=== PATIENT | female | born 1940 | race Caucasian/White ===

== ENCOUNTER 2018-07-15 20:32 | Inpatient (IN) | payer MEDICARE ==
[2018-07-15] MEDS ORDERED: SODIUM CHLORIDE 0.9% 1,000 ML IV STA (21:14)
--- NOTE | 2018-07-15 21:19 | ED ---
General Adult HPI - General Chief complaint: Dizziness Stated complaint: Fall Time Seen by Provider: 07/15/18 21:19 Source: patient Mode of arrival: EMS Limitations: physical limitation - Related Data Home Medications Medication Instructions Recorded Confirmed Acetaminophen with Codeine 0.5 - 1 tab PO BID PRN 07/15/18 07/15/18 [Tylenol w/codeine #3] Allergies Allergy/AdvReac Type Severity Reaction Status Date / Time No Known Allergies Allergy Verified 07/15/18 21:46 Review of Systems ROS Statement: Those systems with pertinent positive or pertinent negative responses have been documented in the HPI. ROS Other: All systems not noted in ROS Statement are negative. Past Medical History Past Medical History: No Reported History History of Any Multi-Drug Resistant Organisms: None Reported Past Surgical History: Orthopedic Surgery Past Alcohol Use History: None Reported Past Drug Use History: None Reported General Exam Limitations: physical limitation Course Vital Signs 07/15/18 20:42 Temperature 98.9 F Pulse Rate 88 Respiratory 18 Rate Blood Pressure 154/96 O2 Sat by Pulse 97 Oximetry Medical Decision Making - Medical Decision Making Dictation was produced using [employer] dictation software. please excuse any grammatical, word or spelling errors. Chief Complaint: 78-year-old female who reports no significant past medical history presents after fall. History of Present Illness: Patient reports that she has had multiple falls over the last several weeks. She states that today she was fixing food for her dog in a standing position at the counter. She did notice that she was falling backwards. She reports that she's been having episodes of dizziness. She fell backward and struck her head. Allegedly this event happened unwitnessed. Patient denies any loss of consciousness. Patient has any blood thinners. Patient states that she's been having intermittent episodes of dizziness. She states that she has pain all over her body. Patient did suffer a laceration to her head. She is brought in by EMS. Patient feels well at this time. Denies any chest pain or shortness of breath. Patient denies any prodromal symptoms prior to the fall. The ROS documented in this emergency department record has been reviewed and confirmed by me. Those systems with pertinent positive or negative responses have been documented in the HPI. All other systems are other negative and/or noncontributory. PHYSICAL EXAM: General Impression: Alert and oriented x3, not in acute distress HEENT: 1 cm laceration to the right occiput, no active hemorrhage extra-ocular movements intact, pupils equal and reactive to light bilaterally, mucous membranes moist. Cardiovascular: Heart regular rate and rhythm, S1&S2 audible, no murmurs, rubs or gallops Chest: Lungs clear to auscultation bilaterally, no rhonchi, no wheeze, no rales Abdomen: Mild tenderness to palpation to the right upper or right lower quadrant , mild tympany to percussion Musculoskeletal: Pulses present and equal in all extremities, no peripheral edema Motor: Power 5/5 bilaterally, no focal deficits noted Neurological: CN II-XII grossly intact, no focal motor or sensory deficits noted Skin: Intact with no visualized rashes Psych: Normal affect and mood ED course: 78-year-old female presents after fall. She does have a laceration to her head. Vital signs upon arrival are within acceptable limits.Physical examination shows laceration to the head. Patient also appears dehydrated. Laboratory evaluation obtained. Leukocytosis of 15.9, coag panel unremarkable. Metabolic panel shows dehydration. Sodium 134. Glucose 119. Cardiac enzymes negative. Urinalysis shows findings to suggest urinary tract infection. Abdominal x-ray shows findings to suggest a corneal calculi in the right renal draining system. There is also findings of colitis. Computed tomography scan of the head and C-spine unremarkable. Chest x-ray is negative. Given history of fall and staghorn calculi and dehydration and have patient admitted. She'll be admitted to Dr. Stover. Patient given antibiotics, tetanus was updated. Laceration of the scalp was repaired using glenn after irrigation. Patient started on intravenous fluids. Urology CONSULTATION. EKG interpretation: Ventricular rate 98, normal sinus rhythm, DC interval 142, QRS 92, QTc 454. No DC prolongation, no QTC prolongation, no ST or T-wave changes noted. Overall, this EKG is unremarkable - Lab Data Result diagrams: 07/15/18 21:34 07/15/18 21:34 Lab Results 07/15/18 07/15/18 07/15/18 Range/Units 21:34 21:34 21:34 WBC 15.9 H (3.8-10.6) k/uL RBC 5.31 (3.80-5.40) m/uL Hgb 14.7 (11.4-16.0) gm/dL Hct 44.5 (34.0-46.0) % MCV 83.9 (80.0-100.0) fL MCH 27.7 (25.0-35.0) pg MCHC 33.0 (31.0-37.0) g/dL RDW 14.1 (11.5-15.5) % Plt Count 400 (150-450) k/uL Neutrophils % 86 % Lymphocytes % 6 % Monocytes % 6 % Eosinophils % 0 % Basophils % 0 % Neutrophils # 13.8 H (1.3-7.7) k/uL Lymphocytes # 0.9 L (1.0-4.8) k/uL Monocytes # 1.0 (0-1.0) k/uL Eosinophils # 0.0 (0-0.7) k/uL Basophils # 0.0 (0-0.2) k/uL PT (9.0-12.0) sec INR (<1.2) Sodium 134 L (137-145) mmol/L Potassium 3.7 (3.5-5.1) mmol/L Chloride 98 (98-107) mmol/L Carbon Dioxide 24 (22-30) mmol/L Anion Gap 12 mmol/L BUN 28 H (7-17) mg/dL Creatinine 0.66 (0.52-1.04) mg/dL Est GFR (CKD-EPI)AfAm >90 (>60 ml/min/1.73 sqM) Est GFR (CKD-EPI)NonAf 84 (>60 ml/min/1.73 sqM) Glucose 119 H (74-99) mg/dL Plasma Lactic Acid Evangelist 1.7 (0.7-2.0) mmol/L Calcium 8.7 (8.4-10.2) mg/dL Magnesium 2.1 (1.6-2.3) mg/dL Total Bilirubin 0.9 (0.2-1.3) mg/dL AST 21 (14-36) U/L ALT 20 (9-52) U/L Alkaline Phosphatase 74 (38-126) U/L Creatine Kinase 37 (30-135) U/L Troponin I (0.000-0.034) ng/mL Total Protein 6.0 L (6.3-8.2) g/dL Albumin 3.2 L (3.5-5.0) g/dL Lipase 15 L (23-300) U/L Urine Color Urine Appearance (Clear) Urine pH (5.0-8.0) Ur Specific Deshler (1.001-1.035) Urine Protein (Negative) Urine Glucose (UA) (Negative) Urine Ketones (Negative) Urine Blood (Negative) Urine Nitrite (Negative) Urine Bilirubin (Negative) Urine Urobilinogen (<2.0) mg/dL Ur Leukocyte Esterase (Negative) Urine RBC (0-5) /hpf Urine WBC (0-5) /hpf Ur Squamous Epith Cells (0-4) /hpf Urine Bacteria (None) /hpf Hyaline Casts (0-2) /lpf Urine Mucus (None) /hpf 07/15/18 07/15/18 07/15/18 Range/Units 21:34 21:34 22:34 WBC (3.8-10.6) k/uL RBC (3.80-5.40) m/uL Hgb (11.4-16.0) gm/dL Hct (34.0-46.0) % MCV (80.0-100.0) fL MCH (25.0-35.0) pg MCHC (31.0-37.0) g/dL RDW (11.5-15.5) % Plt Count (150-450) k/uL Neutrophils % % Lymphocytes % % Monocytes % % Eosinophils % % Basophils % % Neutrophils # (1.3-7.7) k/uL Lymphocytes # (1.0-4.8) k/uL Monocytes # (0-1.0) k/uL Eosinophils # (0-0.7) k/uL Basophils # (0-0.2) k/uL PT 14.8 H (9.0-12.0) sec INR 1.5 H (<1.2) Sodium (137-145) mmol/L Potassium (3.5-5.1) mmol/L Chloride (98-107) mmol/L Carbon Dioxide (22-30) mmol/L Anion Gap mmol/L BUN (7-17) mg/dL Creatinine (0.52-1.04) mg/dL Est GFR (CKD-EPI)AfAm (>60 ml/min/1.73 sqM) Est GFR (CKD-EPI)NonAf (>60 ml/min/1.73 sqM) Glucose (74-99) mg/dL Plasma Lactic Acid Evangelist (0.7-2.0) mmol/L Calcium (8.4-10.2) mg/dL Magnesium (1.6-2.3) mg/dL Total Bilirubin (0.2-1.3) mg/dL AST (14-36) U/L ALT (9-52) U/L Alkaline Phosphatase (38-126) U/L Creatine Kinase (30-135) U/L Troponin I <0.012 (0.000-0.034) ng/mL Total Protein (6.3-8.2) g/dL Albumin (3.5-5.0) g/dL Lipase (23-300) U/L Urine Color Light Red Urine Appearance Cloudy H (Clear) Urine pH 6.0 (5.0-8.0) Ur Specific Deshler 1.020 (1.001-1.035) Urine Protein 1+ H (Negative) Urine Glucose (UA) Negative (Negative) Urine Ketones 2+ H (Negative) Urine Blood Moderate H (Negative) Urine Nitrite Negative (Negative) Urine Bilirubin 1+ H (Negative) Urine Urobilinogen 3.0 (<2.0) mg/dL Ur Leukocyte Esterase Large H (Negative) Urine RBC >182 H (0-5) /hpf Urine WBC 48 H (0-5) /hpf Ur Squamous Epith Cells 4 (0-4) /hpf Urine Bacteria Occasional H (None) /hpf Hyaline Casts 1 (0-2) /lpf Urine Mucus Rare H (None) /hpf Disposition Clinical Impression: Sepsis secondary to UTI, Fall Disposition: ADMITTED IP TO THIS HOSP Condition: Fair Referrals: Ford Stover MD [Primary Care Provider] - 1-2 days Decision Time: 23:34
[2018-07-15 21:50] LABS: Basophils % (A) 0 %; Eosinophils % (A) 0 %; HCT 44.5 % (34.0-46.0); HGB 14.7 gm/dL (11.4-16.0); Lymphocytes # (A) 0.9 k/uL (1.0-4.8); Lymphocytes % (A) 6 %; MCH 27.7 pg (25.0-35.0); MCV 83.9 fL (80.0-100.0); Mean Platelet Volume 7.2; Monocytes % (A) 6 %; Neutrophils # (A) 13.8 k/uL (1.3-7.7); Neutrophils % (A) 86 %; Platelet Count 400 k/uL (150-450); RBC 5.31 m/uL (3.80-5.40); RDW 14.1 % (11.5-15.5); WBC 15.9 k/uL (3.8-10.6)
[2018-07-15 21:55] LABS: INR 1.5 (<1.2); Prothrombin Time 14.8 sec (9.0-12.0)
[2018-07-15 21:59] LABS: ALT 20 U/L (9-52); AST 21 U/L (14-36); Albumin 3.2 g/dL (3.5-5.0); Alkaline Phosphatase 74 U/L (38-126); Anion Gap 12 mmol/L; Blood Urea Nitrogen 28 mg/dL (7-17); Calcium 8.7 mg/dL (8.4-10.2); Carbon Dioxide 24 mmol/L (22-30); Chloride 98 mmol/L (98-107); Creatine Kinase 37 U/L (30-135); Glucose 119 mg/dL (74-99); Lipase 15 U/L (23-300); Magnesium 2.1 mg/dL (1.6-2.3); Potassium 3.7 mmol/L (3.5-5.1); Sodium 134 mmol/L (137-145); Total Bilirubin 0.9 mg/dL (0.2-1.3)
--- NOTE | 2018-07-15 22:10 | XR ---
EXAMINATION TYPE: XR chest 2V DATE OF EXAM: 07/15/2018 COMPARISON: NONE HISTORY: Dizziness TECHNIQUE: Frontal and lateral views of the chest are obtained. FINDINGS: There is slight coarsening of interstitial markings at the lung bases. There is no heart f ailure. Heart size is normal. Thoracic aorta is atheromatous. Bony thorax is intact. IMPRESSION: Mild pulmonary fibrosis. No heart failure.
--- NOTE | 2018-07-15 22:15 | XR ---
EXAMINATION TYPE: XR abdomen 1V DATE OF EXAM: 07/15/2018 COMPARISON: None HISTORY: Constipation TECHNIQUE: Single view FINDINGS: There appears to be diffuse wall thickening of the large bowel especially the descending co satya. There is gas and fecal material down to the rectum. I do not see evidence for free air. There is some calcification over the right kidney. There is probably a large staghorn calculus. IMPRESSION: Colonic wall thickening suggestive of colitis. No free air. Staghorn right renal calculus . Multiple bilateral renal calculi.
--- NOTE | 2018-07-15 22:46 | CT ---
EXAMINATION TYPE: CT brain david etienne DATE OF EXAM: 07/15/2018 COMPARISON: None HISTORY: fall headache. Neck pain CT DLP: 1281.8 mGycm Automated exposure control for dose reduction was used. TECHNIQUE: CT scan of the head and cervical spine are performed without contrast. FINDINGS: There is cerebral cortical atrophy. There is no mass effect nor midline shift. There is n o sign of intracranial hemorrhage. The calvarium is intact. There is mild white matter small areas of hypodensity consistent with chronic small vessel ischemia. There is some straightening of the cervical spine and slight kyphotic curvature. There is degenerativ e disc space narrowing at C5-6 C6-7 with spurring. There is mild hypertrophic facet arthropathy. The skull base is intact. There is no evidence of a fracture. IMPRESSION: Cerebral atrophy. Minimal chronic small vessel ischemia. No acute intracranial abnormality. Spondylotic changes in the lower cervical spine. No fracture seen.
[2018-07-15 22:51] LABS: Appearance,Urine Cloudy (Clear); Bacteria,Urine Occasional /hpf; Bilirubin,Urine 1+ (Negative); Blood,Urine Moderate (Negative); Color,Urine Light Red; Glucose,Urine (UA) Negative (Negative); Hyaline Casts,Urine 1 /lpf (0-2); Ketones,Urine 2+ (Negative); Leukocyte Esterase,Urine Large (Negative); Mucus,Urine Rare /hpf; Nitrite,Urine Negative (Negative); Protein,Urine 1+ (Negative); RBC,Urine >182 /hpf (0-5); Squamous Epithelial Cell,Urine 4 /hpf (0-4); WBC,Urine 48 /hpf (0-5)
[2018-07-15] MEDS ORDERED: DIPH,PERTUS(ACELL)TETVAC-LF 0.5 ML VIAL IM ONE (23:27)
[2018-07-15] MEDS ORDERED: NALOXONE 0.4 MG/ML 1 ML VIAL IV PRN (23:34)
[2018-07-16] MEDS: SODIUM CHLORIDE 0.9% 1,000 ML IV SCH ×2 (02:20→11:18)
--- NOTE | 2018-07-16 08:48 | P.GSCN ---
History of Present Illness Consult date: 07/16/18 History of present illness: This is a pleasant 78-year-old female who came to the hospital apparently with dizziness and a fall. She was evaluated and was felt to have urinary tract infection with sepsis as well as a possible staghorn calculus in the right kidney. She is admitted for further evaluation and consultation by us. She is interviewed at the bedside. She states for the last couple months she has had right flank pain and abdominal discomfort a lot of gas and just hasn't felt well. She has slept a lot. She denies fever or chills. She states that she's had wine colored urine for the last couple months. She denies previous stones. She is not aware previous infections. Urinalysis appears to be infected. She had a KUB showing a large, greater than 2 cm right renal pelvic stone with some small satellites in the lower pole of the right kidney. Review of Systems - Constitutional Reports chronic pain, Reports fatigue, Reports lethargy - Gastrointestinal Reports abdominal pain, Reports bloating - Genitourinary Genitourinary: Reports as per HPI - Musculoskeletal Reports frequent falls, Reports gait dysfunction Past Medical History Past Medical History: No Reported History History of Any Multi-Drug Resistant Organisms: None Reported Past Surgical History: Orthopedic Surgery Past Anesthesia/Blood Transfusion Reactions: No Reported Reaction Past Psychological History: No Psychological Hx Reported Smoking Status: Former smoker Past Alcohol Use History: None Reported Past Drug Use History: None Reported - Past Family History Father Family Medical History: Chest Pain / Angina, Myocardial Infarction ([place]) Mother Family Medical History: Chest Pain / Angina Medications and Allergies Home Medications Medication Instructions Recorded Confirmed Type Acetaminophen with Codeine 0.5 - 1 tab PO BID PRN 07/15/18 07/15/18 History [Tylenol w/codeine #3] Allergies Allergy/AdvReac Type Severity Reaction Status Date / Time No Known Allergies Allergy Verified 07/15/18 21:46 Surgical - Exam Vital Signs Temp Pulse Resp BP Pulse Ox 98.9 F 88 18 154/96 97 07/15/18 20:42 07/15/18 20:42 07/15/18 20:42 07/15/18 20:42 07/15/18 20:42 - General moderate distress - Eyes PERRL - ENT no hearing loss - Neck no masses, trachea midline - Respiratory normal expansion, normal respiratory effort - Cardiovascular Rhythm: regular - Abdomen Abdomen: soft, tender - Integumentary no rash - Neurologic normal coordination, normal sensation - Musculoskeletal normal posture - Psychiatric oriented to time, oriented to person, oriented to place, speech is normal, memory intact Results - Labs 07/15/18 21:34 07/15/18 21:34 Abnormal Lab Results - Last 24 Hours (Table) 07/15/18 07/15/18 07/15/18 Range/Units 21:34 21:34 21:34 WBC 15.9 H (3.8-10.6) k/uL Neutrophils # 13.8 H (1.3-7.7) k/uL Lymphocytes # 0.9 L (1.0-4.8) k/uL PT 14.8 H (9.0-12.0) sec INR 1.5 H (<1.2) Sodium 134 L (137-145) mmol/L BUN 28 H (7-17) mg/dL Glucose 119 H (74-99) mg/dL Total Protein 6.0 L (6.3-8.2) g/dL Albumin 3.2 L (3.5-5.0) g/dL Lipase 15 L (23-300) U/L Urine Appearance (Clear) Urine Protein (Negative) Urine Ketones (Negative) Urine Blood (Negative) Urine Bilirubin (Negative) Ur Leukocyte Esterase (Negative) Urine RBC (0-5) /hpf Urine WBC (0-5) /hpf Urine Bacteria (None) /hpf Urine Mucus (None) /hpf 07/15/18 Range/Units 22:34 WBC (3.8-10.6) k/uL Neutrophils # (1.3-7.7) k/uL Lymphocytes # (1.0-4.8) k/uL PT (9.0-12.0) sec INR (<1.2) Sodium (137-145) mmol/L BUN (7-17) mg/dL Glucose (74-99) mg/dL Total Protein (6.3-8.2) g/dL Albumin (3.5-5.0) g/dL Lipase (23-300) U/L Urine Appearance Cloudy H (Clear) Urine Protein 1+ H (Negative) Urine Ketones 2+ H (Negative) Urine Blood Moderate H (Negative) Urine Bilirubin 1+ H (Negative) Ur Leukocyte Esterase Large H (Negative) Urine RBC >182 H (0-5) /hpf Urine WBC 48 H (0-5) /hpf Urine Bacteria Occasional H (None) /hpf Urine Mucus Rare H (None) /hpf Diabetes panel 07/15/18 Range/Units 21:34 Sodium 134 L (137-145) mmol/L Potassium 3.7 (3.5-5.1) mmol/L Chloride 98 (98-107) mmol/L Carbon Dioxide 24 (22-30) mmol/L BUN 28 H (7-17) mg/dL Creatinine 0.66 (0.52-1.04) mg/dL Glucose 119 H (74-99) mg/dL Calcium 8.7 (8.4-10.2) mg/dL AST 21 (14-36) U/L ALT 20 (9-52) U/L Alkaline Phosphatase 74 (38-126) U/L Total Protein 6.0 L (6.3-8.2) g/dL Albumin 3.2 L (3.5-5.0) g/dL Calcium panel 07/15/18 Range/Units 21:34 Calcium 8.7 (8.4-10.2) mg/dL Albumin 3.2 L (3.5-5.0) g/dL Pituitary panel 07/15/18 Range/Units 21:34 Sodium 134 L (137-145) mmol/L Potassium 3.7 (3.5-5.1) mmol/L Chloride 98 (98-107) mmol/L Carbon Dioxide 24 (22-30) mmol/L BUN 28 H (7-17) mg/dL Creatinine 0.66 (0.52-1.04) mg/dL Glucose 119 H (74-99) mg/dL Calcium 8.7 (8.4-10.2) mg/dL Adrenal panel 07/15/18 Range/Units 21:34 Sodium 134 L (137-145) mmol/L Potassium 3.7 (3.5-5.1) mmol/L Chloride 98 (98-107) mmol/L Carbon Dioxide 24 (22-30) mmol/L BUN 28 H (7-17) mg/dL Creatinine 0.66 (0.52-1.04) mg/dL Glucose 119 H (74-99) mg/dL Calcium 8.7 (8.4-10.2) mg/dL Total Bilirubin 0.9 (0.2-1.3) mg/dL AST 21 (14-36) U/L ALT 20 (9-52) U/L Alkaline Phosphatase 74 (38-126) U/L Total Protein 6.0 L (6.3-8.2) g/dL Albumin 3.2 L (3.5-5.0) g/dL - Imaging Abdominal x-ray: report reviewed, image reviewed Assessment and Plan Assessment: Impression: Probable urinary tract infection with sepsis., Probable infected large renal stone right. Recommendations: I will get a computed tomography scan, kidney stone protocol to further assess the stone in appearance of the kidney. She most likely need a right percutaneous nephrostolithotomy at a later date. She'll need her infection treated before this gets done. I will follow this patient with you.
[2018-07-16] MEDS ORDERED: PANTOPRAZOLE 40 MG/10 ML VIAL IV SCH (09:00)
--- NOTE | 2018-07-16 09:38 | CT ---
EXAMINATION TYPE: CT abdomen pelvis wo con DATE OF EXAM: 07/16/2018 COMPARISON: None HISTORY: Right kidney stone, abdominal pain CT DLP: 923 mGycm Automated exposure control for dose reduction was used. TECHNIQUE: Helical acquisition of images was performed from the lung bases through the pelvis. FINDINGS: LUNG BASES: Subsegmental changes at the lung bases to scar or atelectasis. Central basilar mild bronc hiectasis noted greater on the right. LIVER/GB: The gallbladder appears to be markedly distended measuring 11 cm in greatest dimension. No definite gallstone. PANCREAS: No significant abnormality is seen. SPLEEN: No significant abnormality is seen. ADRENALS: No significant abnormality is seen. KIDNEYS: There are at least 11 calcifications noted on the left measuring 5 mm or less. Greater than 10 calcifications on the right with a large right renal pelvic calcification measuring 1 .4 cm. Mild hydronephrosis noted. URINARY BLADDER: No significant abnormality is seen. ADENOPATHY: None visualized. OSSEOUS STRUCTURES: Hypertrophic and degenerative disc disease noted. Grade 1 spondylolisthesis L4 o n L5 with multilevel facet arthropathy. Arthropathy of the hips. BOWEL: There is marked distention of the colon to the level the rectosigmoid junction. No contrast w as administered exam is limited. There is bowel wall thickening of the left colon and transverse colo n. Portions of the right colon also demonstrated mildly thickened wall. Correlate for colitis. Recomm end direct visualization to assess the rectosigmoid junction to assess for mucosal lesion. Partial ob structive pattern in the differential diagnosis. Report called to the patient's nurse. 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 Within the spinal canal paracentrally to the right IMPRESSION: 1. There is marked colonic distention to level of the sigmoid colon. Lack of contrast limits assessme nt of the bowel wall although there does appear to be diffusely mildly thickened bowel wall. Could be en the basis of a colitis. Partial obstructive pattern not excluded correlate clinically. Mucosal les ion not excluded. Report called to patient's nurse. 2. Numerous bilateral renal calculi as discussed above with mild right-sided hydronephrosis. 3. Gallbladder hydrops measuring approximately 11 cm with no definite gallstone.
[2018-07-16] MEDS ORDERED: PEG 3350-NA SULF,BICARB,CL/KCL 4,000 ML BOTTLE PO ONE (12:31)
--- NOTE | 2018-07-16 13:25 | P.GSCN ---
History of Present Illness Consult date: 07/16/18 Reason for Consult: ab CT results Requesting physician: Ford Stover History of present illness: CHIEF COMPLAINT: Abnormal CT results HISTORY OF PRESENT ILLNESS: 78-year-old female who is admitted to the hospital for dehydration, UTI, sepsis. She was found to have a large right kidney stone. General surgery was consulted due to abnormal CT. Patient examined at the bedside. She reports generalized abdominal pain, worse on the right side. Reports abdominal pain has been present for the last 4 weeks. She denies nausea or vomiting. She is tolerating PO intake. She reports that she does not think she has had a bowel movement for the entire month of June, which is doubtful based upon clinical examination. Patient reports in the past she was scheduled to undergo colonoscopy but it was canceled due to inadequate bowel prep, and has not attempted to undergo another colonoscopy since that time. Patient does not recall how long ago this was. PAST MEDICAL HISTORY: See list. PAST SURGICAL HISTORY: See list. MEDICATIONS: See list. ALLERGIES: See list. SOCIAL HISTORY: No illicit drug use. REVIEW OF SYSTEMS: CONSTITUTIONAL: Denies fever or chills. HEENT: Denies blurred vision, vision changes, or eye pain. Denies hemoptysis ENDOCRINE: Denies heat or cold intolerance. CARDIOVASCULAR: Denies chest pain or pressure. RESPIRATORY: No shortness of breath. GASTROINTESTINAL: Reports generalized abdominal pain, worse on right side. Denies nausea or vomiting. NEURO: Denies history of seizures. PSYCH: No depression or suicidal ideation HEMATOLOGIC: Denies bleeding disorders. LYMPHATIC: The patient denies any lumps and bumps around the neck. GENITOURINARY: Denies any blood in urine or increased urinary frequency. MUSCULOSKELETAL: Denies myalgias. Denies joint swelling. Denies decreased range of motion beyond patients baseline. SKIN: Denies pruitis. Denies rash. PHYSICAL EXAM: VITAL SIGNS: Currently stable. GENERAL: Well-developed in no acute distress. HEENT: No sclera icterus. Extraocular movements grossly intact. Moist buccal mucosa. Head is atraumatic, normocephalic. Hears conversational speech. No nasal drainage. NECK: Supple without lymphadenopathy. CHEST: Non-labored respirations and equal bilateral excursions. CARDIOVASCULAR: Regular rate with regular rhythm. Palpable 2+ radial pulses. ABDOMEN: Soft. Nondistended. Mild tenderness upon palpation of all 4 quadrants , most severe in right upper and lower quadrant MUSCULOSKELETAL: No clubbing, cyanosis or edema. NEUROLOGIC: No focal or lateralizing signs. Cranial nerves II through XII grossly intact. PSYCH: Alert and oriented to person, place and time. SKIN: Well perfused. Good skin turgor. IMAGING: CT abdomen and pelvis: Marked colonic distention to the level of the sigmoid colon. Echo contrast limits assessment of the bowel wall or tenderness. DP diffusely mildly thickened bowel wall. Could be in the basis of colitis. Partial obstructive pattern not excluded. Numerous bilateral renal calculi with mild right sided hydronephrosis. Gallbladder hydrops measuring measuring 11 cm with no definite gallstone. ASSESSMENT: 1. Abdominal pain 2. Colonic distention with mildly thickened bowel wall, possible colitis 3. 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 Large right renal calculi with UTI 5. Leukocytosis 6. Elevated INR, not on anticoagulation PLAN: 1. Patient may have clear liquid diet today. NPO at midnight 2. Colonoscopy tomorrow with Dr. Baker. Golytely prep today. 3. HIDA scan to evaluate gallbladder 4. Repeat INR Nurse practitioner note has been reviewed by physician. Signing provider agrees with the documented findings, assessment, and plan of care. Past Medical History Past Medical History: No Reported History History of Any Multi-Drug Resistant Organisms: None Reported Past Surgical History: Orthopedic Surgery Past Anesthesia/Blood Transfusion Reactions: No Reported Reaction Past Psychological History: No Psychological Hx Reported Smoking Status: Former smoker Past Alcohol Use History: None Reported Past Drug Use History: None Reported - Past Family History Father Family Medical History: Chest Pain / Angina, Myocardial Infarction ([place]) Mother Family Medical History: Chest Pain / Angina Medications and Allergies Home Medications Medication Instructions Recorded Confirmed Type Acetaminophen with Codeine 0.5 - 1 tab PO BID PRN 07/15/18 07/15/18 History [Tylenol w/codeine #3] Allergies Allergy/AdvReac Type Severity Reaction Status Date / Time No Known Allergies Allergy Verified 07/15/18 21:46 Surgical - Exam Vital Signs Temp Pulse Resp BP Pulse Ox 98.9 F 88 18 154/96 97 07/15/18 20:42 07/15/18 20:42 07/15/18 20:42 07/15/18 20:42 07/15/18 20:42 Results - Labs 07/15/18 21:34 07/15/18 21:34 Abnormal Lab Results - Last 24 Hours (Table) 07/15/18 07/15/18 07/15/18 Range/Units 21:34 21:34 21:34 WBC 15.9 H (3.8-10.6) k/uL Neutrophils # 13.8 H (1.3-7.7) k/uL Lymphocytes # 0.9 L (1.0-4.8) k/uL PT 14.8 H (9.0-12.0) sec INR 1.5 H (<1.2) Sodium 134 L (137-145) mmol/L BUN 28 H (7-17) mg/dL Glucose 119 H (74-99) mg/dL Total Protein 6.0 L (6.3-8.2) g/dL Albumin 3.2 L (3.5-5.0) g/dL Lipase 15 L (23-300) U/L Urine Appearance (Clear) Urine Protein (Negative) Urine Ketones (Negative) Urine Blood (Negative) Urine Bilirubin (Negative) Ur Leukocyte Esterase (Negative) Urine RBC (0-5) /hpf Urine WBC (0-5) /hpf Urine Bacteria (None) /hpf Urine Mucus (None) /hpf 07/15/18 Range/Units 22:34 WBC (3.8-10.6) k/uL Neutrophils # (1.3-7.7) k/uL Lymphocytes # (1.0-4.8) k/uL PT (9.0-12.0) sec INR (<1.2) Sodium (137-145) mmol/L BUN (7-17) mg/dL Glucose (74-99) mg/dL Total Protein (6.3-8.2) g/dL Albumin (3.5-5.0) g/dL Lipase (23-300) U/L Urine Appearance Cloudy H (Clear) Urine Protein 1+ H (Negative) Urine Ketones 2+ H (Negative) Urine Blood Moderate H (Negative) Urine Bilirubin 1+ H (Negative) Ur Leukocyte Esterase Large H (Negative) Urine RBC >182 H (0-5) /hpf Urine WBC 48 H (0-5) /hpf Urine Bacteria Occasional H (None) /hpf Urine Mucus Rare H (None) /hpf Diabetes panel 07/15/18 Range/Units 21:34 Sodium 134 L (137-145) mmol/L Potassium 3.7 (3.5-5.1) mmol/L Chloride 98 (98-107) mmol/L Carbon Dioxide 24 (22-30) mmol/L BUN 28 H (7-17) mg/dL Creatinine 0.66 (0.52-1.04) mg/dL Glucose 119 H (74-99) mg/dL Calcium 8.7 (8.4-10.2) mg/dL AST 21 (14-36) U/L ALT 20 (9-52) U/L Alkaline Phosphatase 74 (38-126) U/L Total Protein 6.0 L (6.3-8.2) g/dL Albumin 3.2 L (3.5-5.0) g/dL Calcium panel 07/15/18 Range/Units 21:34 Calcium 8.7 (8.4-10.2) mg/dL Albumin 3.2 L (3.5-5.0) g/dL Pituitary panel 07/15/18 Range/Units 21:34 Sodium 134 L (137-145) mmol/L Potassium 3.7 (3.5-5.1) mmol/L Chloride 98 (98-107) mmol/L Carbon Dioxide 24 (22-30) mmol/L BUN 28 H (7-17) mg/dL Creatinine 0.66 (0.52-1.04) mg/dL Glucose 119 H (74-99) mg/dL Calcium 8.7 (8.4-10.2) mg/dL Adrenal panel 07/15/18 Range/Units 21:34 Sodium 134 L (137-145) mmol/L Potassium 3.7 (3.5-5.1) mmol/L Chloride 98 (98-107) mmol/L Carbon Dioxide 24 (22-30) mmol/L BUN 28 H (7-17) mg/dL Creatinine 0.66 (0.52-1.04) mg/dL Glucose 119 H (74-99) mg/dL Calcium 8.7 (8.4-10.2) mg/dL Total Bilirubin 0.9 (0.2-1.3) mg/dL AST 21 (14-36) U/L ALT 20 (9-52) U/L Alkaline Phosphatase 74 (38-126) U/L Total Protein 6.0 L (6.3-8.2) g/dL Albumin 3.2 L (3.5-5.0) g/dL
--- NOTE | 2018-07-16 14:18 | NM ---
EXAMINATION TYPE: NM hepatobiliary w EF DATE OF EXAM: 07/16/2018 COMPARISON: CT abdomen and pelvis earlier today. HISTORY: Hydropic gallbladder, abnormal CT. TECHNIQUE: After the intravenous administration of 4.72 mCi Tc 99m Mebrofenin hepatobiliary scintigra phy is performed. Immediate images post injection. FINDINGS: There is satisfactory initial accumulation of tracer by the liver. The gallbladder is visualized wit hin 30 minutes. The small bowel activity is noted within 45 minutes. At one hour 8 ounces of oral e nsure plus is given to mimic CCK and gallbladder ejection fraction is calculated at 23 %, diminished from the normal range. Patient also became symptomatic with increased abdominal pain. Therefore ther e is no scintigraphic evidence of cystic or common bile duct obstruction to suggest acute cholecystit is . IMPRESSION: Ejection fraction is 23% with increased symptoms of pain, scintigraphic findings are cons istent with underlying gallbladder dyskinesia. No scintigraphic evidence for acute cholecystitis lamb kyung.
[2018-07-16 14:19] LABS: Basophils % (A) 0 %; Eosinophils % (A) 0 %; HCT 42.1 % (34.0-46.0); HGB 13.5 gm/dL (11.4-16.0); Lymphocytes # (A) 1.1 k/uL (1.0-4.8); Lymphocytes % (A) 8 %; MCH 27.1 pg (25.0-35.0); MCHC 31.9 g/dL (31.0-37.0); MCV 84.7 fL (80.0-100.0); Mean Platelet Volume 7.1; Monocytes # (A) 1.1 k/uL (0-1.0); Monocytes % (A) 8 %; Neutrophils # (A) 11.4 k/uL (1.3-7.7); Neutrophils % (A) 82 %; Platelet Count 391 k/uL (150-450); RBC 4.97 m/uL (3.80-5.40); RDW 14.4 % (11.5-15.5); WBC 13.9 k/uL (3.8-10.6)
[2018-07-16 14:26] LABS: INR 1.5 (<1.2)
[2018-07-16 14:27] LABS: Prothrombin Time 14.9 sec (9.0-12.0)
[2018-07-16 14:37] LABS: ALT 16 U/L (9-52); AST 33 U/L (14-36); Albumin 2.9 g/dL (3.5-5.0); Alkaline Phosphatase 63 U/L (38-126); Anion Gap 11 mmol/L; Blood Urea Nitrogen 23 mg/dL (7-17); Calcium 8.1 mg/dL (8.4-10.2); Carbon Dioxide 18 mmol/L (22-30); Chloride 105 mmol/L (98-107); Glucose 158 mg/dL (74-99); Sodium 134 mmol/L (137-145); Total Protein 5.7 g/dL (6.3-8.2)
[2018-07-16 14:47] LABS: Potassium 3.9 mmol/L (3.5-5.1)
[2018-07-16] MEDS: ACETAMINOPHEN TAB 325 MG TAB PO PRN (15:07)
[2018-07-17] MEDS: SODIUM CHLORIDE 0.9% 1,000 ML IV SCH ×4 (02:18→18:03)
[2018-07-17] MEDS ORDERED: PANTOPRAZOLE 40 MG TABLET PO SCH (07:30)
[2018-07-17 09:06] LABS: HCT 41.7 % (34.0-46.0); HGB 13.7 gm/dL (11.4-16.0); MCH 27.3 pg (25.0-35.0); MCHC 32.9 g/dL (31.0-37.0); MCV 82.9 fL (80.0-100.0); Mean Platelet Volume 6.4; Platelet Count 439 k/uL (150-450); RBC 5.03 m/uL (3.80-5.40)
[2018-07-17 09:08] LABS: ALT 21 U/L (9-52); AST 21 U/L (14-36); Albumin 2.8 g/dL (3.5-5.0); Alkaline Phosphatase 79 U/L (38-126); Anion Gap 8 mmol/L; Blood Urea Nitrogen 19 mg/dL (7-17); Calcium 8.3 mg/dL (8.4-10.2); Carbon Dioxide 27 mmol/L (22-30); Chloride 104 mmol/L (98-107); Glucose 145 mg/dL (74-99); Potassium 3.4 mmol/L (3.5-5.1); Sodium 139 mmol/L (137-145); Total Bilirubin 0.6 mg/dL (0.2-1.3); Total Protein 5.3 g/dL (6.3-8.2)
--- NOTE | 2018-07-17 09:58 | XR ---
EXAMINATION TYPE: XR abdomen 2V DATE OF EXAM: 07/17/2018 HISTORY: Pain. Technique: 2 views of the abdomen are submitted. Comparison: 07/15/2018 Findings: There is no convincing evidence of pneumoperitoneum. There are multiple dilated loops of small bowel are noted with air-fluid levels seen measuring up to 4.1 cm. There is distention of the right hemicolon with intraluminal debris. No mass effects are noted. Staghorn right renal calculus redemonstrated. IMPRESSION: 1. Findings suggest a distal small bowel obstruction. Persistent distention right hemicolon with intr acolonic debris.
--- NOTE | 2018-07-17 10:43 | P.PN ---
Subjective Progress Note Date: 07/17/18 Objective - Vital Signs Vital signs: Vital Signs Temp 97.8 F 07/17/18 07:00 Pulse 116 H 07/17/18 08:39 Resp 18 07/17/18 07:00 BP 163/93 07/17/18 07:00 Pulse Ox 95 07/17/18 07:00 Intake & Output 07/16/18 07/17/18 07/17/18 18:59 06:59 18:59 Intake Total 320 Balance 320 Intake: Intake, IV Titration 320 Amount Sodium Chloride 0.9% 1, 320 000 ml @ 80 mls/hr IV . [id number] [facility] Rx#:[id number] Other: Voiding Method Bedside Commode Bedside Commode # Voids 2 4 # Bowel Movements 0 # Emeses 2 - Constitutional General appearance: Present: average body habitus - EENT Eyes: Absent: abnormal pupil - Neck Neck: Absent: lymphadenopathy - Respiratory Respiratory: bilateral: CTA - Cardiovascular Rhythm: regular Abnormal Heart Sounds: Absent: S3 Gallop - Gastrointestinal General gastrointestinal: Present: tenderness - Musculoskeletal Musculoskeletal: Present: gait normal - Labs CBC & Chem 7: 07/17/18 08:22 07/17/18 08:22 Labs: Abnormal Lab Results - Last 24 Hours (Table) 07/16/18 07/16/18 07/16/18 Range/Units 13:37 13:37 13:37 WBC 13.9 H (3.8-10.6) k/uL Neutrophils # 11.4 H (1.3-7.7) k/uL Monocytes # 1.1 H (0-1.0) k/uL PT 14.9 H (9.0-12.0) sec INR 1.5 H (<1.2) Sodium 134 L (137-145) mmol/L Potassium (3.5-5.1) mmol/L Carbon Dioxide 18 L (22-30) mmol/L BUN 23 H (7-17) mg/dL Glucose 158 H (74-99) mg/dL Calcium 8.1 L (8.4-10.2) mg/dL Total Protein 5.7 L (6.3-8.2) g/dL Albumin 2.9 L (3.5-5.0) g/dL 07/17/18 07/17/18 Range/Units 08:22 08:22 WBC 12.0 H (3.8-10.6) k/uL Neutrophils # (1.3-7.7) k/uL Monocytes # (0-1.0) k/uL PT (9.0-12.0) sec INR (<1.2) Sodium (137-145) mmol/L Potassium 3.4 L (3.5-5.1) mmol/L Carbon Dioxide (22-30) mmol/L BUN 19 H (7-17) mg/dL Glucose 145 H (74-99) mg/dL Calcium 8.3 L (8.4-10.2) mg/dL Total Protein 5.3 L (6.3-8.2) g/dL Albumin 2.8 L (3.5-5.0) g/dL Assessment and Plan (1) Colonic thickening Current Visit: Yes Status: Acute Code(s): K63.9 - DISEASE OF INTESTINE, UNSPECIFIED SNOMED Code(s): 663158271 (2) Dehydration Current Visit: Yes Status: Acute Code(s): E86.0 - DEHYDRATION SNOMED Code( s): 67921770 (3) Fall Current Visit: Yes Status: Acute Code(s): W19.XXXA - UNSPECIFIED FALL, INITIAL ENCOUNTER SNOMED Code(s): 3630900 (4) Sepsis secondary to UTI Current Visit: Yes Status: Acute Code(s): A41.9 - SEPSIS, UNSPECIFIED ORGANISM; N39.0 - URINARY TRACT INFECTION, SITE NOT SPECIFIED SNOMED Code(s): 404447619 Plan: Colonic thickening with possible colitis. Kidney stones are also noted. Check CBC and CMP in a.m. Appreciate general surgical input. Unfortunately, she was unable to do complete preparation for colonoscopy. We' ll continue to follow closely.
[2018-07-17] MEDS: FAMOTIDINE 20 MG/2 ML VIAL IV SCH ×2 (10:58→19:57)
--- NOTE | 2018-07-17 11:04 | P.PN ---
Subjective Progress Note Date: 07/17/18 CHIEF COMPLAINT: Abnormal CT results HISTORY OF PRESENT ILLNESS: Patient examined at the bedside. Patient reports generalized abdominal pain. She was unable to tolerate bowel prep. Colonoscopy has been cancelled. Patient has been vomiting overnight and this morning. Abdomen is distended today. Patient is tachycardic. WBC 12.0 PHYSICAL EXAM: VITAL SIGNS: Currently stable. GENERAL: Well-developed in no acute distress. HEENT: No sclera icterus. Extraocular movements grossly intact. Moist buccal mucosa. Head is atraumatic, normocephalic. Hears conversational speech. No nasal drainage. NECK: Supple without lymphadenopathy. CHEST: Non-labored respirations and equal bilateral excursions. CARDIOVASCULAR: Tachycardic. Regular rate with regular rhythm. Palpable 2+ radial pulses. ABDOMEN: Distended. Firm. Pain and tenderness noted upon palpation. MUSCULOSKELETAL: No clubbing, cyanosis or edema. NEUROLOGIC: No focal or lateralizing signs. Cranial nerves II through XII grossly intact. PSYCH: Alert and oriented to person, place and time. SKIN: Well perfused. Good skin turgor. IMAGING: Per radiology dictation: 1. CT abdomen and pelvis: Marked colonic distention to the level of the sigmoid colon. Lack of contrast limits assessment of the bowel wall or tenderness. DP diffusely mildly thickened bowel wall. Could be in the basis of colitis. Partial obstructive pattern not excluded. Numerous bilateral renal calculi with mild right sided hydronephrosis. Gallbladder hydrops measuring measuring 11 cm with no definite gallstone. 2. HIDA scan: Ejection fraction 23% with increased symptoms of pain. Findings consistent with underlying gallbladder dyskinesia. No evidence for acute cholecystitis. 3. Abdominal x-ray: Multiple dilated small bowel are noted with air fluid level seen measuring up to 4.1 cm. Distention of the right hemicolon with intraluminal debris. Findings suggest a distal small bowel obstruction. ASSESSMENT: 1. Abdominal pain, abdominal xray reveals distal small bowel obstruction 2. Colonic distention with mildly thickened bowel wall, possible colitis 3. Hydropic gallbladder, measuring 11cm, no definite gallstones, HIDA scan reveals gallbladder dyskinesia with EF 23% 4. Large right renal calculi with UTI 5. Leukocytosis 6. Elevated INR, not on anticoagulation PLAN: 1. Patient unable to tolerate bowel prep. Colonoscopy for today cancelled 2. Insert NG to LIS 3. NPO 4. Patient may require outpatient cholecystectomy Nurse practitioner note has been reviewed by physician. Signing provider agrees with the documented findings, assessment, and plan of care. Objective - Vital Signs Vital signs: Vital Signs Temp 97.8 F 07/17/18 07:00 Pulse 116 H 07/17/18 08:39 Resp 18 07/17/18 07:00 BP 163/93 07/17/18 07:00 Pulse Ox 95 07/17/18 07:00 Intake & Output 07/16/18 07/17/18 07/17/18 18:59 06:59 18:59 Intake Total 320 Balance 320 Intake: Intake, IV Titration 320 Amount Sodium Chloride 0.9% 1, 320 000 ml @ 80 mls/hr IV . [id number] [facility] Rx#:[id number] Other: Voiding Method Bedside Commode Bedside Commode # Voids 2 4 # Bowel Movements 0 # Emeses 2 - Labs CBC & Chem 7: 07/17/18 08:22 07/17/18 08:22 Labs: Abnormal Lab Results - Last 24 Hours (Table) 07/16/18 07/16/18 07/16/18 Range/Units 13:37 13:37 13:37 WBC 13.9 H (3.8-10.6) k/uL Neutrophils # 11.4 H (1.3-7.7) k/uL Monocytes # 1.1 H (0-1.0) k/uL PT 14.9 H (9.0-12.0) sec INR 1.5 H (<1.2) Sodium 134 L (137-145) mmol/L Potassium (3.5-5.1) mmol/L Carbon Dioxide 18 L (22-30) mmol/L BUN 23 H (7-17) mg/dL Glucose 158 H (74-99) mg/dL Calcium 8.1 L (8.4-10.2) mg/dL Total Protein 5.7 L (6.3-8.2) g/dL Albumin 2.9 L (3.5-5.0) g/dL 07/17/18 07/17/18 Range/Units 08:22 08:22 WBC 12.0 H (3.8-10.6) k/uL Neutrophils # (1.3-7.7) k/uL Monocytes # (0-1.0) k/uL PT (9.0-12.0) sec INR (<1.2) Sodium (137-145) mmol/L Potassium 3.4 L (3.5-5.1) mmol/L Carbon Dioxide (22-30) mmol/L BUN 19 H (7-17) mg/dL Glucose 145 H (74-99) mg/dL Calcium 8.3 L (8.4-10.2) mg/dL Total Protein 5.3 L (6.3-8.2) g/dL Albumin 2.8 L (3.5-5.0) g/dL
--- NOTE | 2018-07-17 11:22 | XR ---
EXAMINATION TYPE: XR abdomen 1V DATE OF EXAM: 07/17/2018 CLINICAL HISTORY: NG tube placement TECHNIQUE: Single upright view of the abdomen is submitted. COMPARISON: 07/17/2018 FINDINGS: NG tube is noted to reside within the stomach. Dilated small bowel persists. IMPRESSION: NG tube is appropriately placed.
[2018-07-17] MEDS ORDERED: Potassium Replacement Protocol 1 EACH MISC MISCELLANE PRN (12:33)
[2018-07-17] MEDS: POTASSIUM CHLORIDE 10 MEQ in WATER FOR INJECTION 1 100ML.BAG IVPB SCH ×4 (13:42→18:03)
--- NOTE | 2018-07-17 14:15 | P.CRDCN ---
History of Present Illness History of present illness: This is a pleasant 78-year-old female with no significant past medical history. Per the family and the patient does not follow with any primary care physicians. She presented to the hospital with abdominal pain and has been found to have a bowel obstruction. We have been asked to see her in consultation for high blood pressure and tachycardia. She is seen and examined laying flat resting comfortably in bed in no acute distress. NG tube is in place. She appears somewhat confused at baseline. She complains of significant discomfort in the abdomen with radiation up into the anterior chest wall. At the time of her exam she denies any nausea or vomiting however per nursing staff she was vomiting all morning. She denies dizziness or palpitations. Blood pressure 163/93 heart rate 115. Laboratory data reviewed, hemoglobin 13.7, platelets 439 WBC 12.0 down from 15.9 on admission, INR 1.5, sodium 139, potassium 3.4, creatinine 0.6, magnesium 2.1, cardiac enzymes negative 1. She also has been diagnosed with a urinary tract infection. EKG on admission reveals sinus mechanism with no acute ST or T wave abnormalities noted. Chest x-ray reveals mild pulmonary fibrosis. No overt heart failure or acute cardiopulmonary process. She takes no daily medications. She is also been seen in consultation by urology and surgical services. Urology suspects a large infected right renal stone. X-ray of the abdomen obtained reveals evidence of right renal calculus as well as colonic wall thickening suggestive of colitis. CT of the abdomen and pelvis with contrast reveals markedly colonic distention to the level of the sigmoid colon, numerous bilateral renal calculi and gallbladder markedly distended. HIDA scan reveals ejection fraction of about her 23% with increased symptoms of pain suggestive of underlying gallbladder dyskinesia with no evidence of acute cholecystitis. At the time of my exam: CONSTITUTIONAL: Denies fever. Denies chills. EYES: Denies blurred vision. Denies vision changes. Denies eye pain. EARS, NOSE, MOUTH & THROAT: Denies headache. Denies sore throat. Denies ear pain. CARDIOVASCULAR: Denies chest pain. Denies shortness of breath. Denies orthopnea. Denies PND. Denies palpitations. RESPIRATORY: Denies cough. GASTROINTESTINAL: Complains of abdominal pain. Denies diarrhea. Denies constipation. Denies nausea. Denies vomiting. MUSCULOSKELETAL: Denies myalgias. INTEGUMENTARY: Denies pruitis. Denies rash. NEUROLOGIC: Denies numbness. Denies tingling. Denies weakness. PSYCHIATRIC: Denies anxiety. Denies depression. ENDOCRINE: Denies fatigue. Denies weight change. Denies polydipsia. Denies polyurina. GENITOURINARY: Denies burning, hematuria or urgency with micturation. HEMATOLOGIC: Denies history of anemia. Denies bleeding. GENERAL: This is a 78-year-old female in no apparent distress at the time of my examination. HEENT: Head is atraumatic, normocephalic. Pupils are equal, round. Sclerae anicteric. Conjunctivae are clear. Mucous membranes of the mouth are moist. Neck is supple. There is no jugular venous distention. No carotid bruit is heard. LUNGS: Clear to auscultation no wheezes, rales or rhonchi. No chest wall tenderness is noted on palpation or with deep breathing. HEART: Regular rate and rhythm without murmurs, rubs or gallops. S1 and S2 heard. ABDOMEN: Soft, nontender. Hypoactive bowel sounds. No organomegaly noted. EXTREMITIES: No evidence of peripheral edema and no calf tenderness noted. VASCULAR: Radial and dorsalis pedis pulses palpated, no evidence of clubbing. NEUROLOGIC: Patient is awake, alert and oriented to self. ASSESSMENT Acute small bowel obstruction, NG tube in place Chest pain, atypical. Most likely related to radiation from abdominal pain and bowel obstruction. Sinus tachycardia and elevated blood pressure in the presence of a bowel obstruction, abdominal pain and vomiting Leukocytosis Urinary tract infection Hypokalemia, currently being replaced Right renal calculus PLAN Obtain baseline 2-D echocardiogram and Doppler study to assess cardiac structure and function. Due to her pain, bowel obstruction and probable sepsis we will not aggressively treat her blood pressure at this time. If her symptoms improve and her blood pressure remains elevated we will make further recommendations. Ongoing medical management of acute bowel obstruction and sepsis. Thank you kindly for this consultation. Nurse Practitioner note has been reviewed, I agree with a documented findings and plan of care. Patient was seen and examined. Past Medical History Past Medical History: No Reported History History of Any Multi-Drug Resistant Organisms: None Reported Past Surgical History: Orthopedic Surgery Past Anesthesia/Blood Transfusion Reactions: No Reported Reaction Past Psychological History: No Psychological Hx Reported Smoking Status: Former smoker Past Alcohol Use History: None Reported Past Drug Use History: None Reported - Past Family History Father Family Medical History: Chest Pain / Angina, Myocardial Infarction ([place]) Mother Family Medical History: Chest Pain / Angina Medications and Allergies Home Medications Medication Instructions Recorded Confirmed Type Acetaminophen with Codeine 0.5 - 1 tab PO BID PRN 07/15/18 07/15/18 History [Tylenol w/codeine #3] Allergies Allergy/AdvReac Type Severity Reaction Status Date / Time No Known Allergies Allergy Verified 07/15/18 21:46 Physical Exam Vitals: Vital Signs Temp Pulse Pulse Resp BP Pulse Ox 07/17/18 08:39 116 H 07/17/18 07:00 97.8 F 115 H 18 163/93 95 07/16/18 23:51 20 07/16/18 23:45 98 F 114 H 20 167/82 95 07/16/18 15:00 99.1 F 111 H 20 149/74 93 L Intake and Output 07/16/18 07/17/18 07/17/18 22:59 06:59 14:59 Intake Total 320 Balance 320 Intake: Intake, IV Titration 320 Amount Sodium Chloride 0.9% 1, 320 000 ml @ 80 mls/hr IV . [id number] [facility] Rx#:[id number] Other: Voiding Method Bedside Commode Bedside Commode # Voids 4 # Bowel Movements 0 # Emeses 2 Results 07/17/18 08:22 07/17/18 08:22 Cardiac Enzymes 07/16/18 07/17/18 Range/Units 13:37 08:22 AST 33 21 (14-36) U/L Coagulation 07/16/18 Range/Units 13:37 PT 14.9 H (9.0-12.0) sec CBC 07/16/18 07/17/18 Range/Units 13:37 08:22 WBC 13.9 H 12.0 H (3.8-10.6) k/uL RBC 4.97 5.03 (3.80-5.40) m/uL Hgb 13.5 13.7 (11.4-16.0) gm/dL Hct 42.1 41.7 (34.0-46.0) % Plt Count 391 439 (150-450) k/uL Comprehensive Metabolic Panel 07/16/18 07/17/18 Range/Units 13:37 08:22 Sodium 134 L 139 (137-145) mmol/L Potassium 3.9 3.4 L (3.5-5.1) mmol/L Chloride 105 104 (98-107) mmol/L Carbon Dioxide 18 L 27 (22-30) mmol/L BUN 23 H 19 H (7-17) mg/dL Creatinine 0.52 0.60 (0.52-1.04) mg/dL Glucose 158 H 145 H (74-99) mg/dL Calcium 8.1 L 8.3 L (8.4-10.2) mg/dL AST 33 21 (14-36) U/L ALT 16 21 (9-52) U/L Alkaline Phosphatase 63 79 (38-126) U/L Total Protein 5.7 L 5.3 L (6.3-8.2) g/dL Albumin 2.9 L 2.8 L (3.5-5.0) g/dL Current Medications Generic Name Dose Route Start Last Admin Trade Name Freq PRN Reason Stop Dose Admin Acetaminophen 650 mg 07/15/18 23:34 07/16/18 15:07 Tylenol Tab PO 650 mg Q6HR PRN Administration Mild Pain or Fever > 100.5 Famotidine 20 mg 07/17/18 10:00 07/17/18 10:58 Pepcid IV 20 mg Q12HR NOE Administration Sodium Chloride 1,000 mls @ 80 mls/hr 07/15/18 23:45 07/17/18 13:42 Saline 0.9% IV Not Given .[id number] NOE Sodium Chloride 1,000 mls @ 100 mls/hr 07/17/18 09:00 07/17/18 09:45 Saline 0.9% IV 100 mls/hr .Q10H NOE Administration Potassium Chloride 10 meq/ IV 100 mls @ 100 mls/hr 07/17/18 13:00 07/17/18 13 :42 Solution IVPB 07/17/18 16:59 100 mls/hr Q1HR NOE Administration Protocol Miscellaneous Information 1 each 07/17/18 12:33 Potassium Per Protocol MISCELLANE DAILY PRN Per Protocol Protocol Naloxone HCl 0.2 mg 07/15/18 23:34 Narcan IV Q2M PRN Opioid Reversal Intake and Output 07/16/18 07/17/1807/17/19 22:59 06:59 14:59 Intake Total 320 Balance 320 Intake: Intake, IV Titration 320 Amount Sodium Chloride 0.9% 1, 320 000 ml @ 80 mls/hr IV . [id number] [facility] Rx#:[id number] Other: Voiding Method Bedside Commode Bedside Commode # Voids 4 # Bowel Movements 0 # Emeses 2 07/17/18 08:22 07/17/18 08:22
[2018-07-18] MEDS: LORazepam 2 MG/ML INJ IV PRN ×3 (00:41→20:36)
[2018-07-18] MEDS: SODIUM CHLORIDE 0.9% 1,000 ML IV SCH ×4 (05:02→23:30)
--- NOTE | 2018-07-18 08:36 | P.PN ---
Subjective Progress Note Date: 07/18/18 Principal diagnosis: Bowel obstruction Pat[place] with altered mental status and sundowing symptomatology. Patient with bowel obstruction picture and NG tube was removed due to her mental status. She is now struggling with delirum picture. I appreciate surgical input and cardiology input Objective - Vital Signs Vital signs: Vital Signs Temp 98.6 F 07/18/18 07:12 Pulse 132 H 07/18/18 07:12 Resp 18 07/18/18 07:12 BP 175/90 07/18/18 07:12 Pulse Ox 91 L 07/18/18 07:12 Intake & Output 07/17/18 07/18/18 07/18/18 18:59 06:59 18:59 Output Total 600 200 Balance -600 -200 Output: Gastric Drainage 600 200 Other: Voiding Method Bedside Commode Bedside Commode # Voids 3 3 # Bowel Movements 0 # Emeses 2 - Constitutional General appearance: Present: average body habitus - EENT Eyes: Absent: abnormal pupil - Neck Neck: Absent: lymphadenopathy - Respiratory Respiratory: bilateral: CTA - Psychiatric Psychiatric Comment(s): Delirium Psychiatric: Absent: A&O x's 3 - Labs CBC & Chem 7: 07/17/18 08:22 07/17/18 08:22 Labs: Abnormal Lab Results - Last 24 Hours (Table) 07/17/18 07/17/18 Range/Units 08:22 08:22 WBC 12.0 H (3.8-10.6) k/uL Potassium 3.4 L (3.5-5.1) mmol/L BUN 19 H (7-17) mg/dL Glucose 145 H (74-99) mg/dL Calcium 8.3 L (8.4-10.2) mg/dL Total Protein 5.3 L (6.3-8.2) g/dL Albumin 2.8 L (3.5-5.0) g/dL Assessment and Plan (1) Colonic thickening Current Visit: Yes Status: Acute Code(s): K63.9 - DISEASE OF INTESTINE, UNSPECIFIED SNOMED Code(s): 865598910 (2) Dehydration Current Visit: Yes Status: Acute Code(s): E86.0 - DEHYDRATION SNOMED Code( s): 48693449 (3) Fall Current Visit: Yes Status: Acute Code(s): W19.XXXA - UNSPECIFIED FALL, INITIAL ENCOUNTER SNOMED Code(s): 3209680 (4) Sepsis secondary to UTI Current Visit: Yes Status: Acute Code(s): A41.9 - SEPSIS, UNSPECIFIED ORGANISM; N39.0 - URINARY TRACT INFECTION, SITE NOT SPECIFIED SNOMED Code(s): 079270196
[2018-07-18] MEDS: FAMOTIDINE 20 MG/2 ML VIAL IV SCH ×2 (08:39→20:54)
[2018-07-18 09:34] LABS: HCT 43.3 % (34.0-46.0); HGB 14.6 gm/dL (11.4-16.0); Hypochromasia Slight; MCHC 33.7 g/dL (31.0-37.0); MCV 86.2 fL (80.0-100.0); Mean Platelet Volume 7.2; Platelet Count 393 k/uL (150-450); RBC 5.02 m/uL (3.80-5.40); RDW 14.6 % (11.5-15.5); WBC 4.5 k/uL (3.8-10.6)
[2018-07-18] MEDS ORDERED: ACETAMINOPHEN IV (For NPO) 1,000 MG in EMPTY BAG 1 BAG IVPB PRN (09:37)
--- NOTE | 2018-07-18 09:42 | ECHOF ---
Referral Reason:htn, tachy MEASUREMENTS -------- HEIGHT: 157.5 cm WEIGHT: 68.0 kg BP: IVSd: 1.0 cm (0.6 - 1.1) LVIDd: 3.8 cm (3.9 - 5.3) LVPWd: 1.2 cm (0.6 - 1.1) IVSs: 1.4 cm LVIDs: 2.3 cm LVPWs: 1.8 cm LA Diam: 2.4 cm (2.7 - 3.8) Ao Diam: 3.4 cm (2.0 - 3.7) AV Cusp: 0.8 cm (1.5 - 2.6) LA Diam: 3.6 cm (2.7 - 3.8) MV EXCURSION: 13.883 mm (> 18.000) MV EF SLOPE: 123 mm/s (70 - 150) EPSS: 0.1 cm MV E Tomas: 0.38 m/s MV DecT: 239 ms MV A Tomas: 0.94 m/s MV E/A Ratio: 0.41 RAP: 5.00 mmHg RVSP: 17.98 mmHg FINDINGS -------- Resting tachycardia (HR>100bpm). This was a technically adequate study. LV size, wall thickness and systolic function are normal, with an EF greater than 55%. The left jacquie tricular size is normal. The right ventricle is normal in size. The left atrial size is normal. The right atrial size is normal. The aortic valve is trileaflet, and appears structurally normal. No aortic stenosis or regurgitation. Mild mitral annular calcification present. Mild mitral regurgitation is present. Mild tricuspid regurgitation present. There is no evidence of pulmonary hypertension. The right v entricular systolic pressure, as measured by Doppler, is 17.98mmHg. There is no pulmonic regurgitation present. The aortic root size is normal. Echo free space represents a pericardial fat pad. CONCLUSIONS -------- 1. Resting tachycardia (HR>100bpm). 2. LV size, wall thickness and systolic function are normal, with an EF greater than 55%. 3. The left ventricular size is normal. 4. The right ventricle is normal in size. 5. The left atrial size is normal. 6. The right atrial size is normal. 7. The aortic valve is trileaflet, and appears structurally normal. No aortic stenosis or regurgitati on. 8. Mild mitral annular calcification present. 9. Mild mitral regurgitation is present. 10. Mild tricuspid regurgitation present. 11. There is no evidence of pulmonary hypertension. 12. The right ventricular systolic pressure, as measured by Doppler, is 17.98mmHg. 13. There is no pulmonic regurgitation present. 14. The aortic root size is normal. 15. Echo free space represents a pericardial fat pad. DIELECTRIC TESTING MACHINE OPERATOR: Marie Villalobos RDCS
[2018-07-18 10:05] LABS: ALT 22 U/L (9-52); AST 32 U/L (14-36); Albumin 2.6 g/dL (3.5-5.0); Alkaline Phosphatase 64 U/L (38-126); Anion Gap 12 mmol/L; Blood Urea Nitrogen 25 mg/dL (7-17); Calcium 8.2 mg/dL (8.4-10.2); Carbon Dioxide 14 mmol/L (22-30); Chloride 114 mmol/L (98-107); Glucose 191 mg/dL (74-99); Sodium 140 mmol/L (137-145); Total Protein 5.2 g/dL (6.3-8.2)
[2018-07-18 10:07] LABS: Potassium 4.2 mmol/L (3.5-5.1)
[2018-07-18 10:15] LABS: ABG Base Excess -5.6 mmol/L; ABG HCO3 16 mmol/L (21-25); ABG Oxygen Saturation 89.4 % (94-97); ABG PCO2 23 mmHg (35-45); ABG PH 7.46 (7.35-7.45)
[2018-07-18 10:17] LABS: ABG PO2 51 mmHg (83-108)
[2018-07-18] MEDS ORDERED: HYDROmorphone 1 MG/ML 1 ML SYRINGE IVP STA (10:30)
--- NOTE | 2018-07-18 10:34 | XR ---
EXAMINATION TYPE: XR chest 1V portable DATE OF EXAM: 07/18/2018 COMPARISON: None INDICATION: Small bowel obstruction, pain TECHNIQUE: Frontal and lateral views of the chest are obtained. FINDINGS: The heart size is normal. The pulmonary vasculature is normal. There is a cyst 1.0 cm ill-defined density in the right upper lung field. Lung khan otherwise appea r clear.. There is a large pneumoperitoneum present. Nasogastric tube is been placed with tip in the left upper quadrant of the abdomen. A few small bowel loops are present with air. Report was called to Dr. Nathan by Dr. Gonzalez by telephone 1025 hours 07/18/2018 IMPRESSION: 1. Pneumoperitoneum. A Document Only message has been documented for Ford Stover MD in the [employer] system on 07/18/2018 10:32 AM, Message ID [id number].
--- NOTE | 2018-07-18 10:36 | XR ---
EXAMINATION TYPE: XR abdomen 1V DATE OF EXAM: 07/18/2018 COMPARISON: 07/17/2018 INDICATION: Small bowel obstruction TECHNIQUE: Single view abdomen supine view FINDINGS: Small bowel gas is present throughout the abdomen. Large fecal bolus at the level of the cecum. Fecal debris is also within the descending colon. Mass effect is not identified. The patient's pneumoperit oneum from chest x-ray is not identified supine position. Psoas margins are normal. No organomegaly is present. There may be a large calcification at the right renal pelvis. IMPRESSION: 1. Patient's pneumoperitoneum from chest x-ray is not evident on the abdomen study. Surgery was notif ied of the pneumoperitoneum. 2. Nonspecific bowel gas pattern with air-filled small bowel loops as well as fecal debris throughout the colon.
[2018-07-18] MEDS ORDERED: LACTATED RINGERS 1,000 ML IV ONE ×5 (10:45→14:52)
--- NOTE | 2018-07-18 10:59 | P.PN ---
Progress Note - Text Progress Note Date: 07/18/18 The patient's condition is acutely changes morning. She was short of breath and appeared to be disorientated. She had a chest x-ray performed which showed a large amount of free air. On exam her abdomen is soft distended in tender throughout. I discussed the family that she will need emergent exploratory laparotomy for perforated viscus. I discussed possible risk of possible colostomy and bowel resection. Patient is scheduled for exploratory laparotomy this a.m.
--- NOTE | 2018-07-18 11:36 | P.PN ---
Subjective Progress Note Date: 07/18/18 CHIEF COMPLAINT: Abnormal CT results HISTORY OF PRESENT ILLNESS: Patient examined at the bedside. Patient disoriented this morning. Nursing reports she was confused overnight and pulled out her NG tube. She did receive a dose of ativan. New NG was inserted. She appears short of breath this morning. She is tachycardic and tachypneic. Clinically, patients condition appears to have deteriorated overnight. Chest xray and abdominal xray were ordered. CXR revealing large pneumoperitoneum. PHYSICAL EXAM: VITAL SIGNS: Currently stable. GENERAL: Appears short of breath and uncomfortable at time of examination. HEENT: NG tube present. No sclera icterus. Extraocular movements grossly intact. Moist buccal mucosa. Head is atraumatic, normocephalic. Hears conversational speech. No nasal drainage. NECK: Supple without lymphadenopathy. CHEST: Non-labored respirations and equal bilateral excursions. CARDIOVASCULAR: Tachycardic. Regular rate with regular rhythm. Palpable 2+ radial pulses. ABDOMEN: Distended. Pain and tenderness noted upon palpation. MUSCULOSKELETAL: No clubbing, cyanosis or edema. NEUROLOGIC: No focal or lateralizing signs. Cranial nerves II through XII grossly intact. PSYCH: Lethargic. Confused. SKIN: Well perfused. Good skin turgor. ASSESSMENT: 1. Abdominal pain, abdominal xray reveals distal small bowel obstruction 2. Colonic distention with mildly thickened bowel wall, possible colitis 3. Hydropic gallbladder, measuring 11cm, no definite gallstones, HIDA scan reveals gallbladder dyskinesia with EF 23% 4. Large right renal calculi with UTI 5. Leukocytosis 6. Elevated INR, not on anticoagulation 7. Large pneumoperitoneum secondary to perforated viscus PLAN: Dr. Baker discussed xray findings with family. Patient to undergo emergent exploratory laparotomy for perforated viscus today. Nurse practitioner note has been reviewed by physician. Signing provider agrees with the documented findings, assessment, and plan of care. Objective - Vital Signs Vital signs: Vital Signs Temp 98.6 F 07/18/18 10:51 Pulse 110 H 07/18/18 10:51 Resp 28 H 07/18/18 10:51 BP 170/90 07/18/18 10:51 Pulse Ox 91 L 07/18/18 07:12 Intake & Output 07/17/18 07/18/18 07/18/18 18:59 06:59 18:59 Output Total 600 200 Balance -600 -200 Output: Gastric Drainage 600 200 Other: Voiding Method Bedside Commode Bedside Commode Diaper # Voids 3 3 # Bowel Movements 0 # Emeses 2 - Labs CBC & Chem 7: 07/18/18 09:11 07/18/18 09:11 Labs: Abnormal Lab Results - Last 24 Hours (Table) 07/18/18 07/18/18 Range/Units 09:11 09:57 ABG pH 7.46 H (7.35-7.45) ABG pCO2 23 L (35-45) mmHg ABG pO2 51 L* (83-108) mmHg ABG HCO3 16 L (21-25) mmol/L ABG O2 Saturation 89.4 L (94-97) % Chloride 114 H (98-107) mmol/L Carbon Dioxide 14 L (22-30) mmol/L BUN 25 H (7-17) mg/dL Glucose 191 H (74-99) mg/dL Calcium 8.2 L (8.4-10.2) mg/dL Total Protein 5.2 L (6.3-8.2) g/dL Albumin 2.6 L (3.5-5.0) g/dL
[2018-07-18] MEDS ORDERED: IV FLUID CONTINUATION 200 ML IV ONE (12:59)
[2018-07-18] MEDS ORDERED: fentaNYL (PF) 50 MCG/ML 2 ML AMP ONE (13:30)
[2018-07-18] MEDS ORDERED: SUCCINYLCHOLINE CHLORIDE 100 MG/5 ML SYR IV ONE (13:30)
[2018-07-18] MEDS ORDERED: VECURONIUM 10 MG VIAL IV ONE (13:30)
[2018-07-18] MEDS ORDERED: ETOMIDATE 2 MG/ML 10 ML VIAL ONE (13:30)
[2018-07-18] MEDS ORDERED: SODIUM CHLORIDE 0.9% 50 ML with ceFAZolin 2,000 MG IV ONE ×2 (13:37)
[2018-07-18] MEDS ORDERED: ONDANSETRON 4 MG/2 ML VIAL IVP PRN (14:52)
[2018-07-18] MEDS ORDERED: NALOXONE 0.4 MG/ML 1 ML VIAL IV PRN (14:52)
[2018-07-18 15:39] LABS: Glucose,Whole Blood 109 mg/dL (75-99)
[2018-07-18] MEDS: LACTATED RINGERS 1,000 ML IV SCH ×4 (16:15→18:35)
--- NOTE | 2018-07-18 16:18 | XR ---
EXAMINATION TYPE: XR chest 1V confirm line [facility] DATE OF EXAM: 07/18/2018 COMPARISON: 07/18/2018 HISTORY: Endotracheal tube placement, nasogastric tube placement, and Central line placement TECHNIQUE: Single frontal view of the chest is obtained. FINDINGS: The previously seen 1 cm right upper lung pulmonary nodules not well visualized on today's examination. There is a new trace right pleural effusion. Cardiomediastinal silhouette appears again upper limits of normal. Pulmonary hyperinflation suggests underlying COPD. There is a newly placed endotracheal tube terminating at the aortic arch, appropriately placed. Enter ic tube courses beyond the distal [id number] with its distal tip oriented laterally within the reg ion of the gastric fundus, also appearing appropriately placed. Left-sided internal jugular central v enous catheter terminates in the distal superior vena cava. There is generalized osseous demineraliza tion. No pneumothorax is seen. IMPRESSION: Appropriately placed lines and tubes as described above. New right pleural effusion
[2018-07-18 16:38] LABS: ABG Base Excess -5.6 mmol/L; ABG HCO3 21 mmol/L (21-25); ABG PCO2 42 mmHg (35-45); ABG PO2 205 mmHg (83-108); ABG TCO2 22 mmol/L (19-24)
[2018-07-18 16:53] LABS: ALT 20 U/L (9-52); AST 32 U/L (14-36); Albumin 1.4 g/dL (3.5-5.0); Alkaline Phosphatase <20 U/L (38-126); Anion Gap 5 mmol/L; Blood Urea Nitrogen 26 mg/dL (7-17); Calcium 6.5 mg/dL (8.4-10.2); Carbon Dioxide 18 mmol/L (22-30); Chloride 116 mmol/L (98-107); Glucose 130 mg/dL (74-99); Magnesium 1.6 mg/dL (1.6-2.3); Phosphorus 2.9 mg/dL (2.5-4.5); Potassium 3.6 mmol/L (3.5-5.1); Sodium 139 mmol/L (137-145); Total Bilirubin 0.8 mg/dL (0.2-1.3); Total Protein 3.2 g/dL (6.3-8.2)
--- NOTE | 2018-07-18 17:43 | P.CNPUL ---
History of Present Illness Consult date: 07/18/18 (Critical care time spent 45 minutes) Reason for consult: dyspnea Chief complaint: Critical care consult postop for ventilator management and general ICU care History of present illness: This is a pleasant 78-year-old female with no significant past medical history. She presented to the hospital with abdominal pain and has been found to have a bowel obstruction. We have been asked to see her in consultation for shortness of breath and hypoxia related to abdominal process. She has been evaluated by surgical services and per nursing staff she was vomiting all morning. Laboratory data reviewed, hemoglobin 13.7, platelets 439 WBC 12.0 down from 15.9 on admission, INR 1.5, sodium 139, potassium 3.4, creatinine 0.6, magnesium 2.1, cardiac enzymes negative 1. She also has been diagnosed with a urinary tract infection. EKG on admission reveals sinus mechanism with no acute ST or T wave abnormalities noted. Chest x-ray reveals mild pulmonary fibrosis. No overt heart failure or acute cardiopulmonary process. She takes no daily medications. She is also been seen in consultation by urology and surgical services. Urology suspects a large infected right renal stone. X-ray of the abdomen obtained reveals evidence of right renal calculus as well as colonic wall thickening suggestive of colitis. CT of the abdomen and pelvis with contrast reveals markedly colonic distention to the level of the sigmoid colon, numerous bilateral renal calculi and gallbladder markedly distended. HIDA scan reveals ejection fraction of about her 23% with increased symptoms of pain suggestive of underlying gallbladder dyskinesia with no evidence of acute cholecystitis. Patient decompensated earlier this morning with x-ray shows free air abdomen was diffusely tender patient was eventually taken by surgical services to OR for exploratory laparotomy of perforated viscus and for detail of surgical intervention please effort to surgical notes, patient was brought back into the ICU on full ventilator support hypotensive does have a central line and A-line intubated with assist control rate of 12 patient appears to be volume depleted her liter of the LR has been given with that systolic blood pressure improved into 90s arterial blood gas drawn labs are sent ventilator adjustment has been done Review of Systems ROS unobtainable: due to endotracheal tube Past Medical History Past Medical History: No Reported History History of Any Multi-Drug Resistant Organisms: None Reported Past Surgical History: Orthopedic Surgery Past Anesthesia/Blood Transfusion Reactions: No Reported Reaction Past Psychological History: No Psychological Hx Reported Smoking Status: Former smoker Past Alcohol Use History: None Reported Past Drug Use History: None Reported - Past Family History Father Family Medical History: Chest Pain / Angina, Myocardial Infarction ([place]) Mother Family Medical History: Chest Pain / Angina Medications and Allergies Home Medications Medication Instructions Recorded Confirmed Type Acetaminophen with Codeine 0.5 - 1 tab PO BID PRN 07/15/18 07/15/18 History [Tylenol w/codeine #3] Allergies Allergy/AdvReac Type Severity Reaction Status Date / Time No Known Allergies Allergy Verified 07/15/18 21:46 Physical Exam Vitals: Vital Signs Temp Pulse Pulse Pulse Pulse Resp BP 07/18/18 17:00 105 H 14 07/18/18 16:45 105 H 12 07/18/18 16:30 109 H 17 07/18/18 16:15 109 H 13 84/70 07/18/18 16:00 112 H 12 07/18/18 15:50 107 H 20 07/18/18 15:45 106 H 20 07/18/18 15:40 97.5 F L 106 H 20 07/18/18 13:12 97.2 F L 125 H 20 07/18/18 10:51 98.6 F 110 H 28 H 07/18/18 08:00 110 H 07/18/18 07:12 98.6 F 132 H 18 07/17/18 23:36 97.9 F 117 H 20 BP BP Pulse Ox 07/18/18 17:00 100 07/18/18 16:45 99 07/18/18 16:30 99 07/18/18 16:15 98 07/18/18 16:00 97 07/18/18 15:50 98 07/18/18 15:45 98 07/18/18 15:40 98 07/18/18 13:12 105/72 91 L 07/18/18 10:51 170/90 07/18/18 08:00 07/18/18 07:12 175/90 91 L 07/17/18 23:36 157/83 95 Intake and Output 07/18/18 07/18/18 07/18/18 06:59 14:59 22:59 Intake Total 3200 1150 Output Total 200 300 40 Balance -200 2900 1110 Intake: IV 1700 1150 Lactated Ringers 1,000 ml 150 @ 150 mls/hr IV .Q6H40M ONE Rx#:[id number] Lactated Ringers 1,000 ml 1000 @ 999 mls/hr IV .Q1H1M ONE Rx#:[id number] Intake, IV Titration 1500 Amount ACETAMINOPHEN IV (For NPO 100 ) 1,000 mg In Empty Bag 1 bag @ 400 mls/hr IVPB Q6HR PRN Rx#:[id number] Lactated Ringers 1,000 ml 1000 @ 999 mls/hr IV .Q1H1M ONE Rx#:[id number] Sodium Chloride 0.9% 1, 400 000 ml @ 100 mls/hr IV . Q10H NOE Rx#:[id number] Output: Gastric Drainage 200 Urine 150 40 Estimated Blood Loss 150 Other: Voiding Method Diaper # Voids 3 ABP, PAP, CO, CI - Last 8 Hours Arterial Blood Pressure 107/70 Arterial Blood Pressure 101/73 Arterial Blood Pressure 35/30 Arterial Blood Pressure 89/56 Arterial Blood Pressure 93/55 Arterial Blood Pressure 103/60 Arterial Blood Pressure 102/58 Arterial Blood Pressure 105/60 Intubated on full ventilator support - Constitutional General appearance: average body habitus - EENT Eyes: normal appearance Ears: bilateral: normal - Neck Neck: normal ROM Carotids: bilateral: upstroke normal, bruit absent - Respiratory Respiratory: bilateral: CTA - Cardiovascular Rhythm: regular Heart sounds: normal: S1, S2 - Gastrointestinal Colostomy has a bag dry dressing has been present extensive amount of fecal material present in the bag which is being cleaned and changed General gastrointestinal: absent bowel sounds, decreased bowel sounds, distended , soft Sedated and is still under affect of anesthetic medications Results - Laboratory Findings CBC and BMP: 07/18/18 09:11 07/18/18 Unknown ABG ABG pH 7.46 (7.35-7.45) H 07/18/18 09:57 ABG pCO2 23 mmHg (35-45) L 07/18/18 09:57 ABG pO2 51 mmHg (83-108) L* 07/18/18 09:57 ABG O2 Saturation 89.4 % (94-97) L 07/18/18 09:57 PT/INR, D-dimer PT 14.9 sec (9.0-12.0) H 07/16/18 13:37 INR 1.5 (<1.2) H 07/16/18 13:37 Abnormal lab findings: Abnormal Labs 07/15/18 07/15/18 07/15/18 21:34 21:34 21:34 WBC 15.9 H Neutrophils # 13.8 H Lymphocytes # 0.9 L Monocytes # PT 14.8 H INR 1.5 H ABG pH ABG pCO2 ABG pO2 ABG HCO3 ABG O2 Saturation Sodium 134 L Potassium Chloride Carbon Dioxide BUN 28 H Glucose 119 H POC Glucose (mg/dL) Calcium Alkaline Phosphatase Total Protein 6.0 L Albumin 3.2 L Lipase 15 L Urine Appearance Urine Protein Urine Ketones Urine Blood Urine Bilirubin Ur Leukocyte Esterase Urine RBC Urine WBC Urine Bacteria Urine Mucus 07/15/18 07/16/18 07/16/18 22:34 13:37 13:37 WBC 13.9 H Neutrophils # 11.4 H Lymphocytes # Monocytes # 1.1 H PT 14.9 H INR 1.5 H ABG pH ABG pCO2 ABG pO2 ABG HCO3 ABG O2 Saturation Sodium Potassium Chloride Carbon Dioxide BUN Glucose POC Glucose (mg/dL) Calcium Alkaline Phosphatase Total Protein Albumin Lipase Urine Appearance Cloudy H Urine Protein 1+ H Urine Ketones 2+ H Urine Blood Moderate H Urine Bilirubin 1+ H Ur Leukocyte Esterase Large H Urine RBC >182 H Urine WBC 48 H Urine Bacteria Occasional H Urine Mucus Rare H 07/16/18 07/17/18 07/17/18 13:37 08:22 08:22 WBC 12.0 H Neutrophils # Lymphocytes # Monocytes # PT INR ABG pH ABG pCO2 ABG pO2 ABG HCO3 ABG O2 Saturation Sodium 134 L Potassium 3.4 L Chloride Carbon Dioxide 18 L BUN 23 H 19 H Glucose 158 H 145 H POC Glucose (mg/dL) Calcium 8.1 L 8.3 L Alkaline Phosphatase Total Protein 5.7 L 5.3 L Albumin 2.9 L 2.8 L Lipase Urine Appearance Urine Protein Urine Ketones Urine Blood Urine Bilirubin Ur Leukocyte Esterase Urine RBC Urine WBC Urine Bacteria Urine Mucus 07/18/18 07/18/18 07/18/18 09:11 09:57 15:28 WBC Neutrophils # Lymphocytes # Monocytes # PT INR ABG pH 7.46 H ABG pCO2 23 L ABG pO2 51 L* ABG HCO3 16 L ABG O2 Saturation 89.4 L Sodium Potassium Chloride 114 H Carbon Dioxide 14 L BUN 25 H Glucose 191 H POC Glucose (mg/dL) 109 H Calcium 8.2 L Alkaline Phosphatase Total Protein 5.2 L Albumin 2.6 L Lipase Urine Appearance Urine Protein Urine Ketones Urine Blood Urine Bilirubin Ur Leukocyte Esterase Urine RBC Urine WBC Urine Bacteria Urine Mucus 07/18/18 Unknown WBC Neutrophils # Lymphocytes # Monocytes # PT INR ABG pH ABG pCO2 ABG pO2 ABG HCO3 ABG O2 Saturation Sodium Potassium Chloride 116 H Carbon Dioxide 18 L BUN 26 H Glucose 130 H POC Glucose (mg/dL) Calcium 6.5 L Alkaline Phosphatase <20 L Total Protein 3.2 L Albumin 1.4 L Lipase Urine Appearance Urine Protein Urine Ketones Urine Blood Urine Bilirubin Ur Leukocyte Esterase Urine RBC Urine WBC Urine Bacteria Urine Mucus - Diagnostic Findings Chest x-ray: report reviewed, image reviewed (Postoperative chest x-ray reviewed ET tube in a stable condition small right-sided pleural effusion noted) Assessment and Plan Assessment: Severe sepsis and septic shock Postoperative respiratory failure Bowel perforation Intra-abdominal secondary peritonitis Right pleural effusion Dr. Uribe volume depletion and dehydration Plan: Vasopressors as needed keep map over 65 Aggressive fluid resuscitation will give LR Broad-spectrum antibiotics Ventilator adjustment Labs reviewed medications reviewed Critical care time spent 75 minutes Time with Patient: Greater than 30
[2018-07-18] MEDS: NOREPINEPHRINE 16 MG in SODIUM CHLORIDE 0.9% 250 ML IV SCH (17:54)
[2018-07-18] MEDS ORDERED: LACTATED RINGERS 1,000 ML IV SCH (18:00)
[2018-07-18] MEDS: PIPERACILLIN-TAZOBACTAM 3.375 GM in SODIUM CHLORIDE 0.9% 100 ML IVPB SCH (18:05)
[2018-07-18] MEDS: LACTATED RINGERS 2,000 ML IV SCH (18:07)
[2018-07-18 18:12] LABS: HCT 37.5 % (34.0-46.0); HGB 11.9 gm/dL (11.4-16.0); Hypochromasia Slight; MCHC 31.7 g/dL (31.0-37.0); MCV 85.3 fL (80.0-100.0); Mean Platelet Volume 7.5; Platelet Count 400 k/uL (150-450); RDW 14.4 % (11.5-15.5); WBC 10.4 k/uL (3.8-10.6)
[2018-07-18] MEDS ORDERED: Magnesium Replacement Protocol 1 EACH MISC MISCELLANE PRN (19:11)
[2018-07-18 19:12] LABS: Band Neutrophils % 25 %; Lymphocytes # (M) 1.35 k/uL (1.0-4.8); Metamyelocytes # (M) 1.35 k/uL (0); Metamyelocytes % 13 %; Monocytes # (M) 0.62 k/uL (0-1.0); Myelocytes # (M) 3.33 k/uL (0); Myelocytes % 32 %; Neutrophils % (M) 12 %; Nucleated Red Blood Cells 0 /100 WBC (0-0); Total Cells Counted 200
[2018-07-18 19:24] LABS: Glucose,Whole Blood 107 mg/dL (75-99)
[2018-07-18 19:31] LABS: Large Platelets Present
[2018-07-18 19:32] LABS: Polychromasia Present; Toxic Granulation Present; Toxic Vacuolation Present
[2018-07-18] MEDS: MAGNESIUM SULFATE-D5W PMX 1 GM in DEXTROSE/WATER 1 100ML.BAG IVPB SCH ×2 (19:44→20:47)
[2018-07-18] MEDS: POTASSIUM CHLORIDE 10 MEQ in WATER FOR INJECTION 1 100ML.BAG IVPB SCH ×2 (19:44→20:48)
[2018-07-18] MEDS: CHLORHEXIDINE GLUCONATE 15 ML CUP MUCOUS MEM SCH (20:54)
[2018-07-18] MEDS: PROPOFOL 1,000 MG in EMPTY BAG 1 BAG IV SCH (21:26)
[2018-07-18 21:34] LABS: Amorphous Sediment,Urine Occasional /hpf; Appearance,Urine Cloudy (Clear); Bacteria,Urine Occasional /hpf; Bilirubin,Urine 1+ (Negative); Blood,Urine Moderate (Negative); Color,Urine Dark Brown; Glucose,Urine (UA) Negative (Negative); Hyaline Casts,Urine 180 /lpf (0-2); Ketones,Urine Negative (Negative); Leukocyte Esterase,Urine Negative (Negative); Mucus,Urine Few /hpf; Nitrite,Urine Negative (Negative); Protein,Urine 1+ (Negative); RBC,Urine >182 /hpf (0-5); Specific Gravity,Urine 1.025 (1.001-1.035); Squamous Epithelial Cell,Urine <1 /hpf (0-4)
--- NOTE | 2018-07-18 23:48 | CONS ---
CONSULTATION DATE OF SERVICE: 07/18/2018 REASON FOR CONSULTATION: Sepsis, abdominal source. HISTORY OF PRESENT ILLNESS: The patient is an 78-year-old female who was brought into the ER at [facility] on 07/15/2018 for evaluation of multiple falls for the last several weeks. The patient has been feeling very weak. No energy. Has been feeling dizzy. Patient has been complaining of pain all over her body. EMS was called, who brought the patient to the ER for further evaluation of her symptoms. Patient did have a chest x- ray that showed mild pulmonary fibrosis and/or heart failure. She also had an CT of the abdomen and pelvis that shows some marked colon distention to the level of the sigmoid colon, numerous bilateral renal calculi with mild left-sided hydronephrosis and hydrops gallbladder. The patient subsequently was evaluated by the medical team in addition to Urology and General Surgery. This morning the patient did have a significant clinical condition the patient apparently has abdominal distention and more pain and tenderness. The patient did have an abdominal x-ray that was suggestive of free air under the diaphragm. The patient was taken to the OR for emergent surgery. 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 Subsequently the patient was admitted to the ICU. She was started on Zosyn. Infectious Disease was consulted for further recommendations regarding antibiotic therapy. Most of the information has been obtained from review of the chart and talking to the nursing staff. The patient is currently intubated on the vent and is unable to provide any history. Patient during this hospital stay did not have any high-grade fever, though her white count was elevated to 15,000 on admission and UA has been positive. Unfortunately no urine cultures were done. REVIEW OF SYSTEMS: Review of systems could not be reliably obtained, though the positive points have been mentioned in the HPI. PAST MEDICAL HISTORY: No major illnesses. PAST SURGICAL HISTORY: Patient did have orthopedic surgery. Further information on same surgery currently unavailable. SOCIAL HISTORY: Remote history of smoking. She is , living with her . There is no drinking or drug use. FAMILY HISTORY: Father with history of [place]. Mother with history of angina. ALLERGIES: NO KNOWN DRUG ALLERGIES. MEDICATIONS: Current medications include: 1. Tylenol. 2. Lovenox. 3. Pepcid. 4. Dilaudid. 5. Lactated Ringer. 6. Ativan. 7. Narcan. 8. Norepinephrine. 9. Zofran. 10.Zosyn. 11.Propofol. PHYSICAL EXAMINATION: Blood pressure is 102/65 with a pulse of 102, temperature 96.9. She is 100% on 60% FiO2. General description is an elderly female lying in bed in no distress. No tachypnea or accessory muscle of respiration use. HEENT examination shows slight pallor. No scleral icterus. Patient is orally intubated, limiting examination of the oral cavity. NECK: Trachea is central. No thyromegaly. LUNGS: Unlabored breathing with decreased breath sounds at the bases. No wheeze. HEART: S1, S2. Regular rate and rhythm. ABDOMEN: Soft, mildly distended. No abdominal tenderness. EXTREMITIES: No edema of the feet. SKIN EXAMINATION: No rash or mass palpable. Neurologically the patient is currently sedated on the vent. LABS: Hemoglobin is 11.9. White count on admission was 15.9, down to 10.4 with a BUN of 26, creatinine 0.69. Electrolyte have been normal. Liver enzymes are normal. Urine has been positive. Unfortunately no blood or urine culture has been done. DIAGNOSTIC IMPRESSION AND PLAN: Patient with sepsis. Source is abdominal in this patient who was noted to have obstruction in left-sided colon, tumor with perforation, status post sigmoid colectomy and diverting colostomy. Will need to cover for the enteric gram-negative, both aerobes and anaerobes to be the likely pathogens responsible for this sepsis. PLAN: 1. Blood cultures x2 STAT before the first dose of antibiotic. 2. Zosyn 3.375 grams q.8 to provide coverage for enteric gram-negative, both aerobes and anaerobes. 3. IV fluid. 4. We will follow up on her clinical condition and cultures to further adjust medication if needed. Thank you for this consultation. Will follow this patient along with you. MMODL / IJN: [id number] /
[2018-07-19 00:34] LABS: Glucose,Whole Blood 84 mg/dL (75-99)
[2018-07-19] MEDS: SODIUM CHLORIDE 0.9% 1,000 ML IV SCH ×3 (01:00→23:15)
[2018-07-19] MEDS: LACTATED RINGERS 2,000 ML IV SCH ×2 (01:30→03:15)
[2018-07-19] MEDS: PIPERACILLIN-TAZOBACTAM 3.375 GM in SODIUM CHLORIDE 0.9% 100 ML IVPB SCH ×3 (03:11→17:32)
[2018-07-19] MEDS: HYDROmorphone 0.5 MG/0.5 ML SYRINGE IVP PRN ×2 (04:09→23:11)
[2018-07-19] MEDS: NOREPINEPHRINE 16 MG in SODIUM CHLORIDE 0.9% 250 ML IV SCH ×2 (04:10→10:36)
[2018-07-19] MEDS: LACTATED RINGERS 1,000 ML IV SCH ×4 (04:26→23:18)
[2018-07-19 05:05] LABS: ABG Base Excess -12.1 mmol/L; ABG HCO3 15 mmol/L (21-25); ABG Oxygen Saturation 98.6 % (94-97); ABG PCO2 33 mmHg (35-45); ABG PH 7.26 (7.35-7.45); ABG PO2 130 mmHg (83-108); ABG TCO2 16 mmol/L (19-24)
[2018-07-19] MEDS ORDERED: SODIUM BICARB 8.4% 50 ML VIAL (1 MEQ/ML) IV ONE (05:27)
[2018-07-19] MEDS: SODIUM CHLORIDE 0.9% 99 ML with VASOPRESSIN 20 UNIT IV SCH ×4 (05:45→12:53)
[2018-07-19] MEDS: DEXTROSE 5% IN WATER 1,000 ML with SODIUM BICARB (1 MEQ/ML) 150 ML IV SCH (05:56)
[2018-07-19 06:28] LABS: HCT 41.5 % (34.0-46.0); Hypochromasia Slight; MCH 26.8 pg (25.0-35.0); MCHC 31.3 g/dL (31.0-37.0); MCV 85.4 fL (80.0-100.0); Mean Platelet Volume 7.4; Platelet Count 281 k/uL (150-450); RBC 4.86 m/uL (3.80-5.40); RDW 14.8 % (11.5-15.5); WBC 25.1 k/uL (3.8-10.6)
--- NOTE | 2018-07-19 07:54 | P.PN ---
Subjective Progress Note Date: 07/19/18 Principal diagnosis: Hypotension This is an 78-year-old female patient with no significant past medical history who presented to the hospital with abdominal discomfort and was found to have small bowel obstruction where the patient underwent abdominal surgery after she was found to have free air in the abdomen. The patient underwent exploratory laparotomy and was found to have perforated viscus. Please refer to the OR notes. We did see the patient as a consultation for preop cardiac assessment and she was asymptomatic from the cardiac standpoint and she underwent an echocardiogram which revealed normal LV function without significant valvular abnormalities. On follow-up with the patient today, July 192018, the patient surgery was complicated by acute respiratory failure as well as sepsis. Currently she is on antibiotic. Beside that she is on 2 vasopressors with norepinephrine as well as vasopressors. She is slightly tachycardic with a resting heart rate around 120. Objective - Vital Signs Vital signs: Vital Signs Temp 97.6 F 07/19/18 03:15 Pulse 112 H 07/19/18 07:00 Resp 14 07/19/18 07:00 BP 112/78 07/19/18 07:00 Pulse Ox 97 07/19/18 07:00 Intake & Output 07/18/18 07/19/18 07/19/18 18:59 06:59 18:59 Intake Total 5109 5233.205 613 Output Total 950 297 5 Balance 4159 4936.205 608 Weight 77.6 kg Intake: IV 3609 3496 113 .9 carriers 110 10 Dextrose 5% in Water 1, 100 50 000 ml @ 50 mls/hr IV . Q23H NOE with Sodium Bicarb (1 Meq/ml) 150 ml Rx#:[id number] Lactated Ringers 1,000 ml 300 @ 150 mls/hr IV .Q6H40M ONE Rx#:[id number] Lactated Ringers 1,000 ml 1000 @ 999 mls/hr IV .Q1H1M ONE Rx#:[id number] Lactated Ringers 2,000 ml 500 2000 @ 500 mls/hr IV .Q4H NOE Rx#:[id number] Magnesium Sulfate-D5w Pmx 200 1 gm In Dextrose/Water 1 100ml.bag @ 100 mls/hr IVPB Q1H NOE Rx#: [id number] Piperacillin-Tazobactam 3 100 100 .375 gm In Sodium Chloride 0.9% 100 ml @ 25 mls/hr IVPB Q8HR NOE Rx# :[id number] Potassium Chloride 10 meq 200 In Water For Injection 1 100ml.bag @ 100 mls/hr IVPB Q1H NOE Rx#: [id number] Sodium Chloride 0.9% 1, 750 50 000 ml @ 100 mls/hr IV . Q10H NOE Rx#:[id number] pressure bag 9 36 3 Intake, IV Titration 1500 1737.205 500 Amount ACETAMINOPHEN IV (For NPO 100 ) 1,000 mg In Empty Bag 1 bag @ 400 mls/hr IVPB Q6HR PRN Rx#:[id number] Lactated Ringers 1,000 ml 1500 500 @ 500 mls/hr IV .Q2H NOE Rx#:[id number] Lactated Ringers 1,000 ml 1000 @ 999 mls/hr IV .Q1H1M ONE Rx#:[id number] Norepinephrine 16 mg In 235.607 Sodium Chloride 0.9% 250 ml @ Titrate IV .Q0M NOE Rx#:[id number] Propofol 1,000 mg In 1.598 Empty Bag 1 bag @ Titrate IV .Q0M NOE Rx#: [id number] Sodium Chloride 0.9% 1, 400 000 ml @ 100 mls/hr IV . Q10H NOE Rx#:[id number] Output: Drainage 600 200 Left Lower Abdomen 600 200 Urine 200 97 5 Estimated Blood Loss 150 Other: Voiding Method Indwelling Catheter Indwelling Catheter ABP, PAP, CO, CI - Last Documented Arterial Blood Pressure 59/55 - Constitutional General appearance: Present: no acute distress - Respiratory Respiratory: bilateral: CTA - Cardiovascular Rhythm: regular Heart sounds: normal: S1, S2 - Labs CBC & Chem 7: 07/19/18 06:10 07/18/18 Unknown Labs: Abnormal Lab Results - Last 24 Hours (Table) 07/18/18 07/18/18 07/18/18 Range/Units 09:11 09:57 15:28 WBC (3.8-10.6) k/uL Metamyelocytes # (Man) (0) k/uL Myelocytes # (Manual) (0) k/uL ABG pH 7.46 H (7.35-7.45) ABG pCO2 23 L (35-45) mmHg ABG pO2 51 L* (83-108) mmHg ABG HCO3 16 L (21-25) mmol/L ABG Total CO2 (19-24) mmol/L ABG O2 Saturation 89.4 L (94-97) % Chloride 114 H (98-107) mmol/L Carbon Dioxide 14 L (22-30) mmol/L BUN 25 H (7-17) mg/dL Glucose 191 H (74-99) mg/dL POC Glucose (mg/dL) 109 H (75-99) mg/dL Calcium 8.2 L (8.4-10.2) mg/dL Alkaline Phosphatase (38-126) U/L Total Protein 5.2 L (6.3-8.2) g/dL Albumin 2.6 L (3.5-5.0) g/dL Urine Appearance (Clear) Urine Protein (Negative) Urine Blood (Negative) Urine Bilirubin (Negative) Urine RBC (0-5) /hpf Urine WBC (0-5) /hpf Amorphous Sediment (None) /hpf Urine Bacteria (None) /hpf Hyaline Casts (0-2) /lpf Urine Mucus (None) /hpf 07/18/18 07/18/18 07/18/18 Range/Units 16:24 16:40 19:13 WBC (3.8-10.6) k/uL Metamyelocytes # (Man) 1.35 H (0) k/uL Myelocytes # (Manual) 3.33 H (0) k/uL ABG pH 7.30 L (7.35-7.45) ABG pCO2 (35-45) mmHg ABG pO2 205 H (83-108) mmHg ABG HCO3 (21-25) mmol/L ABG Total CO2 (19-24) mmol/L ABG O2 Saturation 100.0 H (94-97) % Chloride (98-107) mmol/L Carbon Dioxide (22-30) mmol/L BUN (7-17) mg/dL Glucose (74-99) mg/dL POC Glucose (mg/dL) 107 H (75-99) mg/dL Calcium (8.4-10.2) mg/dL Alkaline Phosphatase (38-126) U/L Total Protein (6.3-8.2) g/dL Albumin (3.5-5.0) g/dL Urine Appearance (Clear) Urine Protein (Negative) Urine Blood (Negative) Urine Bilirubin (Negative) Urine RBC (0-5) /hpf Urine WBC (0-5) /hpf Amorphous Sediment (None) /hpf Urine Bacteria (None) /hpf Hyaline Casts (0-2) /lpf Urine Mucus (None) /hpf 07/18/18 07/18/18 07/19/18 Range/Units 21:15 Unknown 04:54 WBC (3.8-10.6) k/uL Metamyelocytes # (Man) (0) k/uL Myelocytes # (Manual) (0) k/uL ABG pH 7.26 L (7.35-7.45) ABG pCO2 33 L (35-45) mmHg ABG pO2 130 H (83-108) mmHg ABG HCO3 15 L (21-25) mmol/L ABG Total CO2 16 L (19-24) mmol/L ABG O2 Saturation 98.6 H (94-97) % Chloride 116 H (98-107) mmol/L Carbon Dioxide 18 L (22-30) mmol/L BUN 26 H (7-17) mg/dL Glucose 130 H (74-99) mg/dL POC Glucose (mg/dL) (75-99) mg/dL Calcium 6.5 L (8.4-10.2) mg/dL Alkaline Phosphatase <20 L (38-126) U/L Total Protein 3.2 L (6.3-8.2) g/dL Albumin 1.4 L (3.5-5.0) g/dL Urine Appearance Cloudy H (Clear) Urine Protein 1+ H (Negative) Urine Blood Moderate H (Negative) Urine Bilirubin 1+ H (Negative) Urine RBC >182 H (0-5) /hpf Urine WBC 10 H (0-5) /hpf Amorphous Sediment Occasional H (None) /hpf Urine Bacteria Occasional H (None) /hpf Hyaline Casts 180 H (0-2) /lpf Urine Mucus Few H (None) /hpf 07/19/18 Range/Units 06:10 WBC 25.1 H (3.8-10.6) k/uL Metamyelocytes # (Man) (0) k/uL Myelocytes # (Manual) (0) k/uL ABG pH (7.35-7.45) ABG pCO2 (35-45) mmHg ABG pO2 (83-108) mmHg ABG HCO3 (21-25) mmol/L ABG Total CO2 (19-24) mmol/L ABG O2 Saturation (94-97) % Chloride (98-107) mmol/L Carbon Dioxide (22-30) mmol/L BUN (7-17) mg/dL Glucose (74-99) mg/dL POC Glucose (mg/dL) (75-99) mg/dL Calcium (8.4-10.2) mg/dL Alkaline Phosphatase (38-126) U/L Total Protein (6.3-8.2) g/dL Albumin (3.5-5.0) g/dL Urine Appearance (Clear) Urine Protein (Negative) Urine Blood (Negative) Urine Bilirubin (Negative) Urine RBC (0-5) /hpf Urine WBC (0-5) /hpf Amorphous Sediment (None) /hpf Urine Bacteria (None) /hpf Hyaline Casts (0-2) /lpf Urine Mucus (None) /hpf Assessment and Plan Assessment: Assessment #1 status post emergency surgery for perforated viscus #2 septic shock #3 sinus tachycardia #4 multiple comorbid conditions Plan #1 right wean the patient from the vasopressors #2 the echo before the surgery revealed normal LV function #3 follow-up with the patient
--- NOTE | 2018-07-19 08:00 | P.PN ---
Subjective Principal diagnosis: Postop day #1 colectomy This is an 78-year-old white female essentially admitted for nephrolithiasis but found have significant colonic thickening. She was able unable to tolerate colonoscopy prep and declined yesterday. The patient underwent expiratory laparotomy which then revealed significant cecal perforation and ischemic bowel. The patient is now in critical condition seen in ICU. Continue supportive measures including pressors and ventilatory support are undergoing. Objective - Vital Signs Vital signs: Vital Signs Temp 97.6 F 07/19/18 03:15 Pulse 112 H 07/19/18 07:00 Resp 14 07/19/18 07:00 BP 112/78 07/19/18 07:00 Pulse Ox 97 07/19/18 07:00 Intake & Output 07/18/18 07/19/18 07/19/18 18:59 06:59 18:59 Intake Total 5109 5233.205 613 Output Total 950 297 5 Balance 4159 4936.205 608 Weight 77.6 kg Intake: IV 3609 3496 113 .9 carriers 110 10 Dextrose 5% in Water 1, 100 50 000 ml @ 50 mls/hr IV . Q23H [facility] with Sodium Bicarb (1 Meq/ml) 150 ml Rx#:[id number] Lactated Ringers 1,000 ml 300 @ 150 mls/hr IV .Q6H40M ONE Rx#:[id number] Lactated Ringers 1,000 ml 1000 @ 999 mls/hr IV .Q1H1M ONE Rx#:[id number] Lactated Ringers 2,000 ml 500 2000 @ 500 mls/hr IV .Q4H NOE Rx#:[id number] Magnesium Sulfate-D5w Pmx 200 1 gm In Dextrose/Water 1 100ml.bag @ 100 mls/hr IVPB Q1H [facility] Rx#: [id number] Piperacillin-Tazobactam 3 100 100 .375 gm In Sodium Chloride 0.9% 100 ml @ 25 mls/hr IVPB Q8HR NOE Rx# :[id number] Potassium Chloride 10 meq 200 In Water For Injection 1 100ml.bag @ 100 mls/hr IVPB Q1H [facility] Rx#: [id number] Sodium Chloride 0.9% 1, 750 50 000 ml @ 100 mls/hr IV . Q10H [facility] Rx#:[id number] pressure bag 9 36 3 Intake, IV Titration 1500 1737.205 500 Amount ACETAMINOPHEN IV (For NPO 100 ) 1,000 mg In Empty Bag 1 bag @ 400 mls/hr IVPB Q6HR PRN Rx#:[id number] Lactated Ringers 1,000 ml 1500 500 @ 500 mls/hr IV .Q2H [facility] Rx#:[id number] Lactated Ringers 1,000 ml 1000 @ 999 mls/hr IV .Q1H1M ONE Rx#:[id number] Norepinephrine 16 mg In 235.607 Sodium Chloride 0.9% 250 ml @ Titrate IV .Q0M NO[facility] Rx#:[id number] Propofol 1,000 mg In 1.598 Empty Bag 1 bag @ Titrate IV .Q0M NOE Rx#: [id number] Sodium Chloride 0.9% 1, 400 000 ml @ 100 mls/hr IV . Q10H [facility] Rx#:[id number] Output: Drainage 600 200 Left Lower Abdomen 600 200 Urine 200 97 5 Estimated Blood Loss 150 Other: Voiding Method Indwelling Catheter Indwelling Catheter ABP, PAP, CO, CI - Last Documented Arterial Blood Pressure 59/55 - Constitutional General appearance: Present: average body habitus - EENT Eyes: Absent: abnormal pupil - Neck Neck: Absent: lymphadenopathy - Respiratory Respiratory: bilateral: diminished - Cardiovascular Rhythm: regular Heart sounds: normal: S1, S2 Abnormal Heart Sounds: Absent: S3 Gallop - Gastrointestinal General gastrointestinal: Present: absent bowel sounds - Psychiatric Psychiatric: Absent: A&O x's 3 - Labs CBC & Chem 7: 07/19/18 06:10 07/18/18 Unknown Labs: Abnormal Lab Results - Last 24 Hours (Table) 07/18/18 07/18/18 07/18/18 Range/Units 09:11 09:57 15:28 WBC (3.8-10.6) k/uL Metamyelocytes # (Man) (0) k/uL Myelocytes # (Manual) (0) k/uL ABG pH 7.46 H (7.35-7.45) ABG pCO2 23 L (35-45) mmHg ABG pO2 51 L* (83-108) mmHg ABG HCO3 16 L (21-25) mmol/L ABG Total CO2 (19-24) mmol/L ABG O2 Saturation 89.4 L (94-97) % Chloride 114 H (98-107) mmol/L Carbon Dioxide 14 L (22-30) mmol/L BUN 25 H (7-17) mg/dL Glucose 191 H (74-99) mg/dL POC Glucose (mg/dL) 109 H (75-99) mg/dL Calcium 8.2 L (8.4-10.2) mg/dL Alkaline Phosphatase (38-126) U/L Total Protein 5.2 L (6.3-8.2) g/dL Albumin 2.6 L (3.5-5.0) g/dL Urine Appearance (Clear) Urine Protein (Negative) Urine Blood (Negative) Urine Bilirubin (Negative) Urine RBC (0-5) /hpf Urine WBC (0-5) /hpf Amorphous Sediment (None) /hpf Urine Bacteria (None) /hpf Hyaline Casts (0-2) /lpf Urine Mucus (None) /hpf 07/18/18 07/18/18 07/18/18 Range/Units 16:24 16:40 19:13 WBC (3.8-10.6) k/uL Metamyelocytes # (Man) 1.35 H (0) k/uL Myelocytes # (Manual) 3.33 H (0) k/uL ABG pH 7.30 L (7.35-7.45) ABG pCO2 (35-45) mmHg ABG pO2 205 H (83-108) mmHg ABG HCO3 (21-25) mmol/L ABG Total CO2 (19-24) mmol/L ABG O2 Saturation 100.0 H (94-97) % Chloride (98-107) mmol/L Carbon Dioxide (22-30) mmol/L BUN (7-17) mg/dL Glucose (74-99) mg/dL POC Glucose (mg/dL) 107 H (75-99) mg/dL Calcium (8.4-10.2) mg/dL Alkaline Phosphatase (38-126) U/L Total Protein (6.3-8.2) g/dL Albumin (3.5-5.0) g/dL Urine Appearance (Clear) Urine Protein (Negative) Urine Blood (Negative) Urine Bilirubin (Negative) Urine RBC (0-5) /hpf Urine WBC (0-5) /hpf Amorphous Sediment (None) /hpf Urine Bacteria (None) /hpf Hyaline Casts (0-2) /lpf Urine Mucus (None) /hpf 07/18/18 07/18/18 07/19/18 Range/Units 21:15 Unknown 04:54 WBC (3.8-10.6) k/uL Metamyelocytes # (Man) (0) k/uL Myelocytes # (Manual) (0) k/uL ABG pH 7.26 L (7.35-7.45) ABG pCO2 33 L (35-45) mmHg ABG pO2 130 H (83-108) mmHg ABG HCO3 15 L (21-25) mmol/L ABG Total CO2 16 L (19-24) mmol/L ABG O2 Saturation 98.6 H (94-97) % Chloride 116 H (98-107) mmol/L Carbon Dioxide 18 L (22-30) mmol/L BUN 26 H (7-17) mg/dL Glucose 130 H (74-99) mg/dL POC Glucose (mg/dL) (75-99) mg/dL Calcium 6.5 L (8.4-10.2) mg/dL Alkaline Phosphatase <20 L (38-126) U/L Total Protein 3.2 L (6.3-8.2) g/dL Albumin 1.4 L (3.5-5.0) g/dL Urine Appearance Cloudy H (Clear) Urine Protein 1+ H (Negative) Urine Blood Moderate H (Negative) Urine Bilirubin 1+ H (Negative) Urine RBC >182 H (0-5) /hpf Urine WBC 10 H (0-5) /hpf Amorphous Sediment Occasional H (None) /hpf Urine Bacteria Occasional H (None) /hpf Hyaline Casts 180 H (0-2) /lpf Urine Mucus Few H (None) /hpf 07/19/18 Range/Units 06:10 WBC 25.1 H (3.8-10.6) k/uL Metamyelocytes # (Man) (0) k/uL Myelocytes # (Manual) (0) k/uL ABG pH (7.35-7.45) ABG pCO2 (35-45) mmHg ABG pO2 (83-108) mmHg ABG HCO3 (21-25) mmol/L ABG Total CO2 (19-24) mmol/L ABG O2 Saturation (94-97) % Chloride (98-107) mmol/L Carbon Dioxide (22-30) mmol/L BUN (7-17) mg/dL Glucose (74-99) mg/dL POC Glucose (mg/dL) (75-99) mg/dL Calcium (8.4-10.2) mg/dL Alkaline Phosphatase (38-126) U/L Total Protein (6.3-8.2) g/dL Albumin (3.5-5.0) g/dL Urine Appearance (Clear) Urine Protein (Negative) Urine Blood (Negative) Urine Bilirubin (Negative) Urine RBC (0-5) /hpf Urine WBC (0-5) /hpf Amorphous Sediment (None) /hpf Urine Bacteria (None) /hpf Hyaline Casts (0-2) /lpf Urine Mucus (None) /hpf Assessment and Plan (1) Colonic thickening Current Visit: Yes Status: Acute Code(s): K63.9 - DISEASE OF INTESTINE, UNSPECIFIED SNOMED Code(s): 496344285 (2) Dehydration Current Visit: Yes Status: Acute Code(s): E86.0 - DEHYDRATION SNOMED Code( s): 72066427 (3) Fall Current Visit: Yes Status: Acute Code(s): W19.XXXA - UNSPECIFIED FALL, INITIAL ENCOUNTER SNOMED Code(s): 7517745 (4) Sepsis secondary to UTI Current Visit: Yes Status: Acute Code(s): A41.9 - SEPSIS, UNSPECIFIED ORGANISM; N39.0 - URINARY TRACT INFECTION, SITE NOT SPECIFIED SNOMED Code(s): 983982564 Plan: Continue current supportive treatment. Check appropriate CBC CMP with chest x-ray. Appreciate multiple consultants input. Prognosis is guarded secondary to her multiple comorbidities and overriding age and underlying disease state. Dr. Vieyra's group become for the weekend. Time with Patient: Greater than 30
[2018-07-19 08:06] LABS: Albumin 1.6 g/dL (3.5-5.0); Calcium 7.6 mg/dL (8.4-10.2); Magnesium 2.1 mg/dL (1.6-2.3); Phosphorus 3.8 mg/dL (2.5-4.5); Potassium 4.5 mmol/L (3.5-5.1); Total Bilirubin 0.7 mg/dL (0.2-1.3); Total Protein 3.3 g/dL (6.3-8.2)
[2018-07-19 08:11] LABS: Glucose,Whole Blood 88 mg/dL (75-99)
--- NOTE | 2018-07-19 08:11 | XR ---
EXAMINATION TYPE: XR chest 1V portable DATE OF EXAM: 07/19/2018 COMPARISON: 07/18/2018 HISTORY: SOB, Follow Up FINDINGS: Indwelling tubes and catheters are unchanged. No change in bibasilar opacities. Stable appearance of the cardio-mediastinal structures at this time. Pleural effusion unchanged. IMPRESSION: 1. Stable portable chest. Clinical correlation and follow up until resolution is recommended.
--- NOTE | 2018-07-19 08:19 | P.OP ---
Date of Procedure: 07/18/18 Preoperative Diagnosis: Perforated viscus Postoperative Diagnosis: Cecal perforation Sigmoid colon obstruction Procedure(s) Performed: Exploratory laparotomy right colectomy with ileostomy Sigmoid colectomy Left salpingo-oophorectomy Anesthesia: TONI Surgeon: Ton Baker Estimated Blood Loss (ml): 200 Pathology: other (Right colon, sigmoid colon) Condition: stable Disposition: PACU Description of Procedure: The patient's placed on the operative table in supine position. She received general anesthesia. Her abdomen was prepped and draped using sterile fashion. The abdomen was entered through midline. There was free air in the abdomen. The Bookwalter retractors placed a wound. He has explore. The cecum was very dilated. There appeared to be a evidence of a small cecal perforation there was some feculent peritonitis. The small bowel and colon was dilated there appeared to be an obstructing lesion near the rectosigmoid was unclear if this was due to diverticulitis or rectal tumor. The bowel was very dilated. At this point the small bowel was run. There appeared to be evidence of the terminal ileum adherent to the rectosigmoid. The terminal ileum was transected. The right colon was mobilized. The proximal transverse colon was transected with a GI stapler. And then using the Enseal device the mesentery of the right colon was divided. The specimens of pathology. Another portion of the small bowel was then transected this appeared to be nonviable. Bowel was transected with a GI stapler and then using the Enseal device the mesentery was divided the specimens of pathology. Following this the sigmoid colon was mobilized. The colon was very dilated. There was a lesion at the rectosigmoid. The peritoneal reflection was divided and then the rectum was mobilized. Care was taken to identify and preserve the ureter. The left tube and ovary was adherent to the sigmoid colon. The left lower transected with the Enseal device. It was then ligated with 0 silk tie. The sigmoid colon was then transected with a GI stapler and and then using the insulin device the mesentery the bowel was divided. Using the contour stapler the rectum was transected. The specimens was sent to pathology. The abdomen was irrigated with 8 L of normal saline. An ileostomy was brought out through the right lower quadrant and then the mucous fistula to decompress the colon was brought out in the left upper quadrant. The fascia was closed with looped PDS suture. The skin of fat was left open and packed with Kerlix. Patient is remain on the ventilator she was sent to the ICU in critical condition on the ventilator.
[2018-07-19] MEDS ORDERED: LACTATED RINGERS 2,000 ML IV SCH (09:30)
[2018-07-19] MEDS: FAMOTIDINE 20 MG/2 ML VIAL IV SCH (10:16)
[2018-07-19] MEDS: CHLORHEXIDINE GLUCONATE 15 ML CUP MUCOUS MEM SCH ×2 (10:16→23:20)
[2018-07-19] MEDS: ENOXAPARIN 40 MG/0.4 ML SYRINGE SQ SCH (10:24)
[2018-07-19] MEDS ORDERED: LACTATED RINGERS 2,000 ML IV ONE ×2 (10:50→13:17)
[2018-07-19] MEDS ORDERED: LACTATED RINGERS 1,000 ML IV ONE ×2 (11:08→16:01)
[2018-07-19 12:21] LABS: Glucose,Whole Blood 109 mg/dL (75-99)
[2018-07-19 12:28] LABS: Band Neutrophils % 43 %; Lymphocytes # (M) 2.76 k/uL (1.0-4.8); Metamyelocytes # (M) 3.26 k/uL (0); Metamyelocytes % 13 %; Myelocytes # (M) 1.26 k/uL (0); Myelocytes % 5 %; Neutrophils % (M) 25 %; Nucleated Red Blood Cells 0 /100 WBC (0-0); Total Cells Counted 200
[2018-07-19 12:31] LABS: Toxic Granulation Present
[2018-07-19 12:33] LABS: Poikilocytosis (M) Present
--- NOTE | 2018-07-19 14:16 | P.PN ---
Subjective Progress Note Date: 07/19/18 CHIEF COMPLAINT: Abnormal CT results/abdominal pain HISTORY OF PRESENT ILLNESS: Patient s/p exploratory laparotomy, right colectomy with ileostomy, sigmoid colectomy, and left salpingo-oophorectomy. POD #1. Patient remains intubated postoperatively in the intensive care unit. Patient is requiring vasopressor support with Levophed and Vasopressin. Systolic blood pressure running 90-110s. Tachycardic in the 100-110s. Decreased urine output. Patient received multiple fluid boluses overnight. Lactic acid 5.7. Patient received an additional 3L in boluses this morning. Repeat lactic acid 4.9. 2L in additional boluses have been ordered. PHYSICAL EXAM: VITAL SIGNS: Currently stable. GENERAL: Patient sedated on mechanical ventilation in the ICU HEENT: NG tube present. ET tube intact. No sclera icterus. Pupils are equal, round, and reactive to light. Moist buccal mucosa. Head is atraumatic, normocephalic. NECK: Supple without lymphadenopathy. CHEST: Remains on mechanical ventilation. Equal bilateral excursions. Ventilator settings AC 14/ TV 500/ 50% Fio2/ 5 PEEP. Saturations greater than 92 %. CARDIOVASCULAR: Tachycardic. Regular rate with regular rhythm. Palpable 2+ radial pulses. ABDOMEN: Midline dressing clean dry intact. Ileostomy and mucus fistula with stool noted in both. : Pablo catheter intact with marginal gerald urine MUSCULOSKELETAL: No clubbing, cyanosis or edema. NEUROLOGIC: Unable to thoroughly assess secondary to mechanical ventilation PSYCH: Unable to thoroughly assess secondary to mechanical ventilation SKIN: No cyanosis. No Jaundice. Dressing clean dry and intact. ASSESSMENT: 1. Abdominal pain, abdominal xray reveals distal small bowel obstruction 2. Large pneumoperitoneum, s/p exploratory laparotomy, right colectomy with ileostomy, sigmoid colectomy, and left salpingo-oophorectomy 3. Acute hypoxic respiratory failure requiring mechanical ventilation 4. Septic shock requiring vasopressor support secondary to peritonitis 5. Lactic acidosis 6. Transaminitis, secondary to septic shock 7. 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 Large right renal calculi with UTI PLAN: Multiple family members at the bedside. Updated on patient condition by Dr. Baker and all questions answered. Patient currently receiving additional 2L in boluses. Wean vasopressors as tolerated. NPO. Ventilator management per Dr. Cortez. Dr. Swan consulted for sepsis and antibiotic management. Nurse practitioner note has been reviewed by physician. Signing provider agrees with the documented findings, assessment, and plan of care. Objective - Vital Signs Vital signs: Vital Signs Temp 97.6 F 07/19/18 03:15 Pulse 112 H 07/19/18 07:00 Resp 14 07/19/18 07:00 BP 112/78 07/19/18 07:00 Pulse Ox 97 07/19/18 07:00 Intake & Output 07/18/18 07/19/18 07/19/18 18:59 06:59 18:59 Intake Total 5109 5330.851 787.354 Output Total 950 297 5 Balance 4159 5033.851 782.354 Weight 77.6 kg Intake: IV 3609 3496 113 .9 carriers 110 10 Dextrose 5% in Water 1, 100 50 000 ml @ 50 mls/hr IV . Q23H NOE with Sodium Bicarb (1 Meq/ml) 150 ml Rx#:[id number] Lactated Ringers 1,000 ml 300 @ 150 mls/hr IV .Q6H40M ONE Rx#:[id number] Lactated Ringers 1,000 ml 1000 @ 999 mls/hr IV .Q1H1M ONE Rx#:[id number] Lactated Ringers 2,000 ml 500 2000 @ 500 mls/hr IV .Q4H [facility] Rx#:[id number] Magnesium Sulfate-D5w Pmx 200 1 gm In Dextrose/Water 1 100ml.bag @ 100 mls/hr IVPB Q1H [facility] Rx#: [id number] Piperacillin-Tazobactam 3 100 100 .375 gm In Sodium Chloride 0.9% 100 ml @ 25 mls/hr IVPB Q8HR [facility] Rx# :[id number] Potassium Chloride 10 meq 200 In Water For Injection 1 100ml.bag @ 100 mls/hr IVPB Q1H [facility] Rx#: [id number] Sodium Chloride 0.9% 1, 750 50 000 ml @ 100 mls/hr IV . Q10H [facility] Rx#:[id number] pressure bag 9 36 3 Intake, IV Titration 1500 1834.851 674.354 Amount ACETAMINOPHEN IV (For NPO 100 ) 1,000 mg In Empty Bag 1 bag @ 400 mls/hr IVPB Q6HR PRN Rx#:[id number] Lactated Ringers 1,000 ml 1500 500 @ 500 mls/hr IV .Q2H [facility] Rx#:[id number] Lactated Ringers 1,000 ml 1000 @ 999 mls/hr IV .Q1H1M ONE Rx#:[id number] Norepinephrine 16 mg In 333.253 174.354 Sodium Chloride 0.9% 250 ml @ Titrate IV .Q0M [facility] Rx#:[id number] Propofol 1,000 mg In 1.598 Empty Bag 1 bag @ Titrate IV .Q0M [facility] Rx#: [id number] Sodium Chloride 0.9% 1, 400 000 ml @ 100 mls/hr IV . Q10H [facility] Rx#:[id number] Output: Drainage 600 200 Left Lower Abdomen 600 200 Urine 200 97 5 Estimated Blood Loss 150 Other: Voiding Method Indwelling Catheter Indwelling Catheter Indwelling Catheter ABP, PAP, CO, CI - Last Documented Arterial Blood Pressure 59/55 - Labs CBC & Chem 7: 07/19/18 06:10 07/19/18 06:10 Labs: Abnormal Lab Results - Last 24 Hours (Table) 07/18/18 07/18/18 07/18/18 Range/Units 15:28 16:24 16:40 WBC (3.8-10.6) k/uL Neutrophils # (Manual) (1.3-7.7) k/uL Metamyelocytes # (Man) 1.35 H (0) k/uL Myelocytes # (Manual) 3.33 H (0) k/uL ABG pH 7.30 L (7.35-7.45) ABG pCO2 (35-45) mmHg ABG pO2 205 H (83-108) mmHg ABG HCO3 (21-25) mmol/L ABG Total CO2 (19-24) mmol/L ABG O2 Saturation 100.0 H (94-97) % Chloride (98-107) mmol/L Carbon Dioxide (22-30) mmol/L BUN (7-17) mg/dL Creatinine (0.52-1.04) mg/dL Glucose (74-99) mg/dL POC Glucose (mg/dL) 109 H (75-99) mg/dL Plasma Lactic Acid Evangelist (0.7-2.0) mmol/L Calcium (8.4-10.2) mg/dL Ionized Calcium John (4.5-5.3) mg/dL AST (14-36) U/L ALT (9-52) U/L Alkaline Phosphatase (38-126) U/L Total Protein (6.3-8.2) g/dL Albumin (3.5-5.0) g/dL Urine Appearance (Clear) Urine Protein (Negative) Urine Blood (Negative) Urine Bilirubin (Negative) Urine RBC (0-5) /hpf Urine WBC (0-5) /hpf Amorphous Sediment (None) /hpf Urine Bacteria (None) /hpf Hyaline Casts (0-2) /lpf Urine Mucus (None) /hpf 07/18/18 07/18/18 07/18/18 Range/Units 19:13 21:15 Unknown WBC (3.8-10.6) k/uL Neutrophils # (Manual) (1.3-7.7) k/uL Metamyelocytes # (Man) (0) k/uL Myelocytes # (Manual) (0) k/uL ABG pH (7.35-7.45) ABG pCO2 (35-45) mmHg ABG pO2 (83-108) mmHg ABG HCO3 (21-25) mmol/L ABG Total CO2 (19-24) mmol/L ABG O2 Saturation (94-97) % Chloride 116 H (98-107) mmol/L Carbon Dioxide 18 L (22-30) mmol/L BUN 26 H (7-17) mg/dL Creatinine (0.52-1.04) mg/dL Glucose 130 H (74-99) mg/dL POC Glucose (mg/dL) 107 H (75-99) mg/dL Plasma Lactic Acid Evangelist (0.7-2.0) mmol/L Calcium 6.5 L (8.4-10.2) mg/dL Ionized Calcium John (4.5-5.3) mg/dL AST (14-36) U/L ALT (9-52) U/L Alkaline Phosphatase <20 L (38-126) U/L Total Protein 3.2 L (6.3-8.2) g/dL Albumin 1.4 L (3.5-5.0) g/dL Urine Appearance Cloudy H (Clear) Urine Protein 1+ H (Negative) Urine Blood Moderate H (Negative) Urine Bilirubin 1+ H (Negative) Urine RBC >182 H (0-5) /hpf Urine WBC 10 H (0-5) /hpf Amorphous Sediment Occasional H (None) /hpf Urine Bacteria Occasional H (None) /hpf Hyaline Casts 180 H (0-2) /lpf Urine Mucus Few H (None) /hpf 07/19/18 07/19/18 07/19/18 Range/Units 04:54 06:10 06:10 WBC 25.1 H (3.8-10.6) k/uL Neutrophils # (Manual) 17.00 H (1.3-7.7) k/uL Metamyelocytes # (Man) 3.26 H (0) k/uL Myelocytes # (Manual) 1.26 H (0) k/uL ABG pH 7.26 L (7.35-7.45) ABG pCO2 33 L (35-45) mmHg ABG pO2 130 H (83-108) mmHg ABG HCO3 15 L (21-25) mmol/L ABG Total CO2 16 L (19-24) mmol/L ABG O2 Saturation 98.6 H (94-97) % Chloride 113 H (98-107) mmol/L Carbon Dioxide 18 L (22-30) mmol/L BUN 30 H (7-17) mg/dL Creatinine 1.21 H (0.52-1.04) mg/dL Glucose 60 L (74-99) mg/dL POC Glucose (mg/dL) (75-99) mg/dL Plasma Lactic Acid Evangelist (0.7-2.0) mmol/L Calcium 7.6 L (8.4-10.2) mg/dL Ionized Calcium John (4.5-5.3) mg/dL AST 478 H (14-36) U/L ALT 242 H (9-52) U/L Alkaline Phosphatase (38-126) U/L Total Protein 3.3 L (6.3-8.2) g/dL Albumin 1.6 L (3.5-5.0) g/dL Urine Appearance (Clear) Urine Protein (Negative) Urine Blood (Negative) Urine Bilirubin (Negative) Urine RBC (0-5) /hpf Urine WBC (0-5) /hpf Amorphous Sediment (None) /hpf Urine Bacteria (None) /hpf Hyaline Casts (0-2) /lpf Urine Mucus (None) /hpf 07/19/18 07/19/18 07/19/18 Range/Units 08:33 08:33 12:09 WBC (3.8-10.6) k/uL Neutrophils # (Manual) (1.3-7.7) k/uL Metamyelocytes # (Man) (0) k/uL Myelocytes # (Manual) (0) k/uL ABG pH (7.35-7.45) ABG pCO2 (35-45) mmHg ABG pO2 (83-108) mmHg ABG HCO3 (21-25) mmol/L ABG Total CO2 (19-24) mmol/L ABG O2 Saturation (94-97) % Chloride (98-107) mmol/L Carbon Dioxide (22-30) mmol/L BUN (7-17) mg/dL Creatinine (0.52-1.04) mg/dL Glucose (74-99) mg/dL POC Glucose (mg/dL) 109 H (75-99) mg/dL Plasma Lactic Acid Evangelist 5.7 H* (0.7-2.0) mmol/L Calcium (8.4-10.2) mg/dL Ionized Calcium John 4.2 L (4.5-5.3) mg/dL AST (14-36) U/L ALT (9-52) U/L Alkaline Phosphatase (38-126) U/L Total Protein (6.3-8.2) g/dL Albumin (3.5-5.0) g/dL Urine Appearance (Clear) Urine Protein (Negative) Urine Blood (Negative) Urine Bilirubin (Negative) Urine RBC (0-5) /hpf Urine WBC (0-5) /hpf Amorphous Sediment (None) /hpf Urine Bacteria (None) /hpf Hyaline Casts (0-2) /lpf Urine Mucus (None) /hpf 07/19/18 Range/Units 12:32 WBC (3.8-10.6) k/uL Neutrophils # (Manual) (1.3-7.7) k/uL Metamyelocytes # (Man) (0) k/uL Myelocytes # (Manual) (0) k/uL ABG pH (7.35-7.45) ABG pCO2 (35-45) mmHg ABG pO2 (83-108) mmHg ABG HCO3 (21-25) mmol/L ABG Total CO2 (19-24) mmol/L ABG O2 Saturation (94-97) % Chloride (98-107) mmol/L Carbon Dioxide (22-30) mmol/L BUN (7-17) mg/dL Creatinine (0.52-1.04) mg/dL Glucose (74-99) mg/dL POC Glucose (mg/dL) (75-99) mg/dL Plasma Lactic Acid Evangelist 4.9 H* (0.7-2.0) mmol/L Calcium (8.4-10.2) mg/dL Ionized Calcium John (4.5-5.3) mg/dL AST (14-36) U/L ALT (9-52) U/L Alkaline Phosphatase (38-126) U/L Total Protein (6.3-8.2) g/dL Albumin (3.5-5.0) g/dL Urine Appearance (Clear) Urine Protein (Negative) Urine Blood (Negative) Urine Bilirubin (Negative) Urine RBC (0-5) /hpf Urine WBC (0-5) /hpf Amorphous Sediment (None) /hpf Urine Bacteria (None) /hpf Hyaline Casts (0-2) /lpf Urine Mucus (None) /hpf Microbiology - Last 24 Hours (Table) 07/18/18 21:15 Urine Culture - Preliminary Urine,Clean Catch
--- NOTE | 2018-07-19 15:31 | PN ---
PROGRESS NOTE DATE OF SERVICE: 07/19/2018. REASON FOR FOLLOWUP: Abdominal sepsis. INTERVAL HISTORY: The patient is afebrile this morning, hemodynamically stable, not on any pressor support. FiO2 remains to be stable at 50%. NG to suction. She was noted to have elevated lactic acid this morning. Patient is still unable to provide any history. White count has jumped to 25,000. PHYSICAL EXAMINATION: Her blood pressure is 105/60 with a pulse of 100, temperature of 98.6. She is 97% on 50% FiO2. General description is an elderly female lying in bed in no distress. HEENT EXAMINATION: Slight pallor. No scleral icterus. The patient is intubated. LUNGS: Unlabored breathing. Clear to auscultation anteriorly. HEART: S1, S2. Regular rate and rhythm. ABDOMEN: Soft. Mildly distended. No rebound or rigidity. EXTREMITIES: No edema of the feet. LABS: Hemoglobin is 13, white count 25.1. BUN of 30, creatinine 1.21. DIAGNOSTIC IMPRESSION AND PLAN: Patient with abdominal sepsis in this patient who did have perforated viscus, cecal perforation, status post exploratory laparotomy with right colectomy, ileostomy and sigmoid colectomy. The patient at this time is covered with Zosyn. That will be continued for now while waiting for the condition to stabilize. Continue with aggressive IV fluid replacement. Family present at bedside. Questions were answered. BRADLEY / URVASHI: [id number] /
--- NOTE | 2018-07-19 17:13 | P.PN ---
Subjective Progress Note Date: 07/19/18 (Critical care time spent 45 minutes) Principal diagnosis: Severe sepsis and septic shock, acute hypoxic respiratory failure, bowel perforation, secondary abdominal peritonitis, right small pleural effusion, volume depletion and dehydration 07/19/2018, patient seen eval examined during the rounds she remains sedated with propofol currently she is on 20 mics of propofol she is hemodynamically remains on stable, patient has the severe hypotension requiring vasopressin as well as levo fed which was up to 30 mics however able to taper it down to 10 mics now vasopressin is 0.03 unit, she is also on bicarb drip for severe metabolic acidosis currently running 50 mL an hour she has received so far postoperatively 9 L of LR and 2 L of normal saline she does make some urine about 10-20 mL with fluid boluses otherwise she becomes and uric plan is to give another liter of LR 2 50 mL an hour for 4 hours then to resume 100 mL an hour and lower she is sedated with propofol drip, family is present at bedside care plan discussed with them at length, currently patient is a full assist control mode with a rate of 14 breathing about 17, tidal volume is 500, 5 of PEEP, 50% oxygen, labs and medications reviewed, culture results and reports are pending, , chest x-ray revealed stable endotracheal tube stable central line and some subsegmental atelectasis at the bases are seen, patient remains on broad-spectrum antibiotics This is a pleasant 78-year-old female with no significant past medical history. She presented to the hospital with abdominal pain and has been found to have a bowel obstruction. We have been asked to see her in consultation for shortness of breath and hypoxia related to abdominal process. She has been evaluated by surgical services and per nursing staff she was vomiting all morning. Laboratory data reviewed, hemoglobin 13.7, platelets 439 WBC 12.0 down from 15.9 on admission, INR 1.5, sodium 139, potassium 3.4, creatinine 0.6, magnesium 2.1, cardiac enzymes negative 1. She also has been diagnosed with a urinary tract infection. EKG on admission reveals sinus mechanism with no acute ST or T wave abnormalities noted. Chest x-ray reveals mild pulmonary fibrosis. No overt heart failure or acute cardiopulmonary process. She takes no daily medications. She is also been seen in consultation by urology and surgical services. Urology suspects a large infected right renal stone. X-ray of the abdomen obtained reveals evidence of right renal calculus as well as colonic wall thickening suggestive of colitis. CT of the abdomen and pelvis with contrast reveals markedly colonic distention to the level of the sigmoid colon, numerous bilateral renal calculi and gallbladder markedly distended. HIDA scan reveals ejection fraction of about her 23% with increased symptoms of pain suggestive of underlying gallbladder dyskinesia with no evidence of acute cholecystitis. Patient decompensated earlier this morning with x-ray shows free air abdomen was diffusely tender patient was eventually taken by surgical services to OR for exploratory laparotomy of perforated viscus and for detail of surgical intervention please effort to surgical notes, patient was brought back into the ICU on full ventilator support hypotensive does have a central line and A-line intubated with assist control rate of 12 patient appears to be volume depleted her liter of the LR has been given with that systolic blood pressure improved into 90s arterial blood gas drawn labs are sent ventilator adjustment has been done Objective - Vital Signs Vital signs: Vital Signs Temp 97.9 F 07/19/18 12:00 Pulse 98 07/19/18 14:00 Resp 16 07/19/18 14:00 BP 118/76 07/19/18 14:00 Pulse Ox 99 07/19/18 12:30 Intake & Output 07/18/18 07/19/18 07/19/18 18:59 06:59 18:59 Intake Total 5109 5330.851 6406.354 Output Total 950 297 120 Balance 4159 5033.851 6286.354 Weight 77.6 kg Intake: IV 3609 3496 669 .9 carriers 110 80 Dextrose 5% in Water 1, 100 400 000 ml @ 50 mls/hr IV . Q23H [facility] with Sodium Bicarb (1 Meq/ml) 150 ml Rx#:[id number] Lactated Ringers 1,000 ml 300 @ 150 mls/hr IV .Q6H40M ONE Rx#:[id number] Lactated Ringers 1,000 ml 1000 @ 999 mls/hr IV .Q1H1M ONE Rx#:[id number] Lactated Ringers 2,000 ml 500 2000 @ 500 mls/hr IV .Q4H [facility] Rx#:[id number] Magnesium Sulfate-D5w Pmx 200 1 gm In Dextrose/Water 1 100ml.bag @ 100 mls/hr IVPB Q1H [facility] Rx#: [id number] Piperacillin-Tazobactam 3 100 100 100 .375 gm In Sodium Chloride 0.9% 100 ml @ 25 mls/hr IVPB Q8HR [facility] Rx# :[id number] Potassium Chloride 10 meq 200 In Water For Injection 1 100ml.bag @ 100 mls/hr IVPB Q1H [facility] Rx#: [id number] Sodium Chloride 0.9% 1, 750 50 000 ml @ 100 mls/hr IV . Q10H [facility] Rx#:[id number] pressure bag 9 36 39 Intake, IV Titration 1500 3971.563 3002.354 Amount ACETAMINOPHEN IV (For NPO 100 ) 1,000 mg In Empty Bag 1 bag @ 400 mls/hr IVPB Q6HR PRN Rx#:[id number] Lactated Ringers 1,000 ml 1500 500 @ 500 mls/hr IV .Q2H [facility] Rx#:[id number] Lactated Ringers 1,000 ml 1000 @ 999 mls/hr IV .Q1H1M ONE Rx#:[id number] Lactated Ringers 2,000 ml 5000 @ 999 mls/hr IV .Q2H1M ONE Rx#:[id number] Norepinephrine 16 mg In 333.253 174.354 Sodium Chloride 0.9% 250 ml @ Titrate IV .Q0M [facility] Rx#:[id number] Propofol 1,000 mg In 1.598 Empty Bag 1 bag @ Titrate IV .Q0M [facility] Rx#: [id number] Sodium Chloride 0.9% 1, 400 000 ml @ 100 mls/hr IV . Q10H [facility] Rx#:[id number] Sodium Chloride 0.9% 99 63 ml @ 0.03 UNITS/MIN 9 mls /hr IV .Q11H7M [facility] with Vasopressin 20 unit Rx#: [id number] Output: Drainage 600 200 Left Lower Abdomen 600 200 Urine 200 97 120 Estimated Blood Loss 150 Other: Voiding Method Indwelling Catheter Indwelling Catheter Indwelling Catheter ABP, PAP, CO, CI - Last Documented Arterial Blood Pressure 59/55 - Exam Intubated on full ventilator support - Constitutional General appearance: average body habitus - EENT Eyes: normal appearance Ears: bilateral: normal - Neck Neck: normal ROM Carotids: bilateral: upstroke normal, bruit absent - Respiratory Respiratory: bilateral: CTA - Cardiovascular Rhythm: regular Heart sounds: normal: S1, S2 - Gastrointestinal Patient has a ileostomy as well as colostomy, anterior abdominal wall wound is open at the skin level fascia has been repaired Sedated - Labs CBC & Chem 7: 07/19/18 06:10 07/19/18 06:10 Labs: Abnormal Lab Results - Last 24 Hours (Table) 07/18/18 07/18/18 07/18/18 Range/Units 16:24 16:40 19:13 WBC (3.8-10.6) k/uL Neutrophils # (Manual) (1.3-7.7) k/uL Metamyelocytes # (Man) 1.35 H (0) k/uL Myelocytes # (Manual) 3.33 H (0) k/uL ABG pH 7.30 L (7.35-7.45) ABG pCO2 (35-45) mmHg ABG pO2 205 H (83-108) mmHg ABG HCO3 (21-25) mmol/L ABG Total CO2 (19-24) mmol/L ABG O2 Saturation 100.0 H (94-97) % Chloride (98-107) mmol/L Carbon Dioxide (22-30) mmol/L BUN (7-17) mg/dL Creatinine (0.52-1.04) mg/dL Glucose (74-99) mg/dL POC Glucose (mg/dL) 107 H (75-99) mg/dL Plasma Lactic Acid Evangelist (0.7-2.0) mmol/L Calcium (8.4-10.2) mg/dL Ionized Calcium John (4.5-5.3) mg/dL AST (14-36) U/L ALT (9-52) U/L Total Protein (6.3-8.2) g/dL Albumin (3.5-5.0) g/dL Urine Appearance (Clear) Urine Protein (Negative) Urine Blood (Negative) Urine Bilirubin (Negative) Urine RBC (0-5) /hpf Urine WBC (0-5) /hpf Amorphous Sediment (None) /hpf Urine Bacteria (None) /hpf Hyaline Casts (0-2) /lpf Urine Mucus (None) /hpf 07/18/18 07/19/18 07/19/18 Range/Units 21:15 04:54 06:10 WBC 25.1 H (3.8-10.6) k/uL Neutrophils # (Manual) 17.00 H (1.3-7.7) k/uL Metamyelocytes # (Man) 3.26 H (0) k/uL Myelocytes # (Manual) 1.26 H (0) k/uL ABG pH 7.26 L (7.35-7.45) ABG pCO2 33 L (35-45) mmHg ABG pO2 130 H (83-108) mmHg ABG HCO3 15 L (21-25) mmol/L ABG Total CO2 16 L (19-24) mmol/L ABG O2 Saturation 98.6 H (94-97) % Chloride (98-107) mmol/L Carbon Dioxide (22-30) mmol/L BUN (7-17) mg/dL Creatinine (0.52-1.04) mg/dL Glucose (74-99) mg/dL POC Glucose (mg/dL) (75-99) mg/dL Plasma Lactic Acid Evangelist (0.7-2.0) mmol/L Calcium (8.4-10.2) mg/dL Ionized Calcium John (4.5-5.3) mg/dL AST (14-36) U/L ALT (9-52) U/L Total Protein (6.3-8.2) g/dL Albumin (3.5-5.0) g/dL Urine Appearance Cloudy H (Clear) Urine Protein 1+ H (Negative) Urine Blood Moderate H (Negative) Urine Bilirubin 1+ H (Negative) Urine RBC >182 H (0-5) /hpf Urine WBC 10 H (0-5) /hpf Amorphous Sediment Occasional H (None) /hpf Urine Bacteria Occasional H (None) /hpf Hyaline Casts 180 H (0-2) /lpf Urine Mucus Few H (None) /hpf 07/19/18 07/19/18 07/19/18 Range/Units 06:10 08:33 08:33 WBC (3.8-10.6) k/uL Neutrophils # (Manual) (1.3-7.7) k/uL Metamyelocytes # (Man) (0) k/uL Myelocytes # (Manual) (0) k/uL ABG pH (7.35-7.45) ABG pCO2 (35-45) mmHg ABG pO2 (83-108) mmHg ABG HCO3 (21-25) mmol/L ABG Total CO2 (19-24) mmol/L ABG O2 Saturation (94-97) % Chloride 113 H (98-107) mmol/L Carbon Dioxide 18 L (22-30) mmol/L BUN 30 H (7-17) mg/dL Creatinine 1.21 H (0.52-1.04) mg/dL Glucose 60 L (74-99) mg/dL POC Glucose (mg/dL) (75-99) mg/dL Plasma Lactic Acid Evangelist 5.7 H* (0.7-2.0) mmol/L Calcium 7.6 L (8.4-10.2) mg/dL Ionized Calcium John 4.2 L (4.5-5.3) mg/dL AST 478 H (14-36) U/L ALT 242 H (9-52) U/L Total Protein 3.3 L (6.3-8.2) g/dL Albumin 1.6 L (3.5-5.0) g/dL Urine Appearance (Clear) Urine Protein (Negative) Urine Blood (Negative) Urine Bilirubin (Negative) Urine RBC (0-5) /hpf Urine WBC (0-5) /hpf Amorphous Sediment (None) /hpf Urine Bacteria (None) /hpf Hyaline Casts (0-2) /lpf Urine Mucus (None) /hpf 07/19/18 07/19/18 Range/Units 12:09 12:32 WBC (3.8-10.6) k/uL Neutrophils # (Manual) (1.3-7.7) k/uL Metamyelocytes # (Man) (0) k/uL Myelocytes # (Manual) (0) k/uL ABG pH (7.35-7.45) ABG pCO2 (35-45) mmHg ABG pO2 (83-108) mmHg ABG HCO3 (21-25) mmol/L ABG Total CO2 (19-24) mmol/L ABG O2 Saturation (94-97) % Chloride (98-107) mmol/L Carbon Dioxide (22-30) mmol/L BUN (7-17) mg/dL Creatinine (0.52-1.04) mg/dL Glucose (74-99) mg/dL POC Glucose (mg/dL) 109 H (75-99) mg/dL Plasma Lactic Acid Evangelist 4.9 H* (0.7-2.0) mmol/L Calcium (8.4-10.2) mg/dL Ionized Calcium John (4.5-5.3) mg/dL AST (14-36) U/L ALT (9-52) U/L Total Protein (6.3-8.2) g/dL Albumin (3.5-5.0) g/dL Urine Appearance (Clear) Urine Protein (Negative) Urine Blood (Negative) Urine Bilirubin (Negative) Urine RBC (0-5) /hpf Urine WBC (0-5) /hpf Amorphous Sediment (None) /hpf Urine Bacteria (None) /hpf Hyaline Casts (0-2) /lpf Urine Mucus (None) /hpf Microbiology - Last 24 Hours (Table) 07/18/18 21:15 Urine Culture - Preliminary Urine,Clean Catch Assessment and Plan Assessment: Severe sepsis and septic shock Acute respiratory failure, anticipated complication of this extensive surgery Bowel perforation, status post ileostomy and colostomy postop day #2 Intra-abdominal secondary peritonitis Right pleural effusion Volume depletion and dehydration Leukocytosis and lactic acidosis Severe profound metabolic acidosis Plan: Vasopressors as needed keep map over 65 Aggressive fluid resuscitation will give LR to ensure adequate hemodynamics and urine output intermittently Broad-spectrum antibiotics Ventilator adjustment Labs reviewed medications reviewed Critical care time spent 45 minutes Time with Patient: Greater than 30
[2018-07-19 18:04] LABS: Glucose,Whole Blood 115 mg/dL (75-99)
[2018-07-19 18:29] LABS: Hemoglobin A1C 6.3 % (4.0-6.0)
[2018-07-19] MEDS: PROPOFOL 1,000 MG in EMPTY BAG 1 BAG IV SCH (21:14)
[2018-07-20] MEDS: PIPERACILLIN-TAZOBACTAM 3.375 GM in SODIUM CHLORIDE 0.9% 100 ML IVPB SCH ×3 (00:01→22:40)
[2018-07-20 00:50] LABS: Glucose,Whole Blood 67 mg/dL (75-99)
[2018-07-20] MEDS: LACTATED RINGERS 1,000 ML IV SCH ×4 (00:59→09:16)
[2018-07-20] MEDS ORDERED: DEXTROSE 50%-WATER 50 ML SYRINGE IVP STA ×2 (01:02→01:08)
[2018-07-20 01:37] LABS: Glucose,Whole Blood 196 mg/dL (75-99)
[2018-07-20 02:14] LABS: Glucose,Whole Blood 158 mg/dL (75-99)
[2018-07-20 04:41] LABS: HCT 29.1 % (34.0-46.0); MCH 27.2 pg (25.0-35.0); Mean Platelet Volume 7.6; Platelet Count 195 k/uL (150-450); RBC 3.42 m/uL (3.80-5.40); RDW 14.9 % (11.5-15.5)
[2018-07-20 04:49] LABS: HGB 9.3 gm/dL (11.4-16.0)
[2018-07-20 04:56] LABS: Calcium 6.7 mg/dL (8.4-10.2); Magnesium 1.6 mg/dL (1.6-2.3); Phosphorus 2.6 mg/dL (2.5-4.5); Potassium 3.7 mmol/L (3.5-5.1)
[2018-07-20] MEDS ORDERED: Magnesium Replacement Protocol 1 EACH MISC MISCELLANE PRN (04:58)
[2018-07-20] MEDS ORDERED: Potassium Replacement Protocol 1 EACH MISC MISCELLANE PRN (05:00)
[2018-07-20] MEDS: SODIUM CHLORIDE 0.9% 99 ML with VASOPRESSIN 20 UNIT IV SCH ×4 (05:09→22:36)
[2018-07-20] MEDS: DEXTROSE 5% IN WATER 1,000 ML with SODIUM BICARB (1 MEQ/ML) 150 ML IV SCH (05:52)
[2018-07-20] MEDS: NOREPINEPHRINE 16 MG in SODIUM CHLORIDE 0.9% 250 ML IV SCH (05:53)
[2018-07-20] MEDS: POTASSIUM CHLORIDE 10 MEQ in WATER FOR INJECTION 1 100ML.BAG IVPB SCH (05:56)
[2018-07-20] MEDS: MAGNESIUM SULFATE-D5W PMX 1 GM in DEXTROSE/WATER 1 100ML.BAG IVPB SCH ×2 (06:04→06:39)
[2018-07-20 06:14] LABS: Glucose,Whole Blood 73 mg/dL (75-99)
[2018-07-20] MEDS: PROPOFOL 1,000 MG in EMPTY BAG 1 BAG IV SCH (06:14)
--- NOTE | 2018-07-20 06:20 | XR ---
EXAMINATION TYPE: XR chest 1V portable DATE OF EXAM: 07/20/2018 HISTORY: Tube placement. REFERENCE: Previous study dated 07/19/2018. FINDINGS: The patient is ET tube and NG tube remain in place, unchanged in appearance. There is bibasilar airspace disease. This may have worsened slightly. There are small, bilateral effu sions. The heart is mildly enlarged. IMPRESSION: 1. MILD CARDIOMEGALY. 2. BIBASILAR AIRSPACE DISEASE. 3. SMALL, BILATERAL EFFUSIONS.
[2018-07-20] MEDS: SODIUM CHLORIDE 0.9% 1,000 ML IV SCH ×2 (06:40→22:38)
--- NOTE | 2018-07-20 07:32 | P.PN ---
Subjective Progress Note Date: 07/20/18 Principal diagnosis: Hypotension This is an 78-year-old female patient with no significant past medical history who presented to the hospital with abdominal discomfort and was found to have small bowel obstruction where the patient underwent abdominal surgery after she was found to have free air in the abdomen. The patient underwent exploratory laparotomy and was found to have perforated viscus. Please refer to the OR notes. We did see the patient as a consultation for preop cardiac assessment and she was asymptomatic from the cardiac standpoint and she underwent an echocardiogram which revealed normal LV function without significant valvular abnormalities. On follow-up with the patient today, 07/20/2018, she seems to be slightly better hemodynamically. She is off vasopressors and she is down in the dose of norepinephrine. She continues to be intubated on ventilator. She is also on antibiotic. She has been maintaining normal sinus mechanism. The chest x-ray continues to show finding of small bilateral pleural effusion Objective - Vital Signs Vital signs: Vital Signs Temp 97.6 F 07/20/18 04:00 Pulse 92 07/20/18 07:00 Resp 16 07/20/18 07:00 BP 125/61 07/19/18 14:30 Pulse Ox 98 07/20/18 07:00 Intake & Output 07/19/18 07/20/18 07/20/18 18:59 06:59 18:59 Intake Total 7658.756 6891.318 256 Output Total 400 641 50 Balance 7258.756 6250.318 206 Weight 77.6 kg 72.9 kg Intake: IV 1073 1492 56 .9 carriers 160 20 Dextrose 5% in Water 1, 600 600 50 000 ml @ 50 mls/hr IV . Q23H [facility] with Sodium Bicarb (1 Meq/ml) 150 ml Rx#:[id number] Piperacillin-Tazobactam 3 200 200 .375 gm In Sodium Chloride 0.9% 100 ml @ 25 mls/hr IVPB Q8HR [facility] Rx# :[id number] Sodium Chloride 0.9% 1, 50 600 000 ml @ 100 mls/hr IV . Q10H [facility] Rx#:[id number] pressure bag 63 72 6 Intake, IV Titration 6585.756 5399.318 200 Amount Lactated Ringers 1,000 ml 500 @ 500 mls/hr IV .Q2H [facility] Rx#:[id number] Lactated Ringers 2,000 ml 4000 @ 999 mls/hr IV .Q2H1M ONE Rx#:[id number] Lactated Ringers 2,000 ml 5750 1000 @ 999 mls/hr IV .Q2H1M ONE Rx#:[id number] Magnesium Sulfate-D5w Pmx 100 100 1 gm In Dextrose/Water 1 100ml.bag @ 100 mls/hr IVPB Q1H [facility] Rx#: [id number] Norepinephrine 16 mg In 174.354 125.878 Sodium Chloride 0.9% 250 ml @ Titrate IV .Q0M [facility] Rx#:[id number] Potassium Chloride 10 meq 100 100 In Water For Injection 1 100ml.bag @ 100 mls/hr IVPB Q1H [facility] Rx#: [id number] Propofol 1,000 mg In 98.402 73.44 Empty Bag 1 bag @ Titrate IV .Q0M [facility] Rx#: [id number] Sodium Chloride 0.9% 99 63 ml @ 0.03 UNITS/MIN 9 mls /hr IV .Q11H7M NOE with Vasopressin 20 unit Rx#: [id number] Output: Drainage 200 Left Lower Abdomen 200 Urine 200 641 50 Other: Voiding Method Indwelling Catheter Indwelling Catheter # Voids 3 # Bowel Movements 1 ABP, PAP, CO, CI - Last Documented Arterial Blood Pressure 107/58 - Constitutional General appearance: Present: no acute distress - Respiratory Respiratory: bilateral: diminished - Cardiovascular Rhythm: regular - Labs CBC & Chem 7: 07/20/18 04:10 07/20/18 04:10 Labs: Abnormal Lab Results - Last 24 Hours (Table) 07/19/18 07/19/18 07/19/18 Range/Units 06:10 06:10 06:10 WBC (3.8-10.6) k/uL RBC (3.80-5.40) m/uL Hgb (11.4-16.0) gm/dL Hct (34.0-46.0) % Neutrophils # (Manual) 17.00 H (1.3-7.7) k/uL Metamyelocytes # (Man) 3.26 H (0) k/uL Myelocytes # (Manual) 1.26 H (0) k/uL ABG Lactic Acid (0.5-1.6) mmol/L Sodium (137-145) mmol/L Chloride 113 H (98-107) mmol/L Carbon Dioxide 18 L (22-30) mmol/L BUN 30 H (7-17) mg/dL Creatinine 1.21 H (0.52-1.04) mg/dL Glucose 60 L (74-99) mg/dL POC Glucose (mg/dL) (75-99) mg/dL Hemoglobin A1c 6.3 H (4.0-6.0) % Plasma Lactic Acid Evangelist (0.7-2.0) mmol/L Calcium 7.6 L (8.4-10.2) mg/dL Ionized Calcium John (4.5-5.3) mg/dL AST 478 H (14-36) U/L ALT 242 H (9-52) U/L Total Protein 3.3 L (6.3-8.2) g/dL Albumin 1.6 L (3.5-5.0) g/dL 07/19/18 07/19/18 07/19/18 Range/Units 08:33 08:33 12:09 WBC (3.8-10.6) k/uL RBC (3.80-5.40) m/uL Hgb (11.4-16.0) gm/dL Hct (34.0-46.0) % Neutrophils # (Manual) (1.3-7.7) k/uL Metamyelocytes # (Man) (0) k/uL Myelocytes # (Manual) (0) k/uL ABG Lactic Acid (0.5-1.6) mmol/L Sodium (137-145) mmol/L Chloride (98-107) mmol/L Carbon Dioxide (22-30) mmol/L BUN (7-17) mg/dL Creatinine (0.52-1.04) mg/dL Glucose (74-99) mg/dL POC Glucose (mg/dL) 109 H (75-99) mg/dL Hemoglobin A1c (4.0-6.0) % Plasma Lactic Acid Evangelist 5.7 H* (0.7-2.0) mmol/L Calcium (8.4-10.2) mg/dL Ionized Calcium John 4.2 L (4.5-5.3) mg/dL AST (14-36) U/L ALT (9-52) U/L Total Protein (6.3-8.2) g/dL Albumin (3.5-5.0) g/dL 07/19/18 07/19/18 07/19/18 Range/Units 12:32 17:50 17:50 WBC (3.8-10.6) k/uL RBC (3.80-5.40) m/uL Hgb (11.4-16.0) gm/dL Hct (34.0-46.0) % Neutrophils # (Manual) (1.3-7.7) k/uL Metamyelocytes # (Man) (0) k/uL Myelocytes # (Manual) (0) k/uL ABG Lactic Acid 4.6 H* (0.5-1.6) mmol/L Sodium (137-145) mmol/L Chloride (98-107) mmol/L Carbon Dioxide (22-30) mmol/L BUN (7-17) mg/dL Creatinine (0.52-1.04) mg/dL Glucose (74-99) mg/dL POC Glucose (mg/dL) 115 H (75-99) mg/dL Hemoglobin A1c (4.0-6.0) % Plasma Lactic Acid Evangelist 4.9 H* (0.7-2.0) mmol/L Calcium (8.4-10.2) mg/dL Ionized Calcium John (4.5-5.3) mg/dL AST (14-36) U/L ALT (9-52) U/L Total Protein (6.3-8.2) g/dL Albumin (3.5-5.0) g/dL 07/19/18 07/20/18 07/20/18 Range/Units 23:30 00:38 01:24 WBC (3.8-10.6) k/uL RBC (3.80-5.40) m/uL Hgb (11.4-16.0) gm/dL Hct (34.0-46.0) % Neutrophils # (Manual) (1.3-7.7) k/uL Metamyelocytes # (Man) (0) k/uL Myelocytes # (Manual) (0) k/uL ABG Lactic Acid (0.5-1.6) mmol/L Sodium (137-145) mmol/L Chloride (98-107) mmol/L Carbon Dioxide (22-30) mmol/L BUN (7-17) mg/dL Creatinine (0.52-1.04) mg/dL Glucose (74-99) mg/dL POC Glucose (mg/dL) 67 L 196 H (75-99) mg/dL Hemoglobin A1c (4.0-6.0) % Plasma Lactic Acid Evangelist 5.0 H* (0.7-2.0) mmol/L Calcium (8.4-10.2) mg/dL Ionized Calcium John (4.5-5.3) mg/dL AST (14-36) U/L ALT (9-52) U/L Total Protein (6.3-8.2) g/dL Albumin (3.5-5.0) g/dL 07/20/18 07/20/18 07/20/18 Range/Units 02:02 04:10 04:10 WBC 21.0 H (3.8-10.6) k/uL RBC 3.42 L (3.80-5.40) m/uL Hgb 9.3 L D (11.4-16.0) gm/dL Hct 29.1 L (34.0-46.0) % Neutrophils # (Manual) (1.3-7.7) k/uL Metamyelocytes # (Man) (0) k/uL Myelocytes # (Manual) (0) k/uL ABG Lactic Acid (0.5-1.6) mmol/L Sodium 135 L (137-145) mmol/L Chloride 109 H (98-107) mmol/L Carbon Dioxide (22-30) mmol/L BUN 30 H (7-17) mg/dL Creatinine (0.52-1.04) mg/dL Glucose 106 H (74-99) mg/dL POC Glucose (mg/dL) 158 H (75-99) mg/dL Hemoglobin A1c (4.0-6.0) % Plasma Lactic Acid Evagnelist (0.7-2.0) mmol/L Calcium 6.7 L (8.4-10.2) mg/dL Ionized Calcium John (4.5-5.3) mg/dL AST (14-36) U/L ALT (9-52) U/L Total Protein (6.3-8.2) g/dL Albumin (3.5-5.0) g/dL 07/20/18 07/20/18 Range/Units 04:10 06:02 WBC (3.8-10.6) k/uL RBC (3.80-5.40) m/uL Hgb (11.4-16.0) gm/dL Hct (34.0-46.0) % Neutrophils # (Manual) (1.3-7.7) k/uL Metamyelocytes # (Man) (0) k/uL Myelocytes # (Manual) (0) k/uL ABG Lactic Acid (0.5-1.6) mmol/L Sodium (137-145) mmol/L Chloride (98-107) mmol/L Carbon Dioxide (22-30) mmol/L BUN (7-17) mg/dL Creatinine (0.52-1.04) mg/dL Glucose (74-99) mg/dL POC Glucose (mg/dL) 73 L (75-99) mg/dL Hemoglobin A1c (4.0-6.0) % Plasma Lactic Acid Evangelist 4.5 H* (0.7-2.0) mmol/L Calcium (8.4-10.2) mg/dL Ionized Calcium John (4.5-5.3) mg/dL AST (14-36) U/L ALT (9-52) U/L Total Protein (6.3-8.2) g/dL Albumin (3.5-5.0) g/dL Microbiology - Last 24 Hours (Table) 07/18/18 17:48 Blood Culture - Preliminary Blood No Growth after 24 hours 07/18/18 17:46 Blood Culture - Preliminary Blood No Growth after 24 hours 07/18/18 21:15 Urine Culture - Preliminary Urine,Clean Catch Assessment and Plan Assessment: Assessment #1 status post emergency surgery for perforated viscus #2 septic shock #3 sinus tachycardia #4 multiple comorbid conditions Plan #1 try to wean the patient from the vasopressors #2 the patient also has been followed by the intensive care team
[2018-07-20 08:59] LABS: ABG Base Excess 0.2 mmol/L; ABG HCO3 24 mmol/L (21-25); ABG Oxygen Saturation 98.4 % (94-97); ABG PCO2 33 mmHg (35-45); ABG PH 7.47 (7.35-7.45); ABG PO2 104 mmHg (83-108); ABG TCO2 25 mmol/L (19-24)
--- NOTE | 2018-07-20 09:05 | P.PN ---
Subjective Progress Note Date: 07/20/18 Principal diagnosis: Severe sepsis and septic shock, acute hypoxic respiratory failure, bowel perforation, secondary abdominal peritonitis, right small pleural effusion, volume depletion and dehydration 07/20/2018, patient seen eval examined during the rounds clinically patient has been doing well in terms of hemodynamics able to come off of vasopressin, patient is still on levo fed drip though which is down to 8 mics, patient remains on 50 cc per hour of bicarb drip, propofol drip is 20 mics, patient is being planned to start on TPN, remains on full ventilator support, currently FiO2 is 40%, with tidal volume of 500, respiratory rate set at 14, she is breathing 16, PEEP is 5, arterial blood gas is pending today, chest x-ray finding as well as laboratory data reviewed, chest x-ray reviewed by shilo subsegmental atelectasis small effusion possible pneumonia cannot be excluded, patient is on IV Zosyn we'll add Flagyl as well, respiratory secretions are stable, white cell count is trending down to 21,000, hemoglobin and hematocrit did drop down to 9.3 and 29 likely dilutional as patient has been and is still being resuscitated with steroids, continue peptic ulcer disease prophylaxis continue DVT prophylaxis, critical care time spent 35 minutes 07/19/2018, patient seen eval examined during the rounds she remains sedated with propofol currently she is on 20 mics of propofol she is hemodynamically remains on stable, patient has the severe hypotension requiring vasopressin as well as levo fed which was up to 30 mics however able to taper it down to 10 mics now vasopressin is 0.03 unit, she is also on bicarb drip for severe metabolic acidosis currently running 50 mL an hour she has received so far postoperatively 9 L of LR and 2 L of normal saline she does make some urine about 10-20 mL with fluid boluses otherwise she becomes and uric plan is to give another liter of LR 2 50 mL an hour for 4 hours then to resume 100 mL an hour and lower she is sedated with propofol drip, family is present at bedside care plan discussed with them at length, currently patient is a full assist control mode with a rate of 14 breathing about 17, tidal volume is 500, 5 of PEEP, 50% oxygen, labs and medications reviewed, culture results and reports are pending, , chest x-ray revealed stable endotracheal tube stable central line and some subsegmental atelectasis at the bases are seen, patient remains on broad-spectrum antibiotics This is a pleasant 78-year-old female with no significant past medical history. She presented to the hospital with abdominal pain and has been found to have a bowel obstruction. We have been asked to see her in consultation for shortness of breath and hypoxia related to abdominal process. She has been evaluated by surgical services and per nursing staff she was vomiting all morning. Laboratory data reviewed, hemoglobin 13.7, platelets 439 WBC 12.0 down from 15.9 on admission, INR 1.5, sodium 139, potassium 3.4, creatinine 0.6, magnesium 2.1, cardiac enzymes negative 1. She also has been diagnosed with a urinary tract infection. EKG on admission reveals sinus mechanism with no acute ST or T wave abnormalities noted. Chest x-ray reveals mild pulmonary fibrosis. No overt heart failure or acute cardiopulmonary process. She takes no daily medications. She is also been seen in consultation by urology and surgical services. Urology suspects a large infected right renal stone. X-ray of the abdomen obtained reveals evidence of right renal calculus as well as colonic wall thickening suggestive of colitis. CT of the abdomen and pelvis with contrast reveals markedly colonic distention to the level of the sigmoid colon, numerous bilateral renal calculi and gallbladder markedly distended. HIDA scan reveals ejection fraction of about her 23% with increased symptoms of pain suggestive of underlying gallbladder dyskinesia with no evidence of acute cholecystitis. Patient decompensated earlier this morning with x-ray shows free air abdomen was diffusely tender patient was eventually taken by surgical services to OR for exploratory laparotomy of perforated viscus and for detail of surgical intervention please effort to surgical notes, patient was brought back into the ICU on full ventilator support hypotensive does have a central line and A-line intubated with assist control rate of 12 patient appears to be volume depleted her liter of the LR has been given with that systolic blood pressure improved into 90s arterial blood gas drawn labs are sent ventilator adjustment has been done Objective - Vital Signs Vital signs: Vital Signs Temp 97.6 F 07/20/18 08:00 Pulse 98 07/20/18 08:00 Resp 16 07/20/18 08:00 BP 125/61 07/19/18 14:30 Pulse Ox 98 07/20/18 08:00 Intake & Output 01/25/19 01/26/19 01/26/19 18:59 06:59 18:59 Intake Total 7658.756 6891.318 312 Output Total 400 641 100 Balance 7258.756 6250.318 212 Weight 77.6 kg 72.9 kg Intake: IV 1073 1492 112 .9 carriers 160 20 Dextrose 5% in Water 1, 600 600 100 000 ml @ 50 mls/hr IV . Q23H [facility] with Sodium Bicarb (1 Meq/ml) 150 ml Rx#:[id number] Piperacillin-Tazobactam 3 200 200 .375 gm In Sodium Chloride 0.9% 100 ml @ 25 mls/hr IVPB Q8HR [facility] Rx# :[id number] Sodium Chloride 0.9% 1, 50 600 000 ml @ 100 mls/hr IV . Q10H [facility] Rx#:[id number] pressure bag 63 72 12 Intake, IV Titration 6585.756 5399.318 200 Amount Lactated Ringers 1,000 ml 500 @ 500 mls/hr IV .Q2H [facility] Rx#:[id number] Lactated Ringers 2,000 ml 4000 @ 999 mls/hr IV .Q2H1M [facility] Rx#:[id number] Lactated Ringers 2,000 ml 5750 1000 @ 999 mls/hr IV .Q2H1M [facility] Rx#:[id number] Magnesium Sulfate-D5w Pmx 100 100 1 gm In Dextrose/Water 1 100ml.bag @ 100 mls/hr IVPB Q1H [facility] Rx#: [id number] Norepinephrine 16 mg In 174.354 125.878 Sodium Chloride 0.9% 250 ml @ Titrate IV .Q0M [facility] Rx#:[id number] Potassium Chloride 10 meq 100 100 In Water For Injection 1 100ml.bag @ 100 mls/hr IVPB Q1H [facility] Rx#: [id number] Propofol 1,000 mg In 98.402 73.44 Empty Bag 1 bag @ Titrate IV .Q0M [facility] Rx#: [id number] Sodium Chloride 0.9% 99 63 ml @ 0.03 UNITS/MIN 9 mls /hr IV .Q11H7M [facility] with Vasopressin 20 unit Rx#: [id number] Output: Drainage 200 Left Lower Abdomen 200 Urine 200 641 100 Other: Voiding Method Indwelling Catheter Indwelling Catheter # Voids 3 # Bowel Movements 1 ABP, PAP, CO, CI - Last Documented Arterial Blood Pressure 115/70 - Exam Intubated on full ventilator support - Constitutional General appearance: average body habitus - EENT Eyes: normal appearance Ears: bilateral: normal - Neck Neck: normal ROM Carotids: bilateral: upstroke normal, bruit absent - Respiratory Respiratory: bilateral: CTA - Cardiovascular Rhythm: regular Heart sounds: normal: S1, S2 - Gastrointestinal Patient has a ileostomy as well as colostomy, anterior abdominal wall wound is open at the skin level fascia has been repaired Sedated - Labs CBC & Chem 7: 07/20/18 04:10 07/20/18 04:10 Labs: Abnormal Lab Results - Last 24 Hours (Table) 07/19/18 07/19/18 07/19/18 Range/Units 06:10 06:10 08:33 WBC (3.8-10.6) k/uL RBC (3.80-5.40) m/uL Hgb (11.4-16.0) gm/dL Hct (34.0-46.0) % Neutrophils # (Manual) 17.00 H (1.3-7.7) k/uL Metamyelocytes # (Man) 3.26 H (0) k/uL Myelocytes # (Manual) 1.26 H (0) k/uL ABG Lactic Acid (0.5-1.6) mmol/L Sodium (137-145) mmol/L Chloride (98-107) mmol/L BUN (7-17) mg/dL Glucose (74-99) mg/dL POC Glucose (mg/dL) (75-99) mg/dL Hemoglobin A1c 6.3 H (4.0-6.0) % Plasma Lactic Acid Evangelist 5.7 H* (0.7-2.0) mmol/L Calcium (8.4-10.2) mg/dL Ionized Calcium John (4.5-5.3) mg/dL 07/19/18 07/19/18 07/19/18 Range/Units 08:33 12:09 12:32 WBC (3.8-10.6) k/uL RBC (3.80-5.40) m/uL Hgb (11.4-16.0) gm/dL Hct (34.0-46.0) % Neutrophils # (Manual) (1.3-7.7) k/uL Metamyelocytes # (Man) (0) k/uL Myelocytes # (Manual) (0) k/uL ABG Lactic Acid (0.5-1.6) mmol/L Sodium (137-145) mmol/L Chloride (98-107) mmol/L BUN (7-17) mg/dL Glucose (74-99) mg/dL POC Glucose (mg/dL) 109 H (75-99) mg/dL Hemoglobin A1c (4.0-6.0) % Plasma Lactic Acid Evangelist 4.9 H* (0.7-2.0) mmol/L Calcium (8.4-10.2) mg/dL Ionized Calcium John 4.2 L (4.5-5.3) mg/dL 07/19/18 07/19/18 07/19/18 Range/Units 17:50 17:50 23:30 WBC (3.8-10.6) k/uL RBC (3.80-5.40) m/uL Hgb (11.4-16.0) gm/dL Hct (34.0-46.0) % Neutrophils # (Manual) (1.3-7.7) k/uL Metamyelocytes # (Man) (0) k/uL Myelocytes # (Manual) (0) k/uL ABG Lactic Acid 4.6 H* (0.5-1.6) mmol/L Sodium (137-145) mmol/L Chloride (98-107) mmol/L BUN (7-17) mg/dL Glucose (74-99) mg/dL POC Glucose (mg/dL) 115 H (75-99) mg/dL Hemoglobin A1c (4.0-6.0) % Plasma Lactic Acid Evangelist 5.0 H* (0.7-2.0) mmol/L Calcium (8.4-10.2) mg/dL Ionized Calcium John (4.5-5.3) mg/dL 07/20/18 07/20/18 07/20/18 Range/Units 00:38 01:24 02:02 WBC (3.8-10.6) k/uL RBC (3.80-5.40) m/uL Hgb (11.4-16.0) gm/dL Hct (34.0-46.0) % Neutrophils # (Manual) (1.3-7.7) k/uL Metamyelocytes # (Man) (0) k/uL Myelocytes # (Manual) (0) k/uL ABG Lactic Acid (0.5-1.6) mmol/L Sodium (137-145) mmol/L Chloride (98-107) mmol/L BUN (7-17) mg/dL Glucose (74-99) mg/dL POC Glucose (mg/dL) 67 L 196 H 158 H (75-99) mg/dL Hemoglobin A1c (4.0-6.0) % Plasma Lactic Acid Evangelist (0.7-2.0) mmol/L Calcium (8.4-10.2) mg/dL Ionized Calcium John (4.5-5.3) mg/dL 07/20/18 07/20/18 07/20/18 Range/Units 04:10 04:10 04:10 WBC 21.0 H (3.8-10.6) k/uL RBC 3.42 L (3.80-5.40) m/uL Hgb 9.3 L D (11.4-16.0) gm/dL Hct 29.1 L (34.0-46.0) % Neutrophils # (Manual) (1.3-7.7) k/uL Metamyelocytes # (Man) (0) k/uL Myelocytes # (Manual) (0) k/uL ABG Lactic Acid (0.5-1.6) mmol/L Sodium 135 L (137-145) mmol/L Chloride 109 H (98-107) mmol/L BUN 30 H (7-17) mg/dL Glucose 106 H (74-99) mg/dL POC Glucose (mg/dL) (75-99) mg/dL Hemoglobin A1c (4.0-6.0) % Plasma Lactic Acid Evangelist 4.5 H* (0.7-2.0) mmol/L Calcium 6.7 L (8.4-10.2) mg/dL Ionized Calcium John (4.5-5.3) mg/dL 07/20/18 Range/Units 06:02 WBC (3.8-10.6) k/uL RBC (3.80-5.40) m/uL Hgb (11.4-16.0) gm/dL Hct (34.0-46.0) % Neutrophils # (Manual) (1.3-7.7) k/uL Metamyelocytes # (Man) (0) k/uL Myelocytes # (Manual) (0) k/uL ABG Lactic Acid (0.5-1.6) mmol/L Sodium (137-145) mmol/L Chloride (98-107) mmol/L BUN (7-17) mg/dL Glucose (74-99) mg/dL POC Glucose (mg/dL) 73 L (75-99) mg/dL Hemoglobin A1c (4.0-6.0) % Plasma Lactic Acid Evangelist (0.7-2.0) mmol/L Calcium (8.4-10.2) mg/dL Ionized Calcium John (4.5-5.3) mg/dL Microbiology - Last 24 Hours (Table) 07/18/18 17:48 Blood Culture - Preliminary Blood No Growth after 24 hours 07/18/18 17:46 Blood Culture - Preliminary Blood No Growth after 24 hours 07/18/18 21:15 Urine Culture - Preliminary Urine,Clean Catch Assessment and Plan Assessment: Severe sepsis and septic shock Acute respiratory failure, anticipated complication of this extensive surgery By basilar pneumonia may be aspiration related Bowel perforation, status post ileostomy and colostomy postop day #3 Intra-abdominal secondary peritonitis Right pleural effusion Volume depletion and dehydration Leukocytosis and lactic acidosis Severe profound metabolic acidosis Acute renal failure stage III however renal function in GFR slowly improving with fluid resuscitation Plan: Vasopressors as needed keep map over 65 Aggressive fluid resuscitation will give LR to ensure adequate hemodynamics and urine output intermittently Broad-spectrum antibiotics, Flagyl is being admitted Ventilator adjustment, will continue current ventilator support for another 24- 48 hours Labs reviewed medications reviewed Taper the bicarb drip Repeat labs and chest x-ray tomorrow Start TPN as planned Critical care time spent 35 minutes Time with Patient: Greater than 30
[2018-07-20] MEDS: ENOXAPARIN 40 MG/0.4 ML SYRINGE SQ SCH (09:15)
[2018-07-20] MEDS: CHLORHEXIDINE GLUCONATE 15 ML CUP MUCOUS MEM SCH ×2 (09:15→22:40)
[2018-07-20] MEDS: FAMOTIDINE 20 MG/2 ML VIAL IV SCH (09:15)
--- NOTE | 2018-07-20 09:36 | P.PN ---
Subjective Progress Note Date: 07/20/18 Principal diagnosis: Perforated colon, sigmoid colon obstruction The patient received fluid boluses overnight. Her urinary output has improved. Hemogram she is stable. She is required less vasopressor support. Objective - Vital Signs Vital signs: Vital Signs Temp 97.6 F 07/20/18 08:00 Pulse 98 07/20/18 08:00 Resp 16 07/20/18 08:00 BP 125/61 07/19/18 14:30 Pulse Ox 98 07/20/18 08:00 Intake & Output 07/19/18 07/20/18 07/20/18 18:59 06:59 18:59 Intake Total 7658.756 6891.318 342.609 Output Total 400 641 100 Balance 7258.756 6250.318 242.609 Weight 77.6 kg 72.9 kg Intake: IV 1073 1492 112 .9 carriers 160 20 Dextrose 5% in Water 1, 600 600 100 000 ml @ 50 mls/hr IV . Q23H [facility] with Sodium Bicarb (1 Meq/ml) 150 ml Rx#:[id number] Piperacillin-Tazobactam 3 200 200 .375 gm In Sodium Chloride 0.9% 100 ml @ 25 mls/hr IVPB Q8HR [facility] Rx# :[id number] Sodium Chloride 0.9% 1, 50 600 000 ml @ 100 mls/hr IV . Q10H [facility] Rx#:[id number] pressure bag 63 72 12 Intake, IV Titration 6585.756 5399.318 230.609 Amount Lactated Ringers 1,000 ml 500 @ 500 mls/hr IV .Q2H [facility] Rx#:[id number] Lactated Ringers 2,000 ml 4000 @ 999 mls/hr IV .Q2H1M [facility] Rx#:[id number] Lactated Ringers 2,000 ml 5750 1000 @ 999 mls/hr IV .Q2H1M [facility] Rx#:[id number] Magnesium Sulfate-D5w Pmx 100 100 1 gm In Dextrose/Water 1 100ml.bag @ 100 mls/hr IVPB Q1H [facility] Rx#: [id number] Norepinephrine 16 mg In 174.354 125.878 30.609 Sodium Chloride 0.9% 250 ml @ Titrate IV .Q0M [facility] Rx#:[id number] Potassium Chloride 10 meq 100 100 In Water For Injection 1 100ml.bag @ 100 mls/hr IVPB Q1H [facility] Rx#: [id number] Propofol 1,000 mg In 98.402 73.44 Empty Bag 1 bag @ Titrate IV .Q0M [facility] Rx#: [id number] Sodium Chloride 0.9% 99 63 ml @ 0.03 UNITS/MIN 9 mls /hr IV .Q11H7M [facility] with Vasopressin 20 unit Rx#: [id number] Output: Drainage 200 Left Lower Abdomen 200 Urine 200 641 100 Other: Voiding Method Indwelling Catheter Indwelling Catheter # Voids 3 # Bowel Movements 1 ABP, PAP, CO, CI - Last Documented Arterial Blood Pressure 115/70 - Gastrointestinal Gastrointestinal Comment(s): Abdomen soft. Incision site is clean dry intact. Ileostomy appears to have some function. 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 - Labs CBC & Chem 7: 07/20/18 04:10 07/20/18 04:10 Labs: Abnormal Lab Results - Last 24 Hours (Table) 07/19/18 07/19/18 07/19/18 Range/Units 06:10 06:10 12:09 WBC (3.8-10.6) k/uL RBC (3.80-5.40) m/uL Hgb (11.4-16.0) gm/dL Hct (34.0-46.0) % Neutrophils # (Manual) 17.00 H (1.3-7.7) k/uL Metamyelocytes # (Man) 3.26 H (0) k/uL Myelocytes # (Manual) 1.26 H (0) k/uL ABG pH (7.35-7.45) ABG pCO2 (35-45) mmHg ABG Total CO2 (19-24) mmol/L ABG O2 Saturation (94-97) % ABG Lactic Acid (0.5-1.6) mmol/L Sodium (137-145) mmol/L Chloride (98-107) mmol/L BUN (7-17) mg/dL Glucose (74-99) mg/dL POC Glucose (mg/dL) 109 H (75-99) mg/dL Hemoglobin A1c 6.3 H (4.0-6.0) % Plasma Lactic Acid Evangelist (0.7-2.0) mmol/L Calcium (8.4-10.2) mg/dL 07/19/18 07/19/18 07/19/18 Range/Units 12:32 17:50 17:50 WBC (3.8-10.6) k/uL RBC (3.80-5.40) m/uL Hgb (11.4-16.0) gm/dL Hct (34.0-46.0) % Neutrophils # (Manual) (1.3-7.7) k/uL Metamyelocytes # (Man) (0) k/uL Myelocytes # (Manual) (0) k/uL ABG pH (7.35-7.45) ABG pCO2 (35-45) mmHg ABG Total CO2 (19-24) mmol/L ABG O2 Saturation (94-97) % ABG Lactic Acid 4.6 H* (0.5-1.6) mmol/L Sodium (137-145) mmol/L Chloride (98-107) mmol/L BUN (7-17) mg/dL Glucose (74-99) mg/dL POC Glucose (mg/dL) 115 H (75-99) mg/dL Hemoglobin A1c (4.0-6.0) % Plasma Lactic Acid Evangelist 4.9 H* (0.7-2.0) mmol/L Calcium (8.4-10.2) mg/dL 07/19/18 07/20/18 07/20/18 Range/Units 23:30 00:38 01:24 WBC (3.8-10.6) k/uL RBC (3.80-5.40) m/uL Hgb (11.4-16.0) gm/dL Hct (34.0-46.0) % Neutrophils # (Manual) (1.3-7.7) k/uL Metamyelocytes # (Man) (0) k/uL Myelocytes # (Manual) (0) k/uL ABG pH (7.35-7.45) ABG pCO2 (35-45) mmHg ABG Total CO2 (19-24) mmol/L ABG O2 Saturation (94-97) % ABG Lactic Acid (0.5-1.6) mmol/L Sodium (137-145) mmol/L Chloride (98-107) mmol/L BUN (7-17) mg/dL Glucose (74-99) mg/dL POC Glucose (mg/dL) 67 L 196 H (75-99) mg/dL Hemoglobin A1c (4.0-6.0) % Plasma Lactic Acid Evangelist 5.0 H* (0.7-2.0) mmol/L Calcium (8.4-10.2) mg/dL 07/20/18 07/20/18 07/20/18 Range/Units 02:02 04:10 04:10 WBC 21.0 H (3.8-10.6) k/uL RBC 3.42 L (3.80-5.40) m/uL Hgb 9.3 L D (11.4-16.0) gm/dL Hct 29.1 L (34.0-46.0) % Neutrophils # (Manual) (1.3-7.7) k/uL Metamyelocytes # (Man) (0) k/uL Myelocytes # (Manual) (0) k/uL ABG pH (7.35-7.45) ABG pCO2 (35-45) mmHg ABG Total CO2 (19-24) mmol/L ABG O2 Saturation (94-97) % ABG Lactic Acid (0.5-1.6) mmol/L Sodium 135 L (137-145) mmol/L Chloride 109 H (98-107) mmol/L BUN 30 H (7-17) mg/dL Glucose 106 H (74-99) mg/dL POC Glucose (mg/dL) 158 H (75-99) mg/dL Hemoglobin A1c (4.0-6.0) % Plasma Lactic Acid Evangelist (0.7-2.0) mmol/L Calcium 6.7 L (8.4-10.2) mg/dL 07/20/18 07/20/18 07/20/18 Range/Units 04:10 06:02 08:50 WBC (3.8-10.6) k/uL RBC (3.80-5.40) m/uL Hgb (11.4-16.0) gm/dL Hct (34.0-46.0) % Neutrophils # (Manual) (1.3-7.7) k/uL Metamyelocytes # (Man) (0) k/uL Myelocytes # (Manual) (0) k/uL ABG pH 7.47 H (7.35-7.45) ABG pCO2 33 L (35-45) mmHg ABG Total CO2 25 H (19-24) mmol/L ABG O2 Saturation 98.4 H (94-97) % ABG Lactic Acid (0.5-1.6) mmol/L Sodium (137-145) mmol/L Chloride (98-107) mmol/L BUN (7-17) mg/dL Glucose (74-99) mg/dL POC Glucose (mg/dL) 73 L (75-99) mg/dL Hemoglobin A1c (4.0-6.0) % Plasma Lactic Acid Evangelist 4.5 H* (0.7-2.0) mmol/L Calcium (8.4-10.2) mg/dL Microbiology - Last 24 Hours (Table) 07/18/18 17:48 Blood Culture - Preliminary Blood No Growth after 24 hours 07/18/18 17:46 Blood Culture - Preliminary Blood No Growth after 24 hours 07/18/18 21:15 Urine Culture - Preliminary Urine,Clean Catch Assessment and Plan Assessment: Status post exploratory laparotomy with right colectomy and sigmoid colectomy for cecal perforation due to sigmoid colon obstruction. Patient has improved slightly. Her white count is trending down. She still remains on the ventilator. She will continue to receive supportive care.
[2018-07-20 09:41] LABS: Glucose,Whole Blood 111 mg/dL (75-99)
[2018-07-20 09:45] LABS: Band Neutrophils % 23 %; Lymphocytes # (M) 1.26 k/uL (1.0-4.8); Metamyelocytes # (M) 1.47 k/uL (0); Metamyelocytes % 7 %; Monocytes # (M) 0.42 k/uL (0-1.0); Myelocytes # (M) 0.21 k/uL (0); Myelocytes % 1 %; Neutrophils % (M) 63 %; Nucleated Red Blood Cells 0 /100 WBC (0-0); Total Cells Counted 200
[2018-07-20 09:46] LABS: Toxic Granulation Present
[2018-07-20 11:55] LABS: Glucose,Whole Blood 77 mg/dL (75-99)
[2018-07-20] MEDS ORDERED: DEXTROSE 50%-WATER 50 ML SYRINGE IVP ONE ×3 (18:00→18:49)
[2018-07-20 18:47] LABS: Glucose,Whole Blood 51 mg/dL (75-99)
[2018-07-20 18:58] LABS: Glucose,Whole Blood 40 mg/dL (75-99)
[2018-07-20] MEDS ORDERED: MVI, ADULT NO.4 WITH VIT K 10 ML, TRACE (CONC-1ML/DOSE) 1 ML, CALCIUM GLUCONATE 1,000 M... IV ONE ×4 (22:00)
[2018-07-20 23:32] LABS: Glucose,Whole Blood 87 mg/dL (75-99)
[2018-07-21] MEDS: PIPERACILLIN-TAZOBACTAM 3.375 GM in SODIUM CHLORIDE 0.9% 100 ML IVPB SCH ×3 (00:43→17:02)
[2018-07-21] MEDS: metroNIDAZOLE-NS PMX 500 MG in SALINE 1 100ML.BAG IVPB SCH ×4 (00:44→23:31)
[2018-07-21] MEDS: DEXTROSE 5% IN WATER 1,000 ML with SODIUM BICARB (1 MEQ/ML) 150 ML IV SCH (00:47)
--- NOTE | 2018-07-21 02:48 | PN ---
PROGRESS NOTE DATE OF SERVICE: 07/20/2018 REASON FOR FOLLOWUP: Abdominal sepsis. INTERVAL HISTORY: The patient is currently afebrile. She is still hypertensive requiring pressor support. FiO2 is stable though. No ( ) or changes reported by the nursing staff. PHYSICAL EXAMINATION: Blood pressure is 86/56 with a pulse of 89, temperature 98 she is 99% on 50% FiO2. GENERAL DESCRIPTION: An elderly female intubated on the vent. HEENT: Pallor. The patient is orally intubated. LUNGS: Unlabored breathing. Decreased breath sounds at the bases. HEART: S1, S2. Regular rate and rhythm. ABDOMEN: Soft. Mildly distended. No guarding or rigidity. EXTREMITIES: No edema of the feet. LABS: Hemoglobin is 9.2, white count 21,000, BUN of 30, creatinine 1.04. DIAGNOSTIC IMPRESSION AND PLAN: Patient with abdominal sepsis in this patient who did have a perforated cecum, ( ) colon obstruction, status post exploratory laparotomy, right colectomy with ileostomy, sigmoid colectomy. The patient at this time to continue with Zosyn. This will continue for now while waiting for condition to stabilize. Overall prognosis remains to be guarded. Continue supportive care. MMODL / IJN: [id number] /
[2018-07-21 02:59] LABS: Glucose,Whole Blood 82 mg/dL (75-99)
[2018-07-21] MEDS: SODIUM CHLORIDE 0.9% 1,000 ML IV SCH ×3 (03:00→22:51)
[2018-07-21] MEDS: NOREPINEPHRINE 16 MG in SODIUM CHLORIDE 0.9% 250 ML IV SCH (04:48)
[2018-07-21 04:50] LABS: ABG Base Excess 2.1 mmol/L; ABG HCO3 25 mmol/L (21-25); ABG Oxygen Saturation 97.6 % (94-97); ABG PCO2 33 mmHg (35-45); ABG PH 7.49 (7.35-7.45); ABG PO2 82 mmHg (83-108); ABG TCO2 26 mmol/L (19-24)
[2018-07-21 05:12] LABS: Ionized Calcium 4.1 mg/dL (4.5-5.3)
[2018-07-21 06:00] LABS: Basophils # (A) 0.1 k/uL (0-0.2); Basophils % (A) 0 %; Eosinophils % (A) 0 %; HCT 27.2 % (34.0-46.0); HGB 8.8 gm/dL (11.4-16.0); Hypochromasia Slight; Lymphocytes # (A) 0.7 k/uL (1.0-4.8); Lymphocytes % (A) 4 %; MCH 27.5 pg (25.0-35.0); MCHC 32.3 g/dL (31.0-37.0); MCV 85.2 fL (80.0-100.0); Mean Platelet Volume 7.5; Monocytes # (A) 0.5 k/uL (0-1.0); Monocytes % (A) 3 %; Neutrophils % (A) 92 %; Platelet Count 151 k/uL (150-450); Poikilocytosis Slight; RDW 14.9 % (11.5-15.5); WBC 19.5 k/uL (3.8-10.6)
[2018-07-21 06:13] LABS: Magnesium 1.9 mg/dL (1.6-2.3); Phosphorus 2.1 mg/dL (2.5-4.5); Potassium 3.1 mmol/L (3.5-5.1)
[2018-07-21 06:19] LABS: Calcium 6.4 mg/dL (8.4-10.2)
--- NOTE | 2018-07-21 06:57 | XR ---
EXAMINATION TYPE: XR chest 1V portable DATE OF EXAM: 07/21/2018 HISTORY: Tube placement. REFERENCE: Previous study dated 07/20/2018. FINDINGS: The patient's ET tube and NG tube as well as a left internal jugular catheter remain in kevin ce. There is bibasilar airspace disease. There are small, bilateral effusions. Heart size is obscured. IMPRESSION: WORSENING BIBASILAR AIRSPACE DISEASE WITH CONCOMITANT EFFUSIONS.
--- NOTE | 2018-07-21 07:43 | P.PN ---
Subjective Progress Note Date: 07/21/18 Principal diagnosis: Hypotension This is an 78-year-old female patient with no significant past medical history who presented to the hospital with abdominal discomfort and was found to have small bowel obstruction where the patient underwent abdominal surgery after she was found to have free air in the abdomen. The patient underwent exploratory laparotomy and was found to have perforated viscus. Please refer to the OR notes. We did see the patient as a consultation for preop cardiac assessment and she was asymptomatic from the cardiac standpoint and she underwent an echocardiogram which revealed normal LV function without significant valvular abnormalities. On follow-up with the patient today, 07/21/2018, she continues to be intubated on ventilator requiring FiO2 of 40%. Continues to be hemodynamically unstable on norepinephrine. She looks very edematous and she is retaining fluid and third spacing. She remains in normal sinus mechanism. Objective - Vital Signs Vital signs: Vital Signs Temp 97.4 F L 07/21/18 04:00 Pulse 82 07/21/18 06:00 Resp 14 07/21/18 06:00 BP 111/73 07/21/18 06:00 Pulse Ox 98 07/21/18 06:00 Intake & Output 07/20/18 07/21/18 07/21/18 18:59 06:59 18:59 Intake Total 2762.757 4453.477 Output Total 200 1380 Balance 2562.757 3073.477 Weight 97.1 kg Intake: IV 2517 1524 Amino Acid 5%-D15w+Lytes* 240 E* 1,000 ml @ 75 mls/hr IV .BY DURATION NOE Rx#: [id number] Dextrose 5% in Water 1, 190 360 000 ml @ 30 mls/hr IV . Q24H NOE with Sodium Bicarb (1 Meq/ml) 150 ml Rx#:[id number] Lactated Ringers 1,000 ml 2000 @ 999 mls/hr IV .Q1H1M ONE Rx#:[id number] Piperacillin-Tazobactam 3 100 .375 gm In Sodium Chloride 0.9% 100 ml @ 25 mls/hr IVPB Q8HR NOE Rx# :[id number] Sodium Chloride 0.9% 1, 300 800 000 ml @ 100 mls/hr IV . Q10H NOE Rx#:[id number] pressure bag 27 24 Intake, IV Titration 547.211 5364.477 Amount Lactated Ringers 1,000 ml 1125 @ 999 mls/hr IV .Q1H1M NOE Rx#:[id number] Magnesium Sulfate-D5w Pmx 100 1 gm In Dextrose/Water 1 100ml.bag @ 100 mls/hr IVPB Q1H NOE Rx#: [id number] Norepinephrine 16 mg In 45.757 204.477 Sodium Chloride 0.9% 250 ml @ Titrate IV .Q0M NOE Rx#:[id number] Potassium Chloride 10 meq 100 In Water For Injection 1 100ml.bag @ 100 mls/hr IVPB Q1H NOE Rx#: [id number] Propofol 1,000 mg In 100 Empty Bag 1 bag @ Titrate IV .Q0M NEO Rx#: [id number] Sodium Chloride 0.9% 1, 1400 000 ml @ 100 mls/hr IV . Q10H NOE Rx#:[id number] metroNIDAZOLE-NS PMX 500 100 mg In Saline 1 100ml.bag @ 100 mls/hr IVPB Q8HR NOE Rx#:[id number] Output: Gastric Drainage 300 Urine 190 1050 Stool 10 30 Other: Voiding Method Indwelling Catheter Indwelling Catheter ABP, PAP, CO, CI - Last Documented Arterial Blood Pressure 100/93 - Constitutional General appearance: Present: no acute distress - Respiratory Respiratory: bilateral: diminished - Cardiovascular Rhythm: regular - Labs CBC & Chem 7: 07/21/18 05:17 07/21/18 05:17 Labs: Abnormal Lab Results - Last 24 Hours (Table) 07/20/18 07/20/18 07/20/18 Range/Units 04:10 08:50 08:56 WBC (3.8-10.6) k/uL RBC (3.80-5.40) m/uL Hgb (11.4-16.0) gm/dL Hct (34.0-46.0) % Neutrophils # (1.3-7.7) k/uL Neutrophils # (Manual) 18.00 H (1.3-7.7) k/uL Lymphocytes # (1.0-4.8) k/uL Metamyelocytes # (Man) 1.47 H (0) k/uL Myelocytes # (Manual) 0.21 H (0) k/uL ABG pH 7.47 H (7.35-7.45) ABG pCO2 33 L (35-45) mmHg ABG pO2 (83-108) mmHg ABG Total CO2 25 H (19-24) mmol/L ABG O2 Saturation 98.4 H (94-97) % Potassium (3.5-5.1) mmol/L Chloride (98-107) mmol/L BUN (7-17) mg/dL POC Glucose (mg/dL) 111 H (75-99) mg/dL Plasma Lactic Acid Evangelist (0.7-2.0) mmol/L Calcium (8.4-10.2) mg/dL Ionized Calcium John (4.5-5.3) mg/dL Phosphorus (2.5-4.5) mg/dL Triglycerides (<150) mg/dL 07/20/18 07/20/18 07/20/18 Range/Units 11:20 18:24 18:47 WBC (3.8-10.6) k/uL RBC (3.80-5.40) m/uL Hgb (11.4-16.0) gm/dL Hct (34.0-46.0) % Neutrophils # (1.3-7.7) k/uL Neutrophils # (Manual) (1.3-7.7) k/uL Lymphocytes # (1.0-4.8) k/uL Metamyelocytes # (Man) (0) k/uL Myelocytes # (Manual) (0) k/uL ABG pH (7.35-7.45) ABG pCO2 (35-45) mmHg ABG pO2 (83-108) mmHg ABG Total CO2 (19-24) mmol/L ABG O2 Saturation (94-97) % Potassium (3.5-5.1) mmol/L Chloride (98-107) mmol/L BUN (7-17) mg/dL POC Glucose (mg/dL) 51 L 40 L (75-99) mg/dL Plasma Lactic Acid Eavngelist (0.7-2.0) mmol/L Calcium (8.4-10.2) mg/dL Ionized Calcium John 4.1 L (4.5-5.3) mg/dL Phosphorus (2.5-4.5) mg/dL Triglycerides (<150) mg/dL 07/21/18 07/21/18 07/21/18 Range/Units 04:47 05:17 05:17 WBC 19.5 H (3.8-10.6) k/uL RBC 3.20 L (3.80-5.40) m/uL Hgb 8.8 L (11.4-16.0) gm/dL Hct 27.2 L (34.0-46.0) % Neutrophils # 18.0 H (1.3-7.7) k/uL Neutrophils # (Manual) (1.3-7.7) k/uL Lymphocytes # 0.7 L (1.0-4.8) k/uL Metamyelocytes # (Man) (0) k/uL Myelocytes # (Manual) (0) k/uL ABG pH 7.49 H (7.35-7.45) ABG pCO2 33 L (35-45) mmHg ABG pO2 82 L (83-108) mmHg ABG Total CO2 26 H (19-24) mmol/L ABG O2 Saturation 97.6 H (94-97) % Potassium 3.1 L (3.5-5.1) mmol/L Chloride 110 H (98-107) mmol/L BUN 24 H (7-17) mg/dL POC Glucose (mg/dL) (75-99) mg/dL Plasma Lactic Acid Evangelist (0.7-2.0) mmol/L Calcium 6.4 L* (8.4-10.2) mg/dL Ionized Calcium John (4.5-5.3) mg/dL Phosphorus 2.1 L (2.5-4.5) mg/dL Triglycerides 164 H (<150) mg/dL 07/21/18 Range/Units 05:17 WBC (3.8-10.6) k/uL RBC (3.80-5.40) m/uL Hgb (11.4-16.0) gm/dL Hct (34.0-46.0) % Neutrophils # (1.3-7.7) k/uL Neutrophils # (Manual) (1.3-7.7) k/uL Lymphocytes # (1.0-4.8) k/uL Metamyelocytes # (Man) (0) k/uL Myelocytes # (Manual) (0) k/uL ABG pH (7.35-7.45) ABG pCO2 (35-45) mmHg ABG pO2 (83-108) mmHg ABG Total CO2 (19-24) mmol/L ABG O2 Saturation (94-97) % Potassium (3.5-5.1) mmol/L Chloride (98-107) mmol/L BUN (7-17) mg/dL POC Glucose (mg/dL) (75-99) mg/dL Plasma Lactic Acid Evangelist 2.9 H* (0.7-2.0) mmol/L Calcium (8.4-10.2) mg/dL Ionized Calcium John (4.5-5.3) mg/dL Phosphorus (2.5-4.5) mg/dL Triglycerides (<150) mg/dL Microbiology - Last 24 Hours (Table) 07/18/18 17:48 Blood Culture - Preliminary Blood No Growth after 48 hours 07/18/18 17:46 Blood Culture - Preliminary Blood No Growth after 48 hours 07/18/18 21:15 Urine Culture - Final Urine,Clean Catch Assessment and Plan Assessment: Assessment #1 status post emergency surgery for perforated viscus #2 septic shock #3 sinus tachycardia #4 multiple comorbid conditions Plan #1 try to wean the patient from the vasopressors #2 the patient also has been followed by the intensive care team
[2018-07-21 08:31] LABS: ABG HCO3 26 mmol/L (21-25); ABG Oxygen Saturation 97.6 % (94-97); ABG PCO2 33 mmHg (35-45); ABG PH 7.51 (7.35-7.45); ABG PO2 89 mmHg (83-108); ABG TCO2 27 mmol/L (19-24)
[2018-07-21] MEDS: SODIUM CHLORIDE 0.9% 99 ML with VASOPRESSIN 20 UNIT IV SCH ×2 (09:22)
[2018-07-21] MEDS: ENOXAPARIN 40 MG/0.4 ML SYRINGE SQ SCH (09:27)
[2018-07-21] MEDS: FAMOTIDINE 20 MG/2 ML VIAL IV SCH (09:27)
[2018-07-21] MEDS: CHLORHEXIDINE GLUCONATE 15 ML CUP MUCOUS MEM SCH ×2 (09:27→22:50)
[2018-07-21 10:08] LABS: Ionized Calcium 4.1 mg/dL (4.5-5.3)
[2018-07-21] MEDS ORDERED: Phosphorus Replacement Protoco 1 EACH MISC MISCELLANE PRN (10:14)
[2018-07-21] MEDS ORDERED: Magnesium Replacement Protocol 1 EACH MISC MISCELLANE PRN (10:15)
[2018-07-21] MEDS ORDERED: VANCOMYCIN 1,000 MG in SODIUM CHLORIDE 0.9% 250 ML IVPB STA (10:16)
[2018-07-21] MEDS ORDERED: VANCOMYCIN IV PER PHARMACY 1 EACH MISC MISCELLANE PRN (10:16)
[2018-07-21] MEDS ORDERED: CALCIUM CHLORIDE 1,000 MG in SODIUM CHLORIDE 0.9% 100 ML IVPB STA (10:17)
--- NOTE | 2018-07-21 10:42 | P.PN ---
Subjective Progress Note Date: 07/21/18 (Critical care time spent 35 minutes) Principal diagnosis: Severe sepsis and septic shock, acute hypoxic respiratory failure, bowel perforation, secondary abdominal peritonitis, right small pleural effusion, volume depletion and dehydration 07/21/2018, patient seen eval examined during the rounds she is sedated with propofol drip, currently she is on assist control rate of 14 breathing 16 tidal volume is 505 OPV and 40% oxygen, patient is on TPN tolerating very well patient also on Zosyn and Flagyl, levo fed drip is down to 5 mics, propofol is 15 mics, lactic acid the removal improved to 2.9, patient's blood gas and laboratory data reviewed as well care plan discussed with the family at length as well as surgical services, there is some changes in the ileostomy area skin is seen likely some necrosis and necrotic his skin as per discussion we'll monitor OBSERVE patient is being started on vancomycin IV, chest x-ray performed today revealed bibasilar atelectasis effusion and infiltrate possible pneumonia cannot be excluded patient is a however adequately covered with vancomycin and Zosyn oxygenation remains stable some of the effusion is likely secondary due to aggressive crystalloid resuscitation, white cell count continue to be elevated, arterial blood gases reviewed some alkalosis, bicarb is being discontinued, calcium level is on the low side, 07/20/2018, patient seen eval examined during the rounds clinically patient has been doing well in terms of hemodynamics able to come off of vasopressin, patient is still on levo fed drip though which is down to 8 mics, patient remains on 50 cc per hour of bicarb drip, propofol drip is 20 mics, patient is being planned to start on TPN, remains on full ventilator support, currently FiO2 is 40%, with tidal volume of 500, respiratory rate set at 14, she is breathing 16, PEEP is 5, arterial blood gas is pending today, chest x-ray finding as well as laboratory data reviewed, chest x-ray reviewed by shilo subsegmental atelectasis small effusion possible pneumonia cannot be excluded, patient is on IV Zosyn we'll add Flagyl as well, respiratory secretions are stable, white cell count is trending down to 21,000, hemoglobin and hematocrit did drop down to 9.3 and 29 likely dilutional as patient has been and is still being resuscitated with steroids, continue peptic ulcer disease prophylaxis continue DVT prophylaxis, critical care time spent 35 minutes 07/19/2018, patient seen eval examined during the rounds she remains sedated with propofol currently she is on 20 mics of propofol she is hemodynamically remains on stable, patient has the severe hypotension requiring vasopressin as well as levo fed which was up to 30 mics however able to taper it down to 10 mics now vasopressin is 0.03 unit, she is also on bicarb drip for severe metabolic acidosis currently running 50 mL an hour she has received so far postoperatively 9 L of LR and 2 L of normal saline she does make some urine about 10-20 mL with fluid boluses otherwise she becomes and uric plan is to give another liter of LR 2 50 mL an hour for 4 hours then to resume 100 mL an hour and lower she is sedated with propofol drip, family is present at bedside care plan discussed with them at length, currently patient is a full assist control mode with a rate of 14 breathing about 17, tidal volume is 500, 5 of PEEP, 50% oxygen, labs and medications reviewed, culture results and reports are pending, , chest x-ray revealed stable endotracheal tube stable central line and some subsegmental atelectasis at the bases are seen, patient remains on broad-spectrum antibiotics This is a pleasant 78-year-old female with no significant past medical history. She presented to the hospital with abdominal pain and has been found to have a bowel obstruction. We have been asked to see her in consultation for shortness of breath and hypoxia related to abdominal process. She has been evaluated by surgical services and per nursing staff she was vomiting all morning. Laboratory data reviewed, hemoglobin 13.7, platelets 439 WBC 12.0 down from 15.9 on admission, INR 1.5, sodium 139, potassium 3.4, creatinine 0.6, magnesium 2.1, cardiac enzymes negative 1. She also has been diagnosed with a urinary tract infection. EKG on admission reveals sinus mechanism with no acute ST or T wave abnormalities noted. Chest x-ray reveals mild pulmonary fibrosis. No overt heart failure or acute cardiopulmonary process. She takes no daily medications. She is also been seen in consultation by urology and surgical services. Urology suspects a large infected right renal stone. X-ray of the abdomen obtained reveals evidence of right renal calculus as well as colonic wall thickening suggestive of colitis. CT of the abdomen and pelvis with contrast reveals markedly colonic distention to the level of the sigmoid colon, numerous bilateral renal calculi and gallbladder markedly distended. HIDA scan reveals ejection fraction of about her 23% with increased symptoms of pain suggestive of underlying gallbladder dyskinesia with no evidence of acute cholecystitis. Patient decompensated earlier this morning with x-ray shows free air abdomen was diffusely tender patient was eventually taken by surgical services to OR for exploratory laparotomy of perforated viscus and for detail of surgical intervention please effort to surgical notes, patient was brought back into the ICU on full ventilator support hypotensive does have a central line and A-line intubated with assist control rate of 12 patient appears to be volume depleted her liter of the LR has been given with that systolic blood pressure improved into 90s arterial blood gas drawn labs are sent ventilator adjustment has been done Objective - Vital Signs Vital signs: Vital Signs Temp 98.2 F 07/21/18 08:00 Pulse 89 07/21/18 10:00 Resp 21 07/21/18 10:00 BP 122/60 07/21/18 10:00 Pulse Ox 98 07/21/18 10:00 Intake & Output 07/20/18 07/21/18 07/21/18 18:59 06:59 18:59 Intake Total 2762.757 4453.477 885 Output Total 200 1380 200 Balance 2562.757 3073.477 685 Weight 97.1 kg 97.1 kg Intake: IV 7877 1524 885 Amino Acid 5%-D15w+Lytes* 240 165 E* 1,000 ml @ 75 mls/hr IV .BY DURATION NOE Rx#: [id number] Dextrose 5% in Water 1, 190 360 120 000 ml @ 30 mls/hr IV . Q24H NOE with Sodium Bicarb (1 Meq/ml) 150 ml Rx#:[id number] Lactated Ringers 1,000 ml 2000 @ 999 mls/hr IV .Q1H1M ONE Rx#:[id number] Piperacillin-Tazobactam 3 100 100 .375 gm In Sodium Chloride 0.9% 100 ml @ 25 mls/hr IVPB Q8HR NOE Rx# :[id number] Sodium Chloride 0.9% 1, 300 800 400 000 ml @ 100 mls/hr IV . Q10H NOE Rx#:[id number] metroNIDAZOLE-NS PMX 500 100 mg In Saline 1 100ml.bag @ 100 mls/hr IVPB Q8HR NOE Rx#:[id number] pressure bag 27 24 Intake, IV Titration 923.112 1435.477 Amount Lactated Ringers 1,000 ml 1125 @ 999 mls/hr IV .Q1H1M NOE Rx#:[id number] Magnesium Sulfate-D5w Pmx 100 1 gm In Dextrose/Water 1 100ml.bag @ 100 mls/hr IVPB Q1H NOE Rx#: [id number] Norepinephrine 16 mg In 45.757 204.477 Sodium Chloride 0.9% 250 ml @ Titrate IV .Q0M NOE Rx#:[id number] Potassium Chloride 10 meq 100 In Water For Injection 1 100ml.bag @ 100 mls/hr IVPB Q1H NOE Rx#: [id number] Propofol 1,000 mg In 100 Empty Bag 1 bag @ Titrate IV .Q0M NOE Rx#: [id number] Sodium Chloride 0.9% 1, 1400 000 ml @ 100 mls/hr IV . Q10H NOE Rx#:[id number] metroNIDAZOLE-NS PMX 500 100 mg In Saline 1 100ml.bag @ 100 mls/hr IVPB Q8HR NOE Rx#:[id number] Output: Gastric Drainage 300 Urine 190 1050 200 Stool 10 30 Other: Voiding Method Indwelling Catheter Indwelling Catheter ABP, PAP, CO, CI - Last Documented Arterial Blood Pressure 100/93 - Exam Intubated on full ventilator support - Constitutional General appearance: average body habitus - EENT Eyes: normal appearance Ears: bilateral: normal - Neck Neck: normal ROM Carotids: bilateral: upstroke normal, bruit absent - Respiratory Respiratory: bilateral: CTA - Cardiovascular Rhythm: regular Heart sounds: normal: S1, S2 - Gastrointestinal Patient has a ileostomy as well as colostomy, anterior abdominal wall wound is open at the skin level fascia has been repaired, some ischemic changes along and around his ileostomy has been noted infectious being monitored and observed Sedated with propofol - Labs CBC & Chem 7: 07/21/18 05:17 07/21/18 05:17 Labs: Abnormal Lab Results - Last 24 Hours (Table) 07/20/18 07/20/18 07/20/18 Range/Units 04:10 08:56 11:20 WBC (3.8-10.6) k/uL RBC (3.80-5.40) m/uL Hgb (11.4-16.0) gm/dL Hct (34.0-46.0) % Neutrophils # (1.3-7.7) k/uL Neutrophils # (Manual) 18.00 H (1.3-7.7) k/uL Lymphocytes # (1.0-4.8) k/uL Metamyelocytes # (Man) 1.47 H (0) k/uL Myelocytes # (Manual) 0.21 H (0) k/uL ABG pH (7.35-7.45) ABG pCO2 (35-45) mmHg ABG pO2 (83-108) mmHg ABG HCO3 (21-25) mmol/L ABG Total CO2 (19-24) mmol/L ABG O2 Saturation (94-97) % Potassium (3.5-5.1) mmol/L Chloride (98-107) mmol/L BUN (7-17) mg/dL POC Glucose (mg/dL) 111 H (75-99) mg/dL Plasma Lactic Acid Evangelist (0.7-2.0) mmol/L Calcium (8.4-10.2) mg/dL Ionized Calcium John 4.1 L (4.5-5.3) mg/dL Phosphorus (2.5-4.5) mg/dL Triglycerides (<150) mg/dL 07/20/18 07/20/18 07/21/18 Range/Units 18:24 18:47 04:47 WBC (3.8-10.6) k/uL RBC (3.80-5.40) m/uL Hgb (11.4-16.0) gm/dL Hct (34.0-46.0) % Neutrophils # (1.3-7.7) k/uL Neutrophils # (Manual) (1.3-7.7) k/uL Lymphocytes # (1.0-4.8) k/uL Metamyelocytes # (Man) (0) k/uL Myelocytes # (Manual) (0) k/uL ABG pH 7.49 H (7.35-7.45) ABG pCO2 33 L (35-45) mmHg ABG pO2 82 L (83-108) mmHg ABG HCO3 (21-25) mmol/L ABG Total CO2 26 H (19-24) mmol/L ABG O2 Saturation 97.6 H (94-97) % Potassium (3.5-5.1) mmol/L Chloride (98-107) mmol/L BUN (7-17) mg/dL POC Glucose (mg/dL) 51 L 40 L (75-99) mg/dL Plasma Lactic Acid Evangelist (0.7-2.0) mmol/L Calcium (8.4-10.2) mg/dL Ionized Calcium John (4.5-5.3) mg/dL Phosphorus (2.5-4.5) mg/dL Triglycerides (<150) mg/dL 07/21/18 07/21/18 07/21/18 Range/Units 05:17 05:17 05:17 WBC 19.5 H (3.8-10.6) k/uL RBC 3.20 L (3.80-5.40) m/uL Hgb 8.8 L (11.4-16.0) gm/dL Hct 27.2 L (34.0-46.0) % Neutrophils # 18.0 H (1.3-7.7) k/uL Neutrophils # (Manual) (1.3-7.7) k/uL Lymphocytes # 0.7 L (1.0-4.8) k/uL Metamyelocytes # (Man) (0) k/uL Myelocytes # (Manual) (0) k/uL ABG pH (7.35-7.45) ABG pCO2 (35-45) mmHg ABG pO2 (83-108) mmHg ABG HCO3 (21-25) mmol/L ABG Total CO2 (19-24) mmol/L ABG O2 Saturation (94-97) % Potassium 3.1 L (3.5-5.1) mmol/L Chloride 110 H (98-107) mmol/L BUN 24 H (7-17) mg/dL POC Glucose (mg/dL) (75-99) mg/dL Plasma Lactic Acid Evangelist 2.9 H* (0.7-2.0) mmol/L Calcium 6.4 L* (8.4-10.2) mg/dL Ionized Calcium John 4.1 L (4.5-5.3) mg/dL Phosphorus 2.1 L (2.5-4.5) mg/dL Triglycerides 164 H (<150) mg/dL 07/21/18 Range/Units 08:29 WBC (3.8-10.6) k/uL RBC (3.80-5.40) m/uL Hgb (11.4-16.0) gm/dL Hct (34.0-46.0) % Neutrophils # (1.3-7.7) k/uL Neutrophils # (Manual) (1.3-7.7) k/uL Lymphocytes # (1.0-4.8) k/uL Metamyelocytes # (Man) (0) k/uL Myelocytes # (Manual) (0) k/uL ABG pH 7.51 H (7.35-7.45) ABG pCO2 33 L (35-45) mmHg ABG pO2 (83-108) mmHg ABG HCO3 26 H (21-25) mmol/L ABG Total CO2 27 H (19-24) mmol/L ABG O2 Saturation 97.6 H (94-97) % Potassium (3.5-5.1) mmol/L Chloride (98-107) mmol/L BUN (7-17) mg/dL POC Glucose (mg/dL) (75-99) mg/dL Plasma Lactic Acid Evangelist (0.7-2.0) mmol/L Calcium (8.4-10.2) mg/dL Ionized Calcium John (4.5-5.3) mg/dL Phosphorus (2.5-4.5) mg/dL Triglycerides (<150) mg/dL Microbiology - Last 24 Hours (Table) 07/18/18 17:48 Blood Culture - Preliminary Blood No Growth after 48 hours 07/18/18 17:46 Blood Culture - Preliminary Blood No Growth after 48 hours 07/18/18 21:15 Urine Culture - Final Urine,Clean Catch Assessment and Plan Assessment: Skin necrosis of anterior abdominal wall around ileostomy Severe sepsis and septic shock Acute respiratory failure, anticipated complication of this extensive surgery Bi basilar pneumonia may be aspiration related Bowel perforation, status post ileostomy and colostomy Intra-abdominal secondary peritonitis Bilateral small pleural effusion Volume depletion and dehydration Leukocytosis and lactic acidosis Severe profound metabolic acidosis Acute renal failure stage III however renal function in GFR slowly improving with fluid resuscitation Plan: Vasopressors as needed keep map over 65 Aggressive fluid resuscitation maintain on IV fluids normal saline 100 mL an hour Broad-spectrum antibiotics, Zosyn with Flagyl and vancomycin is being administered Ventilator adjustment, will continue current ventilator support for another 24- 48 hours Labs reviewed medications reviewed Taper and DC the bicarb drip Repeat labs and chest x-ray tomorrow Continue TPN as planned Add IV vancomycin Monitor observe anterior abdominal wall skin and wounds Critical care time spent 45 minutes Time with Patient: Greater than 30
[2018-07-21] MEDS ORDERED: POTASSIUM PHOSPHATE 10 MMOL in SODIUM CHLORIDE 0.9% 100 ML IV ONE (11:00)
[2018-07-21] MEDS ORDERED: VANCOMYCIN 2,000 MG in SODIUM CHLORIDE 0.9% 500 ML 500 ML IVPB ONE (11:30)
[2018-07-21] MEDS: PROPOFOL 1,000 MG in EMPTY BAG 1 BAG IV SCH ×3 (11:38→23:32)
[2018-07-21] MEDS: MAGNESIUM SULFATE-D5W PMX 1 GM in DEXTROSE/WATER 1 100ML.BAG IVPB SCH ×2 (11:40→17:01)
[2018-07-21 12:14] LABS: Albumin 1.2 g/dL (3.5-5.0); Potassium 3.6 mmol/L (3.5-5.1); Total Bilirubin 0.6 mg/dL (0.2-1.3); Total Protein 2.5 g/dL (6.3-8.2)
[2018-07-21 12:17] LABS: Glucose,Whole Blood 115 mg/dL (75-99)
[2018-07-21 12:20] LABS: Calcium 6.2 mg/dL (8.4-10.2)
[2018-07-21] MEDS ORDERED: CALCIUM GLUCONATE 1,000 MG in SODIUM CHLORIDE 0.9% 100 ML IVPB ONE (12:30)
--- NOTE | 2018-07-21 13:38 | P.PN ---
Progress Note - Text Progress Note Date: 07/21/18 The patient appears to be improving. Her labs morning is slightly improved. She is off pain well. She's had good urinary output. She is currently off pressors. On exam her vital signs are stable. Wound was unpacked. There is known to any infection of the wound. However the left lower quadrant skin appears to be ecchymotic with some evidence of ischemia. Ileostomy is functioning in the lysis pain. 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 Patient has improving sepsis profile. She will be attempted at weaning tomorrow. We'll continue supportive care.
[2018-07-21 17:37] LABS: Glucose,Whole Blood 122 mg/dL (75-99)
[2018-07-21] MEDS: 1: AMINO ACID 5%-D15W+LYTES*E* 1,000 ML 2: MVI, ADULT NO.4 WITH VIT K 10 ML, TRACE (CON IV SCH ×3 (22:50)
--- NOTE | 2018-07-21 23:37 | PN ---
PROGRESS NOTE DATE OF SERVICE: 07/21/2018. REASON FOR FOLLOWUP: 1. Abdominal sepsis. 2. Lower abdominal wall wound. INTERVAL HISTORY: The patient is currently afebrile. The patient is hemodynamically stable. Not on any pressor support. FiO2 remains to be stable at 40%. She was noted to have significant discoloration of the skin and below the mucosal fistula of lower abdominal area, from black discoloration per the RN. Vancomycin was added by the child daycare worker. PHYSICAL EXAMINATION: Blood pressure 129/62 with a pulse of 96, temperature 98, she is 97% on 40% FiO2. GENERAL DESCRIPTION: An elderly female, lying in bed in no distress. HEENT: Shows pallor. No scleral icterus. The patient is orally intubated. LUNGS: Unlabored breathing. Clear to auscultation anteriorly. HEART: S1, S2. Regular rate and rhythm. ABDOMEN: Soft. The incision is currently packed with significant discoloration of skin with . LABS: Hemoglobin 8.8, white count 19.5 with a BUN of 24, creatinine 0.80. DIAGNOSTIC IMPRESSION AND PLAN: Patient with abdominal sepsis in this patient who did have a perforated cecum status post right hemicolectomy and ileostomy along with . Did have significant drainage with significant discoloration of the skin area. We will apply Aquacel Silver dressing to the area to keep it dry. The patient is current covered with Zosyn, to continue for now while watching the clinical course closely. Continue supportive care. MMODL / IJN: [id number] /
--- NOTE | 2018-07-21 23:45 | P.PN ---
Subjective Progress Note Date: 07/20/18 Principal diagnosis: Status post exploratory laparotomy with right colectomy and sigmoid colectomy for cecal perforation due to sigmoid colon obstruction. VDRF This is a pleasant 78-year-old female with without significant past medical history presented to the hospital with abdominal pain and has been found to have a bowel obstruction. X-ray of the abdomen obtained reveals evidence of right renal calculus as well as colonic wall thickening suggestive of colitis. CT of the abdomen and pelvis with contrast reveals markedly colonic distention to the level of the sigmoid colon, numerous bilateral renal calculi and gallbladder markedly distended. HIDA scan reveals ejection fraction of about her 23% with increased symptoms of pain suggestive of underlying gallbladder dyskinesia with no evidence of acute cholecystitis. Patient decompensated. x-ray shows free air abdomen was diffusely tender patient was eventually taken by surgical services to OR for exploratory laparotomy of perforated viscus. Currently patient is transferred to MICU. 07/20/2018 Patient is currently intubated and is on pressors support with Levophed. Vasopressin has been tapered off. Patient also been started on TPN. Currently on assist control. Chest x-ray showed bibasilar subsegmental atelectasis. Small effusion and possible pneumonia cannot be excluded. Patient remained on antibiotics in the form of Zosyn. Leukocytosis is trending down with WBC 21 today. Hemoglobin 9.3. No fever. Pulmonary and general surgery is following. Current medications reviewed. Objective - Vital Signs Vital signs: Vital Signs Temp 98.2 F 07/21/18 08:00 Pulse 89 07/21/18 11:30 Resp 14 07/21/18 11:30 BP 134/71 07/21/18 11:30 Pulse Ox 98 07/21/18 11:30 Intake & Output 07/20/18 07/21/18 07/21/18 18:59 06:59 18:59 Intake Total 2762.757 4453.477 1207.50 Output Total 200 1380 300 Balance 2562.757 3073.477 907.50 Weight 97.1 kg 97.1 kg Intake: IV 7470 1524 1060 Amino Acid 5%-D15w+Lytes* 240 240 E* 1,000 ml @ 75 mls/hr IV .BY DURATION [facility] Rx#: [id number] Dextrose 5% in Water 1, 190 360 120 000 ml @ 30 mls/hr IV . Q24H [facility] with Sodium Bicarb (1 Meq/ml) 150 ml Rx#:[id number] Lactated Ringers 1,000 ml 2000 @ 999 mls/hr IV .Q1H1M [facility] Rx#:[id number] Piperacillin-Tazobactam 3 100 100 .375 gm In Sodium Chloride 0.9% 100 ml @ 25 mls/hr IVPB Q8HR [facility] Rx# :[id number] Sodium Chloride 0.9% 1, 300 800 500 000 ml @ 100 mls/hr IV . Q10H [facility] Rx#:[id number] metroNIDAZOLE-NS PMX 500 100 mg In Saline 1 100ml.bag @ 100 mls/hr IVPB Q8HR [facility] Rx#:[id number] pressure bag 27 24 Intake, IV Titration 590.115 4834.477 147.50 Amount Lactated Ringers 1,000 ml 1125 @ 999 mls/hr IV .Q1H1M [facility] Rx#:[id number] Magnesium Sulfate-D5w Pmx 100 1 gm In Dextrose/Water 1 100ml.bag @ 100 mls/hr IVPB Q1H [facility] Rx#: [id number] Norepinephrine 16 mg In 45.757 204.477 47.50 Sodium Chloride 0.9% 250 ml @ Titrate IV .Q0M [facility] Rx#:[id number] Potassium Chloride 10 meq 100 In Water For Injection 1 100ml.bag @ 100 mls/hr IVPB Q1H [facility] Rx#: [id number] Propofol 1,000 mg In 100 100.00 Empty Bag 1 bag @ Titrate IV .Q0M [facility] Rx#: [id number] Sodium Chloride 0.9% 1, 1400 000 ml @ 100 mls/hr IV . Q10H [facility] Rx#:[id number] metroNIDAZOLE-NS PMX 500 100 mg In Saline 1 100ml.bag @ 100 mls/hr IVPB Q8HR [facility] Rx#:[id number] Output: Gastric Drainage 300 Urine 190 1050 300 Stool 10 30 Other: Voiding Method Indwelling Catheter Indwelling Catheter Indwelling Catheter ABP, PAP, CO, CI - Last Documented Arterial Blood Pressure 100/93 - Exam PHYSICAL EXAMINATION: Patient is currently sedated and intubated... HEENT: Normocephalic. Neck is supple. Pupils reactive. Neck reveals no JVD, carotid bruits, or thyromegaly. CHEST EXAMINATION: Trachea is central. Symmetrical expansion. Lung khan clear to auscultation and percussion. CARDIAC: Normal S1, S2 with no gallops. No murmurs ABDOMEN: Soft. Bowel sounds normal. No organomegaly. No abdominal bruits. Extremities: Trace edema. No clubbing or cyanosis Neurologically sedated and intubated. Skin: No rash or skin lesions. Psychiatric: Could not be assessed Musculoskeletal: No joint swelling or deformity. - Labs CBC & Chem 7: 07/21/18 05:17 07/21/18 05:17 Labs: Abnormal Lab Results - Last 24 Hours (Table) 07/20/18 07/20/18 07/20/18 Range/Units 11:20 11:20 18:24 WBC (3.8-10.6) k/uL RBC (3.80-5.40) m/uL Hgb (11.4-16.0) gm/dL Hct (34.0-46.0) % Neutrophils # (1.3-7.7) k/uL Lymphocytes # (1.0-4.8) k/uL ABG pH (7.35-7.45) ABG pCO2 (35-45) mmHg ABG pO2 (83-108) mmHg ABG HCO3 (21-25) mmol/L ABG Total CO2 (19-24) mmol/L ABG O2 Saturation (94-97) % Potassium (3.5-5.1) mmol/L Chloride 112 H (98-107) mmol/L BUN 27 H (7-17) mg/dL POC Glucose (mg/dL) 51 L (75-99) mg/dL Plasma Lactic Acid Evangelist (0.7-2.0) mmol/L Calcium 6.2 L* (8.4-10.2) mg/dL Ionized Calcium John 4.1 L (4.5-5.3) mg/dL Phosphorus (2.5-4.5) mg/dL AST 671 H (14-36) U/L ALT 331 H (9-52) U/L Total Protein 2.5 L (6.3-8.2) g/dL Albumin 1.2 L (3.5-5.0) g/dL Triglycerides 165 H (<150) mg/dL 07/20/18 07/21/18 07/21/18 Range/Units 18:47 04:47 05:17 WBC 19.5 H (3.8-10.6) k/uL RBC 3.20 L (3.80-5.40) m/uL Hgb 8.8 L (11.4-16.0) gm/dL Hct 27.2 L (34.0-46.0) % Neutrophils # 18.0 H (1.3-7.7) k/uL Lymphocytes # 0.7 L (1.0-4.8) k/uL ABG pH 7.49 H (7.35-7.45) ABG pCO2 33 L (35-45) mmHg ABG pO2 82 L (83-108) mmHg ABG HCO3 (21-25) mmol/L ABG Total CO2 26 H (19-24) mmol/L ABG O2 Saturation 97.6 H (94-97) % Potassium (3.5-5.1) mmol/L Chloride (98-107) mmol/L BUN (7-17) mg/dL POC Glucose (mg/dL) 40 L (75-99) mg/dL Plasma Lactic Acid Evangelist (0.7-2.0) mmol/L Calcium (8.4-10.2) mg/dL Ionized Calcium John (4.5-5.3) mg/dL Phosphorus (2.5-4.5) mg/dL AST (14-36) U/L ALT (9-52) U/L Total Protein (6.3-8.2) g/dL Albumin (3.5-5.0) g/dL Triglycerides (<150) mg/dL 07/21/18 07/21/18 07/21/18 Range/Units 05:17 05:17 08:29 WBC (3.8-10.6) k/uL RBC (3.80-5.40) m/uL Hgb (11.4-16.0) gm/dL Hct (34.0-46.0) % Neutrophils # (1.3-7.7) k/uL Lymphocytes # (1.0-4.8) k/uL ABG pH 7.51 H (7.35-7.45) ABG pCO2 33 L (35-45) mmHg ABG pO2 (83-108) mmHg ABG HCO3 26 H (21-25) mmol/L ABG Total CO2 27 H (19-24) mmol/L ABG O2 Saturation 97.6 H (94-97) % Potassium 3.1 L (3.5-5.1) mmol/L Chloride 110 H (98-107) mmol/L BUN 24 H (7-17) mg/dL POC Glucose (mg/dL) (75-99) mg/dL Plasma Lactic Acid Evangelist 2.9 H* (0.7-2.0) mmol/L Calcium 6.4 L* (8.4-10.2) mg/dL Ionized Calcium John 4.1 L (4.5-5.3) mg/dL Phosphorus 2.1 L (2.5-4.5) mg/dL AST (14-36) U/L ALT (9-52) U/L Total Protein (6.3-8.2) g/dL Albumin (3.5-5.0) g/dL Triglycerides 164 H (<150) mg/dL 07/21/18 Range/Units 12:05 WBC (3.8-10.6) k/uL RBC (3.80-5.40) m/uL Hgb (11.4-16.0) gm/dL Hct (34.0-46.0) % Neutrophils # (1.3-7.7) k/uL Lymphocytes # (1.0-4.8) k/uL ABG pH (7.35-7.45) ABG pCO2 (35-45) mmHg ABG pO2 (83-108) mmHg ABG HCO3 (21-25) mmol/L ABG Total CO2 (19-24) mmol/L ABG O2 Saturation (94-97) % Potassium (3.5-5.1) mmol/L Chloride (98-107) mmol/L BUN (7-17) mg/dL POC Glucose (mg/dL) 115 H (75-99) mg/dL Plasma Lactic Acid Evangelist (0.7-2.0) mmol/L Calcium (8.4-10.2) mg/dL Ionized Calcium John (4.5-5.3) mg/dL Phosphorus (2.5-4.5) mg/dL AST (14-36) U/L ALT (9-52) U/L Total Protein (6.3-8.2) g/dL Albumin (3.5-5.0) g/dL Triglycerides (<150) mg/dL Microbiology - Last 24 Hours (Table) 07/18/18 17:48 Blood Culture - Preliminary Blood No Growth after 48 hours 07/18/18 17:46 Blood Culture - Preliminary Blood No Growth after 48 hours 07/18/18 21:15 Urine Culture - Final Urine,Clean Catch Assessment and Plan Assessment: Severe sepsis and septic shock secondary to peritonitis. Acute hypoxic respiratory failure. Postsurgical Large pneumoperitoneum, s/p exploratory laparotomy, right colectomy with ileostomy, sigmoid colectomy, and left salpingo-oophorectomy basilar pneumonia may be aspiration related Right pleural effusion Transaminitis, secondary to septic shock Volume depletion and dehydration Abdominal pain, abdominal xray reveals distal small bowel obstruction Hydropic gallbladder, measuring 11cm, no definite gallstones, HIDA scan reveals gallbladder dyskinesia with EF 23% Leukocytosis and lactic acidosis Large right renal calculi with UTI. Urine culture showed no growth. Severe profound metabolic acidosis Acute acute on chronic kidney disease stage III Plan: Patient will be continued on pressor support in the form of Levophed. Vasopressin has been tapered off. Continue with aggressive hydration and antibiotics in the form of Zosyn and Flagyl was added. Follow-up culture reports and continue the current management with mechanical ventilator. Pulmonary and general surgery is following. Further conditions based on the clinical course. Prognosis guarded. Time with Patient: Greater than 30
--- NOTE | 2018-07-21 23:49 | P.PN ---
Subjective Progress Note Date: 07/21/18 Principal diagnosis: Status post exploratory laparotomy with right colectomy and sigmoid colectomy for cecal perforation due to sigmoid colon obstruction. VDRF This is a pleasant 78-year-old female with without significant past medical history presented to the hospital with abdominal pain and has been found to have a bowel obstruction. X-ray of the abdomen obtained reveals evidence of right renal calculus as well as colonic wall thickening suggestive of colitis. CT of the abdomen and pelvis with contrast reveals markedly colonic distention to the level of the sigmoid colon, numerous bilateral renal calculi and gallbladder markedly distended. HIDA scan reveals ejection fraction of about her 23% with increased symptoms of pain suggestive of underlying gallbladder dyskinesia with no evidence of acute cholecystitis. Patient decompensated. x-ray shows free air abdomen was diffusely tender patient was eventually taken by surgical services to OR for exploratory laparotomy of perforated viscus. Currently patient is transferred to MICU. 07/20/2018 Patient is currently intubated and is on pressors support with Levophed. Vasopressin has been tapered off. Patient also been started on TPN. Currently on assist control. Chest x-ray showed bibasilar subsegmental atelectasis. Small effusion and possible pneumonia cannot be excluded. Patient remained on antibiotics in the form of Zosyn. Leukocytosis is trending down with WBC 21 today. Hemoglobin 9.3. No fever. Pulmonary and general surgery is following. 07/21/2018 Patient remained on mechanical ventilator. We will fluid has been tapered off currently. Continued on IV hydration. Patient remained on TPN. Continued antibodies form of Zosyn and Flagyl. Patient does have good urine output. Potassium level currently 3.1. Lactic is ptosis improved to 2.9. Chest x-ray showed bibasilar atelectasis effusion and infiltrate possible pneumonia cannot be excluded. Currently antibodies of vancomycin and Zosyn and Flagyl. WBC count improved slightly to 19 today. No fever. Pulmonary and general surgery is following. Current medications reviewed. Objective - Vital Signs Vital signs: Vital Signs Temp 98.4 F 07/21/18 17:00 Pulse 96 07/21/18 18:30 Resp 22 07/21/18 18:30 BP 129/62 07/21/18 18:30 Pulse Ox 97 07/21/18 18:30 Intake & Output 07/21/18 07/21/18 07/22/18 06:59 18:59 06:59 Intake Total 4453.477 3632.50 Output Total 1380 950 Balance 3073.477 2682.50 Weight 97.1 kg 97.1 kg Intake: IV 1524 3485 Amino Acid 5%-D15w+Lytes* 240 765 E* 1,000 ml @ 75 mls/hr IV .BY DURATION [facility] Rx#: [id number] Calcium Gluconate 1,000 100 mg In Sodium Chloride 0.9 % 100 ml @ 100 mls/hr IVPB ONCE ONE Rx#: [id number] Dextrose 5% in Water 1, 360 120 000 ml @ 30 mls/hr IV . Q24H [facility] with Sodium Bicarb (1 Meq/ml) 150 ml Rx#:[id number] Magnesium Sulfate-D5w Pmx 200 1 gm In Dextrose/Water 1 100ml.bag @ 100 mls/hr IVPB Q1H [facility] Rx#: [id number] Piperacillin-Tazobactam 3 100 300 .375 gm In Sodium Chloride 0.9% 100 ml @ 25 mls/hr IVPB Q8HR [facility] Rx# :[id number] Potassium Phosphate 10 100 mmol In Sodium Chloride 0 .9% 100 ml @ 50 mls/hr IV ONCE ONE Rx#:[id number] Sodium Chloride 0.9% 1, 800 1200 000 ml @ 100 mls/hr IV . Q10H [facility] Rx#:[id number] Vancomycin 2,000 mg In 500 Sodium Chloride 0.9% 500 ml 500 ml @ 167 mls/hr IVPB ONCE ONE Rx#: [id number] metroNIDAZOLE-NS PMX 500 200 mg In Saline 1 100ml.bag @ 100 mls/hr IVPB Q8HR [facility] Rx#:[id number] pressure bag 24 Intake, IV Titration 2929.477 147.50 Amount Lactated Ringers 1,000 ml 1125 @ 999 mls/hr IV .Q1H1M [facility] Rx#:[id number] Norepinephrine 16 mg In 204.477 47.50 Sodium Chloride 0.9% 250 ml @ Titrate IV .Q0M [facility] Rx#:[id number] Propofol 1,000 mg In 100 100.00 Empty Bag 1 bag @ Titrate IV .Q0M [facility] Rx#: [id number] Sodium Chloride 0.9% 1, 1400 000 ml @ 100 mls/hr IV . Q10H [facility] Rx#:[id number] metroNIDAZOLE-NS PMX 500 100 mg In Saline 1 100ml.bag @ 100 mls/hr IVPB Q8HR [facility] Rx#:[id number] Output: Gastric Drainage 300 Urine 1050 890 Stool 30 60 Other: Voiding Method Indwelling Catheter Indwelling Catheter ABP, PAP, CO, CI - Last Documented Arterial Blood Pressure 100/93 - Exam PHYSICAL EXAMINATION: Patient is currently sedated and intubated... HEENT: Normocephalic. Neck is supple. Pupils reactive. Neck reveals no JVD, carotid bruits, or thyromegaly. CHEST EXAMINATION: Trachea is central. Symmetrical expansion. Lung khan clear to auscultation and percussion. CARDIAC: Normal S1, S2 with no gallops. No murmurs ABDOMEN: Soft. Bowel sounds normal. No organomegaly. No abdominal bruits. Extremities: Trace edema. No clubbing or cyanosis Neurologically sedated and intubated. Skin: No rash or skin lesions. Psychiatric: Could not be assessed Musculoskeletal: No joint swelling or deformity. - Labs CBC & Chem 7: 07/21/18 05:17 07/21/18 05:17 Labs: Abnormal Lab Results - Last 24 Hours (Table) 07/20/18 07/20/18 07/21/18 Range/Units 11:20 11:20 04:47 WBC (3.8-10.6) k/uL RBC (3.80-5.40) m/uL Hgb (11.4-16.0) gm/dL Hct (34.0-46.0) % Neutrophils # (1.3-7.7) k/uL Lymphocytes # (1.0-4.8) k/uL ABG pH 7.49 H (7.35-7.45) ABG pCO2 33 L (35-45) mmHg ABG pO2 82 L (83-108) mmHg ABG HCO3 (21-25) mmol/L ABG Total CO2 26 H (19-24) mmol/L ABG O2 Saturation 97.6 H (94-97) % Potassium (3.5-5.1) mmol/L Chloride 112 H (98-107) mmol/L BUN 27 H (7-17) mg/dL POC Glucose (mg/dL) (75-99) mg/dL Plasma Lactic Acid Evangelist (0.7-2.0) mmol/L Calcium 6.2 L* (8.4-10.2) mg/dL Ionized Calcium John 4.1 L (4.5-5.3) mg/dL Phosphorus (2.5-4.5) mg/dL AST 671 H (14-36) U/L ALT 331 H (9-52) U/L Total Protein 2.5 L (6.3-8.2) g/dL Albumin 1.2 L (3.5-5.0) g/dL Triglycerides 165 H (<150) mg/dL 07/21/18 07/21/18 07/21/18 Range/Units 05:17 05:17 05:17 WBC 19.5 H (3.8-10.6) k/uL RBC 3.20 L (3.80-5.40) m/uL Hgb 8.8 L (11.4-16.0) gm/dL Hct 27.2 L (34.0-46.0) % Neutrophils # 18.0 H (1.3-7.7) k/uL Lymphocytes # 0.7 L (1.0-4.8) k/uL ABG pH (7.35-7.45) ABG pCO2 (35-45) mmHg ABG pO2 (83-108) mmHg ABG HCO3 (21-25) mmol/L ABG Total CO2 (19-24) mmol/L ABG O2 Saturation (94-97) % Potassium 3.1 L (3.5-5.1) mmol/L Chloride 110 H (98-107) mmol/L BUN 24 H (7-17) mg/dL POC Glucose (mg/dL) (75-99) mg/dL Plasma Lactic Acid Evangelist 2.9 H* (0.7-2.0) mmol/L Calcium 6.4 L* (8.4-10.2) mg/dL Ionized Calcium John 4.1 L (4.5-5.3) mg/dL Phosphorus 2.1 L (2.5-4.5) mg/dL AST (14-36) U/L ALT (9-52) U/L Total Protein (6.3-8.2) g/dL Albumin (3.5-5.0) g/dL Triglycerides 164 H (<150) mg/dL 07/21/18 07/21/18 07/21/18 Range/Units 08:29 12:05 17:07 WBC (3.8-10.6) k/uL RBC (3.80-5.40) m/uL Hgb (11.4-16.0) gm/dL Hct (34.0-46.0) % Neutrophils # (1.3-7.7) k/uL Lymphocytes # (1.0-4.8) k/uL ABG pH 7.51 H (7.35-7.45) ABG pCO2 33 L (35-45) mmHg ABG pO2 (83-108) mmHg ABG HCO3 26 H (21-25) mmol/L ABG Total CO2 27 H (19-24) mmol/L ABG O2 Saturation 97.6 H (94-97) % Potassium (3.5-5.1) mmol/L Chloride (98-107) mmol/L BUN (7-17) mg/dL POC Glucose (mg/dL) 115 H 122 H (75-99) mg/dL Plasma Lactic Acid Evangelist (0.7-2.0) mmol/L Calcium (8.4-10.2) mg/dL Ionized Calcium John (4.5-5.3) mg/dL Phosphorus (2.5-4.5) mg/dL AST (14-36) U/L ALT (9-52) U/L Total Protein (6.3-8.2) g/dL Albumin (3.5-5.0) g/dL Triglycerides (<150) mg/dL Microbiology - Last 24 Hours (Table) 07/18/18 17:48 Blood Culture - Preliminary Blood No Growth after 72 hours 07/18/18 17:46 Blood Culture - Preliminary Blood No Growth after 72 hours 07/18/18 21:15 Urine Culture - Final Urine,Clean Catch Assessment and Plan Assessment: Severe sepsis and septic shock secondary to peritonitis. Acute hypoxic respiratory failure. Postsurgical Large pneumoperitoneum, s/p exploratory laparotomy, right colectomy with ileostomy, sigmoid colectomy, and left salpingo-oophorectomy basilar pneumonia may be aspiration related Right pleural effusion Transaminitis, secondary to septic shock Volume depletion and dehydration Abdominal pain, abdominal xray reveals distal small bowel obstruction Hydropic gallbladder, measuring 11cm, no definite gallstones, HIDA scan reveals gallbladder dyskinesia with EF 23% Leukocytosis and lactic acidosis Large right renal calculi with UTI. Urine culture showed no growth. Severe profound metabolic acidosis. On bicarb drip Acute kidney injury. Improved DVT prophylaxis with Lovenox Plan: Patient was on Levophed and vasopressin. Currently tapered off.. Continue with aggressive hydration and antibiotics in the form of Vanco mycin, Zosyn and Flagyl was added. Follow-up culture reports and continue the current management with mechanical ventilator. Pulmonary and general surgery is following. Further conditions based on the clinical course. Prognosis guarded. Time with Patient: Greater than 30
[2018-07-22 00:08] LABS: Glucose,Whole Blood 89 mg/dL (75-99)
[2018-07-22 04:55] LABS: ABG Base Excess 4.1 mmol/L; ABG HCO3 26 mmol/L (21-25); ABG Oxygen Saturation 99.1 % (94-97); ABG PCO2 30 mmHg (35-45); ABG PO2 103 mmHg (83-108); ABG TCO2 27 mmol/L (19-24)
[2018-07-22 04:56] LABS: Basophils % (A) 0 %; Eosinophils # (A) 0.1 k/uL (0-0.7); Eosinophils % (A) 1 %; HCT 25.8 % (34.0-46.0); HGB 8.4 gm/dL (11.4-16.0); Hypochromasia Slight; Lymphocytes # (A) 0.7 k/uL (1.0-4.8); Lymphocytes % (A) 6 %; MCH 27.8 pg (25.0-35.0); MCHC 32.4 g/dL (31.0-37.0); MCV 85.8 fL (80.0-100.0); Mean Platelet Volume 7.7; Monocytes # (A) 0.5 k/uL (0-1.0); Monocytes % (A) 4 %; Neutrophils # (A) 11.1 k/uL (1.3-7.7); Neutrophils % (A) 88 %; Platelet Count 118 k/uL (150-450); Poikilocytosis Slight; RDW 15.2 % (11.5-15.5); WBC 12.6 k/uL (3.8-10.6)
[2018-07-22 04:58] LABS: ABG PH 7.56 (7.35-7.45)
[2018-07-22 05:11] LABS: Anion Gap 3 mmol/L; Blood Urea Nitrogen 22 mg/dL (7-17); Carbon Dioxide 27 mmol/L (22-30); Chloride 109 mmol/L (98-107); Glucose 126 mg/dL (74-99); Magnesium 2.1 mg/dL (1.6-2.3); Phosphorus 2.2 mg/dL (2.5-4.5); Sodium 139 mmol/L (137-145)
[2018-07-22] MEDS ORDERED: VANCOMYCIN 1,750 MG in SODIUM CHLORIDE 0.9% 500 ML 500 ML IVPB SCH (06:00)
[2018-07-22 06:10] LABS: Ionized Calcium 4.2 mg/dL (4.5-5.3)
[2018-07-22 06:17] LABS: Potassium 2.6 mmol/L (3.5-5.1)
[2018-07-22 06:18] LABS: Calcium 6.4 mg/dL (8.4-10.2)
[2018-07-22] MEDS ORDERED: Potassium Replacement Protocol 1 EACH MISC MISCELLANE PRN ×3 (06:20→21:56)
[2018-07-22] MEDS: POTASSIUM CHLORIDE 20 MEQ in WATER FOR INJECTION 1 100ML.BAG IVPB SCH ×4 (06:45→22:17)
[2018-07-22] MEDS ORDERED: Phosphorus Replacement Protoco 1 EACH MISC MISCELLANE PRN (06:45)
--- NOTE | 2018-07-22 07:10 | XR ---
EXAMINATION TYPE: XR chest 1V portable DATE OF EXAM: 07/22/2018 COMPARISON: 07/21/2018 HISTORY: SOB, Follow Up FINDINGS: Indwelling tubes and catheters are unchanged. No change in bibasilar opacities. Stable appearance of the cardio-mediastinal structures at this time. Pleural effusion unchanged. IMPRESSION: 1. Stable portable chest. Clinical correlation and follow up until resolution is recommended.
--- NOTE | 2018-07-22 07:37 | P.PN ---
Subjective Progress Note Date: 07/22/18 Principal diagnosis: Hypotension This is an 78-year-old female patient with no significant past medical history who presented to the hospital with abdominal discomfort and was found to have small bowel obstruction where the patient underwent abdominal surgery after she was found to have free air in the abdomen. The patient underwent exploratory laparotomy and was found to have perforated viscus. Please refer to the OR notes. We did see the patient as a consultation for preop cardiac assessment and she was asymptomatic from the cardiac standpoint and she underwent an echocardiogram which revealed normal LV function without significant valvular abnormalities. On follow-up with the patient today, 07/22/2018, she continues to be intubated on ventilator. The patient is off norepinephrine. She has been maintaining normal sinus mechanism. Objective - Vital Signs Vital signs: Vital Signs Temp 97.4 F L 07/22/18 04:00 Pulse 81 07/22/18 06:30 Resp 22 07/22/18 06:30 BP 147/64 07/22/18 06:30 Pulse Ox 98 07/22/18 06:30 Intake & Output 07/21/18 07/22/18 07/22/18 18:59 06:59 18:59 Intake Total 3632.50 3210 Output Total 950 1715 Balance 2682.50 1495 Weight 97.1 kg 97 kg Intake: IV 3485 3110 Amino Acid 5%-D15w+Lytes* 765 900 E* 1,000 ml @ 75 mls/hr IV .BY DURATION [facility] Rx#: [id number] Calcium Gluconate 1,000 100 mg In Sodium Chloride 0.9 % 100 ml @ 100 mls/hr IVPB ONCE ONE Rx#: [id number] Dextrose 5% in Water 1, 120 000 ml @ 30 mls/hr IV . Q24H [facility] with Sodium Bicarb (1 Meq/ml) 150 ml Rx#:[id number] Magnesium Sulfate-D5w Pmx 200 1 gm In Dextrose/Water 1 100ml.bag @ 100 mls/hr IVPB Q1H [facility] Rx#: [id number] Piperacillin-Tazobactam 3 300 100 .375 gm In Sodium Chloride 0.9% 100 ml @ 25 mls/hr IVPB Q8HR [facility] Rx# :[id number] Potassium Phosphate 10 100 mmol In Sodium Chloride 0 .9% 100 ml @ 50 mls/hr IV ONCE ONE Rx#:[id number] Sodium Chloride 0.9% 1, 1200 1200 000 ml @ 100 mls/hr IV . Q10H [facility] Rx#:[id number] Vancomycin 2,000 mg In 500 500 Sodium Chloride 0.9% 500 ml 500 ml @ 167 mls/hr IVPB ONCE ONE Rx#: [id number] metroNIDAZOLE-NS PMX 500 200 410 mg In Saline 1 100ml.bag @ 100 mls/hr IVPB Q8HR [facility] Rx#:[id number] Intake, IV Titration 147.50 100 Amount Norepinephrine 16 mg In 47.50 Sodium Chloride 0.9% 250 ml @ Titrate IV .Q0M [facility] Rx#:[id number] Propofol 1,000 mg In 100.00 100 Empty Bag 1 bag @ Titrate IV .Q0M [facility] Rx#: [id number] Output: Urine 890 1095 Stool 60 20 Emesis 600 Other: Voiding Method Indwelling Catheter Indwelling Catheter ABP, PAP, CO, CI - Last Documented Arterial Blood Pressure 100/93 - Constitutional General appearance: Present: no acute distress - Respiratory Respiratory: bilateral: diminished - Cardiovascular Rhythm: regular Heart sounds: normal: S1, S2 - Labs CBC & Chem 7: 07/22/18 04:19 07/22/18 04:19 Labs: Abnormal Lab Results - Last 24 Hours (Table) 07/20/18 07/20/18 07/21/18 Range/Units 11:20 11:20 05:17 WBC (3.8-10.6) k/uL RBC (3.80-5.40) m/uL Hgb (11.4-16.0) gm/dL Hct (34.0-46.0) % Plt Count (150-450) k/uL Neutrophils # (1.3-7.7) k/uL Lymphocytes # (1.0-4.8) k/uL ABG pH (7.35-7.45) ABG pCO2 (35-45) mmHg ABG HCO3 (21-25) mmol/L ABG Total CO2 (19-24) mmol/L ABG O2 Saturation (94-97) % Potassium (3.5-5.1) mmol/L Chloride 112 H (98-107) mmol/L BUN 27 H (7-17) mg/dL Glucose (74-99) mg/dL POC Glucose (mg/dL) (75-99) mg/dL Calcium 6.2 L* (8.4-10.2) mg/dL Ionized Calcium John 4.1 L (4.5-5.3) mg/dL Phosphorus (2.5-4.5) mg/dL AST 671 H (14-36) U/L ALT 331 H (9-52) U/L Total Protein 2.5 L (6.3-8.2) g/dL Albumin 1.2 L (3.5-5.0) g/dL Triglycerides 165 H (<150) mg/dL 07/21/18 07/21/18 07/21/18 Range/Units 08:29 12:05 17:07 WBC (3.8-10.6) k/uL RBC (3.80-5.40) m/uL Hgb (11.4-16.0) gm/dL Hct (34.0-46.0) % Plt Count (150-450) k/uL Neutrophils # (1.3-7.7) k/uL Lymphocytes # (1.0-4.8) k/uL ABG pH 7.51 H (7.35-7.45) ABG pCO2 33 L (35-45) mmHg ABG HCO3 26 H (21-25) mmol/L ABG Total CO2 27 H (19-24) mmol/L ABG O2 Saturation 97.6 H (94-97) % Potassium (3.5-5.1) mmol/L Chloride (98-107) mmol/L BUN (7-17) mg/dL Glucose (74-99) mg/dL POC Glucose (mg/dL) 115 H 122 H (75-99) mg/dL Calcium (8.4-10.2) mg/dL Ionized Calcium John (4.5-5.3) mg/dL Phosphorus (2.5-4.5) mg/dL AST (14-36) U/L ALT (9-52) U/L Total Protein (6.3-8.2) g/dL Albumin (3.5-5.0) g/dL Triglycerides (<150) mg/dL 07/22/18 07/22/18 07/22/18 Range/Units 04:19 04:19 04:50 WBC 12.6 H (3.8-10.6) k/uL RBC 3.00 L (3.80-5.40) m/uL Hgb 8.4 L (11.4-16.0) gm/dL Hct 25.8 L (34.0-46.0) % Plt Count 118 L (150-450) k/uL Neutrophils # 11.1 H (1.3-7.7) k/uL Lymphocytes # 0.7 L (1.0-4.8) k/uL ABG pH 7.56 H* (7.35-7.45) ABG pCO2 30 L (35-45) mmHg ABG HCO3 26 H (21-25) mmol/L ABG Total CO2 27 H (19-24) mmol/L ABG O2 Saturation 99.1 H (94-97) % Potassium 2.6 L* (3.5-5.1) mmol/L Chloride 109 H (98-107) mmol/L BUN 22 H (7-17) mg/dL Glucose 126 H (74-99) mg/dL POC Glucose (mg/dL) (75-99) mg/dL Calcium 6.4 L* (8.4-10.2) mg/dL Ionized Calcium John 4.2 L (4.5-5.3) mg/dL Phosphorus 2.2 L (2.5-4.5) mg/dL AST (14-36) U/L ALT (9-52) U/L Total Protein (6.3-8.2) g/dL Albumin (3.5-5.0) g/dL Triglycerides (<150) mg/dL Microbiology - Last 24 Hours (Table) 07/18/18 17:48 Blood Culture - Preliminary Blood No Growth after 72 hours 07/18/18 17:46 Blood Culture - Preliminary Blood No Growth after 72 hours Assessment and Plan Assessment: Assessment #1 status post emergency surgery for perforated viscus #2 septic shock #3 sinus tachycardia #4 multiple comorbid conditions Plan #1 continue the current medical regimen #2 follow-up with the patient on when necessary case.
[2018-07-22 08:47] LABS: Glucose,Whole Blood 345 mg/dL (75-99)
[2018-07-22] MEDS: metroNIDAZOLE-NS PMX 500 MG in SALINE 1 100ML.BAG IVPB SCH ×3 (09:42→19:03)
[2018-07-22] MEDS: CHLORHEXIDINE GLUCONATE 15 ML CUP MUCOUS MEM SCH ×2 (09:52→20:47)
[2018-07-22] MEDS: ENOXAPARIN 40 MG/0.4 ML SYRINGE SQ SCH (09:52)
[2018-07-22] MEDS: FAMOTIDINE 20 MG/2 ML VIAL IV SCH (09:52)
[2018-07-22] MEDS: PIPERACILLIN-TAZOBACTAM 3.375 GM in SODIUM CHLORIDE 0.9% 100 ML IVPB SCH ×4 (09:59→16:11)
[2018-07-22] MEDS ORDERED: CALCIUM GLUCONATE 1,000 MG in SODIUM CHLORIDE 0.9% 100 ML IVPB ONE (12:00)
[2018-07-22] MEDS: PROPOFOL 1,000 MG in EMPTY BAG 1 BAG IV SCH (12:07)
[2018-07-22] MEDS: SODIUM CHLORIDE 0.9% 1,000 ML IV SCH ×2 (12:07→20:44)
[2018-07-22] MEDS: 1: AMINO ACID 5%-D15W+LYTES*E* 1,000 ML 2: MVI, ADULT NO.4 WITH VIT K 10 ML, TRACE (CON IV SCH ×3 (12:08)
[2018-07-22 12:31] LABS: Glucose,Whole Blood 144 mg/dL (75-99)
[2018-07-22] MEDS ORDERED: POTASSIUM PHOSPHATE 10 MMOL in SODIUM CHLORIDE 0.9% 100 ML IV ONE (14:00)
--- NOTE | 2018-07-22 15:32 | P.PN ---
Subjective Progress Note Date: 07/22/18 CHIEF COMPLAINT: Abnormal CT results/abdominal pain HISTORY OF PRESENT ILLNESS: Patient s/p exploratory laparotomy, right colectomy with ileostomy, sigmoid colectomy, and left salpingo-oophorectomy. POD #4. Patient remains intubated postoperatively in the intensive care unit. Vasopressors have been weaned off. She is receiving TPN. Ileostomy with brown liquid output. Mucus fistula with brown stool noted. Midline abdominal incision packed with Kerlix. Edges with erythema and scattered areas of necrosis. Mucus fistula leaking and changed at the bedside. PHYSICAL EXAM: VITAL SIGNS: Currently stable. GENERAL: Patient sedated on mechanical ventilation in the ICU HEENT: NG tube present. ET tube intact. No sclera icterus. Pupils are equal, round, and reactive to light. Moist buccal mucosa. Head is atraumatic, normocephalic. NECK: Supple without lymphadenopathy. CHEST: Remains on mechanical ventilation. Equal bilateral excursions. Saturations greater than 92%. CARDIOVASCULAR: Regular rate with regular rhythm. Palpable 2+ radial pulses. ABDOMEN: Midline dressing clean dry intact. Edges with erythema and scattered areas of necrosis. Ileostomy and mucus fistula with stool noted in both. : Pablo catheter intact MUSCULOSKELETAL: No clubbing, cyanosis or edema. NEUROLOGIC: Unable to thoroughly assess secondary to mechanical ventilation PSYCH: Unable to thoroughly assess secondary to mechanical ventilation SKIN: No cyanosis. No Jaundice. ASSESSMENT: 1. Abdominal pain, abdominal xray reveals distal small bowel obstruction 2. Large pneumoperitoneum, s/p exploratory laparotomy, right colectomy with ileostomy, sigmoid colectomy, and left salpingo-oophorectomy 3. Acute hypoxic respiratory failure requiring mechanical ventilation 4. Septic shock requiring vasopressor support secondary to peritonitis 5. Lactic acidosis 6. Transaminitis, secondary to septic shock 7. 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 Large right renal calculi with UTI PLAN: Continue IV fluids. Continue TPN. Obtain wound vac to midline abdominal incision. Ventilator management per Dr. Cortez. Nurse practitioner note has been reviewed by physician. Signing provider agrees with the documented findings, assessment, and plan of care. Objective - Vital Signs Vital signs: Vital Signs Temp 97.9 F 07/22/18 08:00 Pulse 85 07/22/18 10:00 Resp 21 01/28/19 10:00 BP 119/58 07/22/18 10:00 Pulse Ox 99 07/22/18 10:00 Intake & Output 07/21/18 07/22/18 07/22/18 18:59 06:59 18:59 Intake Total 3632.50 3000 925 Output Total 950 1715 450 Balance 2682.50 1285 475 Weight 97.1 kg 97 kg Intake: IV 3485 2900 825 Amino Acid 5%-D15w+Lytes* 765 900 300 E* 1,000 ml @ 75 mls/hr IV .BY DURATION [facility] Rx#: [id number] Calcium Gluconate 1,000 100 mg In Sodium Chloride 0.9 % 100 ml @ 100 mls/hr IVPB ONCE ONE Rx#: [id number] Dextrose 5% in Water 1, 120 000 ml @ 30 mls/hr IV . Q24H [facility] with Sodium Bicarb (1 Meq/ml) 150 ml Rx#:[id number] Magnesium Sulfate-D5w Pmx 200 1 gm In Dextrose/Water 1 100ml.bag @ 100 mls/hr IVPB Q1H [facility] Rx#: [id number] Piperacillin-Tazobactam 3 300 100 25 .375 gm In Sodium Chloride 0.9% 100 ml @ 25 mls/hr IVPB Q8HR [facility] Rx# :[id number] Potassium Phosphate 10 100 mmol In Sodium Chloride 0 .9% 100 ml @ 50 mls/hr IV ONCE ONE Rx#:[id number] Sodium Chloride 0.9% 1, 1200 1200 400 000 ml @ 100 mls/hr IV . Q10H [facility] Rx#:[id number] Vancomycin 2,000 mg In 500 500 Sodium Chloride 0.9% 500 ml 500 ml @ 167 mls/hr IVPB ONCE ONE Rx#: [id number] metroNIDAZOLE-NS PMX 500 200 200 100 mg In Saline 1 100ml.bag @ 100 mls/hr IVPB Q8HR [facility] Rx#:[id number] Intake, IV Titration 147.50 100 100 Amount Norepinephrine 16 mg In 47.50 Sodium Chloride 0.9% 250 ml @ Titrate IV .Q0M [facility] Rx#:[id number] Propofol 1,000 mg In 100.00 100 100 Empty Bag 1 bag @ Titrate IV .Q0M [facility] Rx#: [id number] Output: Urine 890 1095 450 Stool 60 20 Emesis 600 Other: Voiding Method Indwelling Catheter Indwelling Catheter Indwelling Catheter ABP, PAP, CO, CI - Last Documented Arterial Blood Pressure 100/93 - Labs CBC & Chem 7: 07/22/18 04:19 07/22/18 04:19 Labs: Abnormal Lab Results - Last 24 Hours (Table) 07/20/18 07/21/18 07/22/18 Range/Units 18:55 17:07 04:19 WBC 12.6 H (3.8-10.6) k/uL RBC 3.00 L (3.80-5.40) m/uL Hgb 8.4 L (11.4-16.0) gm/dL Hct 25.8 L (34.0-46.0) % Plt Count 118 L (150-450) k/uL Neutrophils # 11.1 H (1.3-7.7) k/uL Lymphocytes # 0.7 L (1.0-4.8) k/uL ABG pH (7.35-7.45) ABG pCO2 (35-45) mmHg ABG HCO3 (21-25) mmol/L ABG Total CO2 (19-24) mmol/L ABG O2 Saturation (94-97) % Potassium (3.5-5.1) mmol/L Chloride (98-107) mmol/L BUN (7-17) mg/dL Glucose (74-99) mg/dL POC Glucose (mg/dL) 345 H 122 H (75-99) mg/dL Calcium (8.4-10.2) mg/dL Ionized Calcium John (4.5-5.3) mg/dL Phosphorus (2.5-4.5) mg/dL 07/22/18 07/22/18 07/22/18 Range/Units 04:19 04:50 12:03 WBC (3.8-10.6) k/uL RBC (3.80-5.40) m/uL Hgb (11.4-16.0) gm/dL Hct (34.0-46.0) % Plt Count (150-450) k/uL Neutrophils # (1.3-7.7) k/uL Lymphocytes # (1.0-4.8) k/uL ABG pH 7.56 H* (7.35-7.45) ABG pCO2 30 L (35-45) mmHg ABG HCO3 26 H (21-25) mmol/L ABG Total CO2 27 H (19-24) mmol/L ABG O2 Saturation 99.1 H (94-97) % Potassium 2.6 L* (3.5-5.1) mmol/L Chloride 109 H (98-107) mmol/L BUN 22 H (7-17) mg/dL Glucose 126 H (74-99) mg/dL POC Glucose (mg/dL) 144 H (75-99) mg/dL Calcium 6.4 L* (8.4-10.2) mg/dL Ionized Calcium John 4.2 L (4.5-5.3) mg/dL Phosphorus 2.2 L (2.5-4.5) mg/dL Microbiology - Last 24 Hours (Table) 07/22/18 00:00 Gram Stain - Preliminary Sputum Sputum Culture - Preliminary 07/18/18 17:48 Blood Culture - Preliminary Blood No Growth after 72 hours 07/18/18 17:46 Blood Culture - Preliminary Blood No Growth after 72 hours
[2018-07-22] MEDS: HYDROmorphone 0.5 MG/0.5 ML SYRINGE IVP PRN (16:31)
[2018-07-22] MEDS ORDERED: ALTEPLASE 2 MG VIAL (CATHFLO) IV STA ×2 (17:02→20:55)
[2018-07-22 17:50] LABS: Glucose,Whole Blood 148 mg/dL (75-99)
--- NOTE | 2018-07-22 19:38 | PN ---
PROGRESS NOTE DATE OF SERVICE: 07/22/2018. REASON FOR FOLLOWUP: Abdominal sepsis. INTERVAL HISTORY: The patient is currently afebrile. She is hemodynamically stable, not on any pressor support. FiO2 is currently stable. No other changes in her clinical condition per the nursing staff. PHYSICAL EXAMINATION: Blood pressure is 114/56, pulse of 81, temperature 98. She is 100% on 40% FiO2. General description is an elderly female lying in bed in no distress. HEENT EXAMINATION: Slight pallor. No scleral icterus. The patient is orally intubated. LUNGS: Unlabored breathing with decreased breath sounds in the base. HEART: S1, S2. Regular rate and rhythm. ABDOMEN: Soft. Incision is currently dressed. No obvious drainage. LABS: BUN of 22, creatinine 0.59. White count is down to 12,000. Blood culture so far negative. Sputum is currently pending. DIAGNOSTIC IMPRESSION AND PLAN: Patient with abdominal sepsis from a ruptured cecum, status post right hemicolectomy and ileostomy along with a mucous fistula with significant excoriation of abdomen around the mucous fistula site. Patient at this time is covered with Zosyn, to continue now, and continue with supportive care. MMODL / IJN: [id number] /
--- NOTE | 2018-07-22 22:13 | P.PN ---
Subjective Principal diagnosis: Postop day #1 colectomy The patient is an 78-year-old white female who has had laparotomy due to colonic perforation. She is now in the ICU postoperatively on appropriate support. Appreciate multiple inputs from consultants. Objective - Vital Signs Vital signs: Vital Signs Temp 97.4 F L 07/22/18 20:00 Pulse 79 07/22/18 21:00 Resp 15 07/22/18 21:00 BP 113/60 07/22/18 21:00 Pulse Ox 99 07/22/18 21:00 Intake & Output 07/22/18 07/22/18 07/23/18 06:59 18:59 06:59 Intake Total 3000 2250 525 Output Total 1715 1215 345 Balance 1285 1035 180 Weight 97 kg Intake: IV 2900 2150 525 Amino Acid 5%-D15w+Lytes* 900 825 225 E* 1,000 ml @ 75 mls/hr IV .BY DURATION [facility] Rx#: [id number] Piperacillin-Tazobactam 3 100 25 .375 gm In Sodium Chloride 0.9% 100 ml @ 25 mls/hr IVPB Q8HR [facility] Rx# :[id number] Sodium Chloride 0.9% 1, 1200 1100 300 000 ml @ 100 mls/hr IV . Q10H [facility] Rx#:[id number] Vancomycin 2,000 mg In 500 Sodium Chloride 0.9% 500 ml 500 ml @ 167 mls/hr IVPB ONCE ONE Rx#: [id number] metroNIDAZOLE-NS PMX 500 200 200 mg In Saline 1 100ml.bag @ 100 mls/hr IVPB Q8HR [facility] Rx#:[id number] Intake, IV Titration 100 100 Amount Propofol 1,000 mg In 100 100 Empty Bag 1 bag @ Titrate IV .Q0M [facility] Rx#: [id number] Output: Urine 1095 975 325 Stool 20 240 20 Emesis 600 Other: Voiding Method Indwelling Catheter Indwelling Catheter Indwelling Catheter # Bowel Movements 200 ABP, PAP, CO, CI - Last Documented Arterial Blood Pressure 100/93 - Constitutional General appearance: Present: average body habitus - EENT Eyes: Absent: abnormal pupil - Respiratory Respiratory: bilateral: CTA - Cardiovascular Rhythm: regular Heart sounds: normal: S1, S2 Abnormal Heart Sounds: Absent: S3 Gallop - Integumentary Integumentary: Absent: cyanotic - Allied health notes Allied health notes reviewed: nursing - Labs CBC & Chem 7: 07/22/18 04:19 07/22/18 19:47 Labs: Abnormal Lab Results - Last 24 Hours (Table) 07/20/18 07/22/18 07/22/18 Range/Units 18:55 04:19 04:19 WBC 12.6 H (3.8-10.6) k/uL RBC 3.00 L (3.80-5.40) m/uL Hgb 8.4 L (11.4-16.0) gm/dL Hct 25.8 L (34.0-46.0) % Plt Count 118 L (150-450) k/uL Neutrophils # 11.1 H (1.3-7.7) k/uL Lymphocytes # 0.7 L (1.0-4.8) k/uL ABG pH (7.35-7.45) ABG pCO2 (35-45) mmHg ABG HCO3 (21-25) mmol/L ABG Total CO2 (19-24) mmol/L ABG O2 Saturation (94-97) % Potassium 2.6 L* (3.5-5.1) mmol/L Chloride 109 H (98-107) mmol/L BUN 22 H (7-17) mg/dL Glucose 126 H (74-99) mg/dL POC Glucose (mg/dL) 345 H (75-99) mg/dL Calcium 6.4 L* (8.4-10.2) mg/dL Ionized Calcium John 4.2 L (4.5-5.3) mg/dL Phosphorus 2.2 L (2.5-4.5) mg/dL 07/22/18 07/22/18 07/22/18 Range/Units 04:50 12:03 17:33 WBC (3.8-10.6) k/uL RBC (3.80-5.40) m/uL Hgb (11.4-16.0) gm/dL Hct (34.0-46.0) % Plt Count (150-450) k/uL Neutrophils # (1.3-7.7) k/uL Lymphocytes # (1.0-4.8) k/uL ABG pH 7.56 H* (7.35-7.45) ABG pCO2 30 L (35-45) mmHg ABG HCO3 26 H (21-25) mmol/L ABG Total CO2 27 H (19-24) mmol/L ABG O2 Saturation 99.1 H (94-97) % Potassium (3.5-5.1) mmol/L Chloride (98-107) mmol/L BUN (7-17) mg/dL Glucose (74-99) mg/dL POC Glucose (mg/dL) 144 H 148 H (75-99) mg/dL Calcium (8.4-10.2) mg/dL Ionized Calcium John (4.5-5.3) mg/dL Phosphorus (2.5-4.5) mg/dL 07/22/18 Range/Units 19:47 WBC (3.8-10.6) k/uL RBC (3.80-5.40) m/uL Hgb (11.4-16.0) gm/dL Hct (34.0-46.0) % Plt Count (150-450) k/uL Neutrophils # (1.3-7.7) k/uL Lymphocytes # (1.0-4.8) k/uL ABG pH (7.35-7.45) ABG pCO2 (35-45) mmHg ABG HCO3 (21-25) mmol/L ABG Total CO2 (19-24) mmol/L ABG O2 Saturation (94-97) % Potassium 2.9 L (3.5-5.1) mmol/L Chloride (98-107) mmol/L BUN (7-17) mg/dL Glucose (74-99) mg/dL POC Glucose (mg/dL) (75-99) mg/dL Calcium (8.4-10.2) mg/dL Ionized Calcium John (4.5-5.3) mg/dL Phosphorus (2.5-4.5) mg/dL Microbiology - Last 24 Hours (Table) 07/18/18 17:48 Blood Culture - Preliminary Blood No Growth after 96 hours 07/18/18 17:46 Blood Culture - Preliminary Blood No Growth after 96 hours 07/22/18 00:00 Gram Stain - Preliminary Sputum Sputum Culture - Preliminary Assessment and Plan (1) Colonic thickening Current Visit: Yes Status: Acute Code(s): K63.9 - DISEASE OF INTESTINE, UNSPECIFIED SNOMED Code(s): 490659534 (2) Dehydration Current Visit: Yes Status: Acute Code(s): E86.0 - DEHYDRATION SNOMED Code( s): 47416550 (3) Fall Current Visit: Yes Status: Acute Code(s): W19.XXXA - UNSPECIFIED FALL, INITIAL ENCOUNTER SNOMED Code(s): 0215774 (4) Sepsis secondary to UTI Current Visit: Yes Status: Acute Code(s): A41.9 - SEPSIS, UNSPECIFIED ORGANISM; N39.0 - URINARY TRACT INFECTION, SITE NOT SPECIFIED SNOMED Code(s): 359922941 Plan: The patient will continue supportive care. No CODE STATUS was discussed and transferred to the patient after appropriate family input. We will continue to follow with multiple consultants including surgery, infectious disease with cardiology. Prognosis is guarded secondary to advanced age and multiple comorbidities. Check CBC electro-lytes and chest x-ray in the a.m. per critical care. Time with Patient: Greater than 30
[2018-07-22] MEDS: VANCOMYCIN 1,750 MG in SODIUM CHLORIDE 0.9% 500 ML 500 ML IVPB SCH (22:20)
[2018-07-23 00:29] LABS: Glucose,Whole Blood 129 mg/dL (75-99)
[2018-07-23] MEDS: POTASSIUM CHLORIDE 20 MEQ in WATER FOR INJECTION 1 100ML.BAG IVPB SCH ×6 (00:32→22:12)
[2018-07-23] MEDS: PROPOFOL 1,000 MG in EMPTY BAG 1 BAG IV SCH (00:36)
[2018-07-23] MEDS: metroNIDAZOLE-NS PMX 500 MG in SALINE 1 100ML.BAG IVPB SCH ×3 (00:37→18:16)
[2018-07-23] MEDS: PIPERACILLIN-TAZOBACTAM 3.375 GM in SODIUM CHLORIDE 0.9% 100 ML IVPB SCH ×3 (00:56→18:07)
[2018-07-23 05:05] LABS: ABG Base Excess 4.1 mmol/L; ABG HCO3 27 mmol/L (21-25); ABG Oxygen Saturation 97.9 % (94-97); ABG PCO2 34 mmHg (35-45); ABG PH 7.51 (7.35-7.45); ABG PO2 75 mmHg (83-108); ABG TCO2 28 mmol/L (19-24)
[2018-07-23 05:48] LABS: Anion Gap 2 mmol/L; Blood Urea Nitrogen 22 mg/dL (7-17); Carbon Dioxide 25 mmol/L (22-30); Chloride 112 mmol/L (98-107); Glucose 120 mg/dL (74-99); Magnesium 1.9 mg/dL (1.6-2.3); Phosphorus 2.4 mg/dL (2.5-4.5); Potassium 3.3 mmol/L (3.5-5.1); Sodium 139 mmol/L (137-145)
[2018-07-23 06:07] LABS: Calcium 6.4 mg/dL (8.4-10.2)
[2018-07-23] MEDS ORDERED: Potassium Replacement Protocol 1 EACH MISC MISCELLANE PRN (06:11)
[2018-07-23] MEDS ORDERED: Magnesium Replacement Protocol 1 EACH MISC MISCELLANE PRN (06:12)
[2018-07-23] MEDS: SODIUM CHLORIDE 0.9% 1,000 ML IV SCH ×2 (06:14→15:00)
[2018-07-23 06:16] LABS: Hypochromasia Moderate; Poikilocytosis Slight
[2018-07-23] MEDS ORDERED: Phosphorus Replacement Protoco 1 EACH MISC MISCELLANE PRN (06:16)
[2018-07-23] MEDS ORDERED: POTASSIUM PHOSPHATE 10 MMOL in SODIUM CHLORIDE 0.9% 100 ML IV ONE (06:16)
[2018-07-23 06:18] LABS: Ionized Calcium 4.5 mg/dL (4.5-5.3)
[2018-07-23 07:13] LABS: HCT 24.9 % (34.0-46.0); MCH 28.1 pg (25.0-35.0); MCHC 32.4 g/dL (31.0-37.0); MCV 86.9 fL (80.0-100.0); Mean Platelet Volume 8.8; Platelet Count 129 k/uL (150-450); RBC 2.86 m/uL (3.80-5.40); RDW 15.4 % (11.5-15.5); WBC 11.9 k/uL (3.8-10.6)
[2018-07-23] MEDS: MAGNESIUM SULFATE-D5W PMX 1 GM in DEXTROSE/WATER 1 100ML.BAG IVPB SCH ×2 (07:54→09:17)
[2018-07-23 08:00] LABS: Band Neutrophils % 4 %; Lymphocytes # (M) 0.36 k/uL (1.0-4.8); Metamyelocytes # (M) 0.24 k/uL (0); Metamyelocytes % 2 %; Monocytes # (M) 0.36 k/uL (0-1.0); Myelocytes # (M) 0.24 k/uL (0); Myelocytes % 2 %; Neutrophils % (M) 87 %; Nucleated Red Blood Cells 0 /100 WBC (0-0); Total Cells Counted 200
--- NOTE | 2018-07-23 08:02 | XR ---
EXAMINATION TYPE: XR chest 1V portable DATE OF EXAM: 07/23/2018 CLINICAL HISTORY: Difficulty breathing progress study. TECHNIQUE: Single AP portable semiupright view of the chest is obtained. COMPARISON: Chest x-ray from one day earlier and older studies. FINDINGS: An endotracheal tube, orogastric tube, and left internal jugular central venous catheter a re all stable in appearance. There is persistent bilateral lower lung opacities in central vascular c ongestion. Cardiac silhouette size is stable and within normal limits without reflect thoracic aorta. Osseous structures are intact. IMPRESSION: Overall stable findings, persistent small to moderate-sized bilateral pleural effusions with central vascular congestion and associated bibasilar atelectasis and/or infiltrate all redemons trated.
[2018-07-23] MEDS ORDERED: FUROSEMIDE 10 MG/ML 4 ML VIAL IV STA (09:12)
[2018-07-23] MEDS: FAMOTIDINE 20 MG/2 ML VIAL IV SCH (09:18)
[2018-07-23] MEDS: ENOXAPARIN 40 MG/0.4 ML SYRINGE SQ SCH (09:18)
[2018-07-23] MEDS: CHLORHEXIDINE GLUCONATE 15 ML CUP MUCOUS MEM SCH ×2 (09:18→22:12)
[2018-07-23 11:58] LABS: Glucose,Whole Blood 184 mg/dL (75-99)
[2018-07-23] MEDS ORDERED: CALCIUM GLUCONATE 1,000 MG in SODIUM CHLORIDE 0.9% 100 ML IVPB ONE (13:00)
[2018-07-23] MEDS: VANCOMYCIN 1,750 MG in SODIUM CHLORIDE 0.9% 500 ML 500 ML IVPB SCH (13:09)
--- NOTE | 2018-07-23 13:47 | P.PN ---
Subjective Progress Note Date: 07/23/18 CHIEF COMPLAINT: Abnormal CT results/abdominal pain HISTORY OF PRESENT ILLNESS: Patient s/p exploratory laparotomy, right colectomy with ileostomy, sigmoid colectomy, and left salpingo-oophorectomy. POD #5. Patient remains intubated postoperatively in the intensive care unit. Wound vac has been applied to midline incision. Continues on TPN. Ileostomy with brown liquid output. Mucus fistula with brown stool noted. PHYSICAL EXAM: VITAL SIGNS: Currently stable. GENERAL: Patient remains on mechanical ventilation in the ICU HEENT: NG tube present. ET tube intact. No sclera icterus. Pupils are equal, round, and reactive to light. Moist buccal mucosa. Head is atraumatic, normocephalic. NECK: Supple without lymphadenopathy. CHEST: Remains on mechanical ventilation. Equal bilateral excursions. Saturations greater than 92%. CARDIOVASCULAR: Regular rate with regular rhythm. Palpable 2+ radial pulses. ABDOMEN: Wound vac to midline incision. Ileostomy and mucus fistula with stool noted in both. : Pablo catheter intact MUSCULOSKELETAL: No clubbing, cyanosis or edema. NEUROLOGIC: Unable to thoroughly assess secondary to mechanical ventilation PSYCH: Unable to thoroughly assess secondary to mechanical ventilation SKIN: No cyanosis. No Jaundice. ASSESSMENT: 1. Abdominal pain, abdominal xray reveals distal small bowel obstruction 2. Large pneumoperitoneum, s/p exploratory laparotomy, right colectomy with ileostomy, sigmoid colectomy, and left salpingo-oophorectomy 3. Acute hypoxic respiratory failure requiring mechanical ventilation 4. Septic shock requiring vasopressor support secondary to peritonitis, currently off pressors, improving 5. Lactic acidosis, resolved 6. Transaminitis, secondary to septic shock 7. 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 Large right renal calculi with UTI PLAN: Continue IV fluids. Continue TPN. Continue wound vac. Ventilator management per Dr. Cortez. Nurse practitioner note has been reviewed by physician. Signing provider agrees with the documented findings, assessment, and plan of care. Objective - Vital Signs Vital signs: Vital Signs Temp 98.0 F 07/23/18 12:00 Pulse 88 07/23/18 13:00 Resp 23 07/23/18 13:00 BP 132/77 07/23/18 13:00 Pulse Ox 96 07/23/18 13:00 Intake & Output 07/22/18 07/23/18 07/23/18 18:59 06:59 18:59 Intake Total 2250 2931.916 2002.469 Output Total 1215 1175 1685 Balance 1035 1756.916 317.469 Weight 97.5 kg 97.5 kg Intake: IV 2150 2300 1025 Amino Acid 5%-D15w+Lytes* 825 900 425 E* 1,000 ml @ 75 mls/hr IV .BY DURATION [facility] Rx#: [id number] Piperacillin-Tazobactam 3 25 200 100 .375 gm In Sodium Chloride 0.9% 100 ml @ 25 mls/hr IVPB Q8HR [facility] Rx# :[id number] Sodium Chloride 0.9% 1, 1100 1200 400 000 ml @ 100 mls/hr IV . Q10H [facility] Rx#:[id number] metroNIDAZOLE-NS PMX 500 200 100 mg In Saline 1 100ml.bag @ 100 mls/hr IVPB Q8HR [facility] Rx#:[id number] Intake, IV Titration 100 631.916 977.469 Amount Calcium Gluconate 1,000 100 mg In Sodium Chloride 0.9 % 100 ml @ 100 mls/hr IVPB ONCE ONE Rx#: [id number] Magnesium Sulfate-D5w Pmx 100 1 gm In Dextrose/Water 1 100ml.bag @ 100 mls/hr IVPB Q1H [facility] Rx#: [id number] Potassium Chloride 20 meq 200 In Water For Injection 1 100ml.bag @ 50 mls/hr IVPB Q2H [facility] Rx#: [id number] Potassium Chloride 20 meq 100 In Water For Injection 1 100ml.bag @ 50 mls/hr IVPB Q2H [facility] Rx#: [id number] Potassium Phosphate 10 100 mmol In Sodium Chloride 0 .9% 100 ml @ 50 mls/hr IV ONCE ONE Rx#:[id number] Propofol 1,000 mg In 100 81.916 77.469 Empty Bag 1 bag @ Titrate IV .Q0M [facility] Rx#: [id number] Vancomycin 1,750 mg In 250 500 Sodium Chloride 0.9% 500 ml 500 ml @ 167 mls/hr IVPB Q16H [facility] Rx#: [id number] metroNIDAZOLE-NS PMX 500 100 mg In Saline 1 100ml.bag @ 100 mls/hr IVPB Q8HR [facility] Rx#:[id number] Output: Urine 975 1115 1645 Stool 240 60 40 Other: Voiding Method Indwelling Catheter Indwelling Catheter Indwelling Catheter # Bowel Movements 200 ABP, PAP, CO, CI - Last Documented Arterial Blood Pressure 100/93 - Labs CBC & Chem 7: 07/23/18 04:21 07/23/18 04:21 Labs: Abnormal Lab Results - Last 24 Hours (Table) 07/22/18 07/22/18 07/23/18 Range/Units 17:33 19:47 00:17 WBC (3.8-10.6) k/uL RBC (3.80-5.40) m/uL Hgb (11.4-16.0) gm/dL Hct (34.0-46.0) % Plt Count (150-450) k/uL Neutrophils # (Manual) (1.3-7.7) k/uL Lymphocytes # (Manual) (1.0-4.8) k/uL Metamyelocytes # (Man) (0) k/uL Myelocytes # (Manual) (0) k/uL ABG pH (7.35-7.45) ABG pCO2 (35-45) mmHg ABG pO2 (83-108) mmHg ABG HCO3 (21-25) mmol/L ABG Total CO2 (19-24) mmol/L ABG O2 Saturation (94-97) % Potassium 2.9 L (3.5-5.1) mmol/L Chloride (98-107) mmol/L BUN (7-17) mg/dL Creatinine (0.52-1.04) mg/dL Glucose (74-99) mg/dL POC Glucose (mg/dL) 148 H 129 H (75-99) mg/dL Calcium (8.4-10.2) mg/dL Phosphorus (2.5-4.5) mg/dL 07/23/18 07/23/18 07/23/18 Range/Units 04:21 04:21 05:00 WBC 11.9 H (3.8-10.6) k/uL RBC 2.86 L (3.80-5.40) m/uL Hgb 8.0 L (11.4-16.0) gm/dL Hct 24.9 L (34.0-46.0) % Plt Count 129 L (150-450) k/uL Neutrophils # (Manual) 10.80 H (1.3-7.7) k/uL Lymphocytes # (Manual) 0.36 L (1.0-4.8) k/uL Metamyelocytes # (Man) 0.24 H (0) k/uL Myelocytes # (Manual) 0.24 H (0) k/uL ABG pH 7.51 H (7.35-7.45) ABG pCO2 34 L (35-45) mmHg ABG pO2 75 L (83-108) mmHg ABG HCO3 27 H (21-25) mmol/L ABG Total CO2 28 H (19-24) mmol/L ABG O2 Saturation 97.9 H (94-97) % Potassium 3.3 L (3.5-5.1) mmol/L Chloride 112 H (98-107) mmol/L BUN 22 H (7-17) mg/dL Creatinine 0.50 L (0.52-1.04) mg/dL Glucose 120 H (74-99) mg/dL POC Glucose (mg/dL) (75-99) mg/dL Calcium 6.4 L* (8.4-10.2) mg/dL Phosphorus 2.4 L (2.5-4.5) mg/dL 07/23/18 Range/Units 11:46 WBC (3.8-10.6) k/uL RBC (3.80-5.40) m/uL Hgb (11.4-16.0) gm/dL Hct (34.0-46.0) % Plt Count (150-450) k/uL Neutrophils # (Manual) (1.3-7.7) k/uL Lymphocytes # (Manual) (1.0-4.8) k/uL Metamyelocytes # (Man) (0) k/uL Myelocytes # (Manual) (0) k/uL ABG pH (7.35-7.45) ABG pCO2 (35-45) mmHg ABG pO2 (83-108) mmHg ABG HCO3 (21-25) mmol/L ABG Total CO2 (19-24) mmol/L ABG O2 Saturation (94-97) % Potassium (3.5-5.1) mmol/L Chloride (98-107) mmol/L BUN (7-17) mg/dL Creatinine (0.52-1.04) mg/dL Glucose (74-99) mg/dL POC Glucose (mg/dL) 184 H (75-99) mg/dL Calcium (8.4-10.2) mg/dL Phosphorus (2.5-4.5) mg/dL Microbiology - Last 24 Hours (Table) 07/22/18 00:00 Gram Stain - Preliminary Sputum Sputum Culture - Preliminary Nikole albicans 07/18/18 17:48 Blood Culture - Preliminary Blood No Growth after 96 hours 07/18/18 17:46 Blood Culture - Preliminary Blood No Growth after 96 hours
--- NOTE | 2018-07-23 18:02 | P.PN ---
Subjective Progress Note Date: 07/22/18 (Late entry note) Principal diagnosis: Severe sepsis and septic shock, acute hypoxic respiratory failure, bowel perforation, secondary abdominal peritonitis, right small pleural effusion, volume depletion and dehydration 07/22/2018, patient seen eval examined during the rounds remains on full ventilator support patient has been tapered off of vasopressors now remains on propofol however remains very somnolent, TPN has been going along fairly well tolerating very well, patient continued to have low urine output and intermittent hypertension however no significant arrhythmia has been seen, 6 x- ray performed today remains stable, labs continue to show improved leukocytosis , ABG revealed metabolic alkalosis patient has significant hypokalemia which is being repleted, all the cultures so far has been negative some nikole has been isolated in the sputum likely contamination 07/21/2018, patient seen eval examined during the rounds she is sedated with propofol drip, currently she is on assist control rate of 14 breathing 16 tidal volume is 505 OPV and 40% oxygen, patient is on TPN tolerating very well patient also on Zosyn and Flagyl, levo fed drip is down to 5 mics, propofol is 15 mics, lactic acid the removal improved to 2.9, patient's blood gas and laboratory data reviewed as well care plan discussed with the family at length as well as surgical services, there is some changes in the ileostomy area skin is seen likely some necrosis and necrotic his skin as per discussion we'll monitor OBSERVE patient is being started on vancomycin IV, chest x-ray performed today revealed bibasilar atelectasis effusion and infiltrate possible pneumonia cannot be excluded patient is a however adequately covered with vancomycin and Zosyn oxygenation remains stable some of the effusion is likely secondary due to aggressive crystalloid resuscitation, white cell count continue to be elevated, arterial blood gases reviewed some alkalosis, bicarb is being discontinued, calcium level is on the low side, 07/20/2018, patient seen eval examined during the rounds clinically patient has been doing well in terms of hemodynamics able to come off of vasopressin, patient is still on levo fed drip though which is down to 8 mics, patient remains on 50 cc per hour of bicarb drip, propofol drip is 20 mics, patient is being planned to start on TPN, remains on full ventilator support, currently FiO2 is 40%, with tidal volume of 500, respiratory rate set at 14, she is breathing 16, PEEP is 5, arterial blood gas is pending today, chest x-ray finding as well as laboratory data reviewed, chest x-ray reviewed by shilo subsegmental atelectasis small effusion possible pneumonia cannot be excluded, patient is on IV Zosyn we'll add Flagyl as well, respiratory secretions are stable, white cell count is trending down to 21,000, hemoglobin and hematocrit did drop down to 9.3 and 29 likely dilutional as patient has been and is still being resuscitated with steroids, continue peptic ulcer disease prophylaxis continue DVT prophylaxis, critical care time spent 35 minutes 07/19/2018, patient seen eval examined during the rounds she remains sedated with propofol currently she is on 20 mics of propofol she is hemodynamically remains on stable, patient has the severe hypotension requiring vasopressin as well as levo fed which was up to 30 mics however able to taper it down to 10 mics now vasopressin is 0.03 unit, she is also on bicarb drip for severe metabolic acidosis currently running 50 mL an hour she has received so far postoperatively 9 L of LR and 2 L of normal saline she does make some urine about 10-20 mL with fluid boluses otherwise she becomes and uric plan is to give another liter of LR 2 50 mL an hour for 4 hours then to resume 100 mL an hour and lower she is sedated with propofol drip, family is present at bedside care plan discussed with them at length, currently patient is a full assist control mode with a rate of 14 breathing about 17, tidal volume is 500, 5 of PEEP, 50% oxygen, labs and medications reviewed, culture results and reports are pending, , chest x-ray revealed stable endotracheal tube stable central line and some subsegmental atelectasis at the bases are seen, patient remains on broad-spectrum antibiotics This is a pleasant 78-year-old female with no significant past medical history. She presented to the hospital with abdominal pain and has been found to have a bowel obstruction. We have been asked to see her in consultation for shortness of breath and hypoxia related to abdominal process. She has been evaluated by surgical services and per nursing staff she was vomiting all morning. Laboratory data reviewed, hemoglobin 13.7, platelets 439 WBC 12.0 down from 15.9 on admission, INR 1.5, sodium 139, potassium 3.4, creatinine 0.6, magnesium 2.1, cardiac enzymes negative 1. She also has been diagnosed with a urinary tract infection. EKG on admission reveals sinus mechanism with no acute ST or T wave abnormalities noted. Chest x-ray reveals mild pulmonary fibrosis. No overt heart failure or acute cardiopulmonary process. She takes no daily medications. She is also been seen in consultation by urology and surgical services. Urology suspects a large infected right renal stone. X-ray of the abdomen obtained reveals evidence of right renal calculus as well as colonic wall thickening suggestive of colitis. CT of the abdomen and pelvis with contrast reveals markedly colonic distention to the level of the sigmoid colon, numerous bilateral renal calculi and gallbladder markedly distended. HIDA scan reveals ejection fraction of about her 23% with increased symptoms of pain suggestive of underlying gallbladder dyskinesia with no evidence of acute cholecystitis. Patient decompensated earlier this morning with x-ray shows free air abdomen was diffusely tender patient was eventually taken by surgical services to OR for exploratory laparotomy of perforated viscus and for detail of surgical intervention please effort to surgical notes, patient was brought back into the ICU on full ventilator support hypotensive does have a central line and A-line intubated with assist control rate of 12 patient appears to be volume depleted her liter of the LR has been given with that systolic blood pressure improved into 90s arterial blood gas drawn labs are sent ventilator adjustment has been done Objective - Vital Signs Vital signs: Vital Signs Temp 98.1 F 07/23/18 16:00 Pulse 82 07/23/18 16:00 Resp 19 07/23/18 16:00 BP 134/79 07/23/18 16:00 Pulse Ox 98 07/23/18 16:00 Intake & Output 07/22/18 07/23/18 07/23/18 18:59 06:59 18:59 Intake Total 2250 2931.916 2152.469 Output Total 1215 1175 2005 Balance 1035 1756.916 147.469 Weight 97.5 kg 97.5 kg Intake: IV 2150 2300 1175 Amino Acid 5%-D15w+Lytes* 825 900 475 E* 1,000 ml @ 75 mls/hr IV .BY DURATION [facility] Rx#: [id number] Piperacillin-Tazobactam 3 25 200 100 .375 gm In Sodium Chloride 0.9% 100 ml @ 25 mls/hr IVPB Q8HR [facility] Rx# :[id number] Sodium Chloride 0.9% 1, 1100 1200 500 000 ml @ 100 mls/hr IV . Q10H [facility] Rx#:[id number] metroNIDAZOLE-NS PMX 500 200 100 mg In Saline 1 100ml.bag @ 100 mls/hr IVPB Q8HR [facility] Rx#:[id number] Intake, IV Titration 100 631.916 977.469 Amount Calcium Gluconate 1,000 100 mg In Sodium Chloride 0.9 % 100 ml @ 100 mls/hr IVPB ONCE ONE Rx#: [id number] Magnesium Sulfate-D5w Pmx 100 1 gm In Dextrose/Water 1 100ml.bag @ 100 mls/hr IVPB Q1H [facility] Rx#: [id number] Potassium Chloride 20 meq 200 In Water For Injection 1 100ml.bag @ 50 mls/hr IVPB Q2H [facility] Rx#: [id number] Potassium Chloride 20 meq 100 In Water For Injection 1 100ml.bag @ 50 mls/hr IVPB Q2H [facility] Rx#: [id number] Potassium Phosphate 10 100 mmol In Sodium Chloride 0 .9% 100 ml @ 50 mls/hr IV ONCE ONE Rx#:[id number] Propofol 1,000 mg In 100 81.916 77.469 Empty Bag 1 bag @ Titrate IV .Q0M [facility] Rx#: [id number] Vancomycin 1,750 mg In 250 500 Sodium Chloride 0.9% 500 ml 500 ml @ 167 mls/hr IVPB Q16H [facility] Rx#: [id number] metroNIDAZOLE-NS PMX 500 100 mg In Saline 1 100ml.bag @ 100 mls/hr IVPB Q8HR [facility] Rx#:[id number] Output: Urine 975 1115 1945 Stool 240 60 60 Other: Voiding Method Indwelling Catheter Indwelling Catheter Indwelling Catheter # Bowel Movements 200 ABP, PAP, CO, CI - Last Documented Arterial Blood Pressure 100/93 - Exam Intubated on full ventilator support - Constitutional General appearance: average body habitus - EENT Eyes: normal appearance Ears: bilateral: normal - Neck Neck: normal ROM Carotids: bilateral: upstroke normal, bruit absent - Respiratory Respiratory: bilateral: CTA - Cardiovascular Rhythm: regular Heart sounds: normal: S1, S2 - Gastrointestinal Patient has a ileostomy as well as colostomy, anterior abdominal wall wound is open at the skin level fascia has been repaired, some ischemic changes along and around his ileostomy has been noted infectious being monitored and observed Sedated with propofol - Labs CBC & Chem 7: 07/23/18 04:21 07/23/18 04:21 Labs: Abnormal Lab Results - Last 24 Hours (Table) 07/22/18 07/23/18 07/23/18 Range/Units 19:47 00:17 04:21 WBC 11.9 H (3.8-10.6) k/uL RBC 2.86 L (3.80-5.40) m/uL Hgb 8.0 L (11.4-16.0) gm/dL Hct 24.9 L (34.0-46.0) % Plt Count 129 L (150-450) k/uL Neutrophils # (Manual) 10.80 H (1.3-7.7) k/uL Lymphocytes # (Manual) 0.36 L (1.0-4.8) k/uL Metamyelocytes # (Man) 0.24 H (0) k/uL Myelocytes # (Manual) 0.24 H (0) k/uL ABG pH (7.35-7.45) ABG pCO2 (35-45) mmHg ABG pO2 (83-108) mmHg ABG HCO3 (21-25) mmol/L ABG Total CO2 (19-24) mmol/L ABG O2 Saturation (94-97) % Potassium 2.9 L (3.5-5.1) mmol/L Chloride (98-107) mmol/L BUN (7-17) mg/dL Creatinine (0.52-1.04) mg/dL Glucose (74-99) mg/dL POC Glucose (mg/dL) 129 H (75-99) mg/dL Calcium (8.4-10.2) mg/dL Phosphorus (2.5-4.5) mg/dL 07/23/18 07/23/18 07/23/18 Range/Units 04:21 05:00 11:46 WBC (3.8-10.6) k/uL RBC (3.80-5.40) m/uL Hgb (11.4-16.0) gm/dL Hct (34.0-46.0) % Plt Count (150-450) k/uL Neutrophils # (Manual) (1.3-7.7) k/uL Lymphocytes # (Manual) (1.0-4.8) k/uL Metamyelocytes # (Man) (0) k/uL Myelocytes # (Manual) (0) k/uL ABG pH 7.51 H (7.35-7.45) ABG pCO2 34 L (35-45) mmHg ABG pO2 75 L (83-108) mmHg ABG HCO3 27 H (21-25) mmol/L ABG Total CO2 28 H (19-24) mmol/L ABG O2 Saturation 97.9 H (94-97) % Potassium 3.3 L (3.5-5.1) mmol/L Chloride 112 H (98-107) mmol/L BUN 22 H (7-17) mg/dL Creatinine 0.50 L (0.52-1.04) mg/dL Glucose 120 H (74-99) mg/dL POC Glucose (mg/dL) 184 H (75-99) mg/dL Calcium 6.4 L* (8.4-10.2) mg/dL Phosphorus 2.4 L (2.5-4.5) mg/dL Microbiology - Last 24 Hours (Table) 07/22/18 00:00 Gram Stain - Preliminary Sputum Sputum Culture - Preliminary Nikole albicans 07/18/18 17:48 Blood Culture - Preliminary Blood No Growth after 96 hours 07/18/18 17:46 Blood Culture - Preliminary Blood No Growth after 96 hours Assessment and Plan Assessment: Severe hypokalemia and metabolic alkalosis Skin necrosis of anterior abdominal wall around ileostomy Severe sepsis and septic shock Acute respiratory failure, anticipated complication of this extensive surgery Bi basilar pneumonia may be aspiration related Bowel perforation, status post ileostomy and colostomy Intra-abdominal secondary peritonitis Bilateral small pleural effusion Volume depletion and dehydration Leukocytosis and lactic acidosis Severe profound metabolic acidosis Acute renal failure stage III however renal function in GFR slowly improving with fluid resuscitation Plan: Replace potassium and calcium Ventilator adjustment Titrated oxygen down as tolerated Vasopressors as needed keep map over 65 Aggressive fluid resuscitation maintain on IV fluids normal saline 100 mL an hour Broad-spectrum antibiotics, Zosyn with Flagyl and vancomycin is being administered Ventilator adjustment, will continue current ventilator support for another 24- 48 hours Labs reviewed medications reviewed Repeat labs and chest x-ray tomorrow Continue TPN as planned Add IV vancomycin Monitor observe anterior abdominal wall skin and wounds Time with Patient: Greater than 30
--- NOTE | 2018-07-23 18:04 | P.PN ---
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 07/23/2018, patient seen eval examined during the rounds clinically patient has been doing not much different than baseline patient remains on propofol drip, off of pressors, ventilator setting revealed assist control of 14 breathing 22 tidal volume of 505 of PEEP and 40% oxygen I have lowered down the tidal volume to 450, continue to replace calcium as well as potassium, will give 40 mg of Lasix for gentle diuresis, will do a sedation holiday take patient off of propofol once awake been doing CPAP and pressure support trial on Jack no plans for aggressive weaning though continue to optimize nutritional support labs reviewed medications reviewed, critical care time spent 35 minutes 07/22/2018, patient seen eval examined during the rounds remains on full ventilator support patient has been tapered off of vasopressors now remains on propofol however remains very somnolent, TPN has been going along fairly well tolerating very well, patient continued to have low urine output and intermittent hypertension however no significant arrhythmia has been seen, 6 x- ray performed today remains stable, labs continue to show improved leukocytosis , ABG revealed metabolic alkalosis patient has significant hypokalemia which is being repleted, all the cultures so far has been negative some carlos has been isolated in the sputum likely contamination 07/21/2018, patient seen eval examined during the rounds she is sedated with propofol drip, currently she is on assist control rate of 14 breathing 16 tidal volume is 505 OPV and 40% oxygen, patient is on TPN tolerating very well patient also on Zosyn and Flagyl, levo fed drip is down to 5 mics, propofol is 15 mics, lactic acid the removal improved to 2.9, patient's blood gas and laboratory data reviewed as well care plan discussed with the family at length as well as surgical services, there is some changes in the ileostomy area skin is seen likely some necrosis and necrotic his skin as per discussion we'll monitor OBSERVE patient is being started on vancomycin IV, chest x-ray performed today revealed bibasilar atelectasis effusion and infiltrate possible pneumonia cannot be excluded patient is a however adequately covered with vancomycin and Zosyn oxygenation remains stable some of the effusion is likely secondary due to aggressive crystalloid resuscitation, white cell count continue to be elevated, arterial blood gases reviewed some alkalosis, bicarb is being discontinued, calcium level is on the low side, 07/20/2018, patient seen eval examined during the rounds clinically patient has been doing well in terms of hemodynamics able to come off of vasopressin, patient is still on levo fed drip though which is down to 8 mics, patient remains on 50 cc per hour of bicarb drip, propofol drip is 20 mics, patient is being planned to start on TPN, remains on full ventilator support, currently FiO2 is 40%, with tidal volume of 500, respiratory rate set at 14, she is breathing 16, PEEP is 5, arterial blood gas is pending today, chest x-ray finding as well as laboratory data reviewed, chest x-ray reviewed by shilo subsegmental atelectasis small effusion possible pneumonia cannot be excluded, patient is on IV Zosyn we'll add Flagyl as well, respiratory secretions are stable, white cell count is trending down to 21,000, hemoglobin and hematocrit did drop down to 9.3 and 29 likely dilutional as patient has been and is still being resuscitated with steroids, continue peptic ulcer disease prophylaxis continue DVT prophylaxis, critical care time spent 35 minutes 07/19/2018, patient seen eval examined during the rounds she remains sedated with propofol currently she is on 20 mics of propofol she is hemodynamically remains on stable, patient has the severe hypotension requiring vasopressin as well as levo fed which was up to 30 mics however able to taper it down to 10 mics now vasopressin is 0.03 unit, she is also on bicarb drip for severe metabolic acidosis currently running 50 mL an hour she has received so far postoperatively 9 L of LR and 2 L of normal saline she does make some urine about 10-20 mL with fluid boluses otherwise she becomes and uric plan is to give another liter of LR 2 50 mL an hour for 4 hours then to resume 100 mL an hour and lower she is sedated with propofol drip, family is present at bedside care plan discussed with them at length, currently patient is a full assist control mode with a rate of 14 breathing about 17, tidal volume is 500, 5 of PEEP, 50% oxygen, labs and medications reviewed, culture results and reports are pending, , chest x-ray revealed stable endotracheal tube stable central line and some subsegmental atelectasis at the bases are seen, patient remains on broad-spectrum antibiotics This is a pleasant 78-year-old female with no significant past medical history. She presented to the hospital with abdominal pain and has been found to have a bowel obstruction. We have been asked to see her in consultation for shortness of breath and hypoxia related to abdominal process. She has been evaluated by surgical services and per nursing staff she was vomiting all morning. Laboratory data reviewed, hemoglobin 13.7, platelets 439 WBC 12.0 down from 15.9 on admission, INR 1.5, sodium 139, potassium 3.4, creatinine 0.6, magnesium 2.1, cardiac enzymes negative 1. She also has been diagnosed with a urinary tract infection. EKG on admission reveals sinus mechanism with no acute ST or T wave abnormalities noted. Chest x-ray reveals mild pulmonary fibrosis. No overt heart failure or acute cardiopulmonary process. She takes no daily medications. She is also been seen in consultation by urology and surgical services. Urology suspects a large infected right renal stone. X-ray of the abdomen obtained reveals evidence of right renal calculus as well as colonic wall thickening suggestive of colitis. CT of the abdomen and pelvis with contrast reveals markedly colonic distention to the level of the sigmoid colon, numerous bilateral renal calculi and gallbladder markedly distended. HIDA scan reveals ejection fraction of about her 23% with increased symptoms of pain suggestive of underlying gallbladder dyskinesia with no evidence of acute cholecystitis. Patient decompensated earlier this morning with x-ray shows free air abdomen was diffusely tender patient was eventually taken by surgical services to OR for exploratory laparotomy of perforated viscus and for detail of surgical intervention please effort to surgical notes, patient was brought back into the ICU on full ventilator support hypotensive does have a central line and A-line intubated with assist control rate of 12 patient appears to be volume depleted her liter of the LR has been given with that systolic blood pressure improved into 90s arterial blood gas drawn labs are sent ventilator adjustment has been done Objective - Vital Signs Vital signs: Vital Signs Temp 98.1 F 07/23/18 16:00 Pulse 82 07/23/18 16:00 Resp 19 07/23/18 16:00 BP 134/79 07/23/18 16:00 Pulse Ox 98 07/23/18 16:00 Intake & Output 07/22/18 07/23/18 07/23/18 18:59 06:59 18:59 Intake Total 2250 2931.916 2152.469 Output Total 1215 1175 2005 Balance 1035 1756.916 147.469 Weight 97.5 kg 97.5 kg Intake: IV 2150 2300 1175 Amino Acid 5%-D15w+Lytes* 825 900 475 E* 1,000 ml @ 75 mls/hr IV .BY DURATION [facility] Rx#: [id number] Piperacillin-Tazobactam 3 25 200 100 .375 gm In Sodium Chloride 0.9% 100 ml @ 25 mls/hr IVPB Q8HR [facility] Rx# :[id number] Sodium Chloride 0.9% 1, 1100 1200 500 000 ml @ 100 mls/hr IV . Q10H [facility] Rx#:[id number] metroNIDAZOLE-NS PMX 500 200 100 mg In Saline 1 100ml.bag @ 100 mls/hr IVPB Q8HR [facility] Rx#:[id number] Intake, IV Titration 100 631.916 977.469 Amount Calcium Gluconate 1,000 100 mg In Sodium Chloride 0.9 % 100 ml @ 100 mls/hr IVPB ONCE ONE Rx#: [id number] Magnesium Sulfate-D5w Pmx 100 1 gm In Dextrose/Water 1 100ml.bag @ 100 mls/hr IVPB Q1H [facility] Rx#: [id number] Potassium Chloride 20 meq 200 In Water For Injection 1 100ml.bag @ 50 mls/hr IVPB Q2H [facility] Rx#: [id number] Potassium Chloride 20 meq 100 In Water For Injection 1 100ml.bag @ 50 mls/hr IVPB Q2H [facility] Rx#: [id number] Potassium Phosphate 10 100 mmol In Sodium Chloride 0 .9% 100 ml @ 50 mls/hr IV ONCE ONE Rx#:[id number] Propofol 1,000 mg In 100 81.916 77.469 Empty Bag 1 bag @ Titrate IV .Q0M [facility] Rx#: [id number] Vancomycin 1,750 mg In 250 500 Sodium Chloride 0.9% 500 ml 500 ml @ 167 mls/hr IVPB Q16H [facility] Rx#: [id number] metroNIDAZOLE-NS PMX 500 100 mg In Saline 1 100ml.bag @ 100 mls/hr IVPB Q8HR [facility] Rx#:[id number] Output: Urine 975 1115 1945 Stool 240 60 60 Other: Voiding Method Indwelling Catheter Indwelling Catheter Indwelling Catheter # Bowel Movements 200 ABP, PAP, CO, CI - Last Documented Arterial Blood Pressure 100/93 - Exam Intubated on full ventilator support - Constitutional General appearance: average body habitus - EENT Eyes: normal appearance Ears: bilateral: normal - Neck Neck: normal ROM Carotids: bilateral: upstroke normal, bruit absent - Respiratory Respiratory: bilateral: CTA - Cardiovascular Rhythm: regular Heart sounds: normal: S1, S2 - Gastrointestinal Patient has a ileostomy as well as colostomy, anterior abdominal wall wound is open at the skin level fascia has been repaired, some ischemic changes along and around his ileostomy has been noted infectious being monitored and observed Sedated with propofol - Labs CBC & Chem 7: 07/23/18 04:21 07/23/18 04:21 Labs: Abnormal Lab Results - Last 24 Hours (Table) 07/22/18 07/23/18 07/23/18 Range/Units 19:47 00:17 04:21 WBC 11.9 H (3.8-10.6) k/uL RBC 2.86 L (3.80-5.40) m/uL Hgb 8.0 L (11.4-16.0) gm/dL Hct 24.9 L (34.0-46.0) % Plt Count 129 L (150-450) k/uL Neutrophils # (Manual) 10.80 H (1.3-7.7) k/uL Lymphocytes # (Manual) 0.36 L (1.0-4.8) k/uL Metamyelocytes # (Man) 0.24 H (0) k/uL Myelocytes # (Manual) 0.24 H (0) k/uL ABG pH (7.35-7.45) ABG pCO2 (35-45) mmHg ABG pO2 (83-108) mmHg ABG HCO3 (21-25) mmol/L ABG Total CO2 (19-24) mmol/L ABG O2 Saturation (94-97) % Potassium 2.9 L (3.5-5.1) mmol/L Chloride (98-107) mmol/L BUN (7-17) mg/dL Creatinine (0.52-1.04) mg/dL Glucose (74-99) mg/dL POC Glucose (mg/dL) 129 H (75-99) mg/dL Calcium (8.4-10.2) mg/dL Phosphorus (2.5-4.5) mg/dL 07/23/18 07/23/18 07/23/18 Range/Units 04:21 05:00 11:46 WBC (3.8-10.6) k/uL RBC (3.80-5.40) m/uL Hgb (11.4-16.0) gm/dL Hct (34.0-46.0) % Plt Count (150-450) k/uL Neutrophils # (Manual) (1.3-7.7) k/uL Lymphocytes # (Manual) (1.0-4.8) k/uL Metamyelocytes # (Man) (0) k/uL Myelocytes # (Manual) (0) k/uL ABG pH 7.51 H (7.35-7.45) ABG pCO2 34 L (35-45) mmHg ABG pO2 75 L (83-108) mmHg ABG HCO3 27 H (21-25) mmol/L ABG Total CO2 28 H (19-24) mmol/L ABG O2 Saturation 97.9 H (94-97) % Potassium 3.3 L (3.5-5.1) mmol/L Chloride 112 H (98-107) mmol/L BUN 22 H (7-17) mg/dL Creatinine 0.50 L (0.52-1.04) mg/dL Glucose 120 H (74-99) mg/dL POC Glucose (mg/dL) 184 H (75-99) mg/dL Calcium 6.4 L* (8.4-10.2) mg/dL Phosphorus 2.4 L (2.5-4.5) mg/dL Microbiology - Last 24 Hours (Table) 07/22/18 00:00 Gram Stain - Preliminary Sputum Sputum Culture - Preliminary Carlos albicans 07/18/18 17:48 Blood Culture - Preliminary Blood No Growth after 96 hours 07/18/18 17:46 Blood Culture - Preliminary Blood No Growth after 96 hours Assessment and Plan Assessment: Severe hypokalemia and metabolic alkalosis Skin necrosis of anterior abdominal wall around ileostomy Severe sepsis and septic shock Acute respiratory failure, anticipated complication of this extensive surgery Bi basilar pneumonia may be aspiration related Bowel perforation, status post ileostomy and colostomy Intra-abdominal secondary peritonitis Bilateral small pleural effusion Volume depletion and dehydration Leukocytosis and lactic acidosis Severe profound metabolic acidosis Acute renal failure stage III however renal function in GFR slowly improving with fluid resuscitation Plan: Replace potassium and calcium Ventilator adjustment Titrated oxygen down as tolerated Vasopressors as needed keep map over 65 Aggressive fluid resuscitation maintain on IV fluids normal saline 100 mL an hour Broad-spectrum antibiotics, Zosyn with Flagyl and vancomycin is being administered Ventilator adjustment, will continue current ventilator support for another 24- 48 hours Labs reviewed medications reviewed Repeat labs and chest x-ray tomorrow Continue TPN as planned Add IV vancomycin Monitor observe anterior abdominal wall skin and wounds Time with Patient: Greater than 30
[2018-07-23 18:05] LABS: Glucose,Whole Blood 141 mg/dL (75-99)
[2018-07-23] MEDS ORDERED: [UNRECOGNIZED DRUG - REMARK] IV SCH ×5 (21:00)
--- NOTE | 2018-07-23 22:15 | P.PN ---
Subjective Principal diagnosis: Postop day #1 colectomy The patient is an 78-year-old white female who has had laparotomy due to colonic perforation. She is now in the ICU postoperatively on appropriate support. Appreciate multiple inputs from consultants. Objective - Vital Signs Vital signs: Vital Signs Temp 98.1 F 07/23/18 20:00 Pulse 89 07/23/18 21:00 Resp 23 07/23/18 21:00 BP 160/74 07/23/18 21:00 Pulse Ox 95 07/23/18 21:00 Intake & Output 07/23/18 07/23/18 07/24/18 06:59 18:59 06:59 Intake Total 2931.916 3252.469 550 Output Total 1175 3155 750 Balance 1756.916 97.469 -200 Weight 97.5 kg 97.5 kg Intake: IV 2300 2275 450 Amino Acid 5%-D15w+Lytes* 900 675 150 E* 1,000 ml @ 75 mls/hr IV .BY DURATION [facility] Rx#: [id number] Piperacillin-Tazobactam 3 200 200 .375 gm In Sodium Chloride 0.9% 100 ml @ 25 mls/hr IVPB Q8HR [facility] Rx# :[id number] Sodium Chloride 0.9% 1, 1200 1200 300 000 ml @ 100 mls/hr IV . Q10H [facility] Rx#:[id number] metroNIDAZOLE-NS PMX 500 200 mg In Saline 1 100ml.bag @ 100 mls/hr IVPB Q8HR [facility] Rx#:[id number] Intake, IV Titration 631.916 977.469 100 Amount Calcium Gluconate 1,000 100 mg In Sodium Chloride 0.9 % 100 ml @ 100 mls/hr IVPB ONCE ONE Rx#: [id number] Magnesium Sulfate-D5w Pmx 100 1 gm In Dextrose/Water 1 100ml.bag @ 100 mls/hr IVPB Q1H [facility] Rx#: [id number] Potassium Chloride 20 meq 200 In Water For Injection 1 100ml.bag @ 50 mls/hr IVPB Q2H [facility] Rx#: [id number] Potassium Chloride 20 meq 100 In Water For Injection 1 100ml.bag @ 50 mls/hr IVPB Q2H [facility] Rx#: [id number] Potassium Chloride 20 meq 100 In Water For Injection 1 100ml.bag @ 50 mls/hr IVPB Q2H [facility] Rx#: [id number] Potassium Phosphate 10 100 mmol In Sodium Chloride 0 .9% 100 ml @ 50 mls/hr IV ONCE ONE Rx#:[id number] Propofol 1,000 mg In 81.916 77.469 Empty Bag 1 bag @ Titrate IV .Q0M [facility] Rx#: [id number] Vancomycin 1,750 mg In 250 500 Sodium Chloride 0.9% 500 ml 500 ml @ 167 mls/hr IVPB Q16H [facility] Rx#: [id number] metroNIDAZOLE-NS PMX 500 100 mg In Saline 1 100ml.bag @ 100 mls/hr IVPB Q8HR [facility] Rx#:[id number] Output: Urine 1115 3095 350 Stool 60 60 Oral Regurgitation 400 Other: Voiding Method Indwelling Catheter Indwelling Catheter ABP, PAP, CO, CI - Last Documented Arterial Blood Pressure 100/93 - Constitutional General appearance: Present: obese - EENT Eyes: Absent: abnormal pupil - Neck Neck: Present: lymphadenopathy - Respiratory Respiratory: bilateral: rhonchi - Cardiovascular Rhythm: regular Heart sounds: normal: S1, S2 Abnormal Heart Sounds: Absent: S3 Gallop - Gastrointestinal General gastrointestinal: Present: distended - Labs CBC & Chem 7: 07/23/18 04:21 07/23/18 18:50 Labs: Abnormal Lab Results - Last 24 Hours (Table) 07/23/18 07/23/18 07/23/18 Range/Units 00:17 04:21 04:21 WBC 11.9 H (3.8-10.6) k/uL RBC 2.86 L (3.80-5.40) m/uL Hgb 8.0 L (11.4-16.0) gm/dL Hct 24.9 L (34.0-46.0) % Plt Count 129 L (150-450) k/uL Neutrophils # (Manual) 10.80 H (1.3-7.7) k/uL Lymphocytes # (Manual) 0.36 L (1.0-4.8) k/uL Metamyelocytes # (Man) 0.24 H (0) k/uL Myelocytes # (Manual) 0.24 H (0) k/uL ABG pH (7.35-7.45) ABG pCO2 (35-45) mmHg ABG pO2 (83-108) mmHg ABG HCO3 (21-25) mmol/L ABG Total CO2 (19-24) mmol/L ABG O2 Saturation (94-97) % Potassium 3.3 L (3.5-5.1) mmol/L Chloride 112 H (98-107) mmol/L BUN 22 H (7-17) mg/dL Creatinine 0.50 L (0.52-1.04) mg/dL Glucose 120 H (74-99) mg/dL POC Glucose (mg/dL) 129 H (75-99) mg/dL Calcium 6.4 L* (8.4-10.2) mg/dL Phosphorus 2.4 L (2.5-4.5) mg/dL 07/23/18 07/23/18 07/23/18 Range/Units 05:00 11:46 17:54 WBC (3.8-10.6) k/uL RBC (3.80-5.40) m/uL Hgb (11.4-16.0) gm/dL Hct (34.0-46.0) % Plt Count (150-450) k/uL Neutrophils # (Manual) (1.3-7.7) k/uL Lymphocytes # (Manual) (1.0-4.8) k/uL Metamyelocytes # (Man) (0) k/uL Myelocytes # (Manual) (0) k/uL ABG pH 7.51 H (7.35-7.45) ABG pCO2 34 L (35-45) mmHg ABG pO2 75 L (83-108) mmHg ABG HCO3 27 H (21-25) mmol/L ABG Total CO2 28 H (19-24) mmol/L ABG O2 Saturation 97.9 H (94-97) % Potassium (3.5-5.1) mmol/L Chloride (98-107) mmol/L BUN (7-17) mg/dL Creatinine (0.52-1.04) mg/dL Glucose (74-99) mg/dL POC Glucose (mg/dL) 184 H 141 H (75-99) mg/dL Calcium (8.4-10.2) mg/dL Phosphorus (2.5-4.5) mg/dL 07/23/18 Range/Units 18:50 WBC (3.8-10.6) k/uL RBC (3.80-5.40) m/uL Hgb (11.4-16.0) gm/dL Hct (34.0-46.0) % Plt Count (150-450) k/uL Neutrophils # (Manual) (1.3-7.7) k/uL Lymphocytes # (Manual) (1.0-4.8) k/uL Metamyelocytes # (Man) (0) k/uL Myelocytes # (Manual) (0) k/uL ABG pH (7.35-7.45) ABG pCO2 (35-45) mmHg ABG pO2 (83-108) mmHg ABG HCO3 (21-25) mmol/L ABG Total CO2 (19-24) mmol/L ABG O2 Saturation (94-97) % Potassium 2.8 L (3.5-5.1) mmol/L Chloride (98-107) mmol/L BUN (7-17) mg/dL Creatinine (0.52-1.04) mg/dL Glucose (74-99) mg/dL POC Glucose (mg/dL) (75-99) mg/dL Calcium (8.4-10.2) mg/dL Phosphorus (2.5-4.5) mg/dL Microbiology - Last 24 Hours (Table) 07/18/18 17:46 Blood Culture - Preliminary Blood No Growth after 120 hours 07/18/18 17:48 Blood Culture - Preliminary Blood No Growth after 120 hours 07/22/18 00:00 Gram Stain - Preliminary Sputum Sputum Culture - Preliminary Nikole albicans Assessment and Plan (1) Colonic thickening Current Visit: Yes Status: Acute Code(s): K63.9 - DISEASE OF INTESTINE, UNSPECIFIED SNOMED Code(s): 290078074 (2) Dehydration Current Visit: Yes Status: Acute Code(s): E86.0 - DEHYDRATION SNOMED Code( s): 62469352 (3) Fall Current Visit: Yes Status: Acute Code(s): W19.XXXA - UNSPECIFIED FALL, INITIAL ENCOUNTER SNOMED Code(s): 8193671 (4) Sepsis secondary to UTI Current Visit: Yes Status: Acute Code(s): A41.9 - SEPSIS, UNSPECIFIED ORGANISM; N39.0 - URINARY TRACT INFECTION, SITE NOT SPECIFIED SNOMED Code(s): 419064906 Plan: The patient is awaiting primary closure of wounds secondary to bowel perforation. Criticality continues. We will continue to follow with multiple consultants. Prognosis is guarded. Time with Patient: Greater than 30
--- NOTE | 2018-07-23 23:00 | PN ---
PROGRESS NOTE DATE OF SERVICE: 07/23/2018 REASON FOR FOLLOWUP: Abdominal sepsis and secondary peritonitis. INTERVAL HISTORY: The patient is currently afebrile. The patient is hemodynamically stable, not on any pressor support. FiO2 is currently stable. is currently being slowly weaned off. PHYSICAL EXAMINATION: Blood pressure 160/74 with a pulse of 89, temperature 98.1. She is 95% on 40% FiO2. General description is an elderly female lying in bed in no distress. RESPIRATORY SYSTEM: Unlabored breathing with decreased breath sounds at the base. HEART: S1, S2. Regular rate and rhythm. ABDOMEN: Soft. Midline wound is currently covered with a wound V.A.C. The left side remains necrotic. LABS: Hemoglobin is 8.0, white count 11.9 with a BUN of 22, creatinine 0.50. DIAGNOSTIC IMPRESSION AND PLAN: Patient with abdominal sepsis in this patient who had cecal perforation, status post right hemicolectomy and diverting ileostomy along with mucus fistula formation, which seems to be currently getting necrotic. Patient is currently covered with Zosyn and Flagyl; to continue for now, watching the clinical course closely. Continue with supportive care. MMODL / IJN: [id number] /
[2018-07-23 23:43] LABS: ABG Base Excess 5.8 mmol/L; ABG HCO3 29 mmol/L (21-25); ABG Oxygen Saturation 96.9 % (94-97); ABG PCO2 36 mmHg (35-45); ABG PH 7.51 (7.35-7.45); ABG PO2 77 mmHg (83-108); ABG TCO2 30 mmol/L (19-24)
[2018-07-24 00:19] LABS: Glucose,Whole Blood 142 mg/dL (75-99)
[2018-07-24] MEDS: PIPERACILLIN-TAZOBACTAM 3.375 GM in SODIUM CHLORIDE 0.9% 100 ML IVPB SCH ×4 (01:04→23:52)
[2018-07-24] MEDS: metroNIDAZOLE-NS PMX 500 MG in SALINE 1 100ML.BAG IVPB SCH ×4 (01:04→23:52)
[2018-07-24] MEDS: POTASSIUM CHLORIDE 20 MEQ in WATER FOR INJECTION 1 100ML.BAG IVPB SCH ×3 (01:05→08:36)
[2018-07-24] MEDS: SODIUM CHLORIDE 0.9% 1,000 ML IV SCH ×3 (01:06→20:53)
[2018-07-24] MEDS: HYDROmorphone 0.5 MG/0.5 ML SYRINGE IVP PRN ×2 (01:10→05:58)
[2018-07-24 04:55] LABS: Ionized Calcium 4.4 mg/dL (4.5-5.3)
[2018-07-24 04:57] LABS: INR 1.1 (<1.2); Prothrombin Time 11.7 sec (9.0-12.0)
[2018-07-24 05:00] LABS: Anion Gap 1 mmol/L; Blood Urea Nitrogen 22 mg/dL (7-17); Carbon Dioxide 27 mmol/L (22-30); Chloride 112 mmol/L (98-107); Glucose 141 mg/dL (74-99); Magnesium 1.9 mg/dL (1.6-2.3); Phosphorus 2.4 mg/dL (2.5-4.5); Potassium 3.6 mmol/L (3.5-5.1); Sodium 140 mmol/L (137-145)
[2018-07-24] MEDS ORDERED: VANCOMYCIN TROUGH DUE 1 EACH MISC MISCELLANE ONE (05:00)
[2018-07-24] MEDS: VANCOMYCIN 1,750 MG in SODIUM CHLORIDE 0.9% 500 ML 500 ML IVPB SCH ×2 (05:07→22:02)
[2018-07-24] MEDS: PROPOFOL 1,000 MG in EMPTY BAG 1 BAG IV SCH (05:13)
[2018-07-24 05:14] LABS: Calcium 6.3 mg/dL (8.4-10.2)
[2018-07-24] MEDS ORDERED: Potassium Replacement Protocol 1 EACH MISC MISCELLANE PRN (05:33)
[2018-07-24] MEDS ORDERED: POTASSIUM PHOSPHATE 10 MMOL in SODIUM CHLORIDE 0.9% 250 ML IV ONE (05:35)
[2018-07-24] MEDS ORDERED: CALCIUM GLUCONATE 1,000 MG in SODIUM CHLORIDE 0.9% 100 ML IVPB ONE (05:38)
[2018-07-24] MEDS: MAGNESIUM SULFATE-D5W PMX 1 GM in DEXTROSE/WATER 1 100ML.BAG IVPB SCH ×2 (05:44→08:37)
--- NOTE | 2018-07-24 07:38 | XR ---
EXAMINATION TYPE: XR chest 1V portable DATE OF EXAM: 07/24/2018 Comparison: 07/23/2018 Clinical History: 78-year-old female Tube placement Findings: ET tube tip approximately 2.1 cm from the jamil. NG tube courses below the diaphragm. Right heart ma rgin obscured by adjacent pleural parenchymal opacity. Left IJ CVC tip at the lower SVC. Mild diffuse interstitial prominence. Continued moderate bilateral pleural effusions with adjacent opacity, right greater than left. Impression: Overall stable exam with moderate pleural effusions with adjacent atelectasis and/or consolidation, r ight greater than left. Mild pulmonary vascular congestion.
[2018-07-24] MEDS: CHLORHEXIDINE GLUCONATE 15 ML CUP MUCOUS MEM SCH ×2 (08:37→20:52)
[2018-07-24] MEDS: FAMOTIDINE 20 MG/2 ML VIAL IV SCH (08:37)
--- NOTE | 2018-07-24 08:38 | P.PN ---
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 07/24/2018, patient seen eval examined during the rounds clinically patient has been doing slightly better able to tolerate weaning and CPAP and pressure support of almost 1 hour, patient has been resumed on propofol would advise to DC put patient on morphine and Ativan initiated weaning will do a CPAP and pressure support trial with CPAP of 5 and pressure support of 10 labs reviewed medications reviewed, patient is still behind in potassium and calcium level which are being repleted, patient is tolerating TPN well, patient is scheduled for PICC line later on today 07/23/2018, patient seen eval examined during the rounds clinically patient has been doing not much different than baseline patient remains on propofol drip, off of pressors, ventilator setting revealed assist control of 14 breathing 22 tidal volume of 505 of PEEP and 40% oxygen I have lowered down the tidal volume to 450, continue to replace calcium as well as potassium, will give 40 mg of Lasix for gentle diuresis, will do a sedation holiday take patient off of propofol once awake been doing CPAP and pressure support trial on Jack no plans for aggressive weaning though continue to optimize nutritional support labs reviewed medications reviewed, critical care time spent 35 minutes 07/22/2018, patient seen eval examined during the rounds remains on full ventilator support patient has been tapered off of vasopressors now remains on propofol however remains very somnolent, TPN has been going along fairly well tolerating very well, patient continued to have low urine output and intermittent hypertension however no significant arrhythmia has been seen, 6 x- ray performed today remains stable, labs continue to show improved leukocytosis , ABG revealed metabolic alkalosis patient has significant hypokalemia which is being repleted, all the cultures so far has been negative some carlos has been isolated in the sputum likely contamination 07/21/2018, patient seen eval examined during the rounds she is sedated with propofol drip, currently she is on assist control rate of 14 breathing 16 tidal volume is 505 OPV and 40% oxygen, patient is on TPN tolerating very well patient also on Zosyn and Flagyl, levo fed drip is down to 5 mics, propofol is 15 mics, lactic acid the removal improved to 2.9, patient's blood gas and laboratory data reviewed as well care plan discussed with the family at length as well as surgical services, there is some changes in the ileostomy area skin is seen likely some necrosis and necrotic his skin as per discussion we'll monitor OBSERVE patient is being started on vancomycin IV, chest x-ray performed today revealed bibasilar atelectasis effusion and infiltrate possible pneumonia cannot be excluded patient is a however adequately covered with vancomycin and Zosyn oxygenation remains stable some of the effusion is likely secondary due to aggressive crystalloid resuscitation, white cell count continue to be elevated, arterial blood gases reviewed some alkalosis, bicarb is being discontinued, calcium level is on the low side, 07/20/2018, patient seen eval examined during the rounds clinically patient has been doing well in terms of hemodynamics able to come off of vasopressin, patient is still on levo fed drip though which is down to 8 mics, patient remains on 50 cc per hour of bicarb drip, propofol drip is 20 mics, patient is being planned to start on TPN, remains on full ventilator support, currently FiO2 is 40%, with tidal volume of 500, respiratory rate set at 14, she is breathing 16, PEEP is 5, arterial blood gas is pending today, chest x-ray finding as well as laboratory data reviewed, chest x-ray reviewed by shilo subsegmental atelectasis small effusion possible pneumonia cannot be excluded, patient is on IV Zosyn we'll add Flagyl as well, respiratory secretions are stable, white cell count is trending down to 21,000, hemoglobin and hematocrit did drop down to 9.3 and 29 likely dilutional as patient has been and is still being resuscitated with steroids, continue peptic ulcer disease prophylaxis continue DVT prophylaxis, critical care time spent 35 minutes 07/19/2018, patient seen eval examined during the rounds she remains sedated with propofol currently she is on 20 mics of propofol she is hemodynamically remains on stable, patient has the severe hypotension requiring vasopressin as well as levo fed which was up to 30 mics however able to taper it down to 10 mics now vasopressin is 0.03 unit, she is also on bicarb drip for severe metabolic acidosis currently running 50 mL an hour she has received so far postoperatively 9 L of LR and 2 L of normal saline she does make some urine about 10-20 mL with fluid boluses otherwise she becomes and uric plan is to give another liter of LR 2 50 mL an hour for 4 hours then to resume 100 mL an hour and lower she is sedated with propofol drip, family is present at bedside care plan discussed with them at length, currently patient is a full assist control mode with a rate of 14 breathing about 17, tidal volume is 500, 5 of PEEP, 50% oxygen, labs and medications reviewed, culture results and reports are pending, , chest x-ray revealed stable endotracheal tube stable central line and some subsegmental atelectasis at the bases are seen, patient remains on broad-spectrum antibiotics This is a pleasant 78-year-old female with no significant past medical history. She presented to the hospital with abdominal pain and has been found to have a bowel obstruction. We have been asked to see her in consultation for shortness of breath and hypoxia related to abdominal process. She has been evaluated by surgical services and per nursing staff she was vomiting all morning. Laboratory data reviewed, hemoglobin 13.7, platelets 439 WBC 12.0 down from 15.9 on admission, INR 1.5, sodium 139, potassium 3.4, creatinine 0.6, magnesium 2.1, cardiac enzymes negative 1. She also has been diagnosed with a urinary tract infection. EKG on admission reveals sinus mechanism with no acute ST or T wave abnormalities noted. Chest x-ray reveals mild pulmonary fibrosis. No overt heart failure or acute cardiopulmonary process. She takes no daily medications. She is also been seen in consultation by urology and surgical services. Urology suspects a large infected right renal stone. X-ray of the abdomen obtained reveals evidence of right renal calculus as well as colonic wall thickening suggestive of colitis. CT of the abdomen and pelvis with contrast reveals markedly colonic distention to the level of the sigmoid colon, numerous bilateral renal calculi and gallbladder markedly distended. HIDA scan reveals ejection fraction of about her 23% with increased symptoms of pain suggestive of underlying gallbladder dyskinesia with no evidence of acute cholecystitis. Patient decompensated earlier this morning with x-ray shows free air abdomen was diffusely tender patient was eventually taken by surgical services to OR for exploratory laparotomy of perforated viscus and for detail of surgical intervention please effort to surgical notes, patient was brought back into the ICU on full ventilator support hypotensive does have a central line and A-line intubated with assist control rate of 12 patient appears to be volume depleted her liter of the LR has been given with that systolic blood pressure improved into 90s arterial blood gas drawn labs are sent ventilator adjustment has been done Objective - Vital Signs Vital signs: Vital Signs Temp 98.3 F 07/24/18 04:00 Pulse 74 07/24/18 07:00 Resp 13 07/24/18 07:00 BP 109/56 07/24/18 07:00 Pulse Ox 99 07/24/18 07:00 Intake & Output 07/23/18 07/24/18 07/24/18 18:59 06:59 18:59 Intake Total 3252.469 1775.193 100 Output Total 3155 1635 60 Balance 97.469 140.193 40 Weight 97.5 kg 96.4 kg Intake: IV 2275 1475 100 Amino Acid 5%-D15w+Lytes* 675 250 E* 1,000 ml @ 75 mls/hr IV .BY DURATION [facility] Rx#: [id number] Piperacillin-Tazobactam 3 200 100 .375 gm In Sodium Chloride 0.9% 100 ml @ 25 mls/hr IVPB Q8HR [facility] Rx# :[id number] Sodium Chloride 0.9% 1, 1200 1025 100 000 ml @ 100 mls/hr IV . Q10H [facility] Rx#:[id number] metroNIDAZOLE-NS PMX 500 200 100 mg In Saline 1 100ml.bag @ 100 mls/hr IVPB Q8HR [facility] Rx#:[id number] Intake, IV Titration 977.469 300.193 Amount Calcium Gluconate 1,000 100 mg In Sodium Chloride 0.9 % 100 ml @ 100 mls/hr IVPB ONCE ONE Rx#: [id number] Magnesium Sulfate-D5w Pmx 100 1 gm In Dextrose/Water 1 100ml.bag @ 100 mls/hr IVPB Q1H [facility] Rx#: [id number] Potassium Chloride 20 meq 100 In Water For Injection 1 100ml.bag @ 50 mls/hr IVPB Q2H [facility] Rx#: [id number] Potassium Chloride 20 meq 100 In Water For Injection 1 100ml.bag @ 50 mls/hr IVPB Q2H [facility] Rx#: [id number] Potassium Chloride 20 meq 200 In Water For Injection 1 100ml.bag @ 50 mls/hr IVPB Q2H [facility] Rx#: [id number] Potassium Phosphate 10 100 mmol In Sodium Chloride 0 .9% 100 ml @ 50 mls/hr IV ONCE ONE Rx#:[id number] Propofol 1,000 mg In 77.469 0.193 Empty Bag 1 bag @ Titrate IV .Q0M [facility] Rx#: [id number] Vancomycin 1,750 mg In 500 Sodium Chloride 0.9% 500 ml 500 ml @ 167 mls/hr IVPB Q16H [facility] Rx#: [id number] Output: Urine 3095 1175 60 Stool 60 60 Oral Regurgitation 400 Other: Voiding Method Indwelling Catheter Indwelling Catheter # Voids 3 ABP, PAP, CO, CI - Last Documented Arterial Blood Pressure 100/93 - Exam Intubated on full ventilator support - Constitutional General appearance: average body habitus - EENT Eyes: normal appearance Ears: bilateral: normal - Neck Neck: normal ROM Carotids: bilateral: upstroke normal, bruit absent - Respiratory Respiratory: bilateral: CTA - Cardiovascular Rhythm: regular Heart sounds: normal: S1, S2 - Gastrointestinal Patient has a ileostomy as well as colostomy, anterior abdominal wall wound is open at the skin level fascia has been repaired, some ischemic changes along and around his ileostomy has been noted infectious being monitored and observed Sedated with propofol - Labs CBC & Chem 7: 07/23/18 04:21 07/24/18 04:16 Labs: Abnormal Lab Results - Last 24 Hours (Table) 07/23/18 07/23/18 07/23/18 Range/Units 11:46 17:54 18:50 ABG pH (7.35-7.45) ABG pO2 (83-108) mmHg ABG HCO3 (21-25) mmol/L ABG Total CO2 (19-24) mmol/L Potassium 2.8 L (3.5-5.1) mmol/L Chloride (98-107) mmol/L BUN (7-17) mg/dL Creatinine (0.52-1.04) mg/dL Glucose (74-99) mg/dL POC Glucose (mg/dL) 184 H 141 H (75-99) mg/dL Calcium (8.4-10.2) mg/dL Ionized Calcium John (4.5-5.3) mg/dL Phosphorus (2.5-4.5) mg/dL 07/23/18 07/24/18 07/24/18 Range/Units 23:28 00:08 04:16 ABG pH 7.51 H (7.35-7.45) ABG pO2 77 L (83-108) mmHg ABG HCO3 29 H (21-25) mmol/L ABG Total CO2 30 H (19-24) mmol/L Potassium (3.5-5.1) mmol/L Chloride 112 H (98-107) mmol/L BUN 22 H (7-17) mg/dL Creatinine 0.49 L (0.52-1.04) mg/dL Glucose 141 H (74-99) mg/dL POC Glucose (mg/dL) 142 H (75-99) mg/dL Calcium 6.3 L* (8.4-10.2) mg/dL Ionized Calcium John 4.4 L (4.5-5.3) mg/dL Phosphorus 2.4 L (2.5-4.5) mg/dL Microbiology - Last 24 Hours (Table) 07/18/18 17:46 Blood Culture - Preliminary Blood No Growth after 120 hours 07/18/18 17:48 Blood Culture - Preliminary Blood No Growth after 120 hours 07/22/18 00:00 Gram Stain - Preliminary Sputum Sputum Culture - Preliminary Carlos albicans Assessment and Plan Assessment: Severe hypokalemia and metabolic alkalosis Skin necrosis of anterior abdominal wall around ileostomy Severe sepsis and septic shock Acute respiratory failure, anticipated complication of this extensive surgery Bi basilar pneumonia may be aspiration related Bowel perforation, status post ileostomy and colostomy Intra-abdominal secondary peritonitis Bilateral small pleural effusion Volume depletion and dehydration Leukocytosis and lactic acidosis Severe profound metabolic acidosis Acute renal failure stage III however renal function in GFR slowly improving with fluid resuscitation Plan: Replace potassium and calcium Ventilator adjustment Weaning protocol as indicated Titrated oxygen down as tolerated Vasopressors as needed keep map over 65 Aggressive fluid resuscitation maintain on IV fluids normal saline 100 mL an hour Broad-spectrum antibiotics, Zosyn with Flagyl and vancomycin is being administered Ventilator adjustment, will continue current ventilator support for another 24- 48 hours Labs reviewed medications reviewed Repeat labs and chest x-ray tomorrow Continue TPN as planned Continue IV vancomycin Monitor observe anterior abdominal wall skin and wounds Time with Patient: Greater than 30
[2018-07-24] MEDS: MORPHINE SULFATE 2 MG/ML SYRINGE IVP PRN ×6 (09:02→23:57)
[2018-07-24] MEDS: LORazepam 2 MG/ML INJ IV PRN ×2 (11:18→20:42)
[2018-07-24 12:30] LABS: Glucose,Whole Blood 133 mg/dL (75-99)
--- NOTE | 2018-07-24 14:16 | P.PN ---
Subjective Progress Note Date: 07/24/18 CHIEF COMPLAINT: Abnormal CT results/abdominal pain HISTORY OF PRESENT ILLNESS: Patient s/p exploratory laparotomy, right colectomy with ileostomy, sigmoid colectomy, and left salpingo-oophorectomy. Patient remains intubated postoperatively in the intensive care unit. Patient did wean this morning for about an hour. Wound vac to midline intact. Remains on TPN. PHYSICAL EXAM: VITAL SIGNS: Currently stable. GENERAL: Patient remains on mechanical ventilation in the ICU HEENT: NG tube present. ET tube intact. No sclera icterus. Pupils are equal, round, and reactive to light. Moist buccal mucosa. Head is atraumatic, normocephalic. NECK: Supple without lymphadenopathy. CHEST: Remains on mechanical ventilation. Equal bilateral excursions. Saturations greater than 92%. CARDIOVASCULAR: Regular rate with regular rhythm. Palpable 2+ radial pulses. ABDOMEN: Wound vac to midline incision. Ileostomy and mucus fistula with stool noted in both. : Pablo catheter intact NEUROLOGIC: Unable to thoroughly assess secondary to mechanical ventilation PSYCH: Unable to thoroughly assess secondary to mechanical ventilation SKIN: No cyanosis. No Jaundice. ASSESSMENT: 1. Abdominal pain, abdominal xray reveals distal small bowel obstruction 2. Large pneumoperitoneum, s/p exploratory laparotomy, right colectomy with ileostomy, sigmoid colectomy, and left salpingo-oophorectomy 3. Acute hypoxic respiratory failure requiring mechanical ventilation 4. Septic shock requiring vasopressor support secondary to peritonitis, currently off pressors, improving 5. Lactic acidosis, resolved 6. Transaminitis, secondary to septic shock 7. 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 Large right renal calculi with UTI PLAN: Continue TPN. Continue wound vac. Ventilator management per Dr. Cortez. Nurse practitioner note has been reviewed by physician. Signing provider agrees with the documented findings, assessment, and plan of care. Objective - Vital Signs Vital signs: Vital Signs Temp 97.9 F 07/24/18 12:00 Pulse 69 07/24/18 13:00 Resp 10 L 07/24/18 13:00 BP 96/41 07/24/18 13:00 Pulse Ox 99 07/24/18 13:00 Intake & Output 01/29/19 01/30/19 01/30/19 18:59 06:59 18:59 Intake Total 3252.469 6721.693 4485 Output Total 3155 1635 510 Balance 97.469 184.057 3232 Weight 97.5 kg 96.4 kg Intake: IV 2275 1475 925 Amino Acid 5%-D15w+Lytes* 675 250 E* 1,000 ml @ 75 mls/hr IV .BY DURATION [facility] Rx#: [id number] Piperacillin-Tazobactam 3 200 100 125 .375 gm In Sodium Chloride 0.9% 100 ml @ 25 mls/hr IVPB Q8HR [facility] Rx# :[id number] Sodium Chloride 0.9% 1, 1200 1025 700 000 ml @ 100 mls/hr IV . Q10H [facility] Rx#:[id number] metroNIDAZOLE-NS PMX 500 200 100 100 mg In Saline 1 100ml.bag @ 100 mls/hr IVPB Q8HR [facility] Rx#:[id number] Intake, IV Titration 977.469 300.193 750 Amount Calcium Gluconate 1,000 100 mg In Sodium Chloride 0.9 % 100 ml @ 100 mls/hr IVPB ONCE ONE Rx#: [id number] Calcium Gluconate 1,000 100 mg In Sodium Chloride 0.9 % 100 ml @ 100 mls/hr IVPB ONCE ONE Rx#: [id number] Magnesium Sulfate-D5w Pmx 100 1 gm In Dextrose/Water 1 100ml.bag @ 100 mls/hr IVPB Q1H [facility] Rx#: [id number] Magnesium Sulfate-D5w Pmx 100 1 gm In Dextrose/Water 1 100ml.bag @ 100 mls/hr IVPB Q1H [facility] Rx#: [id number] Potassium Chloride 20 meq 100 In Water For Injection 1 100ml.bag @ 50 mls/hr IVPB Q2H [facility] Rx#: [id number] Potassium Chloride 20 meq 100 In Water For Injection 1 100ml.bag @ 50 mls/hr IVPB Q2H [facility] Rx#: [id number] Potassium Chloride 20 meq 200 In Water For Injection 1 100ml.bag @ 50 mls/hr IVPB Q2H [facility] Rx#: [id number] Potassium Chloride 20 meq 100 In Water For Injection 1 100ml.bag @ 50 mls/hr IVPB Q2H [facility] Rx#: [id number] Potassium Chloride 40 meq 200 Calcium Gluconate 2,000 mg Mvi, Adult No.4 with Vit K 10 ml Trace (Conc- 1Ml/Dose) 1 ml Potassium Phosphate 10 mmol Magnesium Sulfate gm 2 gm In Amino Acid 5%-D15w+ Lytes*E* 1,000 ml @ 50 mls/hr IV .[id number] [facility] Rx #:[id number] Potassium Phosphate 10 100 mmol In Sodium Chloride 0 .9% 100 ml @ 50 mls/hr IV ONCE ONE Rx#:[id number] Potassium Phosphate 10 250 mmol In Sodium Chloride 0 .9% 250 ml @ 125 mls/hr IV ONCE ONE Rx#:[id number] Propofol 1,000 mg In 77.469 0.193 0 Empty Bag 1 bag @ Titrate IV .Q0M [facility] Rx#: [id number] Vancomycin 1,750 mg In 500 Sodium Chloride 0.9% 500 ml 500 ml @ 167 mls/hr IVPB Q16H [facility] Rx#: [id number] Output: Urine 3095 1175 510 Stool 60 60 Oral Regurgitation 400 Other: Voiding Method Indwelling Catheter Indwelling Catheter Indwelling Catheter # Voids 3 ABP, PAP, CO, CI - Last Documented Arterial Blood Pressure 100/93 - Labs CBC & Chem 7: 07/23/18 04:21 07/24/18 04:16 Labs: Abnormal Lab Results - Last 24 Hours (Table) 07/23/18 07/23/18 07/23/18 Range/Units 17:54 18:50 23:28 ABG pH 7.51 H (7.35-7.45) ABG pO2 77 L (83-108) mmHg ABG HCO3 29 H (21-25) mmol/L ABG Total CO2 30 H (19-24) mmol/L Potassium 2.8 L (3.5-5.1) mmol/L Chloride (98-107) mmol/L BUN (7-17) mg/dL Creatinine (0.52-1.04) mg/dL Glucose (74-99) mg/dL POC Glucose (mg/dL) 141 H (75-99) mg/dL Calcium (8.4-10.2) mg/dL Ionized Calcium John (4.5-5.3) mg/dL Phosphorus (2.5-4.5) mg/dL 07/24/18 07/24/18 07/24/18 Range/Units 00:08 04:16 12:15 ABG pH (7.35-7.45) ABG pO2 (83-108) mmHg ABG HCO3 (21-25) mmol/L ABG Total CO2 (19-24) mmol/L Potassium (3.5-5.1) mmol/L Chloride 112 H (98-107) mmol/L BUN 22 H (7-17) mg/dL Creatinine 0.49 L (0.52-1.04) mg/dL Glucose 141 H (74-99) mg/dL POC Glucose (mg/dL) 142 H 133 H (75-99) mg/dL Calcium 6.3 L* (8.4-10.2) mg/dL Ionized Calcium John 4.4 L (4.5-5.3) mg/dL Phosphorus 2.4 L (2.5-4.5) mg/dL Microbiology - Last 24 Hours (Table) 07/22/18 00:00 Gram Stain - Final Sputum Sputum Culture - Final Nikole albicans 07/18/18 17:46 Blood Culture - Preliminary Blood No Growth after 120 hours 07/18/18 17:48 Blood Culture - Preliminary Blood No Growth after 120 hours
[2018-07-24] MEDS ORDERED: LIDOCAINE 1% INJ 10MG/ML (20 ML MDV) ONE (14:19)
[2018-07-24] MEDS ORDERED: LIDOCAINE 1% INJ 10MG/ML (20 ML MDV) SQ ONE (14:46)
[2018-07-24] MEDS: FAT EMULSION 20% 250 ML IV SCH ×2 (15:18→20:52)
--- NOTE | 2018-07-24 15:36 | XR ---
EXAMINATION TYPE: XR chest 1V confirm line plcmt DATE OF EXAM: 07/24/2018 COMPARISON: 07/24/2018 HISTORY: 78-year-old female confirm PICC line placement TECHNIQUE: Single frontal view of the chest is obtained. FINDINGS: ET tube tip is 1.9 cm from the jamil. It could be pulled back 2 cm and reassessed. NG tub e courses below the diaphragm. Left PICC tip is at the mid SVC level. Left IJ CVC tip at the lower SV C level. Continued moderate right greater than left pleural effusions with interstitial prominence. IMPRESSION: 1. ET tube tip 1.9 cm from the jamil. Consider pulling back by 2 cm and reassessing of follow-up. 2. Left PICC tip at the mid SVC. 3. Persistent moderate effusions with adjacent atelectasis and/or consolidation and suspected underly ing pulmonary vascular congestion.
[2018-07-24] MEDS ORDERED: [UNRECOGNIZED DRUG - REMARK] IV SCH ×7 (17:00)
[2018-07-24 17:47] LABS: Glucose,Whole Blood 129 mg/dL (75-99)
--- NOTE | 2018-07-24 22:36 | P.PN ---
Subjective Principal diagnosis: Postop day #1 colectomy This is a continue progress on an 78-year-old white female essentially admitted for nephrolithiasis. The patient was found to have significant abnormality noted on CT scan. She slowly unfortunately, decompensated and ended up having laparotomy with multiple findings of colon perforation and ischemic bowel. The patient is in critical condition now in the ICU. Multiple consultants are otherwise noted. Objective - Vital Signs Vital signs: Vital Signs Temp 96.8 F L 07/24/18 20:00 Pulse 82 07/24/18 21:00 Resp 10 L 07/24/18 21:00 BP 119/53 07/24/18 21:00 Pulse Ox 99 07/24/18 21:00 Intake & Output 07/24/18 07/24/18 07/25/18 06:59 18:59 06:59 Intake Total 6784.998 7069 498 Output Total 1635 910 225 Balance 703.760 2734 273 Weight 96.4 kg 96.4 kg Intake: IV 1475 1764 448 Amino Acid 5%-D15w+Lytes* 250 E* 1,000 ml @ 75 mls/hr IV .BY DURATION [facility] Rx#: [id number] Lipids 164 123 Piperacillin-Tazobactam 3 100 200 25 .375 gm In Sodium Chloride 0.9% 100 ml @ 25 mls/hr IVPB Q8HR [facility] Rx# :[id number] Sodium Chloride 0.9% 1, 1025 1200 300 000 ml @ 100 mls/hr IV . Q10H [facility] Rx#:[id number] metroNIDAZOLE-NS PMX 500 100 200 mg In Saline 1 100ml.bag @ 100 mls/hr IVPB Q8HR [facility] Rx#:[id number] Intake, IV Titration 008.440 6179 50 Amount Calcium Gluconate 1,000 100 mg In Sodium Chloride 0.9 % 100 ml @ 100 mls/hr IVPB ONCE ONE Rx#: [id number] Magnesium Sulfate-D5w Pmx 100 1 gm In Dextrose/Water 1 100ml.bag @ 100 mls/hr IVPB Q1H [facility] Rx#: [id number] Potassium Chloride 20 meq 100 In Water For Injection 1 100ml.bag @ 50 mls/hr IVPB Q2H [facility] Rx#: [id number] Potassium Chloride 20 meq 200 In Water For Injection 1 100ml.bag @ 50 mls/hr IVPB Q2H [facility] Rx#: [id number] Potassium Chloride 20 meq 100 In Water For Injection 1 100ml.bag @ 50 mls/hr IVPB Q2H [facility] Rx#: [id number] Potassium Chloride 40 meq 450 50 Calcium Gluconate 2,000 mg Mvi, Adult No.4 with Vit K 10 ml Trace (Conc- 1Ml/Dose) 1 ml Potassium Phosphate 10 mmol Magnesium Sulfate gm 2 gm In Amino Acid 5%-D15w+ Lytes*E* 1,000 ml @ 50 mls/hr IV .[id number] [facility] Rx #:[id number] Potassium Phosphate 10 250 mmol In Sodium Chloride 0 .9% 250 ml @ 125 mls/hr IV ONCE ONE Rx#:[id number] Propofol 1,000 mg In 0.193 0 Empty Bag 1 bag @ Titrate IV .Q0M [facility] Rx#: [id number] Output: Urine 1175 910 225 Stool 60 Oral Regurgitation 400 Other: Voiding Method Indwelling Catheter Indwelling Catheter # Voids 3 ABP, PAP, CO, CI - Last Documented Arterial Blood Pressure 100/93 - Constitutional General appearance: Present: average body habitus - EENT Eyes: Absent: abnormal pupil - Neck Neck: Absent: lymphadenopathy - Respiratory Respiratory: bilateral: diminished - Cardiovascular Rhythm: regular Heart sounds: normal: S1, S2 Abnormal Heart Sounds: Absent: S3 Gallop - Gastrointestinal General gastrointestinal: Present: soft. Absent: tenderness - Neurologic Neurologic: Absent: CNII-XII intact - Labs CBC & Chem 7: 07/23/18 04:21 07/24/18 14:50 Labs: Abnormal Lab Results - Last 24 Hours (Table) 07/23/18 07/24/18 07/24/18 Range/Units 23:28 00:08 04:16 ABG pH 7.51 H (7.35-7.45) ABG pO2 77 L (83-108) mmHg ABG HCO3 29 H (21-25) mmol/L ABG Total CO2 30 H (19-24) mmol/L Chloride 112 H (98-107) mmol/L BUN 22 H (7-17) mg/dL Creatinine 0.49 L (0.52-1.04) mg/dL Glucose 141 H (74-99) mg/dL POC Glucose (mg/dL) 142 H (75-99) mg/dL Calcium 6.3 L* (8.4-10.2) mg/dL Ionized Calcium John 4.4 L (4.5-5.3) mg/dL Phosphorus 2.4 L (2.5-4.5) mg/dL 07/24/18 07/24/18 Range/Units 12:15 17:35 ABG pH (7.35-7.45) ABG pO2 (83-108) mmHg ABG HCO3 (21-25) mmol/L ABG Total CO2 (19-24) mmol/L Chloride (98-107) mmol/L BUN (7-17) mg/dL Creatinine (0.52-1.04) mg/dL Glucose (74-99) mg/dL POC Glucose (mg/dL) 133 H 129 H (75-99) mg/dL Calcium (8.4-10.2) mg/dL Ionized Calcium John (4.5-5.3) mg/dL Phosphorus (2.5-4.5) mg/dL Microbiology - Last 24 Hours (Table) 07/18/18 17:48 Blood Culture - Final Blood No Growth after 144 hours 07/18/18 17:46 Blood Culture - Final Blood No Growth after 144 hours 07/22/18 00:00 Gram Stain - Final Sputum Sputum Culture - Final Nikole albicans Assessment and Plan (1) Colonic thickening Current Visit: Yes Status: Acute Code(s): K63.9 - DISEASE OF INTESTINE, UNSPECIFIED SNOMED Code(s): 374517526 (2) Dehydration Current Visit: Yes Status: Acute Code(s): E86.0 - DEHYDRATION SNOMED Code( s): 01360172 (3) Fall Current Visit: Yes Status: Acute Code(s): W19.XXXA - UNSPECIFIED FALL, INITIAL ENCOUNTER SNOMED Code(s): 5020390 (4) Sepsis secondary to UTI Current Visit: Yes Status: Acute Code(s): A41.9 - SEPSIS, UNSPECIFIED ORGANISM; N39.0 - URINARY TRACT INFECTION, SITE NOT SPECIFIED SNOMED Code(s): 788749742 Plan: Continue supportive care. Improve slowly wean off of mechanical ventilation. We will continue to follow with multiple consultants including cardiology, pulmonology and general surgery. Check CBC and CMP a.m. At this point prognosis is improving but significant guarded. Time with Patient: Less than 30
--- NOTE | 2018-07-24 22:37 | PN ---
PROGRESS NOTE DATE OF SERVICE: 07/24/2018. REASON FOR FOLLOWUP: Abdominal sepsis from a ruptured cecum. INTERVAL HISTORY: The patient is currently afebrile. The patient is hemodynamically stable. Her FiO2 is stable. She did get a PICC line yesterday. Has been tolerating her tube feeds. Did have output in her ileostomy. PHYSICAL EXAMINATION: Blood pressure 119/53 with a pulse of 82, temperature 96.8. She is 99% on 40% FiO2. General description is an elderly female intubated on a vent. HEENT EXAMINATION: Pallor. The patient is orally intubated. LUNGS: Unlabored breathing. Clear to auscultation anteriorly. HEART: S1, S2. Regular rate and rhythm. ABDOMEN: Soft. Midline incision covered with a wound V.A.C. with a mucus fistula on the left side. Ileostomy did have some black-colored secretion. EXTREMITIES: Two plus edema of the feet. LABS: BUN of 22, creatinine 0.49. White count 11.9 as of yesterday; none done today. Sputum with Nikole albicans. Blood cultures have been negative. DIAGNOSTIC IMPRESSION AND PLAN: Patient with abdominal sepsis in this patient who did have a perforated cecum, status post right hemicolectomy and diverting ileostomy in a patient with acute respiratory failure. Patient is currently covered with Zosyn and Flagyl; to continue for now while watching her clinical course closely. Continue supportive care. MMODL / IJN: [id number] /
[2018-07-24 23:25] LABS: Glucose,Whole Blood 107 mg/dL (75-99)
[2018-07-25] MEDS: MORPHINE SULFATE 2 MG/ML SYRINGE IVP PRN ×6 (01:57→21:28)
[2018-07-25] MEDS: LORazepam 2 MG/ML INJ IV PRN (04:45)
[2018-07-25 05:19] LABS: ABG HCO3 26 mmol/L (21-25); ABG Oxygen Saturation 97.2 % (94-97); ABG PCO2 40 mmHg (35-45); ABG PH 7.43 (7.35-7.45); ABG PO2 87 mmHg (83-108); ABG TCO2 28 mmol/L (19-24)
[2018-07-25 05:26] LABS: Ionized Calcium 4.5 mg/dL (4.5-5.3)
[2018-07-25 05:33] LABS: Anion Gap -2 mmol/L; Blood Urea Nitrogen 21 mg/dL (7-17); Carbon Dioxide 26 mmol/L (22-30); Chloride 118 mmol/L (98-107); Glucose 138 mg/dL (74-99); Phosphorus 2.3 mg/dL (2.5-4.5); Potassium 3.6 mmol/L (3.5-5.1); Sodium 142 mmol/L (137-145)
[2018-07-25] MEDS ORDERED: POTASSIUM PHOSPHATE 10 MMOL in SODIUM CHLORIDE 0.9% 100 ML IV ONE (06:19)
[2018-07-25 06:27] LABS: Glucose,Whole Blood 135 mg/dL (75-99)
[2018-07-25] MEDS: POTASSIUM CHLORIDE 10 MEQ in WATER FOR INJECTION 1 100ML.BAG IVPB SCH ×2 (06:35→09:36)
[2018-07-25] MEDS ORDERED: CALCIUM GLUCONATE 1,000 MG in SODIUM CHLORIDE 0.9% 100 ML IVPB ONE (07:00)
--- NOTE | 2018-07-25 08:07 | XR ---
EXAMINATION TYPE: XR chest 1V portable DATE OF EXAM: 07/25/2018 COMPARISON: 07/24/2018 INDICATION: Tube placement TECHNIQUE: Single frontal view of the chest is obtained. FINDINGS: The heart size is normal. The pulmonary vasculature is upper limits of normal. There is opacification of the right lower lung field. Moderate right pleural effusion may be present. Small left pleural effusion is likely present. An endotracheal tube tip resides flow within the trachea 1.3 cm above the jamil. This could be pulle d back. There is a PICC line entering from the left than the left central venous catheter. The tips o f these are adjacent within the region of the superior vena cava. Nasogastric tube transverses the th orax. IMPRESSION: 1. Low-lying endotracheal tube tip. This could be pulled back. 2. Findings suggestive for congestive heart failure and/or small bilateral pleural effusions. Continu ed follow-up is recommended. A Red level critical message alert has been initiated for [facility] via the [employer] Critical Results System on 07/25/2018 8:05 AM. This message alert has been sent to Bert Ali via the [employer] es provided by the clinician for the receipt of Radiology Critical Findings. Message ID [id number].
[2018-07-25] MEDS ORDERED: FUROSEMIDE 10 MG/ML 4 ML VIAL IV STA (09:26)
[2018-07-25] MEDS: metroNIDAZOLE-NS PMX 500 MG in SALINE 1 100ML.BAG IVPB SCH ×2 (09:36→16:03)
[2018-07-25] MEDS: FAMOTIDINE 20 MG/2 ML VIAL IV SCH (09:37)
[2018-07-25] MEDS: CHLORHEXIDINE GLUCONATE 15 ML CUP MUCOUS MEM SCH (09:37)
[2018-07-25] MEDS: PIPERACILLIN-TAZOBACTAM 3.375 GM in SODIUM CHLORIDE 0.9% 100 ML IVPB SCH ×2 (10:02→16:03)
[2018-07-25] MEDS: SODIUM CHLORIDE 0.9% 1,000 ML IV SCH ×2 (10:08→18:35)
[2018-07-25] MEDS: ENOXAPARIN 40 MG/0.4 ML SYRINGE SQ SCH (10:11)
[2018-07-25 10:39] LABS: ABG Base Excess 3.1 mmol/L; ABG HCO3 27 mmol/L (21-25); ABG Oxygen Saturation 95.4 % (94-97); ABG PCO2 40 mmHg (35-45); ABG PH 7.44 (7.35-7.45); ABG PO2 71 mmHg (83-108); ABG TCO2 29 mmol/L (19-24)
--- NOTE | 2018-07-25 12:05 | P.PN ---
Subjective Progress Note Date: 07/25/18 CHIEF COMPLAINT: Abnormal CT results/abdominal pain HISTORY OF PRESENT ILLNESS: Patient s/p exploratory laparotomy, right colectomy with ileostomy, sigmoid colectomy, and left salpingo-oophorectomy. Patient remains intubated postoperatively in the intensive care unit. Per nursing, plan is to extubate patient today. Wound vac changed at bedside per Melida Mendoza. PHYSICAL EXAM: VITAL SIGNS: Currently stable. GENERAL: Patient remains on mechanical ventilation in the ICU HEENT: NG tube present. ET tube intact. No sclera icterus. Pupils are equal, round, and reactive to light. Moist buccal mucosa. Head is atraumatic, normocephalic. NECK: Supple without lymphadenopathy. CHEST: Remains on mechanical ventilation. Equal bilateral excursions. Saturations greater than 92%. CARDIOVASCULAR: Regular rate with regular rhythm. Palpable 2+ radial pulses. ABDOMEN: Wound vac to midline incision. Ileostomy with stool noted. Mucus fistula with minimal output. : Pablo catheter intact NEUROLOGIC: Unable to thoroughly assess secondary to mechanical ventilation PSYCH: Unable to thoroughly assess secondary to mechanical ventilation SKIN: No cyanosis. No Jaundice. ASSESSMENT: 1. Abdominal pain, abdominal xray reveals distal small bowel obstruction 2. Large pneumoperitoneum, s/p exploratory laparotomy, right colectomy with ileostomy, sigmoid colectomy, and left salpingo-oophorectomy 3. Acute hypoxic respiratory failure requiring mechanical ventilation 4. Septic shock requiring vasopressor support secondary to peritonitis, currently off pressors, improving 5. Lactic acidosis, resolved 6. Transaminitis, secondary to septic shock 7. 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 Large right renal calculi with UTI PLAN: Continue TPN. Continue wound vac. Ventilator management per Dr. Cortez. Nurse practitioner note has been reviewed by physician. Signing provider agrees with the documented findings, assessment, and plan of care. Objective - Vital Signs Vital signs: Vital Signs Temp 98.3 F 07/25/18 08:00 Pulse 86 07/25/18 10:30 Resp 14 07/25/18 10:30 BP 120/58 07/25/18 10:30 Pulse Ox 96 07/25/18 10:30 Intake & Output 07/24/18 07/25/18 07/25/18 18:59 06:59 18:59 Intake Total 2764 3157 825 Output Total 910 845 360 Balance 8104 9672 465 Weight 96.4 kg 99.4 kg Intake: IV 1764 2377 675 Calcium Gluconate 1,000 100 mg In Sodium Chloride 0.9 % 100 ml @ 100 mls/hr IVPB ONCE ONE Rx#: [id number] Lipids 164 451 Piperacillin-Tazobactam 3 200 125 75 .375 gm In Sodium Chloride 0.9% 100 ml @ 25 mls/hr IVPB Q8HR [facility] Rx# :[id number] Potassium Chloride 10 meq 100 In Water For Injection 1 100ml.bag @ 100 mls/hr IVPB Q1H [facility] Rx#: [id number] Sodium Chloride 0.9% 1, 1200 1200 300 000 ml @ 50 mls/hr IV . Q20H [facility] Rx#:[id number] Vancomycin 1,750 mg In 501 Sodium Chloride 0.9% 500 ml 500 ml @ 167 mls/hr IVPB Q16H [facility] Rx#: [id number] metroNIDAZOLE-NS PMX 500 200 100 100 mg In Saline 1 100ml.bag @ 100 mls/hr IVPB Q8HR [facility] Rx#:[id number] Intake, IV Titration 1000 50 150 Amount Calcium Gluconate 1,000 100 mg In Sodium Chloride 0.9 % 100 ml @ 100 mls/hr IVPB ONCE ONE Rx#: [id number] Calcium Gluconate 2,000 150 mg Mvi, Adult No.4 with Vit K 10 ml Trace (Conc- 1Ml/Dose) 1 ml Potassium Phosphate 40 mmol Magnesium Sulfate gm 2 gm In Amino Acid 5%-D15w+ Lytes*E* 1,000 ml @ 50 mls/hr IV .[id number] [facility] Rx #:[id number] Magnesium Sulfate-D5w Pmx 100 1 gm In Dextrose/Water 1 100ml.bag @ 100 mls/hr IVPB Q1H [facility] Rx#: [id number] Potassium Chloride 20 meq 100 In Water For Injection 1 100ml.bag @ 50 mls/hr IVPB Q2H [facility] Rx#: [id number] Potassium Chloride 40 meq 450 50 Calcium Gluconate 2,000 mg Mvi, Adult No.4 with Vit K 10 ml Trace (Conc- 1Ml/Dose) 1 ml Potassium Phosphate 10 mmol Magnesium Sulfate gm 2 gm In Amino Acid 5%-D15w+ Lytes*E* 1,000 ml @ 50 mls/hr IV .[id number] [facility] Rx #:[id number] Potassium Phosphate 10 250 mmol In Sodium Chloride 0 .9% 250 ml @ 125 mls/hr IV ONCE ONE Rx#:[id number] Propofol 1,000 mg In 0 Empty Bag 1 bag @ Titrate IV .Q0M [facility] Rx#: [id number] Output: Urine 910 745 360 Stool 100 Other: Voiding Method Indwelling Catheter Indwelling Catheter Indwelling Catheter ABP, PAP, CO, CI - Last Documented Arterial Blood Pressure 100/93 - Labs CBC & Chem 7: 07/23/18 04:21 07/25/18 05:00 Labs: Abnormal Lab Results - Last 24 Hours (Table) 07/24/18 07/24/18 07/24/18 Range/Units 12:15 17:35 23:13 ABG pO2 (83-108) mmHg ABG HCO3 (21-25) mmol/L ABG Total CO2 (19-24) mmol/L ABG O2 Saturation (94-97) % Chloride (98-107) mmol/L BUN (7-17) mg/dL Creatinine (0.52-1.04) mg/dL Glucose (74-99) mg/dL POC Glucose (mg/dL) 133 H 129 H 107 H (75-99) mg/dL Calcium (8.4-10.2) mg/dL Phosphorus (2.5-4.5) mg/dL 07/25/18 07/25/18 07/25/18 Range/Units 05:00 05:06 06:16 ABG pO2 (83-108) mmHg ABG HCO3 26 H (21-25) mmol/L ABG Total CO2 28 H (19-24) mmol/L ABG O2 Saturation 97.2 H (94-97) % Chloride 118 H (98-107) mmol/L BUN 21 H (7-17) mg/dL Creatinine 0.37 L (0.52-1.04) mg/dL Glucose 138 H (74-99) mg/dL POC Glucose (mg/dL) 135 H (75-99) mg/dL Calcium 6.0 L* (8.4-10.2) mg/dL Phosphorus 2.3 L (2.5-4.5) mg/dL 07/25/18 Range/Units 09:58 ABG pO2 71 L (83-108) mmHg ABG HCO3 27 H (21-25) mmol/L ABG Total CO2 29 H (19-24) mmol/L ABG O2 Saturation (94-97) % Chloride (98-107) mmol/L BUN (7-17) mg/dL Creatinine (0.52-1.04) mg/dL Glucose (74-99) mg/dL POC Glucose (mg/dL) (75-99) mg/dL Calcium (8.4-10.2) mg/dL Phosphorus (2.5-4.5) mg/dL Microbiology - Last 24 Hours (Table) 07/18/18 17:48 Blood Culture - Final Blood No Growth after 144 hours 07/18/18 17:46 Blood Culture - Final Blood No Growth after 144 hours 07/22/18 00:00 Gram Stain - Final Sputum Sputum Culture - Final Nikole albicans
[2018-07-25] MEDS: [UNRECOGNIZED DRUG - REMARK] IV SCH ×6 (14:10)
[2018-07-25 14:13] LABS: Anisocytosis Slight; HCT 24.5 % (34.0-46.0); HGB 7.5 gm/dL (11.4-16.0); Hypochromasia Marked; MCH 27.5 pg (25.0-35.0); MCHC 30.7 g/dL (31.0-37.0); MCV 89.5 fL (80.0-100.0); Mean Platelet Volume 9.9; Platelet Count 158 k/uL (150-450); Poikilocytosis Slight; RBC 2.74 m/uL (3.80-5.40); RDW 16.1 % (11.5-15.5)
[2018-07-25 14:20] LABS: Glucose,Whole Blood 125 mg/dL (75-99)
[2018-07-25] MEDS: VANCOMYCIN 1,750 MG in SODIUM CHLORIDE 0.9% 500 ML 500 ML IVPB SCH (14:20)
--- NOTE | 2018-07-25 15:47 | P.PN ---
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 07/25/2018, patient seen eval examined during the rounds clinically patient is doing slightly better currently patient is undergoing wound changes the abdomen ischemia of the skin overall remains unchanged patient is awake did receive Ativan earlier this morning, patient remains on assist control rate of 12 tidal volume of 400 with 5 of PEEP current respiratory rate is 21 she is on 40% oxygen her chest x-ray done today revealed bilateral pleural effusion as well as interstitial edema, patient has mild anasarca as well, patient has significant air leak from the endotracheal tube, I have advised to give Lasix 40 mg IV F discussed with the respiratory therapy to put patient on CPAP and pressure support once wound draining and new dressing has been applied and patient started doing dialysis if tolerated well and arterial blood gases stable likely will be extubated, patient post a weaning trial evaluated significantly improved arterial blood gas and clinical status and noted and patient has been successfully weaned and extubated in mental oxygen 07/24/2018, patient seen eval examined during the rounds clinically patient has been doing slightly better able to tolerate weaning and CPAP and pressure support of almost 1 hour, patient has been resumed on propofol would advise to DC put patient on morphine and Ativan initiated weaning will do a CPAP and pressure support trial with CPAP of 5 and pressure support of 10 labs reviewed medications reviewed, patient is still behind in potassium and calcium level which are being repleted, patient is tolerating TPN well, patient is scheduled for PICC line later on today 07/23/2018, patient seen eval examined during the rounds clinically patient has been doing not much different than baseline patient remains on propofol drip, off of pressors, ventilator setting revealed assist control of 14 breathing 22 tidal volume of 505 of PEEP and 40% oxygen I have lowered down the tidal volume to 450, continue to replace calcium as well as potassium, will give 40 mg of Lasix for gentle diuresis, will do a sedation holiday take patient off of propofol once awake been doing CPAP and pressure support trial on Jack no plans for aggressive weaning though continue to optimize nutritional support labs reviewed medications reviewed, critical care time spent 35 minutes 07/22/2018, patient seen eval examined during the rounds remains on full ventilator support patient has been tapered off of vasopressors now remains on propofol however remains very somnolent, TPN has been going along fairly well tolerating very well, patient continued to have low urine output and intermittent hypertension however no significant arrhythmia has been seen, 6 x- ray performed today remains stable, labs continue to show improved leukocytosis , ABG revealed metabolic alkalosis patient has significant hypokalemia which is being repleted, all the cultures so far has been negative some carlos has been isolated in the sputum likely contamination 07/21/2018, patient seen eval examined during the rounds she is sedated with propofol drip, currently she is on assist control rate of 14 breathing 16 tidal volume is 505 OPV and 40% oxygen, patient is on TPN tolerating very well patient also on Zosyn and Flagyl, levo fed drip is down to 5 mics, propofol is 15 mics, lactic acid the removal improved to 2.9, patient's blood gas and laboratory data reviewed as well care plan discussed with the family at length as well as surgical services, there is some changes in the ileostomy area skin is seen likely some necrosis and necrotic his skin as per discussion we'll monitor OBSERVE patient is being started on vancomycin IV, chest x-ray performed today revealed bibasilar atelectasis effusion and infiltrate possible pneumonia cannot be excluded patient is a however adequately covered with vancomycin and Zosyn oxygenation remains stable some of the effusion is likely secondary due to aggressive crystalloid resuscitation, white cell count continue to be elevated, arterial blood gases reviewed some alkalosis, bicarb is being discontinued, calcium level is on the low side, 07/20/2018, patient seen eval examined during the rounds clinically patient has been doing well in terms of hemodynamics able to come off of vasopressin, patient is still on levo fed drip though which is down to 8 mics, patient remains on 50 cc per hour of bicarb drip, propofol drip is 20 mics, patient is being planned to start on TPN, remains on full ventilator support, currently FiO2 is 40%, with tidal volume of 500, respiratory rate set at 14, she is breathing 16, PEEP is 5, arterial blood gas is pending today, chest x-ray finding as well as laboratory data reviewed, chest x-ray reviewed by shilo subsegmental atelectasis small effusion possible pneumonia cannot be excluded, patient is on IV Zosyn we'll add Flagyl as well, respiratory secretions are stable, white cell count is trending down to 21,000, hemoglobin and hematocrit did drop down to 9.3 and 29 likely dilutional as patient has been and is still being resuscitated with steroids, continue peptic ulcer disease prophylaxis continue DVT prophylaxis, critical care time spent 35 minutes 07/19/2018, patient seen eval examined during the rounds she remains sedated with propofol currently she is on 20 mics of propofol she is hemodynamically remains on stable, patient has the severe hypotension requiring vasopressin as well as levo fed which was up to 30 mics however able to taper it down to 10 mics now vasopressin is 0.03 unit, she is also on bicarb drip for severe metabolic acidosis currently running 50 mL an hour she has received so far postoperatively 9 L of LR and 2 L of normal saline she does make some urine about 10-20 mL with fluid boluses otherwise she becomes and uric plan is to give another liter of LR 2 50 mL an hour for 4 hours then to resume 100 mL an hour and lower she is sedated with propofol drip, family is present at bedside care plan discussed with them at length, currently patient is a full assist control mode with a rate of 14 breathing about 17, tidal volume is 500, 5 of PEEP, 50% oxygen, labs and medications reviewed, culture results and reports are pending, , chest x-ray revealed stable endotracheal tube stable central line and some subsegmental atelectasis at the bases are seen, patient remains on broad-spectrum antibiotics This is a pleasant 78-year-old female with no significant past medical history. She presented to the hospital with abdominal pain and has been found to have a bowel obstruction. We have been asked to see her in consultation for shortness of breath and hypoxia related to abdominal process. She has been evaluated by surgical services and per nursing staff she was vomiting all morning. Laboratory data reviewed, hemoglobin 13.7, platelets 439 WBC 12.0 down from 15.9 on admission, INR 1.5, sodium 139, potassium 3.4, creatinine 0.6, magnesium 2.1, cardiac enzymes negative 1. She also has been diagnosed with a urinary tract infection. EKG on admission reveals sinus mechanism with no acute ST or T wave abnormalities noted. Chest x-ray reveals mild pulmonary fibrosis. No overt heart failure or acute cardiopulmonary process. She takes no daily medications. She is also been seen in consultation by urology and surgical services. Urology suspects a large infected right renal stone. X-ray of the abdomen obtained reveals evidence of right renal calculus as well as colonic wall thickening suggestive of colitis. CT of the abdomen and pelvis with contrast reveals markedly colonic distention to the level of the sigmoid colon, numerous bilateral renal calculi and gallbladder markedly distended. HIDA scan reveals ejection fraction of about her 23% with increased symptoms of pain suggestive of underlying gallbladder dyskinesia with no evidence of acute cholecystitis. Patient decompensated earlier this morning with x-ray shows free air abdomen was diffusely tender patient was eventually taken by surgical services to OR for exploratory laparotomy of perforated viscus and for detail of surgical intervention please effort to surgical notes, patient was brought back into the ICU on full ventilator support hypotensive does have a central line and A-line intubated with assist control rate of 12 patient appears to be volume depleted her liter of the LR has been given with that systolic blood pressure improved into 90s arterial blood gas drawn labs are sent ventilator adjustment has been done Objective - Vital Signs Vital signs: Vital Signs Temp 98.7 F 07/25/18 12:00 Pulse 94 07/25/18 15:30 Resp 18 07/25/18 15:30 BP 129/51 07/25/18 15:30 Pulse Ox 95 07/25/18 15:30 Intake & Output 07/24/18 07/25/18 07/25/18 18:59 06:59 18:59 Intake Total 2764 2427 1559 Output Total 134 574 6426 Balance 1854 1582 -301 Weight 96.4 kg 99.4 kg Intake: IV 1764 2377 1209 Calcium Gluconate 1,000 100 mg In Sodium Chloride 0.9 % 100 ml @ 100 mls/hr IVPB ONCE ONE Rx#: [id number] Lipids 164 451 Piperacillin-Tazobactam 3 200 125 75 .375 gm In Sodium Chloride 0.9% 100 ml @ 25 mls/hr IVPB Q8HR [facility] Rx# :[id number] Potassium Chloride 10 meq 100 In Water For Injection 1 100ml.bag @ 100 mls/hr IVPB Q1H [facility] Rx#: [id number] Sodium Chloride 0.9% 1, 1200 1200 500 000 ml @ 50 mls/hr IV . Q20H [facility] Rx#:[id number] Vancomycin 1,750 mg In 501 334 Sodium Chloride 0.9% 500 ml 500 ml @ 167 mls/hr IVPB Q16H [facility] Rx#: [id number] metroNIDAZOLE-NS PMX 500 200 100 100 mg In Saline 1 100ml.bag @ 100 mls/hr IVPB Q8HR [facility] Rx#:[id number] Intake, IV Titration 1000 50 350 Amount Calcium Gluconate 1,000 100 mg In Sodium Chloride 0.9 % 100 ml @ 100 mls/hr IVPB ONCE ONE Rx#: [id number] Calcium Gluconate 2,000 350 mg Mvi, Adult No.4 with Vit K 10 ml Trace (Conc- 1Ml/Dose) 1 ml Potassium Phosphate 40 mmol Magnesium Sulfate gm 2 gm In Amino Acid 5%-D15w+ Lytes*E* 1,000 ml @ 50 mls/hr IV .[id number] [facility] Rx #:[id number] Magnesium Sulfate-D5w Pmx 100 1 gm In Dextrose/Water 1 100ml.bag @ 100 mls/hr IVPB Q1H [facility] Rx#: [id number] Potassium Chloride 20 meq 100 In Water For Injection 1 100ml.bag @ 50 mls/hr IVPB Q2H [facility] Rx#: [id number] Potassium Chloride 40 meq 450 50 Calcium Gluconate 2,000 mg Mvi, Adult No.4 with Vit K 10 ml Trace (Conc- 1Ml/Dose) 1 ml Potassium Phosphate 10 mmol Magnesium Sulfate gm 2 gm In Amino Acid 5%-D15w+ Lytes*E* 1,000 ml @ 50 mls/hr IV .[id number] [facility] Rx #:[id number] Potassium Phosphate 10 250 mmol In Sodium Chloride 0 .9% 250 ml @ 125 mls/hr IV ONCE ONE Rx#:[id number] Propofol 1,000 mg In 0 Empty Bag 1 bag @ Titrate IV .Q0M [facility] Rx#: [id number] Output: Urine 012 035 8788 Stool 100 Other: Voiding Method Indwelling Catheter Indwelling Catheter Indwelling Catheter ABP, PAP, CO, CI - Last Documented Arterial Blood Pressure 100/93 - Exam Intubated on full ventilator support - Constitutional General appearance: average body habitus - EENT Eyes: normal appearance Ears: bilateral: normal - Neck Neck: normal ROM Carotids: bilateral: upstroke normal, bruit absent - Respiratory Respiratory: bilateral: CTA - Cardiovascular Rhythm: regular Heart sounds: normal: S1, S2 - Gastrointestinal Patient has a ileostomy as well as colostomy, anterior abdominal wall wound is open at the skin level fascia has been repaired, some ischemic changes along and around his ileostomy has been noted infectious being monitored and observed Sedated with propofol - Labs CBC & Chem 7: 07/25/18 05:00 07/25/18 13:15 Labs: Abnormal Lab Results - Last 24 Hours (Table) 07/24/18 07/24/18 07/25/18 Range/Units 17:35 23:13 05:00 WBC (3.8-10.6) k/uL RBC (3.80-5.40) m/uL Hgb (11.4-16.0) gm/dL Hct (34.0-46.0) % MCHC (31.0-37.0) g/dL RDW (11.5-15.5) % ABG pO2 (83-108) mmHg ABG HCO3 (21-25) mmol/L ABG Total CO2 (19-24) mmol/L ABG O2 Saturation (94-97) % Chloride 118 H (98-107) mmol/L BUN 21 H (7-17) mg/dL Creatinine 0.37 L (0.52-1.04) mg/dL Glucose 138 H (74-99) mg/dL POC Glucose (mg/dL) 129 H 107 H (75-99) mg/dL Calcium 6.0 L* (8.4-10.2) mg/dL Phosphorus 2.3 L (2.5-4.5) mg/dL 07/25/18 07/25/18 07/25/18 Range/Units 05:00 05:06 06:16 WBC 18.0 H (3.8-10.6) k/uL RBC 2.74 L (3.80-5.40) m/uL Hgb 7.5 L (11.4-16.0) gm/dL Hct 24.5 L (34.0-46.0) % MCHC 30.7 L (31.0-37.0) g/dL RDW 16.1 H (11.5-15.5) % ABG pO2 (83-108) mmHg ABG HCO3 26 H (21-25) mmol/L ABG Total CO2 28 H (19-24) mmol/L ABG O2 Saturation 97.2 H (94-97) % Chloride (98-107) mmol/L BUN (7-17) mg/dL Creatinine (0.52-1.04) mg/dL Glucose (74-99) mg/dL POC Glucose (mg/dL) 135 H (75-99) mg/dL Calcium (8.4-10.2) mg/dL Phosphorus (2.5-4.5) mg/dL 07/25/18 07/25/18 Range/Units 09:58 14:09 WBC (3.8-10.6) k/uL RBC (3.80-5.40) m/uL Hgb (11.4-16.0) gm/dL Hct (34.0-46.0) % MCHC (31.0-37.0) g/dL RDW (11.5-15.5) % ABG pO2 71 L (83-108) mmHg ABG HCO3 27 H (21-25) mmol/L ABG Total CO2 29 H (19-24) mmol/L ABG O2 Saturation (94-97) % Chloride (98-107) mmol/L BUN (7-17) mg/dL Creatinine (0.52-1.04) mg/dL Glucose (74-99) mg/dL POC Glucose (mg/dL) 125 H (75-99) mg/dL Calcium (8.4-10.2) mg/dL Phosphorus (2.5-4.5) mg/dL Microbiology - Last 24 Hours (Table) 07/18/18 17:48 Blood Culture - Final Blood No Growth after 144 hours 07/18/18 17:46 Blood Culture - Final Blood No Growth after 144 hours Assessment and Plan Assessment: Severe hypokalemia and metabolic alkalosis Skin necrosis of anterior abdominal wall around ileostomy Severe sepsis and septic shock Acute respiratory failure, anticipated complication of this extensive surgery Bi basilar pneumonia may be aspiration related Bowel perforation, status post ileostomy and colostomy Intra-abdominal secondary peritonitis Bilateral small pleural effusion Volume depletion and dehydration Leukocytosis and lactic acidosis Severe profound metabolic acidosis Acute renal failure stage III however renal function in GFR slowly improving with fluid resuscitation Plan: Replace potassium and calcium Ventilator adjustment Weaning protocol as indicated Titrated oxygen down as tolerated Vasopressors as needed keep map over 65 Gentle diuresis will chain supplemental IV fluids to KVO Broad-spectrum antibiotics, Labs reviewed medications reviewed Repeat labs and chest x-ray tomorrow Continue TPN as planned Monitor observe anterior abdominal wall skin and wounds PT OT evaluation and increase activity as tolerated Time with Patient: Greater than 30
[2018-07-25 18:49] LABS: Glucose,Whole Blood 117 mg/dL (75-99)
--- NOTE | 2018-07-25 23:17 | PN ---
PROGRESS NOTE DATE OF SERVICE: 07/25/2018. REASON FOR FOLLOWUP: Abdominal sepsis. INTERVAL HISTORY: The patient is currently afebrile. Has been extubated, breathing comfortably, though remains to be lethargic and unable to provide any history. No nausea, vomiting per nursing staff. PHYSICAL EXAMINATION: On examination, blood pressure 143/77 with a pulse of 90, temperature 98.5, she is 94% on 4 L nasal cannula. GENERAL DESCRIPTION: An elderly female lying in bed in no distress. RESPIRATORY SYSTEM: Unlabored breathing. Clear to auscultation anteriorly. HEART: Heart S1, S2. Regular rate and rhythm. ABDOMEN: Soft. . LABS: Hemoglobin is 7.5, white count 36260, BUN of 21 creatinine 0.37. DIAGNOSTIC IMPRESSION AND PLAN: Patient with abdominal sepsis in this patient who did have a cecal perforation status post right hemicolectomy and ileostomy along with ____ of left side, which is chronic. The patient has been extubated. She did have . We will monitor closely. Continue supportive care. MMODL / IJN: [id number] /
[2018-07-25 23:33] LABS: Glucose,Whole Blood 117 mg/dL (75-99)
[2018-07-26] MEDS: metroNIDAZOLE-NS PMX 500 MG in SALINE 1 100ML.BAG IVPB SCH ×4 (00:11→23:22)
[2018-07-26] MEDS: PIPERACILLIN-TAZOBACTAM 3.375 GM in SODIUM CHLORIDE 0.9% 100 ML IVPB SCH ×3 (00:16→17:36)
[2018-07-26] MEDS: MORPHINE SULFATE 2 MG/ML SYRINGE IVP PRN ×8 (00:29→23:19)
[2018-07-26 05:25] LABS: Glucose,Whole Blood 112 mg/dL (75-99)
[2018-07-26] MEDS: VANCOMYCIN 1,750 MG in SODIUM CHLORIDE 0.9% 500 ML 500 ML IVPB SCH ×2 (05:34→22:35)
[2018-07-26 05:42] LABS: HCT 28.2 % (34.0-46.0); Hypochromasia Moderate; MCH 27.9 pg (25.0-35.0); MCHC 32.1 g/dL (31.0-37.0); Mean Platelet Volume 8.3; Poikilocytosis Slight; RBC 3.24 m/uL (3.80-5.40); RDW 15.9 % (11.5-15.5); WBC 18.9 k/uL (3.8-10.6)
[2018-07-26 05:49] LABS: Ionized Calcium 4.7 mg/dL (4.5-5.3)
[2018-07-26 05:52] LABS: Platelet Count 326 k/uL (150-450)
[2018-07-26 06:04] LABS: ALT 63 U/L (9-52); AST 42 U/L (14-36); Albumin 1.5 g/dL (3.5-5.0); Alkaline Phosphatase 166 U/L (38-126); Anion Gap 0 mmol/L; Blood Urea Nitrogen 23 mg/dL (7-17); Calcium 6.8 mg/dL (8.4-10.2); Carbon Dioxide 29 mmol/L (22-30); Chloride 116 mmol/L (98-107); Glucose 136 mg/dL (74-99); Magnesium 2.1 mg/dL (1.6-2.3); Phosphorus 3.7 mg/dL (2.5-4.5); Potassium 4.2 mmol/L (3.5-5.1); Sodium 145 mmol/L (137-145); Total Bilirubin 0.7 mg/dL (0.2-1.3); Total Protein 3.7 g/dL (6.3-8.2)
--- NOTE | 2018-07-26 07:38 | XR ---
EXAMINATION TYPE: XR chest 1V portable DATE OF EXAM: 07/26/2018 COMPARISON: NONE HISTORY: SOB, Follow Up FINDINGS: Endotracheal tube has been removed. NG tube remains in place as does left IJ central venous venous li ne. PICC line is also noted. No change in bibasilar opacities. Stable appearance of the cardio-mediastinal structures at this time. Pleural effusion unchanged. IMPRESSION: 1. Stable portable chest. Clinical correlation and follow up until resolution is recommended.
[2018-07-26] MEDS: ENOXAPARIN 40 MG/0.4 ML SYRINGE SQ SCH (08:49)
[2018-07-26] MEDS: FAMOTIDINE 20 MG/2 ML VIAL IV SCH (08:50)
[2018-07-26] MEDS: FUROSEMIDE 10 MG/ML 2 ML VIAL IV SCH (09:21)
--- NOTE | 2018-07-26 12:16 | P.PN ---
Subjective Progress Note Date: 07/26/18 CHIEF COMPLAINT: Abnormal CT results/abdominal pain HISTORY OF PRESENT ILLNESS: Patient s/p exploratory laparotomy, right colectomy with ileostomy, sigmoid colectomy, and left salpingo-oophorectomy. Patient was extubated yesterday. She remains obtunded. She has been receiving IV morphine per Dr. Cortez. She is a DNR. TPN is infusing. NG tube intact. Wound vac to midline incision. PHYSICAL EXAM: VITAL SIGNS: Currently stable. GENERAL: Patient remains obtunded. HEENT: NG tube present. No sclera icterus. Pupils are equal, round, and reactive to light. Moist buccal mucosa. Head is atraumatic, normocephalic. NECK: Supple without lymphadenopathy. CHEST: Shallow. Equal bilateral excursions. Saturations greater than 92%. CARDIOVASCULAR: Regular rate with regular rhythm. Palpable 2+ radial pulses. ABDOMEN: Wound vac to midline incision. Ileostomy with stool noted. Mucus fistula with minimal output. : Pablo catheter intact NEUROLOGIC: Lethargic. SKIN: Left lower quadrant remains erythemic, with mild skin sloughing, and scattered areas of necrosis. Actually appears to be improving a little. ASSESSMENT: 1. Abdominal pain, abdominal xray reveals distal small bowel obstruction 2. Large pneumoperitoneum, s/p exploratory laparotomy, right colectomy with ileostomy, sigmoid colectomy, and left salpingo-oophorectomy 3. Acute hypoxic respiratory failure requiring mechanical ventilation 4. Septic shock requiring vasopressor support secondary to peritonitis, currently off pressors, improving 5. Lactic acidosis, resolved 6. Transaminitis, secondary to septic shock 7. 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 Large right renal calculi with UTI PLAN: 1. Recommend using smallest amount of narcotics due to patients lethargy 2. Continue TPN 3. Will begin trickle feeds via NG and will assess how patient tolerates. Do not advance tube feeding rate at this time. Nurse practitioner note has been reviewed by physician. Signing provider agrees with the documented findings, assessment, and plan of care. Objective - Vital Signs Vital signs: Vital Signs Temp 99.4 F 07/26/18 08:00 Pulse 86 07/26/18 11:00 Resp 12 07/26/18 11:00 BP 107/54 02/01/19 11:00 Pulse Ox 95 07/26/18 11:00 Intake & Output 07/25/18 07/26/18 07/26/18 18:59 06:59 18:59 Intake Total 2109 1734 717 Output Total 2410 1045 835 Balance -301 689 -118 Weight 99.1 kg 99.1 kg Intake: IV 1509 1734 717 Calcium Gluconate 1,000 100 mg In Sodium Chloride 0.9 % 100 ml @ 100 mls/hr IVPB ONCE ONE Rx#: [id number] Calcium Gluconate 2,000 600 200 mg Mvi, Adult No.4 with Vit K 10 ml Trace (Conc- 1Ml/Dose) 1 ml Potassium Phosphate 40 mmol Magnesium Sulfate gm 2 gm In Amino Acid 5%-D15w+ Lytes*E* 1,000 ml @ 50 mls/hr IV .[id number] [facility] Rx #:[id number] Piperacillin-Tazobactam 3 75 100 100 .375 gm In Sodium Chloride 0.9% 100 ml @ 25 mls/hr IVPB Q8HR [facility] Rx# :[id number] Potassium Chloride 10 meq 100 In Water For Injection 1 100ml.bag @ 100 mls/hr IVPB Q1H [facility] Rx#: [id number] Potassium Chloride 40 meq 50 Calcium Gluconate 2,000 mg Mvi, Adult No.4 with Vit K 10 ml Trace (Conc- 1Ml/Dose) 1 ml Potassium Phosphate 10 mmol Magnesium Sulfate gm 2 gm In Amino Acid 5%-D15w+ Lytes*E* 1,000 ml @ 50 mls/hr IV .[id number] [facility] Rx #:[id number] Sodium Chloride 0.9% 1, 750 600 150 000 ml @ 50 mls/hr IV . Q20H [facility] Rx#:[id number] Vancomycin 1,750 mg In 334 334 167 Sodium Chloride 0.9% 500 ml 500 ml @ 167 mls/hr IVPB Q16H [facility] Rx#: [id number] metroNIDAZOLE-NS PMX 500 100 100 100 mg In Saline 1 100ml.bag @ 100 mls/hr IVPB Q8HR [facility] Rx#:[id number] Intake, IV Titration 600 Amount Calcium Gluconate 2,000 600 mg Mvi, Adult No.4 with Vit K 10 ml Trace (Conc- 1Ml/Dose) 1 ml Potassium Phosphate 40 mmol Magnesium Sulfate gm 2 gm In Amino Acid 5%-D15w+ Lytes*E* 1,000 ml @ 50 mls/hr IV .[id number] [facility] Rx #:[id number] Output: Urine 2410 1045 835 Other: Voiding Method Indwelling Catheter Indwelling Catheter ABP, PAP, CO, CI - Last Documented Arterial Blood Pressure 100/93 - Labs CBC & Chem 7: 07/26/18 05:25 07/26/18 05:25 Labs: Abnormal Lab Results - Last 24 Hours (Table) 07/25/18 07/25/18 07/25/18 Range/Units 05:00 14:09 18:37 WBC 18.0 H (3.8-10.6) k/uL RBC 2.74 L (3.80-5.40) m/uL Hgb 7.5 L (11.4-16.0) gm/dL Hct 24.5 L (34.0-46.0) % MCHC 30.7 L (31.0-37.0) g/dL RDW 16.1 H (11.5-15.5) % Chloride (98-107) mmol/L BUN (7-17) mg/dL Creatinine (0.52-1.04) mg/dL Glucose (74-99) mg/dL POC Glucose (mg/dL) 125 H 117 H (75-99) mg/dL Calcium (8.4-10.2) mg/dL AST (14-36) U/L ALT (9-52) U/L Alkaline Phosphatase (38-126) U/L Total Protein (6.3-8.2) g/dL Albumin (3.5-5.0) g/dL 07/25/18 07/26/18 07/26/18 Range/Units 23:22 05:12 05:25 WBC (3.8-10.6) k/uL RBC (3.80-5.40) m/uL Hgb (11.4-16.0) gm/dL Hct (34.0-46.0) % MCHC (31.0-37.0) g/dL RDW (11.5-15.5) % Chloride 116 H (98-107) mmol/L BUN 23 H (7-17) mg/dL Creatinine 0.42 L (0.52-1.04) mg/dL Glucose 136 H (74-99) mg/dL POC Glucose (mg/dL) 117 H 112 H (75-99) mg/dL Calcium 6.8 L (8.4-10.2) mg/dL AST 42 H (14-36) U/L ALT 63 H (9-52) U/L Alkaline Phosphatase 166 H (38-126) U/L Total Protein 3.7 L (6.3-8.2) g/dL Albumin 1.5 L (3.5-5.0) g/dL 07/26/18 Range/Units 05:25 WBC 18.9 H (3.8-10.6) k/uL RBC 3.24 L (3.80-5.40) m/uL Hgb 9.0 L D (11.4-16.0) gm/dL Hct 28.2 L (34.0-46.0) % MCHC (31.0-37.0) g/dL RDW 15.9 H (11.5-15.5) % Chloride (98-107) mmol/L BUN (7-17) mg/dL Creatinine (0.52-1.04) mg/dL Glucose (74-99) mg/dL POC Glucose (mg/dL) (75-99) mg/dL Calcium (8.4-10.2) mg/dL AST (14-36) U/L ALT (9-52) U/L Alkaline Phosphatase (38-126) U/L Total Protein (6.3-8.2) g/dL Albumin (3.5-5.0) g/dL
[2018-07-26 13:20] LABS: Glucose,Whole Blood 153 mg/dL (75-99)
[2018-07-26] MEDS: [UNRECOGNIZED DRUG - REMARK] IV SCH ×12 (13:27→14:48)
--- NOTE | 2018-07-26 17:17 | P.PN ---
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 07/26/2018, patient seen eval examined during the rounds clinically patient has been successfully weaned and extubated she is on 5 L oxygen saturation is stable hemodynamic status stable, patient has been called tolerating TPN very well, patient has received Lasix today have diarrhea significantly chest x-ray appears improved with decrease pleural effusion and interstitial edema, labs reviewed medications reviewed care plan discussed with the staff at length, patient undergoing physical therapy, he does open eyes and does not follow commands but remains awake, patient is no code as per advanced directive, white cell count remains elevated likely related to multifactorial processes including intra-abdominal sepsis and necrotic skin 07/25/2018, patient seen eval examined during the rounds clinically patient is doing slightly better currently patient is undergoing wound changes the abdomen ischemia of the skin overall remains unchanged patient is awake did receive Ativan earlier this morning, patient remains on assist control rate of 12 tidal volume of 400 with 5 of PEEP current respiratory rate is 21 she is on 40% oxygen her chest x-ray done today revealed bilateral pleural effusion as well as interstitial edema, patient has mild anasarca as well, patient has significant air leak from the endotracheal tube, I have advised to give Lasix 40 mg IV F discussed with the respiratory therapy to put patient on CPAP and pressure support once wound draining and new dressing has been applied and patient started doing dialysis if tolerated well and arterial blood gases stable likely will be extubated, patient post a weaning trial evaluated significantly improved arterial blood gas and clinical status and noted and patient has been successfully weaned and extubated in mental oxygen 07/24/2018, patient seen eval examined during the rounds clinically patient has been doing slightly better able to tolerate weaning and CPAP and pressure support of almost 1 hour, patient has been resumed on propofol would advise to DC put patient on morphine and Ativan initiated weaning will do a CPAP and pressure support trial with CPAP of 5 and pressure support of 10 labs reviewed medications reviewed, patient is still behind in potassium and calcium level which are being repleted, patient is tolerating TPN well, patient is scheduled for PICC line later on today 07/23/2018, patient seen eval examined during the rounds clinically patient has been doing not much different than baseline patient remains on propofol drip, off of pressors, ventilator setting revealed assist control of 14 breathing 22 tidal volume of 505 of PEEP and 40% oxygen I have lowered down the tidal volume to 450, continue to replace calcium as well as potassium, will give 40 mg of Lasix for gentle diuresis, will do a sedation holiday take patient off of propofol once awake been doing CPAP and pressure support trial on Jack no plans for aggressive weaning though continue to optimize nutritional support labs reviewed medications reviewed, critical care time spent 35 minutes 07/22/2018, patient seen eval examined during the rounds remains on full ventilator support patient has been tapered off of vasopressors now remains on propofol however remains very somnolent, TPN has been going along fairly well tolerating very well, patient continued to have low urine output and intermittent hypertension however no significant arrhythmia has been seen, 6 x- ray performed today remains stable, labs continue to show improved leukocytosis , ABG revealed metabolic alkalosis patient has significant hypokalemia which is being repleted, all the cultures so far has been negative some carlos has been isolated in the sputum likely contamination 07/21/2018, patient seen eval examined during the rounds she is sedated with propofol drip, currently she is on assist control rate of 14 breathing 16 tidal volume is 505 OPV and 40% oxygen, patient is on TPN tolerating very well patient also on Zosyn and Flagyl, levo fed drip is down to 5 mics, propofol is 15 mics, lactic acid the removal improved to 2.9, patient's blood gas and laboratory data reviewed as well care plan discussed with the family at length as well as surgical services, there is some changes in the ileostomy area skin is seen likely some necrosis and necrotic his skin as per discussion we'll monitor OBSERVE patient is being started on vancomycin IV, chest x-ray performed today revealed bibasilar atelectasis effusion and infiltrate possible pneumonia cannot be excluded patient is a however adequately covered with vancomycin and Zosyn oxygenation remains stable some of the effusion is likely secondary due to aggressive crystalloid resuscitation, white cell count continue to be elevated, arterial blood gases reviewed some alkalosis, bicarb is being discontinued, calcium level is on the low side, 07/20/2018, patient seen eval examined during the rounds clinically patient has been doing well in terms of hemodynamics able to come off of vasopressin, patient is still on levo fed drip though which is down to 8 mics, patient remains on 50 cc per hour of bicarb drip, propofol drip is 20 mics, patient is being planned to start on TPN, remains on full ventilator support, currently FiO2 is 40%, with tidal volume of 500, respiratory rate set at 14, she is breathing 16, PEEP is 5, arterial blood gas is pending today, chest x-ray finding as well as laboratory data reviewed, chest x-ray reviewed by shilo subsegmental atelectasis small effusion possible pneumonia cannot be excluded, patient is on IV Zosyn we'll add Flagyl as well, respiratory secretions are stable, white cell count is trending down to 21,000, hemoglobin and hematocrit did drop down to 9.3 and 29 likely dilutional as patient has been and is still being resuscitated with steroids, continue peptic ulcer disease prophylaxis continue DVT prophylaxis, critical care time spent 35 minutes 07/19/2018, patient seen eval examined during the rounds she remains sedated with propofol currently she is on 20 mics of propofol she is hemodynamically remains on stable, patient has the severe hypotension requiring vasopressin as well as levo fed which was up to 30 mics however able to taper it down to 10 mics now vasopressin is 0.03 unit, she is also on bicarb drip for severe metabolic acidosis currently running 50 mL an hour she has received so far postoperatively 9 L of LR and 2 L of normal saline she does make some urine about 10-20 mL with fluid boluses otherwise she becomes and uric plan is to give another liter of LR 2 50 mL an hour for 4 hours then to resume 100 mL an hour and lower she is sedated with propofol drip, family is present at bedside care plan discussed with them at length, currently patient is a full assist control mode with a rate of 14 breathing about 17, tidal volume is 500, 5 of PEEP, 50% oxygen, labs and medications reviewed, culture results and reports are pending, , chest x-ray revealed stable endotracheal tube stable central line and some subsegmental atelectasis at the bases are seen, patient remains on broad-spectrum antibiotics This is a pleasant 78-year-old female with no significant past medical history. She presented to the hospital with abdominal pain and has been found to have a bowel obstruction. We have been asked to see her in consultation for shortness of breath and hypoxia related to abdominal process. She has been evaluated by surgical services and per nursing staff she was vomiting all morning. Laboratory data reviewed, hemoglobin 13.7, platelets 439 WBC 12.0 down from 15.9 on admission, INR 1.5, sodium 139, potassium 3.4, creatinine 0.6, magnesium 2.1, cardiac enzymes negative 1. She also has been diagnosed with a urinary tract infection. EKG on admission reveals sinus mechanism with no acute ST or T wave abnormalities noted. Chest x-ray reveals mild pulmonary fibrosis. No overt heart failure or acute cardiopulmonary process. She takes no daily medications. She is also been seen in consultation by urology and surgical services. Urology suspects a large infected right renal stone. X-ray of the abdomen obtained reveals evidence of right renal calculus as well as colonic wall thickening suggestive of colitis. CT of the abdomen and pelvis with contrast reveals markedly colonic distention to the level of the sigmoid colon, numerous bilateral renal calculi and gallbladder markedly distended. HIDA scan reveals ejection fraction of about her 23% with increased symptoms of pain suggestive of underlying gallbladder dyskinesia with no evidence of acute cholecystitis. Patient decompensated earlier this morning with x-ray shows free air abdomen was diffusely tender patient was eventually taken by surgical services to OR for exploratory laparotomy of perforated viscus and for detail of surgical intervention please effort to surgical notes, patient was brought back into the ICU on full ventilator support hypotensive does have a central line and A-line intubated with assist control rate of 12 patient appears to be volume depleted her liter of the LR has been given with that systolic blood pressure improved into 90s arterial blood gas drawn labs are sent ventilator adjustment has been done Objective - Vital Signs Vital signs: Vital Signs Temp 99.4 F 07/26/18 12:00 Pulse 107 H 07/26/18 16:00 Resp 21 07/26/18 17:00 BP 159/87 07/26/18 17:00 Pulse Ox 90 L 07/26/18 17:00 Intake & Output 07/25/18 07/26/18 07/26/18 18:59 06:59 18:59 Intake Total 2109 1734 1157 Output Total 2410 1045 1710 Balance -301 689 -553 Weight 99.1 kg 99.1 kg Intake: IV 1509 1734 1127 0.9NS 60 Calcium Gluconate 1,000 100 mg In Sodium Chloride 0.9 % 100 ml @ 100 mls/hr IVPB ONCE ONE Rx#: [id number] Calcium Gluconate 2,000 600 450 mg Mvi, Adult No.4 with Vit K 10 ml Trace (Conc- 1Ml/Dose) 1 ml Potassium Phosphate 40 mmol Magnesium Sulfate gm 2 gm In Amino Acid 5%-D15w+ Lytes*E* 1,000 ml @ 50 mls/hr IV .[id number] [facility] Rx #:[id number] Piperacillin-Tazobactam 3 75 100 100 .375 gm In Sodium Chloride 0.9% 100 ml @ 25 mls/hr IVPB Q8HR [facility] Rx# :[id number] Potassium Chloride 10 meq 100 In Water For Injection 1 100ml.bag @ 100 mls/hr IVPB Q1H [facility] Rx#: [id number] Potassium Chloride 40 meq 50 Calcium Gluconate 2,000 mg Mvi, Adult No.4 with Vit K 10 ml Trace (Conc- 1Ml/Dose) 1 ml Potassium Phosphate 10 mmol Magnesium Sulfate gm 2 gm In Amino Acid 5%-D15w+ Lytes*E* 1,000 ml @ 50 mls/hr IV .[id number] [facility] Rx #:[id number] Sodium Chloride 0.9% 1, 750 600 250 000 ml @ 50 mls/hr IV . Q20H [facility] Rx#:[id number] Vancomycin 1,750 mg In 334 334 167 Sodium Chloride 0.9% 500 ml 500 ml @ 167 mls/hr IVPB Q16H [facility] Rx#: [id number] metroNIDAZOLE-NS PMX 500 100 100 100 mg In Saline 1 100ml.bag @ 100 mls/hr IVPB Q8HR [facility] Rx#:[id number] Intake, IV Titration 600 Amount Calcium Gluconate 2,000 600 mg Mvi, Adult No.4 with Vit K 10 ml Trace (Conc- 1Ml/Dose) 1 ml Potassium Phosphate 40 mmol Magnesium Sulfate gm 2 gm In Amino Acid 5%-D15w+ Lytes*E* 1,000 ml @ 50 mls/hr IV .[id number] [facility] Rx #:[id number] Tube Feeding 30 Output: Urine 2410 1045 1710 Other: Voiding Method Indwelling Catheter Indwelling Catheter Indwelling Catheter ABP, PAP, CO, CI - Last Documented Arterial Blood Pressure 100/93 - Exam Extubated on 5 L nasal cannula awake at times follow simple commands but nonverbal and noncommunicative very weak - Constitutional General appearance: average body habitus - EENT Eyes: normal appearance Ears: bilateral: normal - Neck Neck: normal ROM Carotids: bilateral: upstroke normal, bruit absent - Respiratory Respiratory: bilateral: CTA - Cardiovascular Rhythm: regular Heart sounds: normal: S1, S2 - Gastrointestinal Patient has a ileostomy as well as colostomy, anterior abdominal wall wound is open at the skin level fascia has been repaired, some ischemic changes along and around his ileostomy has been noted infectious being monitored and observed Neurological exam patient is arousable however does not follow commands though - Labs CBC & Chem 7: 07/26/18 05:25 07/26/18 05:25 Labs: Abnormal Lab Results - Last 24 Hours (Table) 07/25/18 07/25/18 07/26/18 Range/Units 18:37 23:22 05:12 WBC (3.8-10.6) k/uL RBC (3.80-5.40) m/uL Hgb (11.4-16.0) gm/dL Hct (34.0-46.0) % RDW (11.5-15.5) % Chloride (98-107) mmol/L BUN (7-17) mg/dL Creatinine (0.52-1.04) mg/dL Glucose (74-99) mg/dL POC Glucose (mg/dL) 117 H 117 H 112 H (75-99) mg/dL Calcium (8.4-10.2) mg/dL AST (14-36) U/L ALT (9-52) U/L Alkaline Phosphatase (38-126) U/L Total Protein (6.3-8.2) g/dL Albumin (3.5-5.0) g/dL 07/26/18 07/26/18 07/26/18 Range/Units 05:25 05:25 13:18 WBC 18.9 H (3.8-10.6) k/uL RBC 3.24 L (3.80-5.40) m/uL Hgb 9.0 L D (11.4-16.0) gm/dL Hct 28.2 L (34.0-46.0) % RDW 15.9 H (11.5-15.5) % Chloride 116 H (98-107) mmol/L BUN 23 H (7-17) mg/dL Creatinine 0.42 L (0.52-1.04) mg/dL Glucose 136 H (74-99) mg/dL POC Glucose (mg/dL) 153 H (75-99) mg/dL Calcium 6.8 L (8.4-10.2) mg/dL AST 42 H (14-36) U/L ALT 63 H (9-52) U/L Alkaline Phosphatase 166 H (38-126) U/L Total Protein 3.7 L (6.3-8.2) g/dL Albumin 1.5 L (3.5-5.0) g/dL Assessment and Plan Assessment: Severe hypokalemia and metabolic alkalosis, progressively getting better Skin necrosis of anterior abdominal wall around ileostomy Severe sepsis and septic shock Acute respiratory failure, anticipated complication of this extensive surgery Bi basilar pneumonia may be aspiration related, versus atelectasis Bowel perforation, status post ileostomy and colostomy Intra-abdominal secondary peritonitis Bilateral small pleural effusion Volume depletion and dehydration Leukocytosis and lactic acidosis, overall is stable and continued to improve respectively Severe profound metabolic acidosis Acute renal failure stage III however renal function in GFR slowly improving with fluid resuscitation Plan: Replace potassium and calcium Titrated oxygen down as tolerated Gentle diuresis will chain supplemental IV fluids to KVO Broad-spectrum antibiotics, Labs reviewed medications reviewed Repeat labs and chest x-ray tomorrow Continue TPN as planned Monitor observe anterior abdominal wall skin and wounds PT OT evaluation and increase activity as tolerated We'll keep in ICU for now Time with Patient: Greater than 30
[2018-07-26] MEDS ORDERED: FUROSEMIDE 10 MG/ML 2 ML VIAL IV ONE (17:19)
[2018-07-26] MEDS: SODIUM CHLORIDE 0.9% 1,000 ML IV SCH (17:35)
[2018-07-26] MEDS: FAT EMULSION 20% 250 ML IV SCH ×2 (17:53→21:00)
[2018-07-26 19:06] LABS: Glucose,Whole Blood 144 mg/dL (75-99)
[2018-07-26] MEDS: POTASSIUM CHLORIDE 10 MEQ in WATER FOR INJECTION 1 100ML.BAG IVPB SCH (22:17)
--- NOTE | 2018-07-27 00:03 | PN ---
PROGRESS NOTE DATE OF SERVICE: 07/26/2018. REASON FOR FOLLOWUP VISIT: Abdominal sepsis and secondary peritonitis. INTERVAL HISTORY: The patient is currently afebrile. The patient is hemodynamically stable. The patient is breathing comfortably on high-flow oxygen. She remains to be lethargic, weak, responds to her name but unable to provide reliable history. PHYSICAL EXAMINATION: Blood pressure is 147/73 with a pulse of 140, temperature 99.7, she is 93% on high-flow oxygen. GENERAL DESCRIPTION: An elderly female lying in bed in no distress. RESPIRATORY SYSTEM: Unlabored breathing with decreased breath sounds at the bases. No wheeze or crackle. HEART: S1 and S2. Regular rate and rhythm. ABDOMEN: Soft. Left abdominal pain consistent with chronic changes but no worsening. Midline wound covered with a wound VAC dressing. EXTREMITIES: Edema of feet. LABS: Hemoglobin 7.0, white count 13.9 with a BUN of 23, creatinine 0.42. Sputum with Nikole albicans. DIAGNOSTIC IMPRESSION AND PLAN: Patient with acute abdominal sepsis, the patient did have a cecal perforation status post right hemicolectomy with ileostomy consistent with cyst formation which did have evidence of skin necrosis. The patient is currently covered with Zosyn, Flagyl and vancomycin. Monitor clinical course closely and continue supportive care. MMODL / IJN: [id number] /
[2018-07-27] MEDS: PIPERACILLIN-TAZOBACTAM 3.375 GM in SODIUM CHLORIDE 0.9% 100 ML IVPB SCH ×5 (00:05→23:37)
[2018-07-27] MEDS: ACETAMINOPHEN TAB 325 MG TAB PO PRN ×2 (00:10→23:33)
[2018-07-27] MEDS: POTASSIUM CHLORIDE 10 MEQ in WATER FOR INJECTION 1 100ML.BAG IVPB SCH ×7 (00:23→23:09)
[2018-07-27 00:33] LABS: Glucose,Whole Blood 158 mg/dL (75-99)
[2018-07-27] MEDS: MORPHINE SULFATE 2 MG/ML SYRINGE IVP PRN ×2 (02:04→04:47)
[2018-07-27 05:13] LABS: Anisocytosis Slight; HCT 28.1 % (34.0-46.0); Hypochromasia Slight; Ionized Calcium 4.5 mg/dL (4.5-5.3); Poikilocytosis Slight
[2018-07-27 05:22] LABS: ALT 56 U/L (9-52); AST 49 U/L (14-36); Albumin 1.5 g/dL (3.5-5.0); Alkaline Phosphatase 195 U/L (38-126); Anion Gap 2 mmol/L; Blood Urea Nitrogen 23 mg/dL (7-17); Calcium 6.7 mg/dL (8.4-10.2); Carbon Dioxide 28 mmol/L (22-30); Chloride 113 mmol/L (98-107); Glucose 173 mg/dL (74-99); Magnesium 2.1 mg/dL (1.6-2.3); Phosphorus 3.3 mg/dL (2.5-4.5); Potassium 3.6 mmol/L (3.5-5.1); Sodium 143 mmol/L (137-145); Total Bilirubin 0.8 mg/dL (0.2-1.3); Total Protein 3.9 g/dL (6.3-8.2)
[2018-07-27 05:31] LABS: HGB 9.8 gm/dL (11.4-16.0); MCHC 34.8 g/dL (31.0-37.0); MCV 86.3 fL (80.0-100.0); Mean Platelet Volume 7.9; Platelet Count 362 k/uL (150-450); RBC 3.25 m/uL (3.80-5.40); RDW 16.4 % (11.5-15.5); WBC 21.8 k/uL (3.8-10.6)
[2018-07-27 06:30] LABS: Glucose,Whole Blood 191 mg/dL (75-99)
--- NOTE | 2018-07-27 07:20 | XR ---
EXAMINATION TYPE: XR chest 1V portable DATE OF EXAM: 07/27/2018 CLINICAL HISTORY: Difficulty breathing progress study. TECHNIQUE: Single AP portable semiupright view of the chest is obtained. COMPARISON: Chest x-ray from one day earlier and older studies. FINDINGS: An orogastric tube, left internal jugular central venous catheter, and left-sided PICC jose elias e are all stable in appearance. Cardiac silhouette size is stable and mildly enlarged with atherosclerotic thoracic aorta. There is i ncreasing central vascular congestion noted. There is persistent bibasilar opacities consistent with small to moderate right greater than left pleural effusions and associated bibasilar atelectasis and/ or infiltrate. Upper lungs are clear without pneumothorax. Osseous structures are intact. IMPRESSION: Mild cardiomegaly redemonstrated with worsening moderate central vascular congestion and fairly stable small to moderate right greater than left pleural effusions and associated bibasilar at electasis and/or infiltrate all redemonstrated.
[2018-07-27] MEDS: metroNIDAZOLE-NS PMX 500 MG in SALINE 1 100ML.BAG IVPB SCH ×2 (08:11→16:31)
[2018-07-27] MEDS: FAMOTIDINE 20 MG/2 ML VIAL IV SCH (08:13)
[2018-07-27] MEDS: FUROSEMIDE 10 MG/ML 2 ML VIAL IV SCH (08:13)
[2018-07-27] MEDS: ENOXAPARIN 40 MG/0.4 ML SYRINGE SQ SCH (08:13)
[2018-07-27] MEDS ORDERED: POTASSIUM CHLORIDE 10 MEQ in WATER FOR INJECTION 1 100ML.BAG IVPB SCH (10:00)
[2018-07-27] MEDS: MORPHINE SULFATE 4 MG/ML SYRINGE IVP PRN ×3 (11:07→20:49)
[2018-07-27] MEDS: [UNRECOGNIZED DRUG - REMARK] IV SCH ×6 (12:37)
[2018-07-27] MEDS ORDERED: VANCOMYCIN TROUGH DUE 1 EACH MISC MISCELLANE ONE (13:00)
[2018-07-27 13:27] LABS: Glucose,Whole Blood 188 mg/dL (75-99)
--- NOTE | 2018-07-27 13:57 | P.PN ---
Subjective Progress Note Date: 07/27/18 CHIEF COMPLAINT: Cecal perforation HISTORY OF PRESENT ILLNESS: The patient is a 78-year-old female status post right hemicolectomy with ileostomy and mucus fistula following cecal perforation , POD 9. She is in the ICU. Otherwise still off vent and tolerating vent mask. Infectious disease following for elevating WBC. She has feeds via NGT. She has profuse skin breakdown with anasarca. PHYSICAL EXAM: VITAL SIGNS: Reviewed GENERAL: Well-developed in no acute distress. HEENT: No sclera icterus. Extraocular movements grossly intact. Moist buccal mucosa. Head is atraumatic, normocephalic. Hears conversational speech. NECK: Supple without lymphadenopathy. CHEST: Labored respirations and equal bilateral excursions. CARDIOVASCULAR: Palpable 2+ radial pulses. ABDOMEN: Soft. Has skin breakdown at the left lower pannus 15 x 8 cm. Ileostomy with bilious fluid no flatus. MUSCULOSKELETAL: No clubbing, cyanosis. 4+ edema, anasarca NEUROLOGIC: Deficit of following commands. PSYCH: Alert to person. SKIN: Moderate edema with 3rd spacing of upper extremities and skin breakdown. LABS: Reviewed ASSESSMENT: 1. s/p colectomy and colostomy creation PLAN: 1. Recommend skin protectant for pannus and mucus fistula. 2. Continue NGT for feeds. 3. May need adjustment of antibiotics with increasing WBC, infectious disease following 4. Continue current ICU care Critical care time 25 minutes Objective - Vital Signs Vital signs: Vital Signs Temp 99.5 F 07/27/18 12:00 Pulse 111 H 07/27/18 12:00 Resp 23 07/27/18 12:00 BP 134/72 07/27/18 12:00 Pulse Ox 93 L 07/27/18 12:00 Intake & Output 07/26/18 07/27/18 07/27/18 18:59 06:59 18:59 Intake Total 1588.6 2413.6 1815 Output Total 2110 1875 1300 Balance -521.4 538.6 515 Weight 99.1 kg 99.5 kg Intake: IV 1508.6 2263.6 650 0.9NS 100 70 100 Calcium Gluconate 2,000 550 600 300 mg Mvi, Adult No.4 with Vit K 10 ml Trace (Conc- 1Ml/Dose) 1 ml Potassium Phosphate 40 mmol Magnesium Sulfate gm 2 gm In Amino Acid 5%-D15w+ Lytes*E* 1,000 ml @ 50 mls/hr IV .[id number] [facility] Rx #:[id number] Fat Emulsion 20% 250 ml @ 41.6 492.6 0 41.667 mls/hr IV MoWe[facility] Rx#:[id number] Piperacillin-Tazobactam 3 200 100 100 .375 gm In Sodium Chloride 0.9% 100 ml @ 25 mls/hr IVPB Q8HR [facility] Rx# :[id number] Potassium Chloride 10 meq 400 50 In Water For Injection 1 100ml.bag @ 100 mls/hr IVPB Q1H [facility] Rx#: [id number] Sodium Chloride 0.9% 1, 250 000 ml @ 50 mls/hr IV . Q20H [facility] Rx#:[id number] Vancomycin 1,750 mg In 167 501 Sodium Chloride 0.9% 500 ml 500 ml @ 167 mls/hr IVPB Q16H [facility] Rx#: [id number] metroNIDAZOLE-NS PMX 500 200 100 100 mg In Saline 1 100ml.bag @ 100 mls/hr IVPB Q8HR [facility] Rx#:[id number] Intake, IV Titration 1045 Amount Calcium Gluconate 2,000 1045 mg Mvi, Adult No.4 with Vit K 10 ml Trace (Conc- 1Ml/Dose) 1 ml Potassium Phosphate 30 mmol Magnesium Sulfate gm 2 gm In Amino Acid 5%-D15w+ Lytes*E* 1,000 ml @ 50 mls/hr IV .[id number] [facility] Rx #:[id number] Tube Feeding 50 150 60 Other 30 60 Output: Urine 2110 1875 1300 Other: Voiding Method Indwelling Catheter Indwelling Catheter Indwelling Catheter ABP, PAP, CO, CI - Last Documented Arterial Blood Pressure 100/93 - Labs CBC & Chem 7: 07/28/18 04:45 07/28/18 04:45 Labs: Abnormal Lab Results - Last 24 Hours (Table) 07/26/18 07/27/18 07/27/18 Range/Units 19:05 00:21 05:00 WBC (3.8-10.6) k/uL RBC (3.80-5.40) m/uL Hgb (11.4-16.0) gm/dL Hct (34.0-46.0) % RDW (11.5-15.5) % Chloride 113 H (98-107) mmol/L BUN 23 H (7-17) mg/dL Creatinine 0.46 L (0.52-1.04) mg/dL Glucose 173 H (74-99) mg/dL POC Glucose (mg/dL) 144 H 158 H (75-99) mg/dL Calcium 6.7 L (8.4-10.2) mg/dL AST 49 H (14-36) U/L ALT 56 H (9-52) U/L Alkaline Phosphatase 195 H (38-126) U/L Total Protein 3.9 L (6.3-8.2) g/dL Albumin 1.5 L (3.5-5.0) g/dL 07/27/18 07/27/18 07/27/18 Range/Units 05:00 06:21 13:16 WBC 21.8 H (3.8-10.6) k/uL RBC 3.25 L (3.80-5.40) m/uL Hgb 9.8 L (11.4-16.0) gm/dL Hct 28.1 L (34.0-46.0) % RDW 16.4 H (11.5-15.5) % Chloride (98-107) mmol/L BUN (7-17) mg/dL Creatinine (0.52-1.04) mg/dL Glucose (74-99) mg/dL POC Glucose (mg/dL) 191 H 188 H (75-99) mg/dL Calcium (8.4-10.2) mg/dL AST (14-36) U/L ALT (9-52) U/L Alkaline Phosphatase (38-126) U/L Total Protein (6.3-8.2) g/dL Albumin (3.5-5.0) g/dL Assessment and Plan (1) Cecum perforation Current Visit: Yes Status: Acute Code(s): K35.32 - ACUTE APPENDICITIS WITH PERF AND LOC PERITONITIS, W/O ABSCS SNOMED Code(s): 123924043 (2) Colostomy fistula Current Visit: Yes Status: Acute Code(s): K94.09 - OTHER COMPLICATIONS OF COLOSTOMY SNOMED Code(s): 000930848 (3) Colostomy in place Current Visit: Yes Status: Acute Code(s): Z93.3 - COLOSTOMY STATUS SNOMED Code(s): 590223968 (4) Septic shock Current Visit: Yes Status: Acute Code(s): A41.9 - SEPSIS, UNSPECIFIED ORGANISM; R65.21 - SEVERE SEPSIS WITH SEPTIC SHOCK SNOMED Code(s): 76440099 (5) Morbid obesity due to excess calories Current Visit: Yes Status: Acute Code(s): E66.01 - MORBID (SEVERE) OBESITY DUE TO EXCESS CALORIES SNOMED Code(s): 358442472 (6) Anasarca Current Visit: Yes Status: Acute Code(s): R60.1 - GENERALIZED EDEMA SNOMED Code(s): 446902288
--- NOTE | 2018-07-27 15:20 | P.PN ---
Subjective Progress Note Date: 07/27/18 Patient awake but not oriented patient on a nonrebreather mask on TPN. She tries to track you down but she is not following commands and not oriented. She is not speaking at this time. Therefore review of system was difficult to obtain Objective - Vital Signs Vital signs: Vital Signs Temp 99.5 F 07/27/18 12:00 Pulse 115 H 07/27/18 14:00 Resp 23 07/27/18 14:00 BP 142/80 07/27/18 14:00 Pulse Ox 92 L 07/27/18 14:00 Intake & Output 07/26/18 07/27/18 07/27/18 18:59 06:59 18:59 Intake Total 1588.6 2413.6 2175 Output Total 2110 1875 1550 Balance -521.4 538.6 625 Weight 99.1 kg 99.5 kg Intake: IV 1508.6 2263.6 790 0.9NS 100 70 140 Calcium Gluconate 2,000 100 mg Mvi, Adult No.4 with Vit K 10 ml Trace (Conc- 1Ml/Dose) 1 ml Potassium Phosphate 30 mmol Magnesium Sulfate gm 2 gm In Amino Acid 5%-D15w+ Lytes*E* 1,000 ml @ 50 mls/hr IV .[id number] NOE Rx #:[id number] Calcium Gluconate 2,000 550 600 300 mg Mvi, Adult No.4 with Vit K 10 ml Trace (Conc- 1Ml/Dose) 1 ml Potassium Phosphate 40 mmol Magnesium Sulfate gm 2 gm In Amino Acid 5%-D15w+ Lytes*E* 1,000 ml @ 50 mls/hr IV .[id number] NOE Rx #:[id number] Fat Emulsion 20% 250 ml @ 41.6 492.6 0 41.667 mls/hr IV MoWeFr NOE Rx#:[id number] Piperacillin-Tazobactam 3 200 100 100 .375 gm In Sodium Chloride 0.9% 100 ml @ 25 mls/hr IVPB Q8HR NOE Rx# :[id number] Potassium Chloride 10 meq 400 50 In Water For Injection 1 100ml.bag @ 100 mls/hr IVPB Q1H NOE Rx#: [id number] Sodium Chloride 0.9% 1, 250 000 ml @ 50 mls/hr IV . Q20H NOE Rx#:[id number] Vancomycin 1,750 mg In 167 501 Sodium Chloride 0.9% 500 ml 500 ml @ 167 mls/hr IVPB Q16H NOE Rx#: [id number] metroNIDAZOLE-NS PMX 500 200 100 100 mg In Saline 1 100ml.bag @ 100 mls/hr IVPB Q8HR NOE Rx#:[id number] Intake, IV Titration 1245 Amount Calcium Gluconate 2,000 1045 mg Mvi, Adult No.4 with Vit K 10 ml Trace (Conc- 1Ml/Dose) 1 ml Potassium Phosphate 30 mmol Magnesium Sulfate gm 2 gm In Amino Acid 5%-D15w+ Lytes*E* 1,000 ml @ 50 mls/hr IV .[id number] NOE Rx #:[id number] Potassium Chloride 10 meq 200 In Water For Injection 1 100ml.bag @ 100 mls/hr IVPB Q1H NOE Rx#: [id number] Tube Feeding 50 150 80 Other 30 60 Output: Urine 2110 1875 1550 Other: Voiding Method Indwelling Catheter Indwelling Catheter Indwelling Catheter ABP, PAP, CO, CI - Last Documented Arterial Blood Pressure 100/93 - Exam GEN : patient is not oriented and not following commands HEENT: Conjunctivae normal. eyes normal. NECK: No JVD. No thyroid enlargement. No LNs CARDIOVASCULAR: S1, S2 RESPIRATION: Breath sounds diminished in the bases. No rhonchi or crackles. No bronchial breathing. ABDOMEN: Patient has an ostomy bag and dressing applied secondary to surgery. LEGS: +1 pedal edema appreciated bilaterally NERVOUS SYSTEM: Not able to examine the neuro as patient is not cooperative JOINTS: No active swelling. No inflammation. - Labs CBC & Chem 7: 07/27/18 05:00 07/27/18 10:15 Labs: Abnormal Lab Results - Last 24 Hours (Table) 07/26/18 07/27/18 07/27/18 Range/Units 19:05 00:21 05:00 WBC (3.8-10.6) k/uL RBC (3.80-5.40) m/uL Hgb (11.4-16.0) gm/dL Hct (34.0-46.0) % RDW (11.5-15.5) % Chloride 113 H (98-107) mmol/L BUN 23 H (7-17) mg/dL Creatinine 0.46 L (0.52-1.04) mg/dL Glucose 173 H (74-99) mg/dL POC Glucose (mg/dL) 144 H 158 H (75-99) mg/dL Calcium 6.7 L (8.4-10.2) mg/dL AST 49 H (14-36) U/L ALT 56 H (9-52) U/L Alkaline Phosphatase 195 H (38-126) U/L Total Protein 3.9 L (6.3-8.2) g/dL Albumin 1.5 L (3.5-5.0) g/dL 07/27/18 07/27/18 07/27/18 Range/Units 05:00 06:21 13:16 WBC 21.8 H (3.8-10.6) k/uL RBC 3.25 L (3.80-5.40) m/uL Hgb 9.8 L (11.4-16.0) gm/dL Hct 28.1 L (34.0-46.0) % RDW 16.4 H (11.5-15.5) % Chloride (98-107) mmol/L BUN (7-17) mg/dL Creatinine (0.52-1.04) mg/dL Glucose (74-99) mg/dL POC Glucose (mg/dL) 191 H 188 H (75-99) mg/dL Calcium (8.4-10.2) mg/dL AST (14-36) U/L ALT (9-52) U/L Alkaline Phosphatase (38-126) U/L Total Protein (6.3-8.2) g/dL Albumin (3.5-5.0) g/dL Assessment and Plan Assessment: - Acute encephalopathy multifactorial due to ongoing medical issues outlined below - Severe septic shock - 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
[2018-07-27] MEDS: VANCOMYCIN 1,750 MG in SODIUM CHLORIDE 0.9% 500 ML 500 ML IVPB SCH (16:28)
[2018-07-27] MEDS: SODIUM CHLORIDE 0.9% 1,000 ML IV SCH (16:30)
[2018-07-27 18:23] LABS: Glucose,Whole Blood 170 mg/dL (75-99)
[2018-07-27] MEDS ORDERED: FLUCONAZOLE IN NACL,ISO-OSM 200 MG in SALINE 1 100ML.BAG IVPB SCH (23:00)
[2018-07-27] MEDS ORDERED: INSULIN ASPART 100 UNIT/ML 1 ML 10 ML VIAL SQ SCH (23:45)
[2018-07-28 00:12] LABS: Glucose,Whole Blood 195 mg/dL (75-99)
[2018-07-28] MEDS: INSULIN ASPART 100 UNIT/ML 1 ML 10 ML VIAL SQ SCH ×3 (00:25→12:36)
[2018-07-28] MEDS: MORPHINE SULFATE 4 MG/ML SYRINGE IVP PRN ×5 (00:56→19:43)
--- NOTE | 2018-07-28 01:19 | PN ---
PROGRESS NOTE DATE OF SERVICE: 07/27/2018. REASON FOR FOLLOWUP: Abdominal wound abscess secondary to peritonitis. INTERVAL HISTORY: The patient did spike a low grade fever of 100.8 this morning. The patient . The patient is hemodynamically stable. Not on any pressor support. The patient is currently on a non-rebreather. Slightly lethargic and unable to provide any history. PHYSICAL EXAMINATION: Blood pressure 144/63 with a pulse of 102, temperature 98.6. She is 96% on 100% non- rebreather. The patient is an elderly female, lying in bed in no distress. Respiratory system: Unlabored breathing with decreased breath sounds in the bases. No wheeze. Heart S1, S2. Regular rate and rhythm. ABDOMEN: Soft, mild distention. Currently covered with wound VAC. The left lower abdominal remains to be Extremities: 2+ edema of feet. LABS: Hemoglobin 9.1, white count 1.8 with a BUN of 23, creatinine 0.46. Sputum with Nikole albicans. Blood culture has been negative. 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 Patient currently covered with vancomycin and Zosyn with low-grade fever. The patient currently on TPN infection. Micafungin will be added. Blood cultures will be repeated. Overall prognosis extremely guarded. Continue supportive care. MMODL / IJN: [id number] /
[2018-07-28 04:56] LABS: Anisocytosis Slight; HCT 26.9 % (34.0-46.0); HGB 8.5 gm/dL (11.4-16.0); Hypochromasia Moderate; MCH 27.4 pg (25.0-35.0); MCHC 31.8 g/dL (31.0-37.0); MCV 86.2 fL (80.0-100.0); Mean Platelet Volume 8.5; Platelet Count 299 k/uL (150-450); Poikilocytosis Slight; RBC 3.12 m/uL (3.80-5.40); RDW 16.6 % (11.5-15.5); WBC 33.6 k/uL (3.8-10.6)
[2018-07-28 04:59] LABS: Ionized Calcium 4.7 mg/dL (4.5-5.3)
[2018-07-28 05:08] LABS: ALT 53 U/L (9-52); AST 53 U/L (14-36); Albumin 1.4 g/dL (3.5-5.0); Alkaline Phosphatase 164 U/L (38-126); Anion Gap 0 mmol/L; Blood Urea Nitrogen 31 mg/dL (7-17); Calcium 6.9 mg/dL (8.4-10.2); Carbon Dioxide 30 mmol/L (22-30); Chloride 114 mmol/L (98-107); Glucose 165 mg/dL (74-99); Magnesium 2.2 mg/dL (1.6-2.3); Phosphorus 4.1 mg/dL (2.5-4.5); Sodium 144 mmol/L (137-145); Total Bilirubin 0.5 mg/dL (0.2-1.3); Total Protein 3.4 g/dL (6.3-8.2)
[2018-07-28] MEDS: VANCOMYCIN 1,750 MG in SODIUM CHLORIDE 0.9% 500 ML 500 ML IVPB SCH (05:46)
[2018-07-28 05:48] LABS: Glucose,Whole Blood 152 mg/dL (75-99)
--- NOTE | 2018-07-28 07:18 | XR ---
EXAMINATION TYPE: XR chest 1V portable DATE OF EXAM: 07/28/2018 COMPARISON: 07/27/2018 HISTORY: SOB, Follow Up FINDINGS: Indwelling tubes and catheters are unchanged. Venous congestion with bilateral pleural effusions and scattered infiltrates compatible with underlyi ng congestive failure. Stable appearance of the cardio-mediastinal structures at this time. IMPRESSION: 1. Stable portable chest. Clinical correlation and follow up until resolution is recommended.
[2018-07-28] MEDS: FUROSEMIDE 10 MG/ML 2 ML VIAL IV SCH (08:25)
[2018-07-28] MEDS: FAMOTIDINE 20 MG/2 ML VIAL IV SCH (08:27)
[2018-07-28] MEDS: ENOXAPARIN 40 MG/0.4 ML SYRINGE SQ SCH ×2 (08:27→11:47)
[2018-07-28] MEDS: PIPERACILLIN-TAZOBACTAM 3.375 GM in SODIUM CHLORIDE 0.9% 100 ML IVPB SCH ×2 (08:40→15:42)
--- NOTE | 2018-07-28 08:57 | P.PN ---
Subjective Progress Note Date: 07/25/18 Principal diagnosis: Postop day #1 colectomy This is a continue progress on an 78-year-old white female essentially admitted for nephrolithiasis. The patient was found to have significant abnormality noted on CT scan. She slowly unfortunately, decompensated and ended up having laparotomy with multiple findings of colon perforation and ischemic bowel. The patient is in critical condition now in the ICU. Multiple consultants are otherwise noted. Objective - Vital Signs Vital signs: Vital Signs Temp 99.5 F 07/28/18 08:00 Pulse 112 H 07/28/18 08:00 Resp 27 H 07/28/18 08:00 BP 120/60 07/28/18 08:00 Pulse Ox 73 L 07/28/18 08:00 Intake & Output 07/27/18 07/28/18 07/28/18 18:59 06:59 18:59 Intake Total 2625 1227 474 Output Total 1860 715 70 Balance 765 512 404 Weight 97 kg Intake: IV 1170 1067 424 0.9NS 220 200 40 Calcium Gluconate 2,000 300 300 50 mg Mvi, Adult No.4 with Vit K 10 ml Trace (Conc- 1Ml/Dose) 1 ml Potassium Phosphate 30 mmol Magnesium Sulfate gm 2 gm In Amino Acid 5%-D15w+ Lytes*E* 1,000 ml @ 50 mls/hr IV .[id number] NOE Rx #:[id number] Calcium Gluconate 2,000 300 mg Mvi, Adult No.4 with Vit K 10 ml Trace (Conc- 1Ml/Dose) 1 ml Potassium Phosphate 40 mmol Magnesium Sulfate gm 2 gm In Amino Acid 5%-D15w+ Lytes*E* 1,000 ml @ 50 mls/hr IV .[id number] NOE Rx #:[id number] Fat Emulsion 20% 250 ml @ 0 41.667 mls/hr IV MoWeFr NOE Rx#:[id number] Fluconazole in NaCl,Iso- 100 Osm 200 mg In Saline 1 100ml.bag @ 100 mls/hr IVPB HS NOE Rx#:[id number] Piperacillin-Tazobactam 3 200 100 .375 gm In Sodium Chloride 0.9% 100 ml @ 25 mls/hr IVPB Q8HR NEO Rx# :[id number] Potassium Chloride 10 meq 50 200 In Water For Injection 1 100ml.bag @ 100 mls/hr IVPB Q1H NOE Rx#: [id number] Vancomycin 1,750 mg In 167 334 Sodium Chloride 0.9% 500 ml 500 ml @ 167 mls/hr IVPB Q16H NOE Rx#: [id number] metroNIDAZOLE-NS PMX 500 100 mg In Saline 1 100ml.bag @ 100 mls/hr IVPB Q8HR NOE Rx#:[id number] Intake, IV Titration 1245 Amount Calcium Gluconate 2,000 1045 mg Mvi, Adult No.4 with Vit K 10 ml Trace (Conc- 1Ml/Dose) 1 ml Potassium Phosphate 30 mmol Magnesium Sulfate gm 2 gm In Amino Acid 5%-D15w+ Lytes*E* 1,000 ml @ 50 mls/hr IV .[id number] NOE Rx #:[id number] Potassium Chloride 10 meq 200 In Water For Injection 1 100ml.bag @ 100 mls/hr IVPB Q1H NOE Rx#: [id number] Tube Feeding 120 130 20 Other 90 30 30 Output: Urine 1860 715 70 Other: Voiding Method Indwelling Catheter Indwelling Catheter ABP, PAP, CO, CI - Last Documented Arterial Blood Pressure 100/93 - Constitutional General appearance: Absent: no acute distress - Respiratory Respiratory: bilateral: CTA - Cardiovascular Rhythm: regular Heart sounds: normal: S1, S2 Abnormal Heart Sounds: Absent: S3 Gallop - Gastrointestinal Gastrointestinal Comment(s): Open wound colostomy noted. Wound is stable General gastrointestinal: Present: soft. Absent: tenderness - Psychiatric Psychiatric: Absent: A&O x's 3, appropriate affect - Labs CBC & Chem 7: 07/28/18 04:45 07/28/18 04:45 Labs: Abnormal Lab Results - Last 24 Hours (Table) 07/27/18 07/27/18 07/27/18 Range/Units 13:16 18:22 23:42 WBC (3.8-10.6) k/uL RBC (3.80-5.40) m/uL Hgb (11.4-16.0) gm/dL Hct (34.0-46.0) % RDW (11.5-15.5) % Chloride (98-107) mmol/L BUN (7-17) mg/dL Glucose (74-99) mg/dL POC Glucose (mg/dL) 188 H 170 H 195 H (75-99) mg/dL Calcium (8.4-10.2) mg/dL AST (14-36) U/L ALT (9-52) U/L Alkaline Phosphatase (38-126) U/L Total Protein (6.3-8.2) g/dL Albumin (3.5-5.0) g/dL 07/28/18 07/28/18 07/28/18 Range/Units 04:45 04:45 05:46 WBC 33.6 H (3.8-10.6) k/uL RBC 3.12 L (3.80-5.40) m/uL Hgb 8.5 L (11.4-16.0) gm/dL Hct 26.9 L (34.0-46.0) % RDW 16.6 H (11.5-15.5) % Chloride 114 H (98-107) mmol/L BUN 31 H (7-17) mg/dL Glucose 165 H (74-99) mg/dL POC Glucose (mg/dL) 152 H (75-99) mg/dL Calcium 6.9 L (8.4-10.2) mg/dL AST 53 H (14-36) U/L ALT 53 H (9-52) U/L Alkaline Phosphatase 164 H (38-126) U/L Total Protein 3.4 L (6.3-8.2) g/dL Albumin 1.4 L (3.5-5.0) g/dL Assessment and Plan (1) Colonic thickening Current Visit: Yes Status: Acute Code(s): K63.9 - DISEASE OF INTESTINE, UNSPECIFIED SNOMED Code(s): 810403701 (2) Dehydration Current Visit: Yes Status: Acute Code(s): E86.0 - DEHYDRATION SNOMED Code( s): 09641214 (3) Fall Current Visit: Yes Status: Acute Code(s): W19.XXXA - UNSPECIFIED FALL, INITIAL ENCOUNTER SNOMED Code(s): 2030204 (4) Sepsis secondary to UTI Current Visit: Yes Status: Acute Code(s): A41.9 - SEPSIS, UNSPECIFIED ORGANISM; N39.0 - URINARY TRACT INFECTION, SITE NOT SPECIFIED SNOMED Code(s): 011534440 Plan: Continue supportive care. Patient pulmonology input. Number of we will continue follow from a general surgery perspective. Prognosis is guarded secondary to her underlying disease state and advancing age. Check CBC and CMP in a.m. Dr. Vieyra's group will be covering for this weekend. Time with Patient: Less than 30
--- NOTE | 2018-07-28 10:29 | P.PN ---
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 07/27/2018, patient seen and evaluated examined during the rounds patient remains on nonrebreather mask saturation has been stable blood pressure is stable intermittently patient has been noted to be tachypneic she is awake and does follow simple commands, patient has been diuresing very well with furosemide, chest x-ray however remains unchanged some clearing of the bases cannot be excluded, patient does have significant by basilar atelectasis and small effusion, labs reviewed medications reviewed, patient is no code as per advanced directive, patient is not a appropriate candidate for BiPAP given recent bowel surgery high risk of aerophagia and its complications, white cell count continue to be noted in an upward trend, hemoglobin remained stable, can make changes in the skin around the ileostomy site has been intact, 07/26/2018, patient seen eval examined during the rounds clinically patient has been successfully weaned and extubated she is on 5 L oxygen saturation is stable hemodynamic status stable, patient has been called tolerating TPN very well, patient has received Lasix today have diarrhea significantly chest x-ray appears improved with decrease pleural effusion and interstitial edema, labs reviewed medications reviewed care plan discussed with the staff at length, patient undergoing physical therapy, he does open eyes and does not follow commands but remains awake, patient is no code as per advanced directive, white cell count remains elevated likely related to multifactorial processes including intra-abdominal sepsis and necrotic skin 07/25/2018, patient seen eval examined during the rounds clinically patient is doing slightly better currently patient is undergoing wound changes the abdomen ischemia of the skin overall remains unchanged patient is awake did receive Ativan earlier this morning, patient remains on assist control rate of 12 tidal volume of 400 with 5 of PEEP current respiratory rate is 21 she is on 40% oxygen her chest x-ray done today revealed bilateral pleural effusion as well as interstitial edema, patient has mild anasarca as well, patient has significant air leak from the endotracheal tube, I have advised to give Lasix 40 mg IV F discussed with the respiratory therapy to put patient on CPAP and pressure support once wound draining and new dressing has been applied and patient started doing dialysis if tolerated well and arterial blood gases stable likely will be extubated, patient post a weaning trial evaluated significantly improved arterial blood gas and clinical status and noted and patient has been successfully weaned and extubated in mental oxygen 07/24/2018, patient seen eval examined during the rounds clinically patient has been doing slightly better able to tolerate weaning and CPAP and pressure support of almost 1 hour, patient has been resumed on propofol would advise to DC put patient on morphine and Ativan initiated weaning will do a CPAP and pressure support trial with CPAP of 5 and pressure support of 10 labs reviewed medications reviewed, patient is still behind in potassium and calcium level which are being repleted, patient is tolerating TPN well, patient is scheduled for PICC line later on today 07/23/2018, patient seen eval examined during the rounds clinically patient has been doing not much different than baseline patient remains on propofol drip, off of pressors, ventilator setting revealed assist control of 14 breathing 22 tidal volume of 505 of PEEP and 40% oxygen I have lowered down the tidal volume to 450, continue to replace calcium as well as potassium, will give 40 mg of Lasix for gentle diuresis, will do a sedation holiday take patient off of propofol once awake been doing CPAP and pressure support trial on Jack no plans for aggressive weaning though continue to optimize nutritional support labs reviewed medications reviewed, critical care time spent 35 minutes 07/22/2018, patient seen eval examined during the rounds remains on full ventilator support patient has been tapered off of vasopressors now remains on propofol however remains very somnolent, TPN has been going along fairly well tolerating very well, patient continued to have low urine output and intermittent hypertension however no significant arrhythmia has been seen, 6 x- ray performed today remains stable, labs continue to show improved leukocytosis , ABG revealed metabolic alkalosis patient has significant hypokalemia which is being repleted, all the cultures so far has been negative some carlos has been isolated in the sputum likely contamination 07/21/2018, patient seen eval examined during the rounds she is sedated with propofol drip, currently she is on assist control rate of 14 breathing 16 tidal volume is 505 OPV and 40% oxygen, patient is on TPN tolerating very well patient also on Zosyn and Flagyl, levo fed drip is down to 5 mics, propofol is 15 mics, lactic acid the removal improved to 2.9, patient's blood gas and laboratory data reviewed as well care plan discussed with the family at length as well as surgical services, there is some changes in the ileostomy area skin is seen likely some necrosis and necrotic his skin as per discussion we'll monitor OBSERVE patient is being started on vancomycin IV, chest x-ray performed today revealed bibasilar atelectasis effusion and infiltrate possible pneumonia cannot be excluded patient is a however adequately covered with vancomycin and Zosyn oxygenation remains stable some of the effusion is likely secondary due to aggressive crystalloid resuscitation, white cell count continue to be elevated, arterial blood gases reviewed some alkalosis, bicarb is being discontinued, calcium level is on the low side, 07/20/2018, patient seen eval examined during the rounds clinically patient has been doing well in terms of hemodynamics able to come off of vasopressin, patient is still on levo fed drip though which is down to 8 mics, patient remains on 50 cc per hour of bicarb drip, propofol drip is 20 mics, patient is being planned to start on TPN, remains on full ventilator support, currently FiO2 is 40%, with tidal volume of 500, respiratory rate set at 14, she is breathing 16, PEEP is 5, arterial blood gas is pending today, chest x-ray finding as well as laboratory data reviewed, chest x-ray reviewed by shilo subsegmental atelectasis small effusion possible pneumonia cannot be excluded, patient is on IV Zosyn we'll add Flagyl as well, respiratory secretions are stable, white cell count is trending down to 21,000, hemoglobin and hematocrit did drop down to 9.3 and 29 likely dilutional as patient has been and is still being resuscitated with steroids, continue peptic ulcer disease prophylaxis continue DVT prophylaxis, critical care time spent 35 minutes 07/19/2018, patient seen eval examined during the rounds she remains sedated with propofol currently she is on 20 mics of propofol she is hemodynamically remains on stable, patient has the severe hypotension requiring vasopressin as well as levo fed which was up to 30 mics however able to taper it down to 10 mics now vasopressin is 0.03 unit, she is also on bicarb drip for severe metabolic acidosis currently running 50 mL an hour she has received so far postoperatively 9 L of LR and 2 L of normal saline she does make some urine about 10-20 mL with fluid boluses otherwise she becomes and uric plan is to give another liter of LR 2 50 mL an hour for 4 hours then to resume 100 mL an hour and lower she is sedated with propofol drip, family is present at bedside care plan discussed with them at length, currently patient is a full assist control mode with a rate of 14 breathing about 17, tidal volume is 500, 5 of PEEP, 50% oxygen, labs and medications reviewed, culture results and reports are pending, , chest x-ray revealed stable endotracheal tube stable central line and some subsegmental atelectasis at the bases are seen, patient remains on broad-spectrum antibiotics This is a pleasant 78-year-old female with no significant past medical history. She presented to the hospital with abdominal pain and has been found to have a bowel obstruction. We have been asked to see her in consultation for shortness of breath and hypoxia related to abdominal process. She has been evaluated by surgical services and per nursing staff she was vomiting all morning. Laboratory data reviewed, hemoglobin 13.7, platelets 439 WBC 12.0 down from 15.9 on admission, INR 1.5, sodium 139, potassium 3.4, creatinine 0.6, magnesium 2.1, cardiac enzymes negative 1. She also has been diagnosed with a urinary tract infection. EKG on admission reveals sinus mechanism with no acute ST or T wave abnormalities noted. Chest x-ray reveals mild pulmonary fibrosis. No overt heart failure or acute cardiopulmonary process. She takes no daily medications. She is also been seen in consultation by urology and surgical services. Urology suspects a large infected right renal stone. X-ray of the abdomen obtained reveals evidence of right renal calculus as well as colonic wall thickening suggestive of colitis. CT of the abdomen and pelvis with contrast reveals markedly colonic distention to the level of the sigmoid colon, numerous bilateral renal calculi and gallbladder markedly distended. HIDA scan reveals ejection fraction of about her 23% with increased symptoms of pain suggestive of underlying gallbladder dyskinesia with no evidence of acute cholecystitis. Patient decompensated earlier this morning with x-ray shows free air abdomen was diffusely tender patient was eventually taken by surgical services to OR for exploratory laparotomy of perforated viscus and for detail of surgical intervention please effort to surgical notes, patient was brought back into the ICU on full ventilator support hypotensive does have a central line and A-line intubated with assist control rate of 12 patient appears to be volume depleted her liter of the LR has been given with that systolic blood pressure improved into 90s arterial blood gas drawn labs are sent ventilator adjustment has been done Objective - Vital Signs Vital signs: Vital Signs Temp 99.5 F 07/28/18 08:00 Pulse 111 H 07/28/18 10:00 Resp 20 07/28/18 10:00 BP 127/66 07/28/18 10:00 Pulse Ox 90 L 07/28/18 10:00 Intake & Output 07/27/18 07/28/18 07/28/18 18:59 06:59 18:59 Intake Total 2625 1227 634 Output Total 1860 715 305 Balance 765 512 329 Weight 97 kg Intake: IV 1170 1067 564 0.9NS 220 200 80 Calcium Gluconate 2,000 300 300 150 mg Mvi, Adult No.4 with Vit K 10 ml Trace (Conc- 1Ml/Dose) 1 ml Potassium Phosphate 30 mmol Magnesium Sulfate gm 2 gm In Amino Acid 5%-D15w+ Lytes*E* 1,000 ml @ 50 mls/hr IV .[id number] [facility] Rx #:[id number] Calcium Gluconate 2,000 300 mg Mvi, Adult No.4 with Vit K 10 ml Trace (Conc- 1Ml/Dose) 1 ml Potassium Phosphate 40 mmol Magnesium Sulfate gm 2 gm In Amino Acid 5%-D15w+ Lytes*E* 1,000 ml @ 50 mls/hr IV .[id number] [facility] Rx #:[id number] Fat Emulsion 20% 250 ml @ 0 41.667 mls/hr IV MoWeFr [facility] Rx#:[id number] Fluconazole in NaCl,Iso- 100 Osm 200 mg In Saline 1 100ml.bag @ 100 mls/hr IVPB HS [facility] Rx#:[id number] Piperacillin-Tazobactam 3 200 100 .375 gm In Sodium Chloride 0.9% 100 ml @ 25 mls/hr IVPB Q8HR [facility] Rx# :[id number] Potassium Chloride 10 meq 50 200 In Water For Injection 1 100ml.bag @ 100 mls/hr IVPB Q1H [facility] Rx#: [id number] Vancomycin 1,750 mg In 167 334 Sodium Chloride 0.9% 500 ml 500 ml @ 167 mls/hr IVPB Q16H [facility] Rx#: [id number] metroNIDAZOLE-NS PMX 500 100 mg In Saline 1 100ml.bag @ 100 mls/hr IVPB Q8HR [facility] Rx#:[id number] Intake, IV Titration 1245 Amount Calcium Gluconate 2,000 1045 mg Mvi, Adult No.4 with Vit K 10 ml Trace (Conc- 1Ml/Dose) 1 ml Potassium Phosphate 30 mmol Magnesium Sulfate gm 2 gm In Amino Acid 5%-D15w+ Lytes*E* 1,000 ml @ 50 mls/hr IV .[id number] [facility] Rx #:[id number] Potassium Chloride 10 meq 200 In Water For Injection 1 100ml.bag @ 100 mls/hr IVPB Q1H [facility] Rx#: [id number] Tube Feeding 120 130 40 Other 90 30 30 Output: Urine 1860 715 305 Other: Voiding Method Indwelling Catheter Indwelling Catheter ABP, PAP, CO, CI - Last Documented Arterial Blood Pressure 100/93 - Exam Status post extubation now on nonrebreather mask awake at times follow simple commands but nonverbal and noncommunicative very weak - Constitutional General appearance: average body habitus - EENT Eyes: normal appearance Ears: bilateral: normal - Neck Neck: normal ROM Carotids: bilateral: upstroke normal, bruit absent - Respiratory Respiratory: bilateral: CTA Ammann few crackles at the bases cannot be excluded - Cardiovascular Rhythm: regular Heart sounds: normal: S1, S2 - Gastrointestinal Patient has a ileostomy as well as colostomy, anterior abdominal wall wound is open at the skin level fascia has been repaired, some ischemic changes along and around his ileostomy has been noted infectious being monitored and observed Neurological exam patient is arousable however does not follow commands though - Labs CBC & Chem 7: 07/28/18 04:45 07/28/18 04:45 Labs: Abnormal Lab Results - Last 24 Hours (Table) 07/27/18 07/27/18 07/27/18 Range/Units 13:16 18:22 23:42 WBC (3.8-10.6) k/uL RBC (3.80-5.40) m/uL Hgb (11.4-16.0) gm/dL Hct (34.0-46.0) % RDW (11.5-15.5) % Chloride (98-107) mmol/L BUN (7-17) mg/dL Glucose (74-99) mg/dL POC Glucose (mg/dL) 188 H 170 H 195 H (75-99) mg/dL Calcium (8.4-10.2) mg/dL AST (14-36) U/L ALT (9-52) U/L Alkaline Phosphatase (38-126) U/L Total Protein (6.3-8.2) g/dL Albumin (3.5-5.0) g/dL 07/28/18 07/28/18 07/28/18 Range/Units 04:45 04:45 05:46 WBC 33.6 H (3.8-10.6) k/uL RBC 3.12 L (3.80-5.40) m/uL Hgb 8.5 L (11.4-16.0) gm/dL Hct 26.9 L (34.0-46.0) % RDW 16.6 H (11.5-15.5) % Chloride 114 H (98-107) mmol/L BUN 31 H (7-17) mg/dL Glucose 165 H (74-99) mg/dL POC Glucose (mg/dL) 152 H (75-99) mg/dL Calcium 6.9 L (8.4-10.2) mg/dL AST 53 H (14-36) U/L ALT 53 H (9-52) U/L Alkaline Phosphatase 164 H (38-126) U/L Total Protein 3.4 L (6.3-8.2) g/dL Albumin 1.4 L (3.5-5.0) g/dL Assessment and Plan Assessment: Developing leukocytosis Severe hypokalemia and metabolic alkalosis, progressively getting better Skin necrosis of anterior abdominal wall around ileostomy, with overall poor and slow recovery Severe sepsis and septic shock Acute respiratory failure, anticipated complication of this extensive surgery Bi basilar pneumonia may be aspiration related, versus atelectasis Bowel perforation, status post ileostomy and colostomy Intra-abdominal secondary peritonitis Bilateral small pleural effusion Volume depletion and dehydration Leukocytosis and lactic acidosis, overall is stable and continued to improve respectively Severe profound metabolic acidosis Acute renal failure stage III however renal function in GFR slowly improving with fluid resuscitation Plan: Replace potassium and calcium Titrated oxygen down as tolerated Gentle diuresis will be new supplemental IV fluids to KVO Broad-spectrum antibiotics, Labs reviewed medications reviewed Repeat labs and chest x-ray tomorrow Continue TPN as planned Monitor observe anterior abdominal wall skin and wounds PT OT evaluation and increase activity as tolerated We'll keep in ICU for now Overall long-term prognosis is very poor with less likelihood of complete recovery Time with Patient: Greater than 30
--- NOTE | 2018-07-28 10:32 | P.PN ---
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 07/28/2018, patient seen eval examined during the rounds she remains on 100% oxygen, noted white cell count continue to go up now they are 30,000, oxygen saturation remains in the high 80s to low 90s, patient renal functions continued to decline, urine output has been marginal in spite of diuresis, overall clinically patient continued to decline these findings have been discussed with the at length about her poor prognosis and poor recovery , patient is in no code not a candidate for BiPAP with high risk of aspiration and related complication as per family wishes we'll continue therapy 07/27/2018, patient seen and evaluated examined during the rounds patient remains on nonrebreather mask saturation has been stable blood pressure is stable intermittently patient has been noted to be tachypneic she is awake and does follow simple commands, patient has been diuresing very well with furosemide, chest x-ray however remains unchanged some clearing of the bases cannot be excluded, patient does have significant by basilar atelectasis and small effusion, labs reviewed medications reviewed, patient is no code as per advanced directive, patient is not a appropriate candidate for BiPAP given recent bowel surgery high risk of aerophagia and its complications, white cell count continue to be noted in an upward trend, hemoglobin remained stable, can make changes in the skin around the ileostomy site has been intact, 07/26/2018, patient seen eval examined during the rounds clinically patient has been successfully weaned and extubated she is on 5 L oxygen saturation is stable hemodynamic status stable, patient has been called tolerating TPN very well, patient has received Lasix today have diarrhea significantly chest x-ray appears improved with decrease pleural effusion and interstitial edema, labs reviewed medications reviewed care plan discussed with the staff at length, patient undergoing physical therapy, he does open eyes and does not follow commands but remains awake, patient is no code as per advanced directive, white cell count remains elevated likely related to multifactorial processes including intra-abdominal sepsis and necrotic skin 07/25/2018, patient seen eval examined during the rounds clinically patient is doing slightly better currently patient is undergoing wound changes the abdomen ischemia of the skin overall remains unchanged patient is awake did receive Ativan earlier this morning, patient remains on assist control rate of 12 tidal volume of 400 with 5 of PEEP current respiratory rate is 21 she is on 40% oxygen her chest x-ray done today revealed bilateral pleural effusion as well as interstitial edema, patient has mild anasarca as well, patient has significant air leak from the endotracheal tube, I have advised to give Lasix 40 mg IV F discussed with the respiratory therapy to put patient on CPAP and pressure support once wound draining and new dressing has been applied and patient started doing dialysis if tolerated well and arterial blood gases stable likely will be extubated, patient post a weaning trial evaluated significantly improved arterial blood gas and clinical status and noted and patient has been successfully weaned and extubated in mental oxygen 07/24/2018, patient seen eval examined during the rounds clinically patient has been doing slightly better able to tolerate weaning and CPAP and pressure support of almost 1 hour, patient has been resumed on propofol would advise to DC put patient on morphine and Ativan initiated weaning will do a CPAP and pressure support trial with CPAP of 5 and pressure support of 10 labs reviewed medications reviewed, patient is still behind in potassium and calcium level which are being repleted, patient is tolerating TPN well, patient is scheduled for PICC line later on today 07/23/2018, patient seen eval examined during the rounds clinically patient has been doing not much different than baseline patient remains on propofol drip, off of pressors, ventilator setting revealed assist control of 14 breathing 22 tidal volume of 505 of PEEP and 40% oxygen I have lowered down the tidal volume to 450, continue to replace calcium as well as potassium, will give 40 mg of Lasix for gentle diuresis, will do a sedation holiday take patient off of propofol once awake been doing CPAP and pressure support trial on Jack no plans for aggressive weaning though continue to optimize nutritional support labs reviewed medications reviewed, critical care time spent 35 minutes 07/22/2018, patient seen eval examined during the rounds remains on full ventilator support patient has been tapered off of vasopressors now remains on propofol however remains very somnolent, TPN has been going along fairly well tolerating very well, patient continued to have low urine output and intermittent hypertension however no significant arrhythmia has been seen, 6 x- ray performed today remains stable, labs continue to show improved leukocytosis , ABG revealed metabolic alkalosis patient has significant hypokalemia which is being repleted, all the cultures so far has been negative some carlos has been isolated in the sputum likely contamination 07/21/2018, patient seen eval examined during the rounds she is sedated with propofol drip, currently she is on assist control rate of 14 breathing 16 tidal volume is 505 OPV and 40% oxygen, patient is on TPN tolerating very well patient also on Zosyn and Flagyl, levo fed drip is down to 5 mics, propofol is 15 mics, lactic acid the removal improved to 2.9, patient's blood gas and laboratory data reviewed as well care plan discussed with the family at length as well as surgical services, there is some changes in the ileostomy area skin is seen likely some necrosis and necrotic his skin as per discussion we'll monitor OBSERVE patient is being started on vancomycin IV, chest x-ray performed today revealed bibasilar atelectasis effusion and infiltrate possible pneumonia cannot be excluded patient is a however adequately covered with vancomycin and Zosyn oxygenation remains stable some of the effusion is likely secondary due to aggressive crystalloid resuscitation, white cell count continue to be elevated, arterial blood gases reviewed some alkalosis, bicarb is being discontinued, calcium level is on the low side, 07/20/2018, patient seen eval examined during the rounds clinically patient has been doing well in terms of hemodynamics able to come off of vasopressin, patient is still on levo fed drip though which is down to 8 mics, patient remains on 50 cc per hour of bicarb drip, propofol drip is 20 mics, patient is being planned to start on TPN, remains on full ventilator support, currently FiO2 is 40%, with tidal volume of 500, respiratory rate set at 14, she is breathing 16, PEEP is 5, arterial blood gas is pending today, chest x-ray finding as well as laboratory data reviewed, chest x-ray reviewed by shilo subsegmental atelectasis small effusion possible pneumonia cannot be excluded, patient is on IV Zosyn we'll add Flagyl as well, respiratory secretions are stable, white cell count is trending down to 21,000, hemoglobin and hematocrit did drop down to 9.3 and 29 likely dilutional as patient has been and is still being resuscitated with steroids, continue peptic ulcer disease prophylaxis continue DVT prophylaxis, critical care time spent 35 minutes 07/19/2018, patient seen eval examined during the rounds she remains sedated with propofol currently she is on 20 mics of propofol she is hemodynamically remains on stable, patient has the severe hypotension requiring vasopressin as well as levo fed which was up to 30 mics however able to taper it down to 10 mics now vasopressin is 0.03 unit, she is also on bicarb drip for severe metabolic acidosis currently running 50 mL an hour she has received so far postoperatively 9 L of LR and 2 L of normal saline she does make some urine about 10-20 mL with fluid boluses otherwise she becomes and uric plan is to give another liter of LR 2 50 mL an hour for 4 hours then to resume 100 mL an hour and lower she is sedated with propofol drip, family is present at bedside care plan discussed with them at length, currently patient is a full assist control mode with a rate of 14 breathing about 17, tidal volume is 500, 5 of PEEP, 50% oxygen, labs and medications reviewed, culture results and reports are pending, , chest x-ray revealed stable endotracheal tube stable central line and some subsegmental atelectasis at the bases are seen, patient remains on broad-spectrum antibiotics This is a pleasant 78-year-old female with no significant past medical history. She presented to the hospital with abdominal pain and has been found to have a bowel obstruction. We have been asked to see her in consultation for shortness of breath and hypoxia related to abdominal process. She has been evaluated by surgical services and per nursing staff she was vomiting all morning. Laboratory data reviewed, hemoglobin 13.7, platelets 439 WBC 12.0 down from 15.9 on admission, INR 1.5, sodium 139, potassium 3.4, creatinine 0.6, magnesium 2.1, cardiac enzymes negative 1. She also has been diagnosed with a urinary tract infection. EKG on admission reveals sinus mechanism with no acute ST or T wave abnormalities noted. Chest x-ray reveals mild pulmonary fibrosis. No overt heart failure or acute cardiopulmonary process. She takes no daily medications. She is also been seen in consultation by urology and surgical services. Urology suspects a large infected right renal stone. X-ray of the abdomen obtained reveals evidence of right renal calculus as well as colonic wall thickening suggestive of colitis. CT of the abdomen and pelvis with contrast reveals markedly colonic distention to the level of the sigmoid colon, numerous bilateral renal calculi and gallbladder markedly distended. HIDA scan reveals ejection fraction of about her 23% with increased symptoms of pain suggestive of underlying gallbladder dyskinesia with no evidence of acute cholecystitis. Patient decompensated earlier this morning with x-ray shows free air abdomen was diffusely tender patient was eventually taken by surgical services to OR for exploratory laparotomy of perforated viscus and for detail of surgical intervention please effort to surgical notes, patient was brought back into the ICU on full ventilator support hypotensive does have a central line and A-line intubated with assist control rate of 12 patient appears to be volume depleted her liter of the LR has been given with that systolic blood pressure improved into 90s arterial blood gas drawn labs are sent ventilator adjustment has been done Objective - Vital Signs Vital signs: Vital Signs Temp 99.5 F 07/28/18 08:00 Pulse 111 H 07/28/18 10:00 Resp 20 07/28/18 10:00 BP 127/66 07/28/18 10:00 Pulse Ox 90 L 07/28/18 10:00 Intake & Output 07/27/18 07/28/18 07/28/18 18:59 06:59 18:59 Intake Total 2625 1227 634 Output Total 1860 715 305 Balance 765 512 329 Weight 97 kg Intake: IV 1170 1067 564 0.9NS 220 200 80 Calcium Gluconate 2,000 300 300 150 mg Mvi, Adult No.4 with Vit K 10 ml Trace (Conc- 1Ml/Dose) 1 ml Potassium Phosphate 30 mmol Magnesium Sulfate gm 2 gm In Amino Acid 5%-D15w+ Lytes*E* 1,000 ml @ 50 mls/hr IV .[id number] [facility] Rx #:[id number] Calcium Gluconate 2,000 300 mg Mvi, Adult No.4 with Vit K 10 ml Trace (Conc- 1Ml/Dose) 1 ml Potassium Phosphate 40 mmol Magnesium Sulfate gm 2 gm In Amino Acid 5%-D15w+ Lytes*E* 1,000 ml @ 50 mls/hr IV .[id number] [facility] Rx #:[id number] Fat Emulsion 20% 250 ml @ 0 41.667 mls/hr IV MoWeFr NOE Rx#:[id number] Fluconazole in NaCl,Iso- 100 Osm 200 mg In Saline 1 100ml.bag @ 100 mls/hr IVPB HS [facility] Rx#:[id number] Piperacillin-Tazobactam 3 200 100 .375 gm In Sodium Chloride 0.9% 100 ml @ 25 mls/hr IVPB Q8HR [facility] Rx# :[id number] Potassium Chloride 10 meq 50 200 In Water For Injection 1 100ml.bag @ 100 mls/hr IVPB Q1H [facility] Rx#: [id number] Vancomycin 1,750 mg In 167 334 Sodium Chloride 0.9% 500 ml 500 ml @ 167 mls/hr IVPB Q16H [facility] Rx#: [id number] metroNIDAZOLE-NS PMX 500 100 mg In Saline 1 100ml.bag @ 100 mls/hr IVPB Q8HR [facility] Rx#:[id number] Intake, IV Titration 1245 Amount Calcium Gluconate 2,000 1045 mg Mvi, Adult No.4 with Vit K 10 ml Trace (Conc- 1Ml/Dose) 1 ml Potassium Phosphate 30 mmol Magnesium Sulfate gm 2 gm In Amino Acid 5%-D15w+ Lytes*E* 1,000 ml @ 50 mls/hr IV .[id number] [facility] Rx #:[id number] Potassium Chloride 10 meq 200 In Water For Injection 1 100ml.bag @ 100 mls/hr IVPB Q1H [facility] Rx#: [id number] Tube Feeding 120 130 40 Other 90 30 30 Output: Urine 1860 715 305 Other: Voiding Method Indwelling Catheter Indwelling Catheter ABP, PAP, CO, CI - Last Documented Arterial Blood Pressure 100/93 - Exam Status post extubation now on nonrebreather mask awake at times follow simple commands but nonverbal and noncommunicative very weak - Constitutional General appearance: average body habitus - EENT Eyes: normal appearance Ears: bilateral: normal - Neck Neck: normal ROM Carotids: bilateral: upstroke normal, bruit absent - Respiratory Respiratory: bilateral: CTA Ammann few crackles at the bases cannot be excluded - Cardiovascular Rhythm: regular Heart sounds: normal: S1, S2 - Gastrointestinal Patient has a ileostomy as well as colostomy, anterior abdominal wall wound is open at the skin level fascia has been repaired, some ischemic changes along and around his ileostomy has been noted infectious being monitored and observed Neurological exam patient is arousable however does not follow commands though - Labs CBC & Chem 7: 07/28/18 04:45 07/28/18 04:45 Labs: Abnormal Lab Results - Last 24 Hours (Table) 07/27/18 07/27/18 07/27/18 Range/Units 13:16 18:22 23:42 WBC (3.8-10.6) k/uL RBC (3.80-5.40) m/uL Hgb (11.4-16.0) gm/dL Hct (34.0-46.0) % RDW (11.5-15.5) % Chloride (98-107) mmol/L BUN (7-17) mg/dL Glucose (74-99) mg/dL POC Glucose (mg/dL) 188 H 170 H 195 H (75-99) mg/dL Calcium (8.4-10.2) mg/dL AST (14-36) U/L ALT (9-52) U/L Alkaline Phosphatase (38-126) U/L Total Protein (6.3-8.2) g/dL Albumin (3.5-5.0) g/dL 07/28/18 07/28/18 07/28/18 Range/Units 04:45 04:45 05:46 WBC 33.6 H (3.8-10.6) k/uL RBC 3.12 L (3.80-5.40) m/uL Hgb 8.5 L (11.4-16.0) gm/dL Hct 26.9 L (34.0-46.0) % RDW 16.6 H (11.5-15.5) % Chloride 114 H (98-107) mmol/L BUN 31 H (7-17) mg/dL Glucose 165 H (74-99) mg/dL POC Glucose (mg/dL) 152 H (75-99) mg/dL Calcium 6.9 L (8.4-10.2) mg/dL AST 53 H (14-36) U/L ALT 53 H (9-52) U/L Alkaline Phosphatase 164 H (38-126) U/L Total Protein 3.4 L (6.3-8.2) g/dL Albumin 1.4 L (3.5-5.0) g/dL Assessment and Plan Assessment: Developing leukocytosis Severe hypokalemia and metabolic alkalosis, progressively getting better Skin necrosis of anterior abdominal wall around ileostomy, with overall poor and slow recovery Severe sepsis and septic shock Acute respiratory failure, anticipated complication of this extensive surgery Bi basilar pneumonia may be aspiration related, versus atelectasis Bowel perforation, status post ileostomy and colostomy Intra-abdominal secondary peritonitis Bilateral small pleural effusion Volume depletion and dehydration Leukocytosis and lactic acidosis, overall is stable and continued to improve respectively Severe profound metabolic acidosis Acute renal failure stage III however renal function in GFR slowly improving with fluid resuscitation Plan: Replace potassium and calcium Titrated oxygen down as tolerated Gentle diuresis Broad-spectrum antibiotics, Labs reviewed medications reviewed Repeat labs and chest x-ray tomorrow Continue TPN as planned Monitor observe anterior abdominal wall skin and wounds PT OT evaluation and increase activity as tolerated We'll keep in ICU for now Overall long-term prognosis is very poor with poor likelihood of complete recovery Time with Patient: Greater than 30
[2018-07-28 12:02] LABS: Glucose,Whole Blood 188 mg/dL (75-99)
[2018-07-28] MEDS: [UNRECOGNIZED DRUG - REMARK] IV SCH ×6 (12:29)
--- NOTE | 2018-07-28 13:54 | P.PN ---
Subjective Progress Note Date: 07/28/18 Patient awake but not oriented patient on a nonrebreather mask on TPN. She tries to track you down but she is not following commands and not oriented. She is not speaking at this time. Therefore review of system was difficult to obtain 07/28/2018 Patient seems to be having agonal breathing. Overall her condition is declining. Talk to the patient's at length. He is in agreement with comfort care but wants to wait for his son's to come and wants to have a group meeting before making any final decision. understands the overall grave prognosis and also understands that patient might even in the next few hours to a few days. Patient still unresponsive. Objective - Vital Signs Vital signs: Vital Signs Temp 99.5 F 07/28/18 08:00 Pulse 98 07/28/18 13:00 Resp 16 07/28/18 13:00 BP 71/37 07/28/18 13:00 Pulse Ox 92 L 07/28/18 13:00 Intake & Output 07/27/18 07/28/18 07/28/18 18:59 06:59 18:59 Intake Total 2625 1227 1869 Output Total 1860 715 465 Balance 692 966 5014 Weight 97 kg Intake: IV 1170 1067 704 0.9NS 220 200 120 Calcium Gluconate 2,000 300 300 250 mg Mvi, Adult No.4 with Vit K 10 ml Trace (Conc- 1Ml/Dose) 1 ml Potassium Phosphate 30 mmol Magnesium Sulfate gm 2 gm In Amino Acid 5%-D15w+ Lytes*E* 1,000 ml @ 50 mls/hr IV .[id number] [facility] Rx #:[id number] Calcium Gluconate 2,000 300 mg Mvi, Adult No.4 with Vit K 10 ml Trace (Conc- 1Ml/Dose) 1 ml Potassium Phosphate 40 mmol Magnesium Sulfate gm 2 gm In Amino Acid 5%-D15w+ Lytes*E* 1,000 ml @ 50 mls/hr IV .[id number] [facility] Rx #:[id number] Fat Emulsion 20% 250 ml @ 0 41.667 mls/hr IV MoWeFr [facility] Rx#:[id number] Fluconazole in NaCl,Iso- 100 Osm 200 mg In Saline 1 100ml.bag @ 100 mls/hr IVPB HS [facility] Rx#:[id number] Piperacillin-Tazobactam 3 200 100 .375 gm In Sodium Chloride 0.9% 100 ml @ 25 mls/hr IVPB Q8HR [facility] Rx# :[id number] Potassium Chloride 10 meq 50 200 In Water For Injection 1 100ml.bag @ 100 mls/hr IVPB Q1H [facility] Rx#: [id number] Vancomycin 1,750 mg In 167 334 Sodium Chloride 0.9% 500 ml 500 ml @ 167 mls/hr IVPB Q16H [facility] Rx#: [id number] metroNIDAZOLE-NS PMX 500 100 mg In Saline 1 100ml.bag @ 100 mls/hr IVPB Q8HR [facility] Rx#:[id number] Intake, IV Titration 1245 1045 Amount Calcium Gluconate 2,000 1045 1045 mg Mvi, Adult No.4 with Vit K 10 ml Trace (Conc- 1Ml/Dose) 1 ml Potassium Phosphate 30 mmol Magnesium Sulfate gm 2 gm In Amino Acid 5%-D15w+ Lytes*E* 1,000 ml @ 50 mls/hr IV .[id number] [facility] Rx #:[id number] Potassium Chloride 10 meq 200 In Water For Injection 1 100ml.bag @ 100 mls/hr IVPB Q1H [facility] Rx#: [id number] Tube Feeding 120 130 60 Other 90 30 60 Output: Urine 1860 715 365 Stool 100 Other: Voiding Method Indwelling Catheter Indwelling Catheter Indwelling Catheter ABP, PAP, CO, CI - Last Documented Arterial Blood Pressure 100/93 - Exam GEN : patient is not oriented and not following commands HEENT: Conjunctivae normal. eyes normal. NECK: No JVD. No thyroid enlargement. No LNs CARDIOVASCULAR: S1, S2 RESPIRATION: Breath sounds diminished in the bases. No rhonchi or crackles. No bronchial breathing. ABDOMEN: Patient has an ostomy bag and dressing applied secondary to surgery. LEGS: +1 pedal edema appreciated bilaterally NERVOUS SYSTEM: Not able to examine the neuro as patient is not cooperative - Labs CBC & Chem 7: 07/28/18 04:45 07/28/18 04:45 Labs: Abnormal Lab Results - Last 24 Hours (Table) 07/27/18 07/27/18 07/28/18 Range/Units 18:22 23:42 04:45 WBC (3.8-10.6) k/uL RBC (3.80-5.40) m/uL Hgb (11.4-16.0) gm/dL Hct (34.0-46.0) % RDW (11.5-15.5) % Chloride 114 H (98-107) mmol/L BUN 31 H (7-17) mg/dL Glucose 165 H (74-99) mg/dL POC Glucose (mg/dL) 170 H 195 H (75-99) mg/dL Calcium 6.9 L (8.4-10.2) mg/dL AST 53 H (14-36) U/L ALT 53 H (9-52) U/L Alkaline Phosphatase 164 H (38-126) U/L Total Protein 3.4 L (6.3-8.2) g/dL Albumin 1.4 L (3.5-5.0) g/dL 07/28/18 07/28/18 07/28/18 Range/Units 04:45 05:46 11:50 WBC 33.6 H (3.8-10.6) k/uL RBC 3.12 L (3.80-5.40) m/uL Hgb 8.5 L (11.4-16.0) gm/dL Hct 26.9 L (34.0-46.0) % RDW 16.6 H (11.5-15.5) % Chloride (98-107) mmol/L BUN (7-17) mg/dL Glucose (74-99) mg/dL POC Glucose (mg/dL) 152 H 188 H (75-99) mg/dL Calcium (8.4-10.2) mg/dL AST (14-36) U/L ALT (9-52) U/L Alkaline Phosphatase (38-126) U/L Total Protein (6.3-8.2) g/dL Albumin (3.5-5.0) g/dL Assessment and Plan Assessment: - Acute encephalopathy multifactorial due to ongoing medical issues outlined below - Severe septic shock - Bowel perforation status post ileostomy and colostomy - Secondary peritonitis due to perforation - Bilateral pneumonia - Acute respiratory failure - Bilateral pleural effusions - AK I Plan - Appreciated ICU management - Continue antibiotics as per infectious disease recommendations - Surgery following the patient - Patient is having agonal breathing. She is having declining renal functions. Blood pressure is towards the low normal side - Discussed with the family especially the at length. He said that the patient did not wish to be like this. He would like to discuss with his sons about further management. He is leaning towards comfort care. I explained to him that the overall situation does not look good and that she probably has few hours to a few days left at the max. I also explained to him that she seemed uncomfortable because of her respiration and her overall situation. I offered him comfort care measures to which the patient showed appreciation and said that he would discuss with his son and let us know. - We'll continue the current management for now Time with Patient: Greater than 30
[2018-07-28] MEDS: SODIUM CHLORIDE 0.9% 1,000 ML IV SCH (15:42)
[2018-07-28] MEDS ORDERED: MORPHINE SULFATE 4 MG/ML SYRINGE IVP ONE (16:48)
[2018-07-28] MEDS ORDERED: SCOPOLAMINE 1.5MG/72HR PATCH TRANSDERM SCH (17:00)
[2018-07-28] MEDS: LORazepam 2 MG/ML INJ IV PRN (17:49)
[2018-07-28] MEDS: MORPHINE SULFATE (100 MG/2 ML) 100 MG in SODIUM CHLORIDE 0.9% 100 ML IV SCH (17:52)
[2018-07-28 18:07] VITALS: BP 84/43
[2018-07-29 00:31] VITALS: TEMP 98.3
--- NOTE | 2018-07-29 07:32 | P.PN ---
Subjective Progress Note Date: 07/28/18 CHIEF COMPLAINT: Cecal perforation HISTORY OF PRESENT ILLNESS: The patient is a 78-year-old female status post right hemicolectomy with ileostomy and mucus fistula following cecal perforation , POD 10. White blood cell continues to increase over 33,000 today. She has intermittent fevers. is at bedside. Medical team has discussed comfort care measures with the family. Patient has more purposeful movement of the bilateral upper extremities compared to yesterday. PHYSICAL EXAM: VITAL SIGNS: Reviewed GENERAL: Well-developed in no acute distress. HEENT: No sclera icterus. Extraocular movements grossly intact. Moist buccal mucosa. Head is atraumatic, normocephalic. Hears conversational speech. NECK: Supple without lymphadenopathy. CHEST: Labored respirations and equal bilateral excursions. CARDIOVASCULAR: Palpable 2+ radial pulses. ABDOMEN: Soft. Ileostomy with bilious fluid no flatus. Mild skin breakdown left lower quadrant stable. MUSCULOSKELETAL: No clubbing, cyanosis. 3+ edema, anasarca NEUROLOGIC: Deficit of following commands. PSYCH: Alert to person. SKIN: Decreased edema with 3rd spacing of upper extremities and skin breakdown. LABS: Reviewed ASSESSMENT: 1. s/p colectomy and colostomy creation PLAN: 1. White blood cell count continued to increase of unclear etiology. Antibiotic management per infectious disease 2. Continue with skin care for skin breakdown of the left lower abdomen 3. Overall guarded prognosis Critical care time 26 minutes Objective - Vital Signs Vital signs: Vital Signs Temp 98.3 F 07/29/18 00:00 Pulse 96 07/29/18 00:00 Resp 12 07/29/18 00:00 BP 84/43 07/28/18 20:00 Pulse Ox 97 07/29/18 00:00 Intake & Output 07/28/18 07/29/18 07/29/18 18:59 06:59 18:59 Intake Total 2219 633.328 Output Total 555 60 Balance 1664 573.328 Intake: IV 984 20 0.9NS 200 20 Calcium Gluconate 2,000 450 mg Mvi, Adult No.4 with Vit K 10 ml Trace (Conc- 1Ml/Dose) 1 ml Potassium Phosphate 30 mmol Magnesium Sulfate gm 2 gm In Amino Acid 5%-D15w+ Lytes*E* 1,000 ml @ 50 mls/hr IV .[id number] [facility] Rx #:[id number] Vancomycin 1,750 mg In 334 Sodium Chloride 0.9% 500 ml 500 ml @ 167 mls/hr IVPB Q16H [facility] Rx#: [id number] Intake, IV Titration 1045 13.328 Amount Calcium Gluconate 2,000 1045 mg Mvi, Adult No.4 with Vit K 10 ml Trace (Conc- 1Ml/Dose) 1 ml Potassium Phosphate 30 mmol Magnesium Sulfate gm 2 gm In Amino Acid 5%-D15w+ Lytes*E* 1,000 ml @ 50 mls/hr IV .[id number] [facility] Rx #:[id number] Morphine Sulfate (100 mg/ 13.328 2 ml) 100 mg In Sodium Chloride 0.9% 100 ml @ 2 MG/HR 2.04 mls/hr IV . Q24H [facility] Rx#:[id number] Oral 600 Tube Feeding 100 Other 90 Output: Urine 455 60 Stool 100 Other: Voiding Method Indwelling Catheter Indwelling Catheter ABP, PAP, CO, CI - Last Documented Arterial Blood Pressure 100/93 - Labs CBC & Chem 7: 07/28/18 04:45 07/28/18 04:45 Labs: Abnormal Lab Results - Last 24 Hours (Table) 07/28/18 Range/Units 11:50 POC Glucose (mg/dL) 188 H (75-99) mg/dL Microbiology - Last 24 Hours (Table) 07/27/18 23:18 Blood Culture Gram Stain - Preliminary Blood 07/27/18 23:18 Blood Culture - Final Blood Assessment and Plan (1) Cecum perforation Current Visit: Yes Status: Acute Code(s): K35.32 - ACUTE APPENDICITIS WITH PERF AND LOC PERITONITIS, W/O ABSCS SNOMED Code(s): 809058324 (2) Colostomy fistula Current Visit: Yes Status: Acute Code(s): K94.09 - OTHER COMPLICATIONS OF COLOSTOMY SNOMED Code(s): 407394547 (3) Colostomy in place Current Visit: Yes Status: Acute Code(s): Z93.3 - COLOSTOMY STATUS SNOMED Code(s): 890696376 (4) Septic shock Current Visit: Yes Status: Acute Code(s): A41.9 - SEPSIS, UNSPECIFIED ORGANISM; R65.21 - SEVERE SEPSIS WITH SEPTIC SHOCK SNOMED Code(s): 24227224 (5) Morbid obesity due to excess calories Current Visit: Yes Status: Acute Code(s): E66.01 - MORBID (SEVERE) OBESITY DUE TO EXCESS CALORIES SNOMED Code(s): 774137206 (6) Anasarca Current Visit: Yes Status: Acute Code(s): R60.1 - GENERALIZED EDEMA SNOMED Code(s): 279148940
--- NOTE | 2018-07-29 08:01 | P.PN ---
Subjective Principal diagnosis: This is a continue present 78-year-old white female essentially postop day #11 for open laparotomy secondary to ischemic bowel and pneumoperitoneum. The patient is now on comfort measures. The patient is sedated and the family would like nasal cannula. Objective - Vital Signs Vital signs: Vital Signs Temp 98.3 F 07/29/18 00:00 Pulse 96 07/29/18 00:00 Resp 12 07/29/18 00:00 BP 84/43 07/28/18 20:00 Pulse Ox 97 07/29/18 00:00 Intake & Output 07/28/18 07/29/18 07/29/18 18:59 06:59 18:59 Intake Total 2219 633.328 Output Total 555 60 Balance 1664 573.328 Intake: IV 984 20 0.9NS 200 20 Calcium Gluconate 2,000 450 mg Mvi, Adult No.4 with Vit K 10 ml Trace (Conc- 1Ml/Dose) 1 ml Potassium Phosphate 30 mmol Magnesium Sulfate gm 2 gm In Amino Acid 5%-D15w+ Lytes*E* 1,000 ml @ 50 mls/hr IV .[id number] [facility] Rx #:[id number] Vancomycin 1,750 mg In 334 Sodium Chloride 0.9% 500 ml 500 ml @ 167 mls/hr IVPB Q16H [facility] Rx#: [id number] Intake, IV Titration 1045 13.328 Amount Calcium Gluconate 2,000 1045 mg Mvi, Adult No.4 with Vit K 10 ml Trace (Conc- 1Ml/Dose) 1 ml Potassium Phosphate 30 mmol Magnesium Sulfate gm 2 gm In Amino Acid 5%-D15w+ Lytes*E* 1,000 ml @ 50 mls/hr IV .[id number] [facility] Rx #:[id number] Morphine Sulfate (100 mg/ 13.328 2 ml) 100 mg In Sodium Chloride 0.9% 100 ml @ 2 MG/HR 2.04 mls/hr IV . Q24H [facility] Rx#:[id number] Oral 600 Tube Feeding 100 Other 90 Output: Urine 455 60 Stool 100 Other: Voiding Method Indwelling Catheter Indwelling Catheter ABP, PAP, CO, CI - Last Documented Arterial Blood Pressure 100/93 - Exam Deferred secondary to comfort element - Labs CBC & Chem 7: 07/28/18 04:45 02/03/19 04:45 Labs: Abnormal Lab Results - Last 24 Hours (Table) 07/28/18 Range/Units 11:50 POC Glucose (mg/dL) 188 H (75-99) mg/dL Microbiology - Last 24 Hours (Table) 07/27/18 23:18 Blood Culture Gram Stain - Preliminary Blood 07/27/18 23:18 Blood Culture - Final Blood Assessment and Plan (1) Colonic thickening Current Visit: Yes Status: Acute Code(s): K63.9 - DISEASE OF INTESTINE, UNSPECIFIED SNOMED Code(s): 556646513 (2) Dehydration Current Visit: Yes Status: Acute Code(s): E86.0 - DEHYDRATION SNOMED Code( s): 00809422 (3) Fall Current Visit: Yes Status: Acute Code(s): W19.XXXA - UNSPECIFIED FALL, INITIAL ENCOUNTER SNOMED Code(s): 2621140 (4) Sepsis secondary to UTI Current Visit: Yes Status: Acute Code(s): A41.9 - SEPSIS, UNSPECIFIED ORGANISM; N39.0 - URINARY TRACT INFECTION, SITE NOT SPECIFIED SNOMED Code(s): 527455425 Plan: We'll continue to follow during this time. Appreciate multiple inputs from consultants. Prognosis is poor
[2018-07-29 09:54] VITALS: BMI 39.1
[2018-07-29] MEDS: MORPHINE SULFATE (100 MG/2 ML) 100 MG in SODIUM CHLORIDE 0.9% 100 ML IV SCH (13:50)
[2018-07-29 15:10] VITALS: PULSE 93; RESP 15
--- NOTE | 2018-07-29 15:12 | P.PN ---
Progress Note - Text Progress Note Date: 07/29/18 Patient has been made DNAR-comfort care measures only. General surgery will sign off. Please re-consult if needed.
--- NOTE | 2018-07-29 20:27 | P.HPIM ---
History of Present Illness H&P Date: 07/16/18 Chief Complaint: Dysuria This is a history and physical in a-year-old white female with history of nephrolithiasis. She is essentially admitted because of stone presentation. However, computed tomography scan also showed colonic thickening and gallbladder hydrops. General surgery is not consulted. HIDA scan is pending. The patient has element of dehydration and nursing staff is discussed element of dementia/senility. Review of Systems Constitutional: Denies chills, Denies fever Eyes: denies blurred vision, denies pain Ears, nose, mouth and throat: Denies headache, Denies sore throat Cardiovascular: Denies chest pain, Denies shortness of breath Gastrointestinal: Reports as per HPI, Reports abdominal pain, Denies diarrhea, Denies nausea, Denies vomiting Genitourinary: Reports dysuria, Reports hematuria Past Medical History Past Medical History: No Reported History History of Any Multi-Drug Resistant Organisms: None Reported Past Surgical History: Orthopedic Surgery Past Anesthesia/Blood Transfusion Reactions: No Reported Reaction Past Psychological History: No Psychological Hx Reported Smoking Status: Former smoker Past Alcohol Use History: None Reported Past Drug Use History: None Reported - Past Family History Father Family Medical History: Chest Pain / Angina, Myocardial Infarction ([place]) Mother Family Medical History: Chest Pain / Angina Medications and Allergies Home Medications Medication Instructions Recorded Confirmed Type Acetaminophen with Codeine 0.5 - 1 tab PO BID PRN 07/15/18 07/15/18 History [Tylenol w/codeine #3] Allergies Allergy/AdvReac Type Severity Reaction Status Date / Time No Known Allergies Allergy Verified 07/15/18 21:46 Physical Exam Vitals: Vital Signs Temp Pulse Pulse Pulse Resp BP BP 07/16/18 07:00 97.8 F 63 18 07/16/18 02:30 18 07/16/18 02:04 97.4 F L 98 20 150/77 07/15/18 23:41 100 20 156/87 07/15/18 20:42 98.9 F 88 18 154/96 BP Pulse Ox 07/16/18 07:00 165/88 97 07/16/18 02:30 07/16/18 02:04 97 07/15/18 23:41 99 07/15/18 20:42 97 Intake and Output 07/15/18 07/16/18 07/16/18 22:59 06:59 14:59 Intake Total 1700 Balance 1700 Intake: Amount of Fluid Infused ( 1100 ml) Oral 600 Other: Voiding Method Bedside Commode Bedpan # Voids 1 # Bowel Movements 0 # Emeses 0 Weight 68.039 kg - Constitutional General appearance: no acute distress - EENT Eyes: EOMI - Neck Neck: no lymphadenopathy - Respiratory Respiratory: bilateral: CTA - Cardiovascular Rhythm: regular Heart sounds: normal: S1, S2 Abnormal Heart Sounds: no S3 Gallop - Gastrointestinal General gastrointestinal: soft, no tenderness - Musculoskeletal Musculoskeletal: no generalized weakness - Psychiatric Psychiatric: A&O x's 3, appropriate affect Results CBC & Chem 7: 07/15/18 21:34 07/15/18 21:34 Labs: Abnormal Lab Results - Last 24 Hours (Table) 07/15/18 07/15/18 07/15/18 Range/Units 21:34 21:34 21:34 WBC 15.9 H (3.8-10.6) k/uL Neutrophils # 13.8 H (1.3-7.7) k/uL Lymphocytes # 0.9 L (1.0-4.8) k/uL PT 14.8 H (9.0-12.0) sec INR 1.5 H (<1.2) Sodium 134 L (137-145) mmol/L BUN 28 H (7-17) mg/dL Glucose 119 H (74-99) mg/dL Total Protein 6.0 L (6.3-8.2) g/dL Albumin 3.2 L (3.5-5.0) g/dL Lipase 15 L (23-300) U/L Urine Appearance (Clear) Urine Protein (Negative) Urine Ketones (Negative) Urine Blood (Negative) Urine Bilirubin (Negative) Ur Leukocyte Esterase (Negative) Urine RBC (0-5) /hpf Urine WBC (0-5) /hpf Urine Bacteria (None) /hpf Urine Mucus (None) /hpf 07/15/18 Range/Units 22:34 WBC (3.8-10.6) k/uL Neutrophils # (1.3-7.7) k/uL Lymphocytes # (1.0-4.8) k/uL PT (9.0-12.0) sec INR (<1.2) Sodium (137-145) mmol/L BUN (7-17) mg/dL Glucose (74-99) mg/dL Total Protein (6.3-8.2) g/dL Albumin (3.5-5.0) g/dL Lipase (23-300) U/L Urine Appearance Cloudy H (Clear) Urine Protein 1+ H (Negative) Urine Ketones 2+ H (Negative) Urine Blood Moderate H (Negative) Urine Bilirubin 1+ H (Negative) Ur Leukocyte Esterase Large H (Negative) Urine RBC >182 H (0-5) /hpf Urine WBC 48 H (0-5) /hpf Urine Bacteria Occasional H (None) /hpf Urine Mucus Rare H (None) /hpf Thrombosis Risk Factor Assmnt - Choose All That Apply Any of the Below Risk Factors Present?: Yes Each Factor Represents 1 point: Medical pt on bed rest Other Risk Factors: Yes Each Risk Factor Represents 3 Points: Age 75 years or older Thrombosis Risk Factor Assessment Total Risk Factor Score: 4 Thrombosis Risk Factor Assessment Level: Moderate Risk Assessment and Plan (1) Colonic thickening Current Visit: Yes Status: Acute Code(s): K63.9 - DISEASE OF INTESTINE, UNSPECIFIED SNOMED Code(s): 807075284 (2) Dehydration Current Visit: Yes Status: Acute Code(s): E86.0 - DEHYDRATION SNOMED Code( s): 34078611 (3) Fall Current Visit: Yes Status: Acute Code(s): W19.XXXA - UNSPECIFIED FALL, INITIAL ENCOUNTER SNOMED Code(s): 4984640 (4) Sepsis secondary to UTI Current Visit: Yes Status: Acute Code(s): A41.9 - SEPSIS, UNSPECIFIED ORGANISM; N39.0 - URINARY TRACT INFECTION, SITE NOT SPECIFIED SNOMED Code(s): 749606389 Plan: Appreciate urology and general surgery input. Question need for neurologic evaluation given her mental status and memory issues. Check CBC and CMP in a.m. See orders otherwise. Time with Patient: Less than 30
== END 2018-07-29 15:51 | disposition hospice, inpatient (51) | DRG 853 ==
LOC: EC 20:32 → 4MS4W 23:34 → 2SICU 07-18 14:10
PROVIDERS: ADMIT Family Medicine; ATTEND Family Medicine
PROC: 5A1955Z Respiratory Ventilation, Greater than 96 Consecutive Hours (ICD-10-PCS; 2018-07-15)
PROC: 0BH17EZ Insertion of Endotracheal Airway into Trachea, Via Natural or Artificial Opening (ICD-10-PCS; 2018-07-15)
PROC: 0HQ0XZZ Repair Scalp Skin, External Approach (ICD-10-PCS; 2018-07-15)
PROC: 0DTF0ZZ Resection of Right Large Intestine, Open Approach (ICD-10-PCS; principal; 2018-07-19)
PROC: 0D1B0Z4 Bypass Ileum to Cutaneous, Open Approach (ICD-10-PCS; 2018-07-19)
PROC: 0DTN0ZZ Resection of Sigmoid Colon, Open Approach (ICD-10-PCS; 2018-07-19)
PROC: 0UT60ZZ Resection of Left Fallopian Tube, Open Approach (ICD-10-PCS; 2018-07-19)
PROC: 0UT10ZZ Resection of Left Ovary, Open Approach (ICD-10-PCS; 2018-07-19)
PROC: 3E0336Z Introduction of Nutritional Substance into Peripheral Vein, Percutaneous Approach (ICD-10-PCS; 2018-07-20)
PROC: 02HV33Z Insertion of Infusion Device into Superior Vena Cava, Percutaneous Approach (ICD-10-PCS; 2018-07-24)
DX: A41.9 Sepsis, unspecified organism (principal); J69.0 Pneumonitis due to inhalation of food and vomit; R65.21 Severe sepsis with septic shock; J96.01 Acute respiratory failure with hypoxia; K35.32 Acute appendicitis with perforation, localized peritonitis, and gangrene, without abscess; E87.4 Mixed disorder of acid-base balance; G93.40 Encephalopathy, unspecified; I96 Gangrene, not elsewhere classified; J90 Pleural effusion, not elsewhere classified; J98.11 Atelectasis; K82.1 Hydrops of gallbladder; N17.9 Acute kidney failure, unspecified; N13.6 Pyonephrosis; F05 Delirium due to known physiological condition; K55.9 Vascular disorder of intestine, unspecified; K56.609 Unspecified intestinal obstruction, unspecified as to partial versus complete obstruction; J84.10 Pulmonary fibrosis, unspecified; E86.9 Volume depletion, unspecified; E66.01 Morbid (severe) obesity due to excess calories; E83.51 Hypocalcemia; E86.0 Dehydration; E87.6 Hypokalemia; I12.9 Hypertensive chronic kidney disease with stage 1 through stage 4 chronic kidney disease, or unspecified chronic kidney disease; N18.3 Chronic kidney disease, stage 3 (moderate); R79.1 Abnormal coagulation profile; R29.6 Repeated falls; S01.01XA Laceration without foreign body of scalp, initial encounter; K82.8 Other specified diseases of gallbladder; F03.90 Unspecified dementia, unspecified severity, without behavioral disturbance, psychotic disturbance, mood disturbance, and anxiety; R07.89 Other chest pain; Z51.5 Encounter for palliative care; Z66 Do not resuscitate; Z87.442 Personal history of urinary calculi; Z87.891 Personal history of nicotine dependence; Z68.39 Body mass index [BMI] 39.0-39.9, adult; Z82.49 Family history of ischemic heart disease and other diseases of the circulatory system; W19.XXXA Unspecified fall, initial encounter
CPT/HCPCS: 12001; 36415; 36573; 36600; 70450; 71045; 71046; 72125; 74018; 74019; 74176; 78226; 80048; 80053; 80202; 81001; 82330; 82550; 82805; 83036; 83605; 83690; 83735; 84100; 84132; 84478; 84484; 85025; 85027; 85610; 86850; 86900; 86901; 87040; 87070; 87086; 87205; 88307; 90471; 90715; 93005; 93306; 94002; 94003; 96361; 96365; 99285

== ENCOUNTER 2018-07-29 15:13 | Inpatient (IN) | payer MEDICAID ==
[2018-07-29] MEDS ORDERED: ATROPINE OPHTH SOLN 1% 5ML BTL SUBLINGUAL PRN (15:24)
[2018-07-29] MEDS ORDERED: MORPHINE SULFATE 2 MG/ML SYRINGE IV PRN (15:24)
[2018-07-29] MEDS ORDERED: LORazepam 2 MG/ML INJ IV PRN (15:24)
[2018-07-29] MEDS ORDERED: ACETAMINOPHEN IV (For NPO) 1,000 MG in EMPTY BAG 1 BAG IVPB ONE (15:24)
[2018-07-29] MEDS ORDERED: ONDANSETRON 4 MG/2 ML VIAL IVP PRN (15:24)
[2018-07-29] MEDS ORDERED: SCOPOLAMINE 1.5MG/72HR PATCH TRANSDERM SCH (15:30)
[2018-07-29] MEDS ORDERED: MORPHINE SULFATE (100 MG/2 ML) 100 MG in SODIUM CHLORIDE 0.9% 100 ML IV SCH (15:30)
== END 2018-07-29 23:55 | disposition expired | DRG 951 ==
LOC: 2SICU 15:58 → 4SSUR 19:00
PROVIDERS: ADMIT Family Medicine; ATTEND Family Medicine
DX: Z51.5 Encounter for palliative care (principal); A41.9 Sepsis, unspecified organism; N39.0 Urinary tract infection, site not specified; K55.9 Vascular disorder of intestine, unspecified; Z66 Do not resuscitate; E86.0 Dehydration; Z87.442 Personal history of urinary calculi; Z87.891 Personal history of nicotine dependence